=== PATIENT | male | born 1950 | race Caucasian/White ===

== ENCOUNTER 2017-03-25 22:23 | Inpatient (IN) | payer MEDICARE ==
[~2017-03-25] VITALS: Ht 177.8 cm; Wt 83.0 kg
[2017-03-25 22:26] VITALS: BP 140/81; PULSE 88; RESP 16; TEMP 97.8; O2SAT 98
[2017-03-25] MEDS ORDERED: SODIUM CHLOR 0.9% 1000 ML INJ 1,000 ML IV SCH (22:52)
--- NOTE | 2017-03-25 22:58 | PD ---
HPI Chief Complaint: GI Complaint Time Seen by Provider: 22:53 Travel History International Travel<30 days: No Contact w/Intl Traveler<30days: No Traveled to known affect area: No History of Present Illness HPI 66-year-old male with a history of hypertension, diabetes presents to the emergency department for evaluation of inability to swallow. The patient states that he's had worsening difficulty with swallowing over the last month. States he was seen by his PCP who referred him to a middle school counselor. States he had a swallow study that was abnormal. He had an EGD [address] Muñoz that showed he had a mass and they performed a biopsy. They were called today with the results that it is esophageal cancer. States that they were told he would need a tube for nutrition. The patient and his family are concerned that he is dehydrated because he is unable to eat or drink secondary to this esophageal mass. States that he has been eating chicken broth but even now this is becoming more difficult. States that when he tries to eat or drink she vomits. He denies any fever, chills, chest pain, shortness of breath, abdominal pain, diarrhea, constipation. No other complaints. PCP Dr. Traylor. [facility] Social History Tobacco Use: No Allergies-Medications (Allergen,Severity, Reaction): Coded Allergies: No Known Allergies (Unverified , 03/25/17) Review of Systems Except as stated in HPI: all other systems reviewed are Neg Physical Exam Narrative GENERAL: Well-nourished and well-developed pleasant male patient in no acute distress who is nontoxic appearing. SKIN: Warm and dry. HEAD: Normocephalic and atraumatic. EYES: No injection, drainage, or hyphema noted. PERRLA. EOMI. ENT: No nasal drainage noted. Oropharynx is clear. NECK: Supple and the trachea is midline. CARDIOVASCULAR: Regular rate and rhythm. RESPIRATORY: Breath sounds are equal bilaterally with no accessory muscle use, wheezing, rhonchi, or crackles. GASTROINTESTINAL: Abdomen is soft, non-tender, and nondistended. MUSCULOSKELETAL: No obvious deformities, swelling, cyanosis, or ecchymosis is present throughout the upper and lower extremities. Patient has full range of motion without any signs of neurovascular compromise. NEUROLOGICAL: Awake, alert, and oriented. Normal speech and gait. Cranial nerves are grossly intact. Data Data Last Documented VS Vital Signs Date Time Temp Pulse Resp B/P Pulse Ox O2 Delivery O2 Flow Rate FiO2 03/25/17 22:26 97.8 88 16 140/81 98 Room Air Orders Complete Blood Count With Diff (03/25/17 22:52) Comprehensive Metabolic Panel (03/25/17 22:52) Lipase (03/25/17 22:52) Prothrombin Time / Inr (Pt) (03/25/17 22:52) Act Partial Throm Time (Ptt) (03/25/17 22:52) Urinalysis - C+S If Indicated (03/25/17 22:52) Iv Access Insert/Monitor (03/25/17 22:52) Ecg Monitoring (03/25/17 22:52) Oximetry (03/25/17 22:52) Sodium Chlor 0.9% 1000 Ml Inj (Ns 1000 M (03/25/17 22:52) Sodium Chloride 0.9% Flush (Ns Flush) (03/25/17 23:00) MDM Medical Decision Making Medical Screen Exam Complete: Yes Emergency Medical Condition: Yes Differential Diagnosis Dehydration versus electrolyte abnormality versus esophageal obstruction Narrative Course 66-year-old male with recent diagnosis of esophageal cancer presents to the emergency department for evaluation of inability to eat and drink secondary to esophageal obstruction. Patient is afebrile, vital signs are stable. Abdominal examination is benign. IV access is obtained, labs have been drawn and sent. Patient is placed on cardiac telemetry and pulse oximetry monitoring. Patient will likely need to be admitted as he does not tolerate oral intake. Patient is signed out to my attending physician Dr. Craft for evaluation and disposition. Jennifer Pena Mar 25, 2017 22:58
[2017-03-25] MEDS ORDERED: SODIUM CHLORIDE 0.9% FLUSH 10 ML FLUSH IV FLUSH PRN (23:00)
[2017-03-25] MEDS ORDERED: ALLO300T2 PO (23:08)
[2017-03-25] MEDS ORDERED: GLIP1TAB51 PO (23:08)
[2017-03-25] MEDS ORDERED: SIMV40TA PO (23:08)
[2017-03-25] MEDS ORDERED: METF1000 PO (23:08)
[2017-03-25] MEDS ORDERED: LISI20TA PO (23:08)
[2017-03-26] VITALS (11 sets, daily range): BP systolic 115–160; BP diastolic 70–89; PULSE 67–99; RESP 16–20; TEMP 96.8–98.5; O2SAT 96–100
[2017-03-26 00:02] LABS: AUTOMATED NEUTROPHIL # 6.9 TH/MM3 (1.8-7.7); BASOPHIL # 0.1 TH/MM3 (0-0.2); BASOPHIL % 0.6 % (0.0-2.0); EOSINOPHIL # 0.1 TH/MM3 (0-0.4); EOSINOPHIL % 1.2 % (0.0-4.0); HEMATOCRIT 39.6 % (39.0-51.0); HEMO FLAGS DIFF FINAL; LYMPH % 20.3 % (9.0-44.0); LYMPHOCYTE # 2.1 TH/MM3 (1.0-4.8); MEAN CELL VOLUME 92.1 FL (80.0-100.0); MEAN CORPUSCULAR HEMOGLOBIN 31.8 PG (27.0-34.0); MEAN CORPUSCULAR HGB CONC 34.5 % (32.0-36.0); MONO % 10.1 % (0.0-8.0); NEUT % 67.8 % (16.0-70.0); PLATELET COUNT 196 TH/MM3 (150-450); RED CELL DISTRIBUTION WIDTH 13.8 % (11.6-17.2); WHITE BLOOD COUNT 10.2 TH/MM3 (4.0-11.0)
[2017-03-26 00:25] LABS: ANION GAP 12 MEQ/L (5-15); AST (GOT) 16 U/L (15-37); BICARBONATE 23.9 MEQ/L (21.0-32.0); BLOOD UREA NITROGEN 26 MG/DL (7-18); CHLORIDE 99 MEQ/L (98-107); GLOMERULAR FILTRATION RATE 46 ML/MIN (>89); POTASSIUM 3.9 MEQ/L (3.5-5.1); SODIUM (NA) 135 MEQ/L (136-145)
[2017-03-26 00:26] LABS: ALT (GPT) 34 U/L (12-78)
[2017-03-26 00:28] LABS: ALKALINE PHOSPHATASE 80 U/L (45-117); TOTAL BILIRUBIN ADULT 1.1 MG/DL (0.2-1.0)
--- NOTE | 2017-03-26 00:42 | PD ---
Physical Exam Date Seen by Provider: Mar 26, 2017 Time Seen by Provider: 00:30 Narrative This is a 66-year-old male who I'm seeing with Esha Pena PA-C. The patient presents with inability to swallow food oral liquid. The patient was newly diagnosed he esophageal cancer and was told to come to the emergency department for admission for a G-tube. The patient has not seen an oncologist as of yet. He states they just found out that it is esophageal cancer today. He denies any fevers, chills. He does report weight loss but cannot quantitate the amount. There are no other complaints time my examination. Data Data Last Documented VS Vital Signs Date Time Temp Pulse Resp B/P Pulse Ox O2 Delivery O2 Flow Rate FiO2 03/25/17 22:26 97.8 88 16 140/81 98 Room Air Orders Complete Blood Count With Diff (03/25/17 22:52) Comprehensive Metabolic Panel (03/25/17 22:52) Lipase (03/25/17 22:52) Prothrombin Time / Inr (Pt) (03/25/17 22:52) Act Partial Throm Time (Ptt) (03/25/17 22:52) Urinalysis - C+S If Indicated (03/25/17 22:52) Iv Access Insert/Monitor (03/25/17 22:52) Ecg Monitoring (03/25/17 22:52) Oximetry (03/25/17 22:52) Sodium Chlor 0.9% 1000 Ml Inj (Ns 1000 M (03/25/17 22:52) Sodium Chloride 0.9% Flush (Ns Flush) (03/25/17 23:00) Admit Order (Ed Use Only) (03/26/17 00:04) Labs Laboratory Tests Test 03/25/17 23:45 White Blood Count 10.2 TH/MM3 Red Blood Count 4.30 MIL/MM3 Hemoglobin 13.7 GM/DL Hematocrit 39.6 % Mean Corpuscular Volume 92.1 FL Mean Corpuscular Hemoglobin 31.8 PG Mean Corpuscular Hemoglobin 34.5 % Concent Red Cell Distribution Width 13.8 % Platelet Count 196 TH/MM3 Mean Platelet Volume 10.6 FL Neutrophils (%) (Auto) 67.8 % Lymphocytes (%) (Auto) 20.3 % Monocytes (%) (Auto) 10.1 % Eosinophils (%) (Auto) 1.2 % Basophils (%) (Auto) 0.6 % Neutrophils # (Auto) 6.9 TH/MM3 Lymphocytes # (Auto) 2.1 TH/MM3 Monocytes # (Auto) 1.0 TH/MM3 Eosinophils # (Auto) 0.1 TH/MM3 Basophils # (Auto) 0.1 TH/MM3 CBC Comment DIFF FINAL Differential Comment Sodium Level 135 MEQ/L Potassium Level 3.9 MEQ/L Chloride Level 99 MEQ/L Carbon Dioxide Level 23.9 MEQ/L Anion Gap 12 MEQ/L Blood Urea Nitrogen 26 MG/DL Creatinine 1.52 MG/DL Estimat Glomerular Filtration 46 ML/MIN Rate Random Glucose 326 MG/DL Calcium Level 9.7 MG/DL Total Bilirubin 1.1 MG/DL Aspartate Amino Transf 16 U/L (AST/SGOT) Alanine Aminotransferase 34 U/L (ALT/SGPT) Alkaline Phosphatase 80 U/L Total Protein 8.1 GM/DL Albumin 4.0 GM/DL Lipase 370 U/L MDM Medical Record Reviewed: Yes Supervised Visit with MICHAEL: Yes Narrative Course 66 year-old gentleman with a new diagnosis of esophageal cancer, presents with inability to swallow food or water. Patient reports significant weight loss over the last 3 weeks. He will be admitted under observation and have a consult for a PEG tube placement. He has not as yet seen oncology and will need to get set up in the oncology center as well. He is reporting pain in his esophageal distribution. He's been given pain medicines started on dextrose with half normal saline as his BUN and creatinine are both elevated. Diagnosis Primary Impression: newly diagnosed esophageal cancer Additional Impressions: inability to swallow liquid or food Acute kidney injury Obdulio Craft MD Mar 26, 2017 00:42
[2017-03-26] MEDS ORDERED: DEXT 5%-NACL 0.45% 1000 ML INJ 1,000 ML IV SCH (00:45)
[2017-03-26] MEDS ORDERED: HYDROmorphone HCL PF 1 MG/ML VIAL IVS ONE (00:45)
[2017-03-26] MEDS ORDERED: ONDANSETRON HCL 4 MG/2 ML VIAL IVP ONE (00:45)
[2017-03-26] MEDS ORDERED: SODIUM CHLORIDE 0.9% FLUSH 10 ML FLUSH IV FLUSH PRN (01:00)
[2017-03-26] MEDS ORDERED: MORPHINE SULFATE 4 MG/ML INJ IV PRN ×2 (01:00)
[2017-03-26] MEDS ORDERED: NALOXONE HCL 0.4 MG/ML AMP IV PRN (01:00)
[2017-03-26] MEDS: SODIUM CHLOR 0.9% 1000 ML INJ 1,000 ML IV SCH ×2 (01:18→12:35)
[2017-03-26] MEDS: HEPARIN SODIUM - SQ 10,000 UNITS/ML VIAL SQ SCH ×3 (01:26→17:00)
--- NOTE | 2017-03-26 01:38 | HHI.HP ---
[facility] Jethro Traylor MD Admission Diagnosis esophageal obastruction, inability to eat or drink, esophageal cance Diagnoses: Chief Complaint: Generalized weakness, difficulty swallowing for both solids and some liquid, nausea and recent history of esophageal cancer diagnosis Travel History International Travel<30 Days: No Contact w/Intl Traveler <30 Da: No Traveled to Known Affected Are: No History of Present Illness 66 years old male has been struggling with inability to swallow food both liquid and solid patient had an EGD with biopsy done by Dr. Thao, biopsy was reported today with positive esophageal cancer. Patient went to see his doctor Dr. Sarabia and he advised him to go to the hospital due to dehydration. Patient reported he hasn't been able to eat or drink anything for the last 3 weeks. Feeling extremely weak, he barely can drink water positive nausea no vomiting since he doesn't even eat or drink, positive pain in the epigastric area 8 out of 10, no hemoptysis, no diarrhea no hematochezia. Review of Systems All systems reviewed and was positive for what is mentioned in history of present illness otherwise negative Past Family Social History Past Medical History Hypertension hyperlipidemia diabetes mellitus Allergies: Coded Allergies: No Known Allergies (Unverified , 03/25/17) Family History Father had a prostate cancer, sister had breast cancer, brother had a lung cancer Social History Patient quit smoking 15 years ago , used to drink daily couple drinks vodka up to 3 weeks ago when he was unable to swallow, no illicit drug abuse Physical Exam Vital Signs Vital Signs Date Time Temp Pulse Resp B/P Pulse Ox O2 Delivery O2 Flow Rate FiO2 03/25/17 22:26 97.8 88 16 140/81 98 Room Air Physical Exam GENERAL: This is a well-nourished, well-developed patient, in no apparent distress. SKIN: No rashes, ecchymoses or lesions. Cool and dry. HEAD: Atraumatic. Normocephalic. No temporal or scalp tenderness. EYES: Pupils equal round and reactive. Extraocular motions intact. No scleral icterus. No injection or drainage. ENT: Nose without bleeding, purulent drainage or septal hematoma. Throat without erythema, tonsillar hypertrophy or exudate. Uvula midline. Airway patent. NECK: Trachea midline. No JVD or lymphadenopathy. Supple, nontender, no meningeal signs. CARDIOVASCULAR: Regular rate and rhythm without murmurs, gallops, or rubs. RESPIRATORY: Clear to auscultation. Breath sounds equal bilaterally. No wheezes , rales, or rhonchi. GASTROINTESTINAL: Abdomen soft, non-tender, nondistended. No hepato-splenomegaly , or palpable masses. No guarding. MUSCULOSKELETAL: Extremities without clubbing, cyanosis, or edema. No joint tenderness, effusion, or edema noted. No calf tenderness. Negative Homans sign bilaterally. NEUROLOGICAL: Awake and alert. Cranial nerves II through XII intact. Motor and sensory grossly within normal limits. Five out of 5 muscle strength in all muscle groups. Normal speech. Laboratory Laboratory Tests Test 03/25/17 23:45 White Blood Count 10.2 Red Blood Count 4.30 Hemoglobin 13.7 Hematocrit 39.6 Mean Corpuscular Volume 92.1 Mean Corpuscular Hemoglobin 31.8 Mean Corpuscular Hemoglobin 34.5 Concent Red Cell Distribution Width 13.8 Platelet Count 196 Mean Platelet Volume 10.6 Neutrophils (%) (Auto) 67.8 Lymphocytes (%) (Auto) 20.3 Monocytes (%) (Auto) 10.1 Eosinophils (%) (Auto) 1.2 Basophils (%) (Auto) 0.6 Neutrophils # (Auto) 6.9 Lymphocytes # (Auto) 2.1 Monocytes # (Auto) 1.0 Eosinophils # (Auto) 0.1 Basophils # (Auto) 0.1 CBC Comment DIFF FINAL Differential Comment Sodium Level 135 Potassium Level 3.9 Chloride Level 99 Carbon Dioxide Level 23.9 Anion Gap 12 Blood Urea Nitrogen 26 Creatinine 1.52 Estimat Glomerular Filtration 46 Rate Random Glucose 326 Calcium Level 9.7 Total Bilirubin 1.1 Aspartate Amino Transf 16 (AST/SGOT) Alanine Aminotransferase 34 (ALT/SGPT) Alkaline Phosphatase 80 Total Protein 8.1 Albumin 4.0 Lipase 370 Result Diagram: 03/25/17 6547 03/25/17 6738 Assessment and Plan Assessment and Plan 66 years old male came with dysphagia to liquid and solid, recently diagnosed with esophageal cancer Severe dysphagia due to esophageal cancer Severe dehydration due to poor oral intake due to esophageal cancer MADDY due to due to dehydration H/O alcohol abuse Suspect malnutrition due to above Hypertension hyperlipidemia diabetes mellitus DVT prophylaxis Plan: Admit for observation Iv fluid, electrolytes replacement Will check folic acid vitamin B 12 and scissoring his history of malnutrition and alcoholism Accu-Chek and insulin sliding scale Vasotec as needed for hypertension Consul GI for possible PEG tube need Consult oncology Avoid nephrotoxin, monitor BMP Heparin and SCD for DVT prophylaxis Kyra Blackmon MD Mar 26, 2017 01:38
[2017-03-26 01:40] LABS: APTT (PATIENT) 25.2 SEC (24.3-30.1); INTERNATIONAL NORMALIZED RATIO 0.9 RATIO; PROTHROMBIN TIME - PATIENT 10.4 SEC (9.8-11.6)
[2017-03-26] MEDS ORDERED: DEXTROSE 50% IN WATER 50 ML VIAL(D50) IV PRN (01:45)
[2017-03-26] MEDS ORDERED: GLUCAGON 1 MG/ML VIAL OTHER PRN (01:45)
[2017-03-26] MEDS: INSULIN NovoLIN REGULAR SUPPLEMENTAL SCALE SQ SCH ×4 (06:08→21:00)
--- NOTE | 2017-03-26 09:53 | HHI.PR ---
Subjective Remarks Pt reports that he has been unable to eat any solid food for around 3 weeks. He had been tolerating some liquids. He has lost 30lbs in the last month. Objective Vitals Vital Signs Date Time Temp Pulse Resp B/P Pulse Ox O2 Delivery O2 Flow Rate FiO2 03/26/17 08:30 96 21 03/26/17 07:50 98.0 69 16 131/80 97 03/26/17 04:52 98.5 67 18 138/78 97 03/26/17 02:22 97.8 79 18 144/84 98 03/26/17 01:00 99 16 148/89 96 Room Air 03/26/17 00:00 68 16 160/80 96 Room Air 03/25/17 22:26 97.8 88 16 140/81 98 Room Air Result Diagram: 03/25/17 2345 03/25/17 2345 Other Results Laboratory Tests Test 03/25/17 03/26/17 23:45 01:15 White Blood Count 10.2 TH/MM3 Red Blood Count 4.30 MIL/MM3 Hemoglobin 13.7 GM/DL Hematocrit 39.6 % Mean Corpuscular Volume 92.1 FL Mean Corpuscular Hemoglobin 31.8 PG Mean Corpuscular Hemoglobin 34.5 % Concent Red Cell Distribution Width 13.8 % Platelet Count 196 TH/MM3 Mean Platelet Volume 10.6 FL Neutrophils (%) (Auto) 67.8 % Lymphocytes (%) (Auto) 20.3 % Monocytes (%) (Auto) 10.1 % Eosinophils (%) (Auto) 1.2 % Basophils (%) (Auto) 0.6 % Neutrophils # (Auto) 6.9 TH/MM3 Lymphocytes # (Auto) 2.1 TH/MM3 Monocytes # (Auto) 1.0 TH/MM3 Eosinophils # (Auto) 0.1 TH/MM3 Basophils # (Auto) 0.1 TH/MM3 CBC Comment DIFF FINAL Differential Comment Sodium Level 135 MEQ/L Potassium Level 3.9 MEQ/L Chloride Level 99 MEQ/L Carbon Dioxide Level 23.9 MEQ/L Anion Gap 12 MEQ/L Blood Urea Nitrogen 26 MG/DL Creatinine 1.52 MG/DL Estimat Glomerular Filtration 46 ML/MIN Rate Random Glucose 326 MG/DL Calcium Level 9.7 MG/DL Total Bilirubin 1.1 MG/DL Aspartate Amino Transf 16 U/L (AST/SGOT) Alanine Aminotransferase 34 U/L (ALT/SGPT) Alkaline Phosphatase 80 U/L Total Protein 8.1 GM/DL Albumin 4.0 GM/DL Lipase 370 U/L Prothrombin Time 10.4 SEC Prothromb Time International 0.9 RATIO Ratio Activated Partial 25.2 SEC Thromboplast Time Objective Remarks General: NAD, AAOx3 Chest: CTA Cardiac: Regular Abd: +BS, soft ND/NT Ext: No edema A/P Problem List: (1) Esophageal cancer Status: Acute Plan: - Pt recently had been having progressive dysphagia and worsening reflux symptoms. He underwent evaluation with EGD on 03/23/[address] Muñoz which revealed a circumferential mass in the distal esophagus , completely obstructing - He was contacted by the GI office and informed that the pathology revealed esophageal cancer - Pt has been unable to eat or drink much of anything for the last 3 weeks. - He was seen by his PCP, Dr. Traylor, yesterday and sent to the ED for dehydration and for possible PEG placement. 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 - He was referred as an outpt to Thoracic surgery and Oncology but has not been seen yet. - GI has been consulted but if PEG tube to be placed it will likely need to have PEG tube placed by IR as the mass was obstructing in the distal esophagus. - We will consult Oncology as well. 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 - Cont. IVF - Supportive care - Further recommendations as the case develops (2) Dehydration Status: Acute Plan: - Cont. IVF (3) HTN (hypertension) Status: Chronic Plan: - Home meds are on hold - Vasotec PRN (4) Diabetes mellitus type 2, noninsulin dependent Status: Chronic Plan: - NovoLog SSI - Hold OHA - Accu checks (5) CKD (chronic kidney disease) stage 3, GFR 30-59 ml/min Status: Acute Plan: - Review of outpt labs from October noted Cr 1.32, - Labs at admission slightly worse than baseline, likely secondary to poor po intake and some dehydration. - Cont. IVF - Monitor labs Assessment and Plan Patient examined. Assessment and plan formulated with Michelle Urbina PA-C. I agree with the above. Michelle Urbina Mar 26, 2017 09:53 See Jacobson DO Mar 27, 2017 10:12
[2017-03-26] MEDS: SODIUM CHLORIDE 0.9% FLUSH 10 ML FLUSH IV FLUSH SCH ×2 (09:58→21:00)
[2017-03-26] MEDS ORDERED: ENALAPRILAT 1.25 MG/ML VIAL IV PUSH PRN (10:00)
[2017-03-26] MEDS: PANTOPRAZOLE SODIUM 40 MG VIAL IV PUSH SCH (12:33)
[2017-03-26] MEDS: HYDROmorphone HCL PF 1 MG/ML VIAL IV PUSH PRN ×2 (15:17→21:01)
--- NOTE | 2017-03-26 20:28 | MB ---
cc: SERGEI MESSER M.D., KHALIL MD DATE OF CONSULTATION: 03/26/[address] Blackmon. REASON FOR CONSULTATION Oncology was consulted to render an opinion regarding a patient with newly diagnosed esophageal cancer. HISTORY OF PRESENT ILLNESS The patient is a very pleasant 66-year-old male with a remote history of tobacco use and alcohol use who presented with worsening dysphagia and dehydration. He stated that he was doing fine until three weeks ago when he started having dysphagia. It had progressed rapidly and at this point he is not able to swallow any solids, he is able to drink liquid slowly. He was sent for a CT scan which showed thickening of the distal esophagus. He saw Dr. Muñoz and underwent upper endoscopy March 23 which reportedly showed a circumferential mass in the distal esophagus completely obstructing the esophagus. Biopsy showed poorly differentiated adenocarcinoma. He went to see his primary physician and noted to be dehydrated and was sent to the hospital and subsequently admitted. He has lost about 30 pounds over the last three weeks. He has constant midepigastric pain. He has increased weakness. He denies any fevers, chills or night sweats. He has nausea and vomiting every time he tries to eat. He has no lower abdominal pain. He has small bowel movement. He has no dysuria or hematuria. He denies any bone pain. Denies any headache. Denies any focal numbness or weakness. PAST MEDICAL HISTORY 1. Hypertension. 2. Hyperlipidemia. 3. Diabetes mellitus. 4. CT scan showed emphysematous changes. 5. Possible history of Beltran's esophagus. PAST SURGICAL HISTORY None. FAMILY HISTORY A sister had breast cancer, father had prostate cancer and brother had lung cancer. One son and one daughter both healthy. SOCIAL HISTORY He quit tobacco about 15 years ago, totally he smoked about 20 years one pack a day. He drinks vodka about two drinks a day but do about three weeks ago. ALLERGIES NO KNOWN DRUG ALLERGIES. CURRENT MEDICATIONS 1. Protonix. 2. Heparin. REVIEW OF SYSTEMS CONSTITUTIONAL: He lost about 30 pounds. EYES: Denies any blurry vision or double vision. ENT: Denies any mouth sores or voice changes. CARDIOVASCULAR: Denies chest pain or palpitation. RESPIRATORY: Denies any shortness of breath or cough. GASTROINTESTINAL: As above. GENITOURINARY: Denies any dysuria or hematuria. MUSCULOSKELETAL: Negative. HEMATOLOGIC: Negative. ENDOCRINE: Negative. DERMATOLOGIC: Negative. PSYCHIATRIC: Negative. NEUROLOGIC: Negative. PHYSICAL EXAMINATION VITAL SIGNS: Temperature 96.8, blood pressure 115/77. GENERAL: He is alert and oriented x3, in no acute distress. HEAD, EYES, EARS, NOSE AND THROAT: Atraumatic, normocephalic. Pupils equal, round and reactive to light. Extraocular muscles intact. No scleral icterus. Oropharynx - dry mucosa, no lesion, no thrush, no mucositis. NECK: No thyromegaly. No palpable mass. LYMPHATIC: No palpable cervical, clavicular or axillary lymph nodes. CARDIOVASCULAR: Regular S1 and S2, no murmur. LUNGS: Clear to auscultation bilaterally. No wheezing or rhonchi. ABDOMEN: Soft, nontender. I could not palpate liver or spleen. EXTREMITIES: No cyanosis, clubbing or edema. No calf tenderness. BACK: No paravertebral tenderness. SKIN: No rash or petechiae. NEUROLOGIC: Nonfocal. LABORATORY DATA Reviewed. ASSESSMENT 1. Esophageal adenocarcinoma. He presented with dysphagia, started about three weeks ago. He has lost about [address] of the chest showed thickening of the distal esophagus but no clear evidence of adenopathy. EGD reportedly showed a circumferential mass in the distal esophagus causing complete obstruction. Biopsy showed poorly differentiated adenocarcinoma. I had an extensive discussion with the patient and his . Because of the obstructing mass, I do not think he is able to have endoscopic ultrasound done. I recommend outpatient PET scan for further staging. Based on the CT finding, it appears that he has localized disease. The mass appeared to be quite big and is causing complete obstruction. I think it would be at least more than a T2 lesion. If the radiologic study does not show any distant metastasis, I would recommend neoadjuvant chemotherapy and radiation followed by surgical resection at that time. If PET scan showed distant metastasis, then treatment would be palliative chemotherapy. At this point, he is awaiting evaluation by Surgery. 2. Dysphagia due to obstructing esophageal mass. He is going to need PEG tube placement for nutrition. We will consult IR for placement of a PEG tube after he has been evaluated by the surgeon to decide the placement of the PEG tube. 3. Hypertension, stable. 4. Diabetes mellitus, controlled. 5. Hyperlipidemia. 6. Finding of COPD noted on CT of the chest. Clinically he has no symptoms. 7. Nonspecific 8 mm nodule in the right middle lobe. The patient stated that he had a nodule in the right lung and it is chronic. I think a PET scan would be helpful to further evaluate this nodule to make sure he does not have metastatic disease. RECOMMENDATIONS 1. Extensive discussion with the patient and his and their questions answered. 2. Await evaluation by Surgery. 3. He is going to need a port placement for chemotherapy administration. 4. Will need a PEG tube for nutrition but we will consult interventional radiology for placement of PEG tube after he has been evaluated by surgeon to decide on the placement of the PEG tube so as not to interfere with his future surgery. 5. He will need an outpatient PET scan. 6. Consult radiation oncology. Thank you Dr. Blackmon for asking me to see this patient. MD MICHAELA Cardenas/ANJUM /6:40 PM /7:30 PM EMILY
[2017-03-27] VITALS (11 sets, daily range): BP systolic 120–155; BP diastolic 70–81; PULSE 75–93; RESP 16–21; TEMP 97.5–98.6; O2SAT 94–100
[2017-03-27] MEDS: HEPARIN SODIUM - SQ 10,000 UNITS/ML VIAL SQ SCH ×3 (00:04→17:00)
[2017-03-27] MEDS: SODIUM CHLOR 0.9% 1000 ML INJ 1,000 ML IV SCH ×2 (00:29→11:26)
[2017-03-27] MEDS: HYDROmorphone HCL PF 1 MG/ML VIAL IV PUSH PRN ×4 (00:39→18:01)
[2017-03-27] MEDS: INSULIN NovoLIN REGULAR SUPPLEMENTAL SCALE SQ SCH ×4 (06:00→21:18)
[2017-03-27 06:23] LABS: AUTOMATED NEUTROPHIL # 6.4 TH/MM3 (1.8-7.7); BASOPHIL # 0.1 TH/MM3 (0-0.2); BASOPHIL % 0.6 % (0.0-2.0); EOSINOPHIL # 0.1 TH/MM3 (0-0.4); EOSINOPHIL % 0.9 % (0.0-4.0); HEMATOCRIT 35.2 % (39.0-51.0); HEMO FLAGS DIFF FINAL; LYMPH % 14.6 % (9.0-44.0); LYMPHOCYTE # 1.3 TH/MM3 (1.0-4.8); MEAN CELL VOLUME 93.8 FL (80.0-100.0); MEAN CORPUSCULAR HGB CONC 33.1 % (32.0-36.0); MONO % 11.4 % (0.0-8.0); NEUT % 72.5 % (16.0-70.0); PLATELET COUNT 148 TH/MM3 (150-450); RED BLOOD COUNT 3.76 MIL/MM3 (4.50-5.90); RED CELL DISTRIBUTION WIDTH 13.6 % (11.6-17.2); WHITE BLOOD COUNT 8.8 TH/MM3 (4.0-11.0)
[2017-03-27 06:47] LABS: BICARBONATE 25.6 MEQ/L (21.0-32.0)
[2017-03-27] MEDS: SODIUM CHLORIDE 0.9% FLUSH 10 ML FLUSH IV FLUSH SCH ×2 (09:00→21:15)
--- NOTE | 2017-03-27 10:23 | HHI.PR ---
Subjective Remarks Pt c/o pain and swelling at left ankle and foot c/w prior episodes of gout. Objective Vitals Vital Signs Date Time Temp Pulse Resp B/P Pulse Ox O2 Delivery O2 Flow Rate FiO2 03/27/17 08:37 98.5 82 16 120/71 99 03/27/17 06:33 16 03/27/17 04:00 97.5 78 21 155/71 100 03/27/17 00:00 98.0 75 20 148/72 98 03/26/17 20:47 74 03/26/17 20:00 97.5 82 20 150/70 97 03/26/17 16:00 96.8 80 16 115/77 100 03/26/17 12:15 96.8 78 16 130/86 98 03/26/17 03/26/17 03/27/17 15:00 23:00 07:00 Intake Total 480 ml 0 ml Output Total 100 ml 200 ml 850 ml Balance -100 ml 280 ml -850 ml Intake Oral 480 ml 0 ml Output Urine Total 100 ml 200 ml 850 ml # Voids 1 Result Diagram: 03/27/1760403/27/17 06 Objective Remarks General: NAD, AAOx3 Chest: CTA Cardiac: Regular Abd: +BS, soft ND/NT Ext: edema at left ankle, tender to palpation. A/P Problem List: (1) Esophageal cancer Status: Acute Plan: - comgmt with Oncology, Dr. Medina - Pt recently had been having progressive dysphagia and worsening reflux symptoms. He underwent evaluation with EGD on 03/23/[address] Muñoz which revealed a circumferential mass in the distal esophagus , completely obstructing - He was contacted by the GI office and informed that the pathology revealed esophageal cancer - Pt has been unable to eat or drink much of anything for the last 3 weeks. - He was seen by his PCP, Dr. Traylor, day prior to admission and sent to the ED for dehydration and for possible PEG placement. 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 - Case d/w Dr. Medina (03/27/17) --> likely will pursue chemotherapy and radiation therapy - Case d/w Dr. Katz, CTS, (03/26/17) --> possible esophagectomy. Request NO G- tube - awaiting discussion between Oncology & surgery to decide on approach & if pt could have G-tube placement - Place Dobhoff for now with IR, Case d/w IR. - Place Depiu-B-chof - continue IVFs - Supportive care (2) Dehydration Status: Acute Plan: - Cont. IVF (3) Gout Status: Acute Plan: - likely d/t dehydration and stress - cannot give oral agents at this time - will start IV solumedrol - closely follow pt's blood sugars. (4) HTN (hypertension) Status: Chronic Plan: - Home meds are on hold - Vasotec PRN (5) Diabetes mellitus type 2, noninsulin dependent Status: Chronic Plan: - NovoLog SSI - Hold OHA - Accu checks (6) CKD (chronic kidney disease) stage 3, GFR 30-59 ml/min Status: Acute Plan: - improved - Review of outpt labs from October noted Cr 1.32, - cr 1.52 (03/26/17), 1.16 ((03/27) - Cont. IVF - Monitor labs Problem Qualifiers (1) Gout: See Jacobson DO Mar 27, 2017 10:23
[2017-03-27] MEDS: PANTOPRAZOLE SODIUM 40 MG VIAL IV PUSH SCH (11:25)
[2017-03-27] MEDS: methylPREDNISolone SOD SUCC 125 MG/2 ML VIAL IV PUSH SCH ×2 (11:33→21:14)
[2017-03-27] MEDS ORDERED: VANCOMYCIN INJ 1,000 MG in SODIUM CHLOR 0.9% 250 ML INJ 250 ML IV SCH (13:00)
[2017-03-27] MEDS ORDERED: ceFAZolin 2 GM PREMIX 50 ML IV SCH (13:00)
--- NOTE | 2017-03-27 13:43 | PD.ONC.PN ---
Subjective Subjective Remarks Afebrile overnight. Patient resting comfortably in room. Does not want Dobhoff tube. Able to drink coffee and water. at bedside. Objective Data Date Time Temp Pulse Resp B/P Pulse Ox O2 Delivery O2 Flow Rate FiO2 03/27/17 10:39 99 03/27/17 08:37 98.5 82 16 120/71 99 03/27/17 06:33 16 03/27/17 04:00 97.5 78 21 155/71 100 03/27/17 00:00 98.0 75 20 148/72 98 03/26/17 20:47 74 03/26/17 20:00 97.5 82 20 150/70 97 03/26/17 16:00 96.8 80 16 115/77 100 03/27/17 03/27/17 03/27/17 07:00 15:00 23:00 Intake Total 0 ml Output Total 850 ml Balance -850 ml Result Diagram: 03/27/17 0605 03/27/1705 Laboratory Results Laboratory Tests Test 03/27/17 06:05 White Blood Count 8.8 TH/MM3 Red Blood Count 3.76 MIL/MM3 Hemoglobin 11.6 GM/DL Hematocrit 35.2 % Mean Corpuscular Volume 93.8 FL Mean Corpuscular Hemoglobin 31.0 PG Mean Corpuscular Hemoglobin 33.1 % Concent Red Cell Distribution Width 13.6 % Platelet Count 148 TH/MM3 Mean Platelet Volume 10.0 FL Neutrophils (%) (Auto) 72.5 % Lymphocytes (%) (Auto) 14.6 % Monocytes (%) (Auto) 11.4 % Eosinophils (%) (Auto) 0.9 % Basophils (%) (Auto) 0.6 % Neutrophils # (Auto) 6.4 TH/MM3 Lymphocytes # (Auto) 1.3 TH/MM3 Monocytes # (Auto) 1.0 TH/MM3 Eosinophils # (Auto) 0.1 TH/MM3 Basophils # (Auto) 0.1 TH/MM3 CBC Comment DIFF FINAL Differential Comment Sodium Level 141 MEQ/L Potassium Level 4.0 MEQ/L Chloride Level 105 MEQ/L Carbon Dioxide Level 25.6 MEQ/L Anion Gap 10 MEQ/L Blood Urea Nitrogen 20 MG/DL Creatinine 1.16 MG/DL Estimat Glomerular Filtration 63 ML/MIN Rate Random Glucose 236 MG/DL Calcium Level 9.1 MG/DL Carcinoembryonic Antigen 2.4 NG/ML Administered Medications Medications (Trade) Dose Ordered Sig/Ab Route PRN Reason Start Time Stop Time Status Last Admin Dose Admin Sodium Chloride (NS 1000 ml Inj) 1,000 ml @ 84 mls/hr [id number] IV 03/26/17 01:00 03/27/17 11:26 Heparin Sodium (Porcine) (Heparin Inj) 5,000 units Q8H SQ 03/26/17 01:00 03/26/17 17:00 Pantoprazole Sodium (Protonix Inj) 40 mg DAILY IV PUSH 03/26/17 10:15 03/27/17 11:25 Hydromorphone HCl (Dilaudid Pf Inj) 1 mg Q4H PRN IV PUSH PAIN 1-10 03/26/17 15:00 03/27/17 11:34 Methylprednisolone Sodium Succinate (SoluMEDROL INJ) 60 mg Q12HR IV PUSH 03/27/17 10:15 03/27/17 11:33 Objective Remarks GENERAL: Middle aged male, sitting up in bed in [facility]. SKIN: Warm and dry. HEAD: Normocephalic. EYES: No injection or drainage. NECK: Supple, trachea midline. CARDIOVASCULAR: Regular rate and rhythm RESPIRATORY: Breath sounds equal bilaterally. No accessory muscle use. GASTROINTESTINAL: Abdomen soft, non-tender, nondistended. EXTREMITIES: No cyanosis NEUROLOGICAL: No obvious focal deficit. Awake, alert, and oriented x3. Assessment/Plan Problem List: (1) Esophageal cancer Status: Acute Plan: -- upper endoscopy March 23 +circumferential mass in the distal esophagus completely obstructing the esophagus. Biopsy showed poorly differentiated adenocarcinoma. --CT chest showed thickening of the distal esophagus but no clear evidence of adenopathy. --Because of the obstructing mass, I do not think he is able to have endoscopic ultrasound done. --recommend outpatient PET scan for further staging. Based on the CT finding, it appears that he has localized disease. --If the radiologic study does not show any distant metastasis, I would recommend neoadjuvant chemotherapy and radiation followed by surgical resection at that time. -- If PET scan showed distant metastasis, then treatment would be palliative chemotherapy. Assessment 66y/o male with newly diagnosed esophageal cancer. h/o Hypertension. Hyperlipidemia. Diabetes mellitus. CT scan showed emphysematous changes. Possible history of Beltran's esophagus. Plan 1. await surgery evaluation 2. may need TPN if no surgery for several days. Attending Statement The exam, history, and the medical decision-making described in the above note were completed with the assistance of the mid-level provider. I reviewed and agree with the findings presented. I attest that I had a [id number] encounter with the patient on the same day, and personally performed and documented my assessment and findings in the medical record. Able to drink water slowly. No abdominal pain. Need outpt PET for complete staging. He appeared to have localized disease and at least T2. I recommend neoadjuvant chemo and XRT follow by resection per NCCN guideline (category I). However, pt is going to need PEG tube for nutrition while he is receiving the treatment. Await surgical opinion regarding where to place the G-tube as pt is going to need future esophagectomy. He is also going to need port placement for chemo. I will discuss with . I have discussed with . Isabel Vang Mar 27, 2017 13:43 Darwin Medina MD Mar 27, 2017 17:03
[2017-03-27] MEDS ORDERED: LIDOCAINE 1%/EPINEPHrine 1:100,000 SOLN 20 ML VIAL ONE (14:45)
[2017-03-27] MEDS ORDERED: MIDAZOLAM HCL 5 MG/5 ML VIAL ONE (14:48)
[2017-03-27] MEDS ORDERED: fentaNYL CITRATE 250 MCG/5 ML AMP ONE (14:48)
[2017-03-27] MEDS ORDERED: SODIUM CHLORIDE 0.9% FLUSH 10 ML FLUSH IVF PRN (15:30)
--- NOTE | 2017-03-27 15:30 | PD.RAD ---
Post Procedure Progress Note Pre Procedure Diagnosis: (1) Esophageal cancer Post Procedure Diagnosis: (1) Esophageal cancer Procedure Date: Mar 27, 2017 Supervising Radiologist: Rigo Arrieta Proceduralist/Assist: Yenny Keller, RT(R), Chinmay [place], RT(R) Estimated blood loss: <5 ml Plan of Activity Patient to Unit: Nursing Unit Patient Condition: Good Additional Comments: Tip at [facility] See PACS Report for procedural detail/treatment Rigo Arrieta MD Mar 27, 2017 15:30
--- NOTE | 2017-03-27 17:44 | RADRPT ---
EXAM DATE/TIME: 03/27/2017 15:47 [place] COMPARISON: No previous studies available for comparison. INDICATIONS : Patient with a history of esophageal cancer. MEDICAL HISTORY : esophageal cancer. h/o Hypertension. Hyperlipidemia. Diabetes mellitus. CT scan showed emphysematous changes. Possible history of Beltran's esophagus. SURGICAL HISTORY : None. ENCOUNTER: Initial ACUITY: 4-6 days PAIN SCORE: 6/10 LOCATION: Back FLUORO TIME: 0.2 minutes IMAGE SERIES: 0 SEDATION TIME: 30 minutes ACCESS: Right internal jugular vein SEDATION: 1.) 2 mg midazolam (Versed) IV 2.) 100 mcg fentanyl (Sublimaze) IV Prophylactic antibiotics were administered with appropriate pre-procedure timing. Vancomycin within 2 hours of procedure, Ancef (or alternative) within 1 hour of procedure. DEVICE: 1. 8 Cypriot single lumen Bard Power Port PROCEDURE : 1. Continuous pulse oximetry and EKG monitoring. 2. Intravenous conscious sedation. 3. Ultrasound guidance for venous access. 4. Fluoroscopic guided implantable central venous port placement. The patient was placed supine. The neck was prepped in sterile fashion. Full sterile technique was u sed, including cap, mask, sterile gloves and gown, and a large sterile sheet. Hand hygiene and 2% ch lorhexidine Betadine was utilized per protocol for cutaneous antisepsis with appropriate dry time for site. The skin and subcutaneous tissues were infiltrated with local anesthetic solution. Under direct ultrasound guidance, central venous access was accomplished in the targeted vessel. The ultrasound images depicting access guidance were stored and saved to PACS for permanent record. A s ubcutaneous pocket was created using blunt dissection. The port was introduced to the pocket. The c atheter tubing was fed through a subcutaneous tunnel to the venotomy site. The catheter tubing was c ut to a suitable length and then was introduced through a valved Peel-Away sheath and positioned with catheter tubing tip at the cavo-atrial junction level. The pocket incision was closed with subcutic ular Vicryl suture. Steri-Strips were applied. The port was flushed and locked with heparin solutio n per protocol. Sterile dressing was applied to the site. The patient tolerated the procedure well. Conscious sedation was performed with the prescribed dosages and duration as above in the presence of an independent trained radiology nurse to assist in the monitoring of the patient. EKG and oximetry remained stable throughout the procedure. The patient tolerated the procedure well and there were no complications. The patient was sent to post anesthesia recovery in stable condition. CONCLUSION: Uncomplicated ultrasound and fluoroscopic guided implanted central venous port catheter placement as described in detail above. An 8 Cypriot Power port was placed. Rigo Arrieta MD on March 27, 2017 at 17:42 Board Certified Radiologist. This report was verified electronically.
[2017-03-27 17:49] LABS: AUTOMATED NEUTROPHIL # 10.3 TH/MM3 (1.8-7.7); BASOPHIL % 0.2 % (0.0-2.0); HEMATOCRIT 34.6 % (39.0-51.0); HEMO FLAGS DIFF FINAL; LYMPH % 3.3 % (9.0-44.0); LYMPHOCYTE # 0.4 TH/MM3 (1.0-4.8); MEAN CELL VOLUME 95.6 FL (80.0-100.0); MEAN CORPUSCULAR HEMOGLOBIN 30.8 PG (27.0-34.0); MEAN CORPUSCULAR HGB CONC 32.2 % (32.0-36.0); MONO % 3.9 % (0.0-8.0); NEUT % 92.6 % (16.0-70.0); PLATELET COUNT 143 TH/MM3 (150-450); RED BLOOD COUNT 3.62 MIL/MM3 (4.50-5.90); RED CELL DISTRIBUTION WIDTH 13.9 % (11.6-17.2); WHITE BLOOD COUNT 11.2 TH/MM3 (4.0-11.0)
[2017-03-27 17:57] LABS: PROTHROMBIN TIME - PATIENT 10.5 SEC (9.8-11.6)
[2017-03-27 18:16] LABS: ALT (GPT) 24 U/L (12-78); ANION GAP 15 MEQ/L (5-15); AST (GOT) 11 U/L (15-37); BICARBONATE 18.9 MEQ/L (21.0-32.0); BLOOD UREA NITROGEN 20 MG/DL (7-18); CHLORIDE 105 MEQ/L (98-107); GLOMERULAR FILTRATION RATE 50 ML/MIN (>89); MAGNESIUM 1.6 MG/DL (1.5-2.5); POTASSIUM 4.5 MEQ/L (3.5-5.1); SODIUM (NA) 139 MEQ/L (136-145)
[2017-03-27 18:19] LABS: ALKALINE PHOSPHATASE 67 U/L (45-117); TOTAL BILIRUBIN ADULT 0.9 MG/DL (0.2-1.0)
[2017-03-27] MEDS: FAT EMULSION 20% INJ 250 ML (Daily over 8 hours) IV-CENTRAL SCH (21:13)
[2017-03-27] MEDS: CLINIMIX E 5/25 2000 mL- >42 mls/hr IV-CENTRAL SCH ×3 (21:14)
[2017-03-28] VITALS (9 sets, daily range): BP systolic 155–168; BP diastolic 71–78; PULSE 56–80; RESP 17–18; TEMP 96.6–98.2; O2SAT 96–100
[2017-03-28] MEDS: SODIUM CHLOR 0.9% 1000 ML INJ 1,000 ML IV SCH (00:40)
[2017-03-28] MEDS: HEPARIN SODIUM - SQ 10,000 UNITS/ML VIAL SQ SCH ×3 (01:00→17:00)
[2017-03-28] MEDS ORDERED: GLUCAGON 1 MG/ML VIAL OTHER PRN (06:30)
[2017-03-28] MEDS ORDERED: DEXTROSE 50% IN WATER 50 ML VIAL(D50) IV PUSH PRN ×2 (06:30→13:30)
[2017-03-28] MEDS ORDERED: MEDIUM DOSE INSULIN NOVOLOG SUPPLEMENTAL SCALE SQ SCH (07:00)
[2017-03-28] MEDS: SODIUM CHLORIDE 0.9% FLUSH 10 ML FLUSH IV FLUSH SCH ×2 (07:58→22:25)
[2017-03-28] MEDS: methylPREDNISolone SOD SUCC 125 MG/2 ML VIAL IV PUSH SCH ×2 (07:58→22:24)
[2017-03-28] MEDS: PANTOPRAZOLE SODIUM 40 MG VIAL IV PUSH SCH (08:05)
[2017-03-28 09:03] LABS: AUTOMATED NEUTROPHIL # 6.9 TH/MM3 (1.8-7.7); BASOPHIL % 0.2 % (0.0-2.0); HEMATOCRIT 29.9 % (39.0-51.0); HEMO FLAGS DIFF FINAL; LYMPH % 5.7 % (9.0-44.0); LYMPHOCYTE # 0.4 TH/MM3 (1.0-4.8); MEAN CELL VOLUME 94.6 FL (80.0-100.0); MEAN CORPUSCULAR HEMOGLOBIN 31.1 PG (27.0-34.0); MEAN CORPUSCULAR HGB CONC 32.9 % (32.0-36.0); MONO % 6.5 % (0.0-8.0); NEUT % 87.6 % (16.0-70.0); PLATELET COUNT 122 TH/MM3 (150-450); RED BLOOD COUNT 3.16 MIL/MM3 (4.50-5.90); RED CELL DISTRIBUTION WIDTH 13.2 % (11.6-17.2); WHITE BLOOD COUNT 7.9 TH/MM3 (4.0-11.0)
[2017-03-28] MEDS ORDERED: HYDROmorphone HCL PF 1 MG/ML VIAL IV PRN (09:30)
[2017-03-28] MEDS ORDERED: INSULIN ASPART 1,000 UNITS/10 ML VIAL SQ ONE (09:30)
[2017-03-28 09:38] LABS: ALKALINE PHOSPHATASE 54 U/L (45-117); ALT (GPT) 16 U/L (12-78); ANION GAP 13 MEQ/L (5-15); AST (GOT) 8 U/L (15-37); BICARBONATE 18.4 MEQ/L (21.0-32.0); BLOOD UREA NITROGEN 22 MG/DL (7-18); CHLORIDE 103 MEQ/L (98-107); GLOMERULAR FILTRATION RATE 59 ML/MIN (>89); MAGNESIUM 1.9 MG/DL (1.5-2.5); POTASSIUM 4.4 MEQ/L (3.5-5.1); SODIUM (NA) 134 MEQ/L (136-145); TOTAL BILIRUBIN ADULT 0.6 MG/DL (0.2-1.0)
[2017-03-28] MEDS: INSULIN DETEMIR 100 UNITS/ML VIAL SQ SCH (09:44)
[2017-03-28] MEDS ORDERED: HIGH DOSE INSULIN NOVOLOG SUPPLEMENTAL SCALE SQ SCH (11:00)
--- NOTE | 2017-03-28 11:22 | HHI.PR ---
Subjective Remarks Some improvement with pt's left ankle pain. Objective Vitals Vital Signs Date Time Temp Pulse Resp B/P Pulse Ox O2 Delivery O2 Flow Rate FiO2 03/28/17 08:00 97.8 74 18 166/74 98 03/28/17 04:00 96.6 76 18 168/74 100 03/28/17 00:00 98.1 80 17 160/78 99 03/27/17 22:29 79 03/27/17 20:00 98.1 88 18 155/73 98 03/27/17 16:49 98.0 93 16 155/70 99 03/27/17 16:15 90 18 150/73 97 03/27/17 16:00 88 18 152/81 95 03/27/17 15:45 98.6 89 20 150/74 94 03/27/17 13:37 98.2 92 16 146/78 98 03/27/17 03/27/17 03/28/17 15:00 23:00 07:00 Intake Total 1404 ml 480 ml Output Total 1300 ml Balance 1404 ml -820 ml Intake Oral 480 ml 480 ml IV Total 924 ml Output Urine Total 1300 ml # Voids 4 Result Diagram: 03/28/17 0540 03/28/17 0540 Imaging Last Impressions Port Line Insertion 03/27/17 0000 Signed Impressions: Service Date/Time: Monday, March 27, 2017 15:47 - CONCLUSION: Uncomplicated ultrasound and fluoroscopic guided implanted central venous port catheter placement as described in detail above. An 8 [place] Power port was placed. Rigo Arrieta MD Objective Remarks General: NAD, AAOx3 Chest: CTA Cardiac: Regular Abd: +BS, soft ND/NT Ext: edema at left ankle, tender to palpation. A/P Problem List: (1) Diabetes mellitus type 2, noninsulin dependent Status: Chronic Plan: - Pt receiving TPN and IV solumedrol - pt's blood sugar now over 500 - started levemir 15 units BID - novolog sliding scale, high dose - Pt given novolog 20units this AM - Pt receiving IVFs - Transfer to ICU - Critical Care to consult, case already d/w Dr. Goddard - Pt will need insulin drip - Hold OHA - Accu checks (2) Esophageal cancer Status: Acute Plan: - comgmt with Oncology, Dr. Medina - Pt recently had been having progressive dysphagia and worsening reflux symptoms. He underwent evaluation with EGD on 03/23/[address] Muñoz which revealed a circumferential mass in the distal esophagus , completely obstructing - He was contacted by the GI office and informed that the pathology revealed esophageal cancer - Pt has been unable to eat or drink much of anything for the last 3 weeks prior to admission. - He was seen by his PCP, Dr. Traylor, day prior to admission and sent to the ED for dehydration and for possible PEG placement. 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 - Case d/w Dr. Medina (03/27/17) --> likely will pursue chemotherapy and radiation therapy - Case d/w Dr. Katz, CTS, (03/26/17) --> possible esophagectomy. Request NO G- tube - Case d/w Dr. Cameron. Anticipate placement of J-tube 03/30/17 - Pt refused Dobhoff - [id number] placed by IR (03/27/17) - Supportive care (3) Dehydration Status: Acute Plan: - Cont. IVF (4) Gout Status: Acute Plan: - likely d/t dehydration and stress - cannot give oral agents at this time - IV solumedrol - closely follow pt's blood sugars. (5) HTN (hypertension) Status: Chronic Plan: - Home meds are on hold - Vasotec PRN (6) CKD (chronic kidney disease) stage 3, GFR 30-59 ml/min Status: Acute Plan: - improved - Review of outpt labs from October noted Cr 1.32, - cr 1.52 (03/26/17), 1.16 (03/27), 1.23 (03/28) - Cont. IVF - Monitor labs Problem Qualifiers (1) Gout: See Jacobson DO Mar 28, 2017 11:22
--- NOTE | 2017-03-28 13:29 | PD.CONS ---
[facility] Service Critical Care Medicine Consult Requested By Dr. Jacobson Reason for Consult refractory hyperglycemia Primary Care Physician Unknown History of Present Illness This is a 66-year-old male with a history of hypertension, hyperlipidemia, and diabetes which is previously iel-jsrvoaq-vtbvofnel. 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 As part of his inpatient workup he is been started on glucocorticoids as well as TPN given his severe dysphagia. During his ongoing workup, his glycemic control has worsened , likely secondary to a combination of his TPN and steroids. Dr. Jacobson called me today because despite aggressive insulin subcutaneous therapy, the patient remains with glucoses greater than 500. I evaluated the patient and the ICU. He denies any acute symptoms such as chest pain, shortness of breath, dizziness, lightheadedness, syncope, fever, chills. He states that his glucoses usually under good control on oral medications at home. Critical care medicine is been consulted to evaluate and manage his refractory hyperglycemia. Review of Systems Constitutional: DENIES: Diaphoretic episodes, Fatigue, Fever, Chills, Dizziness Respiratory: DENIES: Cough, Sputum production, Shortness of breath Cardiovascular: DENIES: Chest pain, Palpitations, Syncope, Dyspnea on Exertion , Lower Extremity Edema Gastrointestinal: COMPLAINS OF: Difficulty Swallowing, DENIES: Abdominal pain , Constipation, Diarrhea, Nausea, Vomiting Past Family Social History Allergies: Coded Allergies: No Known Allergies (Unverified , 03/25/17) Past Medical History Hypertension Hyperlipidemia Diabetes, esh-awhuydh-ujiqajptb Past Surgical History None Reported Medications Oral hypoglycemics Active Ordered Medications See MAR Family History Per chart review, father had prostate cancer, sister had breast cancer, brother had lung cancer Social History Prior tobacco use, recent EtOH use a couple of drinks of vodka a day, however stopped 3 weeks prior to admission with his new dysphagia. Physical Exam Vital Signs Vital Signs Date Time Temp Pulse Resp B/P Pulse Ox O2 Delivery O2 Flow Rate FiO2 03/28/17 12:00 97.9 69 18 163/75 98 03/28/17 10:15 21 03/28/17 08:00 97.8 74 18 166/74 98 03/28/17 04:00 96.6 76 18 168/74 100 03/28/17 00:00 98.1 80 17 160/78 99 03/27/17 22:29 79 03/27/17 20:00 98.1 88 18 155/73 98 03/27/17 16:49 98.0 93 16 155/70 99 03/27/17 16:15 90 18 150/73 97 03/27/17 16:00 88 18 152/81 95 03/27/17 15:45 98.6 89 20 150/74 94 03/27/17 13:37 98.2 92 16 146/78 98 Physical Exam GENERAL: Middle-aged male, lying in bed, no acute distress HEENT: Normocephalic. Atraumatic. Pupils equal, round, reactive, conjugate. Mucous membranes are moist NECK: Trachea is midline. There is no JVD. CHEST: Unlabored. Equal chest rise. On room air. CARDIOVASCULAR: Normal rate, regular rhythm. Sinus by telemetry ABDOMEN: Soft, nontender, nondistended. No guarding. MUSCULOSKELETAL: Pulses 2+. No peripheral edema. NEUROLOGICAL: RASS 0. GCS 15. CAM -. No focal deficits. Laboratory Laboratory Tests Test 03/27/17 03/28/17 03/28/17 17:20 05:40 11:40 White Blood Count 11.2 7.9 Red Blood Count 3.62 3.16 Hemoglobin 11.2 9.8 Hematocrit 34.6 29.9 Mean Corpuscular Volume 95.6 94.6 Mean Corpuscular Hemoglobin 30.8 31.1 Mean Corpuscular Hemoglobin 32.2 32.9 Concent Red Cell Distribution Width 13.9 13.2 Platelet Count 143 122 Mean Platelet Volume 10.3 11.0 Neutrophils (%) (Auto) 92.6 87.6 Lymphocytes (%) (Auto) 3.3 5.7 Monocytes (%) (Auto) 3.9 6.5 Eosinophils (%) (Auto) 0.0 0.0 Basophils (%) (Auto) 0.2 0.2 Neutrophils # (Auto) 10.3 6.9 Lymphocytes # (Auto) 0.4 0.4 Monocytes # (Auto) 0.4 0.5 Eosinophils # (Auto) 0.0 0.0 Basophils # (Auto) 0.0 0.0 CBC Comment DIFF FINAL DIFF FINAL Differential Comment Prothrombin Time 10.5 Prothromb Time International 1.0 Ratio Sodium Level 139 134 Potassium Level 4.5 4.4 Chloride Level 105 103 Carbon Dioxide Level 18.9 18.4 Anion Gap 15 13 Blood Urea Nitrogen 20 22 Creatinine 1.41 1.23 Estimat Glomerular Filtration 50 59 Rate Random Glucose 367 591 487 Calcium Level 8.9 8.7 Phosphorus Level 3.5 2.1 Magnesium Level 1.6 1.9 Total Bilirubin 0.9 0.6 Aspartate Amino Transf 11 8 (AST/SGOT) Alanine Aminotransferase 24 16 (ALT/SGPT) Alkaline Phosphatase 67 54 Total Protein 7.2 6.1 Albumin 3.4 2.8 Triglycerides Level 66 Result Diagram: 03/28/17 0540 03/28/17 1140 Imaging Last Impressions Port Line Insertion 03/27/17 0000 Signed Impressions: Service Date/Time: Monday, March 27, 2017 15:47 - CONCLUSION: Uncomplicated ultrasound and fluoroscopic guided implanted central venous port catheter placement as described in detail above. An 8 [place]rain[place] Power port was placed. Rigo Arrieta MD Assessment and Plan Assessment and Plan Assessment: 66yM with newly diagnosed esophageal adenocarcinoma and acute dysphagia, and now refractory hyperglycemia likely secondary to steroid use and TPN. I agree with starting insulin infusion. Recommendations: 1.) Refractory Hyperglycemia -- start insulin infusion Algorithm #4 -- continue already started Levemir 10 units SQ BID -- hold SSI -- will plan to calculate 24h insulin requirements and then split this 30% into Levemir, 30% into the IV TPN bag, and leave 30% in SSI format. I have discussed the patient's care with Dr. Jacobson. He has agreed that the patient will remain on his service as the primary attending of record, and I will consult for his hyperglycemia. I agree with ICU transfer while on Insulin drip. Code Status Full code Discussed Condition With patient and at bedside, Louie Andres MD Mar 28, 2017 13:29
[2017-03-28] MEDS: INSULIN REGULAR (IV INFUSION) 100 UNITS in SODIUM CHLORIDE 0.9% INJ 99 ML IV SCH ×2 (13:57→17:13)
[2017-03-28] MEDS: HYDROmorphone HCL PF 1 MG/ML VIAL IV PRN ×2 (16:48→22:25)
--- NOTE | 2017-03-28 22:21 | RC ---
cc: RODDY PLUNKETT MD, EDWARD B. DO ZULFIQAR, HASSAN M.D. CHEW, BOON Y. M.D. DATE OF SERVICE 03/27/2017 DATE OF 1950 REQUESTING PHYSICIAN Will be Dr. 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 STAGE Stage T3 N0 MX. CHIEF COMPLAINT Inability to swallow for the last three weeks. REASON FOR VISIT The patient is being evaluated for definite curative radiotherapy treatment options versus preoperative radiotherapy treatment options. HISTORY OF PRESENT ILLNESS This is a 66-year-old white male which tells me that he was doing fine with no issues or problems with loss of weight or difficulty swallowing. He says about 3 weeks ago he started having issues with swallowing that progressively have gotten worse to the point that the patient is even unable to swallow fluids and he says that when he drinks fluids it goes down very slowly. It appears that this progression has been rapid. He has lost about 20-30 pounds during this last 3 weeks. He did have an endoscopy with Dr. Muñoz which the biopsies is now positive for the above mentioned diagnosis. It appears that he saw circumferential mass in the distal esophagus completely obstructing the esophagus. Due to his clinical decline, inability to swallow and dehydration the patient came to the ER where he was admitted. The patient has been seen by Dr. Medina and Dr. Medina as placed a consult for me to evaluate the patient in regards to radiation therapy in a pre operative fashion versus a curative fashion depending on results of metastatic workup and PET scan once the patient is discharged. The patient has been discussed with Dr. Medina today in the patient' s room. The patient awaiting surgical evaluation for recommendations. PAST MEDICAL HISTORY As above. Also history of hypertension, hyperlipidemia, diabetes mellitus, history of gout, possible emphysema. MEDICATIONS 1. Versed. 2. Fentanyl. 3. Heparin. 4. Cefazolin. 5. Vancomycin. 6. Solu-Medrol. 7. Dilaudid. 8. Protonix. 9. Vasotec. ALLERGIES NO KNOWN DRUG ALLERGIES. FAMILY HISTORY Sister with breast carcinoma, father prostatic carcinoma. Brother with lung carcinoma. SOCIAL HISTORY The patient says he stopped smoking about 15 years ago. Smoked a pack of cigarettes a day for 20 years. Drinks vodka on a daily basis, a glass or two. REVIEW OF SYSTEMS CONSTITUTIONAL: The patient admits to losing about 25 pounds of weight in the last 3 weeks. ALLERGIES: No recent allergic reaction. EYES: Unremarkable. Denies any double vision. ENT: The patient admits to difficulty swallowing, unable to swallow solids. Unable to swallow liquids at the present time. NECK: Denies neck masses. INTEGUMENTARY: Unremarkable. Denies any itching or rash. CARDIOVASCULAR: Unremarkable. Denies any chest pain or clinical signs of MD. RESPIRATORY: Unremarkable. Denies any hemoptysis or cough. INTESTINAL: Unremarkable. Denies any rectal bleeding, abdominal pain. GENITOURINARY: Unremarkable. Denies any painful urination or hematuria. MUSCULOSKELETAL: Admits to left toe pain due to gout. NEUROLOGICAL: Unremarkable. Denies any clinical signs or symptoms of stroke. No decrease in cognitive functions or decrease in motor function. PSYCHIATRIC: Unremarkable. Denies any suicidal thoughts or hallucinations. ENDOCRINE: History of diabetes. HEMATOLOGIC: Unremarkable. DERMATOLOGIC: Unremarkable. PHYSICAL EXAMINATION GENERAL: The patient oriented x3 in some discomfort due to his foot and the gout. The patient rates the pain about 2-5/10. VITAL SIGNS: Temperature 98.2, pulse 92, respiratory rate 16, blood pressure 146/78, pulse ox 98% on room air. LUNGS: Bilateral lungs were clear to auscultation with decreased ventilatory respiratory effort which is equal and bilateral. HEART: The heart appeared to be regular rate and rhythm. Negative for murmurs. NECK: Palpation of the neck and bilateral supraclavicular areas are free. ABDOMEN: On palpation no organomegalies or hepatosplenomegaly. No pain elicited. No periumbilical masses. LOWER EXTREMITIES: Without edema bilaterally, although, the left toe and foot seem a little swollen a little bit. NEUROLOGIC: No neurological deficit detected. Cognitive functions preserved. Motor functions are preserved. No other positive findings. 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 Mild chronic interstitial changes bilaterally. Single 8 mm pulmonary nodule in the right middle lobe. Abnormal thickening of the distal esophagus characteristic of esophageal carcinoma. SURGICAL PATHOLOGY 03/23/2017 impression ulcerated esophageal mucosal biopsies with invasive poorly-differentiated adenocarcinoma exhibiting signet ring features. FINAL DIAGNOSIS 1. Distal esophagus biopsied, squamous and specialized with Beltran's metaplasia showing areas of low grade dysplasia with focal high-grade dysplasia. 2. Esophageal biopsy polyp benign squamous mucosa showing severe acute and chronic inflammation associated with a ___erosion consistent with gastroesophageal reflux. ASSESSMENT A 66-year white male with diagnosis of esophageal carcinoma. The patient being evaluated for radiotherapy treatment options. PLAN I had an extensive discussion with the patient, his in regards to his presenting condition. I have discussed this case personally with Dr. Medina. I have reviewed his note from 03/26/2017. At this point the plans are for the patient to be stabilized in the hospital, get a J-tube so the patient can hydrate himself and feed himself. Following discharge the patient will obtain a PET scan. Will also await the recommendations of surgery to determine if the patient will be a candidate for surgical resection. I did discuss the merits and the side effects and possible complications of the radiotherapy with the patient and the to include but not limited to weakness, fatigue, decreased blood counts, edema of skin, necrosis skin, difficulty and pain with swallowing, esophageal strictures which may require dilation, pain of the treated area, lung damage, lung fibrosis, lung pneumonitis, heart damage, nerve damage, spinal cord damage, bone damage, the possibility of becoming oxygen dependent and heart damage. After thorough discussion the patient understood everything that was explained and wanted to proceed forward with radiotherapy. If the pulmonary nodule turns to be positive on the PET scan I will probably go ahead and still treat the patient aggressively since there is one single pulmonary nodule and I can treat this with radiosurgery. The patient advised that I may take the opportunity to simulate him while he is in the hospital so we can get going with the treatment planning. He was in agreement with this. He will be brought down today for simulation, treatment planning and consent. The patient was advised that if I could be of any further assistance to please let me know, otherwise, we will proceed as above. Dr. Medina thank you very much for the referral of this patient and allowing me to participate in the care of your patient. Should you have any further question, concerns please do not hesitate to contact me. Roddy Plunkett MD Radiation Oncologist ARABELLA LOPEZ/KOKO /3:21 PM /9:46 PM EMILY
[2017-03-28] MEDS: FAT EMULSION 20% INJ 250 ML (Daily over 8 hours) IV-CENTRAL SCH (22:26)
[2017-03-28] MEDS: CLINIMIX E 5/25 2000 mL- >42 mls/hr IV-CENTRAL SCH ×3 (22:26)
[2017-03-29] VITALS (13 sets, daily range): BP systolic 144–193; BP diastolic 66–88; PULSE 53–96; RESP 15–18; TEMP 98.1–99.6; O2SAT 93–100
[2017-03-29] MEDS: SODIUM CHLOR 0.9% 1000 ML INJ 1,000 ML IV SCH ×2 (00:30→14:22)
[2017-03-29] MEDS: HEPARIN SODIUM - SQ 10,000 UNITS/ML VIAL SQ SCH ×3 (01:00→17:10)
[2017-03-29] MEDS: HYDROmorphone HCL PF 1 MG/ML VIAL IV PRN ×4 (07:00→22:04)
[2017-03-29] MEDS: INSULIN REGULAR (IV INFUSION) 100 UNITS in SODIUM CHLORIDE 0.9% INJ 99 ML IV SCH ×2 (07:17→13:58)
[2017-03-29] MEDS: INSULIN DETEMIR 100 UNITS/ML VIAL SQ SCH ×3 (08:00→20:55)
[2017-03-29] MEDS: PANTOPRAZOLE SODIUM 40 MG VIAL IV PUSH SCH (08:56)
[2017-03-29] MEDS: SODIUM CHLORIDE 0.9% FLUSH 10 ML FLUSH IV FLUSH SCH ×2 (08:56→20:54)
[2017-03-29] MEDS: methylPREDNISolone SOD SUCC 125 MG/2 ML VIAL IV PUSH SCH (08:59)
[2017-03-29] MEDS: hydrALAZINE HCL 20 MG/ML VIAL IV PUSH PRN ×4 (10:06→21:04)
--- NOTE | 2017-03-29 10:25 | HHI.CCPN ---
Subjective Remarks/Hospital Course Hospital Course: This is a 66-year-old male with a history of hypertension, hyperlipidemia, and diabetes which is previously [id number]. 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 As part of his inpatient workup he is been started on glucocorticoids as well as TPN given his severe dysphagia. During his ongoing workup, his glycemic control has worsened , likely secondary to a combination of his TPN and steroids. Dr. Jacobson called me today because despite aggressive insulin subcutaneous therapy, the patient remains with glucoses greater than 500. I evaluated the patient and the ICU. He denies any acute symptoms such as chest pain, shortness of breath, dizziness, lightheadedness, syncope, fever, chills. He states that his glucoses usually under good control on oral medications at home. Critical care medicine is been consulted to evaluate and manage his refractory hyperglycemia. Subjective: 03/29: doing well. used 356 units/24h insulin via drip and Levemir. Glucose much better controlled, < 200 mg/dL. denies complaints. does want to get up and walk around. slightly hypertensive in the 190s today. Objective Vital Signs Date Time Temp Pulse Resp B/P Pulse Ox O2 Delivery O2 Flow Rate FiO2 03/29/17 07:59 16 03/29/17 06:00 96 03/29/17 04:00 98.8 147/66 96 03/28/17 20:03 21 03/26/17 01:00 Room Air Intake and Output 03/28/17 03/28/17 03/29/17 08:00 16:00 00:00 Intake Total 480 ml 1661 ml Output Total 1300 ml 300 ml Balance -820 ml 1361 ml Result Diagram: 03/28/17 0540 03/28/17 1140 Imaging Last Impressions Port Line Insertion 03/27/17 0000 Signed Impressions: Service Date/Time: Monday, March 27, 2017 15:47 - CONCLUSION: Uncomplicated ultrasound and fluoroscopic guided implanted central venous port catheter placement as described in detail above. An 8 [place] Power port was placed. Rigo Arrieta MD Objective Remarks GENERAL: Middle-aged male, lying in bed, no acute distress HEENT: Normocephalic. Atraumatic. Pupils equal, round, reactive, conjugate. Mucous membranes are moist NECK: Trachea is midline. There is no JVD. CHEST: Unlabored. Equal chest rise. On room air. CARDIOVASCULAR: Normal rate, regular rhythm. Sinus by telemetry ABDOMEN: Soft, nontender, nondistended. No guarding. MUSCULOSKELETAL: Pulses 2+. No peripheral edema. NEUROLOGICAL: RASS 0. GCS 15. CAM -. No focal deficits. A/P Assessment and Plan Assessment: 66yM with newly diagnosed esophageal adenocarcinoma and acute dysphagia, and now refractory hyperglycemia likely secondary to steroid use and TPN. We will add 1/3 his total insulin requirements into the TPN infusion to start at 8pm tonight. I will also add additional 1/3 into his long-acting SQ insulin. We will continue the insulin drip for another 24h and I would anticipate we should be able to transition him to high dose q4h SSI tomorrow. Recommendations: 1.) Refractory Hyperglycemia -- 100 units insulin added to TPN (starting 8pm tonight with new bag) -- continue insulin infusion Algorithm #4 -- Increase Levemir to 50 units SQ BID -- hold SSI -- re-assess. if insulin requirements come down appropriately, may be able to transition off drip tomorrow. 2. Hypertension -- hydralazine 10mg iv q30min prn. will target SBP < 180. I have discussed the patient's care with Dr. Jacobson. He has agreed that the patient will remain on his service as the primary attending of record, and I will consult for his hyperglycemia. Continue ICU level care while on insulin infusion. Louie Goddard MD Mar 29, 2017 10:25
--- NOTE | 2017-03-29 13:32 | HHI.PR ---
Subjective Remarks No new complaints. Less pain & swelling at left ankle. Objective Vitals Vital Signs Date Time Temp Pulse Resp B/P Pulse Ox O2 Delivery O2 Flow Rate FiO2 03/29/17 12:00 64 03/29/17 12:00 98.2 64 16 164/74 99 03/29/17 10:00 76 03/29/17 08:00 98.1 60 16 181/85 93 03/29/17 08:00 60 03/29/17 07:59 16 03/29/17 06:00 96 03/29/17 04:00 98.8 96 18 147/66 96 03/29/17 04:00 96 03/29/17 02:00 57 03/29/17 00:00 98.1 53 16 144/69 95 03/29/17 00:00 58 03/28/17 22:00 56 03/28/17 20:03 99 21 03/28/17 20:00 68 03/28/17 20:00 98.0 62 18 161/71 96 03/28/17 16:00 98.2 77 18 155/76 97 03/28/17 15:35 98.2 77 18 155/76 97 03/28/17 03/28/17 03/29/17 15:00 23:00 07:00 Intake Total 1661 ml 1425 ml Output Total 300 ml 300 ml Balance 1361 ml 1125 ml Intake Oral 150 ml 50 ml IV Total 492 ml 689 ml TPN/PPN 870 ml 613 ml Lipid 149 ml 73 ml Output Urine Total 300 ml 300 ml # Voids 1 Result Diagram: 03/28/17 0540 03/28/17 1140 Imaging Last Impressions Port Line Insertion 03/27/17 0000 Signed Impressions: Service Date/Time: Monday, March 27, 2017 15:47 - CONCLUSION: Uncomplicated ultrasound and fluoroscopic guided implanted central venous port catheter placement as described in detail above. An 8 [place] Power port was placed. Rigo Arrieta MD Objective Remarks General: NAD, AAOx3 Chest: CTA Cardiac: Regular Abd: +BS, soft ND/NT Ext: edema at left ankle, tender to palpation. A/P Problem List: (1) Diabetes mellitus type 2, noninsulin dependent Status: Chronic Plan: - Pt receiving TPN and IV solumedrol (decrease to daily) - pt's blood sugars yesterday over 500 - levemir 50 units BID - insulin drip per [facility] - IVFs - Hold OHA - Accu checks (2) Esophageal cancer Status: Acute Plan: - comgmt with Oncology, Dr. Medina, Radiation Oncology, General Surgery, Cardiothoracic Surgery - Pt recently had been having progressive dysphagia and worsening reflux symptoms. He underwent evaluation with EGD on 03/23/[address] Muñoz which revealed a circumferential mass in the distal esophagus , completely obstructing - He was contacted by the GI office and informed that the pathology revealed esophageal cancer - Pt has been unable to eat or drink much of anything for the last 3 weeks prior to admission. - He was seen by his PCP, Dr. Traylor, day prior to admission and sent to the ED for dehydration and for possible PEG placement. 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 - Case d/w Dr. Medina (03/27/17) --> likely will pursue chemotherapy and radiation therapy - Case d/w Dr. Katz, CTS, (03/26/17) --> possible esophagectomy. Request NO G- tube - Case d/w Dr. Cameron. Anticipate placement of J-tube 03/30/17 - Pt refused Dobhoff - Jbfgy-S-[id number] placed by IR (03/27/17) - Pt started on TPN 03/27/17 - Supportive care (3) Dehydration Status: Acute Plan: - Cont. IVF (4) Gout Status: Acute Plan: - likely d/t dehydration and stress - cannot give oral agents at this time - IV solumedrol (decreased to daily) - closely follow pt's blood sugars. (5) HTN (hypertension) Status: Chronic Plan: - IV hydralazine - Home meds are on hold - Vasotec PRN (6) CKD (chronic kidney disease) stage 3, GFR 30-59 ml/min Status: Acute Plan: - improved - Review of outpt labs from October noted Cr 1.32, - cr 1.52 (03/26/17), 1.16 (03/27), 1.23 (03/28) - Cont. IVF - Monitor labs Problem Qualifiers (1) Gout: See Jacobson DO Mar 29, 2017 13:31
--- NOTE | 2017-03-29 15:52 | MB ---
cc: LOAL KATZ DATE OF CONSULTATION 03/27/2017 DATE OF 1950 HISTORY OF THE PRESENT ILLNESS A pleasant 66-year-old male with history of tobacco abuse, also alcohol abuse with worsening dysphasia and dehydration. He apparently was doing well. 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 He started having trouble with swallowing any solids. Apparently it happened rather quickly. And he has been only able to drink liquids very slowly. He was sent for CT scan which showed thickening of the distal esophagus. He saw Dr. Muñoz and underwent upper endoscopy March 23 which showed a circumferential mass in the distal esophagitis with completely obstructing the esophagus. Biopsy showed poorly differentiated adenocarcinoma. He saw his primary care physician, apparently was significantly dehydrated and was subsequently sent to the hospital and was admitted. He has lost about 30 pounds over the last three weeks, still has mid epigastric discomfort, some weakness. Denies any fever, chills. No hemoptysis. He has had some intermittent nausea when he tries eat. No lower abdominal pain. No constipation. We were consulted to evaluate for any surgical intervention. PAST MEDICAL HISTORY Includes: 1. Gout. 2. Hypertension. 3. Hyperlipidemia. 4. Diabetes mellitus. 5. Possible history of Beltran's esophagus. PAST SURGICAL HISTORY No prior past surgical history. ALLERGIES He has no known allergies. MEDICATIONS He takes: 1. Lisinopril. 2. Allopurinol. 3. Metformin. 4. Simvastatin. 5. Glipizide at home. FAMILY HISTORY Had a sister with breast cancer, still living. Father at 73 of prostate cancer. Brother just recently lost with lung cancer at age 62. SOCIAL HISTORY , two children. Quit smoking 15 years ago. He smoked about 20 years one-pack per day. Drinks about two vodka drinks a day but none for the last few weeks. REVIEW OF SYSTEMS CONSTITUTIONAL: Positive for recent weight loss. No blurred vision, hearing loss. RESPIRATORY: No cough, shortness of breath. CARDIOVASCULAR: No chest pain. No paroxysmal nocturnal dyspnea. GASTROINTESTINAL: As above in the HPI. GENITOURINARY: No burning, frequency, urgency. CENTRAL NERVOUS SYSTEM: No history of TIA, CVA, seizure disorder. ENDOCRINE: Positive for diabetes. PHYSICAL EXAMINATION VITAL SIGNS: On exam blood pressure was 120/70, heart rate 82, temperature max 98.5. GENERAL: The patient is awake, alert, in no acute distress. HEENT: Head is normocephalic, atraumatic. Pupils equal and reactive. Oral mucosa pink, moist. NECK: Supple. No JVD. CARDIOVASCULAR: Heart sounds S1-S2, regular rate and rhythm. No rubs, murmurs or gallops. LUNGS: Clear to auscultation. No wheezes, rales or rhonchi. ABDOMEN: Soft, nontender. No masses or organomegaly. EXTREMITIES: No cyanosis, clubbing or edema. IMPRESSION Esophageal adenocarcinoma with recent 30 pound weight loss, dysphasia. At this time the patient remains on a regular diet as tolerated. However, he has been evaluated by oncology. They are requesting an outpatient PET scan for further staging. They are recommending neoadjuvant chemotherapy and radiation followed by surgical resection at that time. The patient has been evaluated by Dr. Lola Katz. He requested that general surgery be consulted also and he discussed this with Dr. Roger Cameron. He is in the process of having a port placement today and will also need a PEG tube for nutrition and further planning per Dr. Lola Katz. DICTATED BY: LA Elizabeth MD DESIREE Don/CEDRICK /3:44 PM /3:38 PM
[2017-03-29] MEDS: INSULIN HUMAN REGULAR IV-CENTRAL SCH (20:53)
[2017-03-29] MEDS: [UNRECOGNIZED DRUG - OTHER] IV-CENTRAL SCH (20:53)
[2017-03-29] MEDS: MULTIVITAMIN IV-CENTRAL SCH (20:53)
[2017-03-29] MEDS: FOLIC ACID IV-CENTRAL SCH (20:53)
[2017-03-29] MEDS: FAT EMULSION 20% INJ 250 ML (Daily over 8 hours) IV-CENTRAL SCH (20:57)
[2017-03-30] VITALS (20 sets, daily range): BP systolic 137–183; BP diastolic 60–97; PULSE 67–87; RESP 10–27; TEMP 98–99.2; O2SAT 95–99
[2017-03-30] MEDS: SODIUM CHLOR 0.9% 1000 ML INJ 1,000 ML IV SCH (00:20)
[2017-03-30] MEDS: HEPARIN SODIUM - SQ 10,000 UNITS/ML VIAL SQ SCH ×3 (01:13→18:11)
[2017-03-30] MEDS: HYDROmorphone HCL PF 1 MG/ML VIAL IV PRN ×2 (01:14→05:15)
[2017-03-30 06:52] LABS: AUTOMATED NEUTROPHIL # 6.3 TH/MM3 (1.8-7.7); BASOPHIL % 0.1 % (0.0-2.0); EOSINOPHIL # 0.1 TH/MM3 (0-0.4); EOSINOPHIL % 0.8 % (0.0-4.0); HEMATOCRIT 34.1 % (39.0-51.0); LYMPH % 17.3 % (9.0-44.0); LYMPHOCYTE # 1.6 TH/MM3 (1.0-4.8); MEAN CELL VOLUME 93.1 FL (80.0-100.0); MEAN CORPUSCULAR HEMOGLOBIN 30.7 PG (27.0-34.0); MONO % 14.4 % (0.0-8.0); NEUT % 67.4 % (16.0-70.0); PLATELET COUNT 154 TH/MM3 (150-450); RED BLOOD COUNT 3.66 MIL/MM3 (4.50-5.90); RED CELL DISTRIBUTION WIDTH 13.5 % (11.6-17.2); WHITE BLOOD COUNT 9.4 TH/MM3 (4.0-11.0)
[2017-03-30 07:01] LABS: HEMO FLAGS AUTO DIFF
[2017-03-30 07:12] LABS: BICARBONATE 25.2 MEQ/L (21.0-32.0); MAGNESIUM 1.6 MG/DL (1.5-2.5); POTASSIUM 3.3 MEQ/L (3.5-5.1)
[2017-03-30 07:45] LABS: PLATELET ESTIMATE SMEAR NORMAL (NORMAL)
[2017-03-30 07:46] LABS: PLATELET MORPHOLOGY NORMAL (NORMAL); SCAN/DIFF AUTO DIFF CONFIRMED
[2017-03-30 07:47] LABS: ACANTHOCYTES OCC (NORMAL); OVALOCYTES 1+ (NORMAL)
[2017-03-30] MEDS: methylPREDNISolone SOD SUCC 125 MG/2 ML VIAL IV PUSH SCH (08:11)
[2017-03-30] MEDS: PANTOPRAZOLE SODIUM 40 MG VIAL IV PUSH SCH (08:11)
[2017-03-30] MEDS: INSULIN DETEMIR 100 UNITS/ML VIAL SQ SCH ×2 (08:14→21:28)
[2017-03-30] MEDS: SODIUM CHLORIDE 0.9% FLUSH 10 ML FLUSH IV FLUSH SCH ×2 (08:14→21:23)
--- NOTE | 2017-03-30 08:16 | HHI.PR ---
Subjective Remarks gout doing better. eager to get j tube today Objective Vitals heart reg lung cta abd s/nt ext mtp joints tender but better. Vital Signs Date Time Temp Pulse Resp B/P Pulse Ox O2 Delivery O2 Flow Rate FiO2 03/30/17 06:00 70 03/30/17 04:00 71 03/30/17 04:00 98.7 73 20 147/67 95 03/30/17 02:00 72 03/30/17 00:00 82 03/30/17 00:00 98.0 82 20 166/82 98 03/29/17 22:00 83 03/29/17 21:00 98 21 03/29/17 20:00 99.6 81 15 193/88 100 03/29/17 20:00 81 03/29/17 18:00 77 03/29/17 16:00 98.4 93 18 175/83 97 03/29/17 16:00 93 03/29/17 14:00 79 03/29/17 12:00 64 03/29/17 12:00 98.2 64 16 164/74 99 03/29/17 10:00 76 03/29/17 03/29/17 03/30/17 15:00 23:00 07:00 Intake Total 1241 ml 1935 ml Output Total 550 ml Balance 1241 ml 1385 ml Intake Oral 360 ml IV Total 575 ml 703 ml TPN/PPN 568 ml 686 ml Lipid 98 ml 186 ml Output Urine Total 550 ml # Voids 2 # Bowel Movements 0 Result Diagram: 03/30/17 0513 03/30/17 0513 Imaging Last Impressions Port Line Insertion 03/27/17 0000 Signed Impressions: Service Date/Time: Monday, March 27, 2017 15:47 - CONCLUSION: Uncomplicated ultrasound and fluoroscopic guided implanted central venous port catheter placement as described in detail above. An 8 [place] Power port was placed. Rigo Arrieta MD A/P Problem List: (1) Esophageal cancer Status: Acute Plan: - Pt recently had been having progressive dysphagia and worsening reflux symptoms. He underwent evaluation with EGD on 03/23/[address] Muñoz which revealed a circumferential mass in the distal esophagus , completely obstructing - He was contacted by the GI office and informed that the pathology revealed esophageal cancer - Pt has been unable to eat or drink much of anything for the last 3 weeks prior to admission. - He was seen by his PCP, Dr. Traylor, day prior to admission and sent to the ED for dehydration and for possible PEG placement. 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 - Rxgjx-O-xsoa placed by IR (03/27/17) - Pt started on TPN 03/27/17 - J tube planned. To be seen by gen surg today - cont tpn and convert to tube feeding when j tube placed. -oncology planning to have pt f/u 1 week with pet/ct and chemo outpt. -rad oncology also following -blood glucose with severe elevation due to tpn/steroids hopefully stop steroid next 48hrs. pt on insulin gtt, levemir, and regular insulin in tpn -dvt prophylaxis. (2) Diabetes mellitus type 2, noninsulin dependent Status: Chronic Plan: see above (3) Dehydration Status: Acute Plan: see above (4) Gout Status: Acute Plan: - likely d/t dehydration and stress - cannot give oral agents at this time - IV solumedrol (decreased to daily) - closely follow pt's blood sugars. (5) HTN (hypertension) Status: Chronic Plan: - IV hydralazine - Home meds are on hold - Vasotec PRN (6) CKD (chronic kidney disease) stage 3, GFR 30-59 ml/min Status: Acute Plan: - improved - Review of outpt labs from October noted Cr 1.32, - cr 1.52 (03/26/17), 1.16 (03/27), 1.23 (03/28) - Cont. IVF - Monitor labs Problem Qualifiers (1) Gout: Koko Saldaña MD Mar 30, 2017 08:16
[2017-03-30] MEDS: INSULIN REGULAR (IV INFUSION) 100 UNITS in SODIUM CHLORIDE 0.9% INJ 99 ML IV SCH (08:36)
[2017-03-30] MEDS: POTASSIUM CHLOR 20 MEQ PREMIX 100 ML IV SCH ×2 (08:36→11:31)
[2017-03-30] MEDS ORDERED: INSULIN DETEMIR 100 UNITS/ML VIAL SQ ONE (09:30)
--- NOTE | 2017-03-30 12:32 | HHI.CCPN ---
Subjective Remarks/Hospital Course Hospital Course: This is a 66-year-old male with a history of hypertension, hyperlipidemia, and diabetes which is previously [id number]. 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 As part of his inpatient workup he is been started on glucocorticoids as well as TPN given his severe dysphagia. During his ongoing workup, his glycemic control has worsened , likely secondary to a combination of his TPN and steroids. Dr. Jacobson called me today because despite aggressive insulin subcutaneous therapy, the patient remains with glucoses greater than 500. I evaluated the patient and the ICU. He denies any acute symptoms such as chest pain, shortness of breath, dizziness, lightheadedness, syncope, fever, chills. He states that his glucoses usually under good control on oral medications at home. Critical care medicine is been consulted to evaluate and manage his refractory hyperglycemia. Subjective: 03/29: doing well. used 356 units/24h insulin via drip and Levemir. Glucose much better controlled, < 200 mg/dL. denies complaints. does want to get up and walk around. slightly hypertensive in the 190s today. 03/30: Glucose level downtrending. Currently the patient remains on insulin infusion at 5 units/hr, but continues to decrease hourly. The patient continues on non-DKA insulin protocol Levemir has increased to 60 units SQ BID. Objective Vital Signs Date Time Temp Pulse Resp B/P Pulse Ox O2 Delivery O2 Flow Rate FiO2 03/30/17 09:13 97 21 03/30/17 06:00 70 03/30/17 04:00 98.7 20 147/67 Intake and Output 03/29/17 03/29/17 03/30/17 08:00 16:00 00:00 Intake Total 1425 ml 1241 ml Output Total 300 ml Balance 1125 ml 1241 ml Result Diagram: 03/30/17 0513 03/30/17 0513 Imaging Last Impressions Port Line Insertion 03/27/17 0000 Signed Impressions: Service Date/Time: Monday, March 27, 2017 15:47 - CONCLUSION: Uncomplicated ultrasound and fluoroscopic guided implanted central venous port catheter placement as described in detail above. An 8 [place] Power port was placed. Rigo Arrieta MD Objective Remarks GENERAL: Middle-aged male, lying in bed, no acute distress HEENT: Normocephalic. Atraumatic. Pupils equal, round, reactive, conjugate. Mucous membranes are moist NECK: Trachea is midline. There is no JVD. CHEST: BBS clear to auscultation. Equal chest rise. On room air. CARDIOVASCULAR: Normal rate, regular rhythm. Sinus by telemetry ABDOMEN: Soft, nontender, nondistended. No guarding. MUSCULOSKELETAL: Pulses 2+. No peripheral edema. NEUROLOGICAL: RASS 0. GCS 15. CAM -. No focal deficits. A/P Assessment and Plan Assessment: 66yM with newly diagnosed esophageal adenocarcinoma and acute dysphagia, and now refractory hyperglycemia likely secondary to steroid use and TPN. We will add 1/3 his total insulin requirements into the TPN infusion to start at 8pm tonight. I will also add additional 1/3 into his long-acting SQ insulin. I anticipate we should be able to transition him to high dose q 4h SSI. Recommendations: 1.) Refractory Hyperglycemia -- 100 units insulin added to TPN -- Wean insulin infusion off Algorithm #4 -- Increase Levemir to 60 units SQ BID -- Begin SSI 2. Hypertension -- hydralazine 10mg iv q30min prn. will target SBP < 180. Dispo : Level 3 Dr. Jacobson is the primary attending of record, and I will consult for his hyperglycemia. Critical Care Medicine will sign off, as insulin infusion discontinued. Physician Brigitte Tyler MD Mar 30, 2017 12:32
--- NOTE | 2017-03-30 12:52 | PD.ONC.PN ---
Subjective Subjective Remarks Afebrile overnight. Patient resting in bed with family member at bedside. He is eager to know when he will have J-tube placed as he wants to get off the TPN and insulin drip so he can get out of [facility]. Objective Data Date Time Temp Pulse Resp B/P Pulse Ox O2 Delivery O2 Flow Rate FiO2 03/30/17 09:13 97 21 03/30/17 06:00 70 03/30/17 04:00 71 03/30/17 04:00 98.7 73 20 147/67 95 03/30/17 02:00 72 03/30/17 00:00 82 03/30/17 00:00 98.0 82 20 166/82 98 03/29/17 22:00 83 03/29/17 21:00 98 21 03/29/17 20:00 99.6 81 15 193/88 100 03/29/17 20:00 81 03/29/17 18:00 77 03/29/17 16:00 98.4 93 18 175/83 97 03/29/17 16:00 93 03/29/17 14:00 79 03/30/17 03/30/17 03/30/17 07:00 15:00 23:00 Intake Total 1935 ml Output Total 550 ml Balance 1385 ml Result Diagram: 03/30/1713 03/30/1713 Laboratory Results Laboratory Tests Test 03/30/17 05:13 White Blood Count 9.4 TH/MM3 Red Blood Count 3.66 MIL/MM3 Hemoglobin 11.2 GM/DL Hematocrit 34.1 % Mean Corpuscular Volume 93.1 FL Mean Corpuscular Hemoglobin 30.7 PG Mean Corpuscular Hemoglobin 33.0 % Concent Red Cell Distribution Width 13.5 % Platelet Count 154 TH/MM3 Mean Platelet Volume 10.8 FL Neutrophils (%) (Auto) 67.4 % Lymphocytes (%) (Auto) 17.3 % Monocytes (%) (Auto) 14.4 % Eosinophils (%) (Auto) 0.8 % Basophils (%) (Auto) 0.1 % Neutrophils # (Auto) 6.3 TH/MM3 Lymphocytes # (Auto) 1.6 TH/MM3 Monocytes # (Auto) 1.3 TH/MM3 Eosinophils # (Auto) 0.1 TH/MM3 Basophils # (Auto) 0.0 TH/MM3 CBC Comment AUTO DIFF Differential Comment AUTO DIFF CONFIRMED Platelet Estimate NORMAL Platelet Morphology Comment NORMAL Ovalocytes 1+ Acanthocytes OCC Sodium Level 142 MEQ/L Potassium Level 3.3 MEQ/L Chloride Level 108 MEQ/L Carbon Dioxide Level 25.2 MEQ/L Anion Gap 9 MEQ/L Blood Urea Nitrogen 19 MG/DL Creatinine 0.93 MG/DL Estimat Glomerular Filtration 81 ML/MIN Rate Random Glucose 190 MG/DL Calcium Level 8.9 MG/DL Magnesium Level 1.6 MG/DL Administered Medications Medications (Trade) Dose Ordered Sig/Ab Route PRN Reason Start Time Stop Time Status Last Admin Dose Admin Sodium Chloride (NS Flush) 2 ml BID IV FLUSH 03/26/17 09:00 03/29/17 20:54 Heparin Sodium (Porcine) (Heparin Inj) 5,000 units Q8H SQ 03/26/17 01:00 03/30/17 08:12 Pantoprazole Sodium 40 mg 40 mg DAILY IV PUSH 03/26/17 10:15 03/30/17 08:11 Fat Emulsion Intravenous 250 ml @ 31.25 mls/ hr Q24H IV-CENTRAL 03/27/17 20:00 03/29/17 20:57 Insulin Human Regular/Sodium Chloride (NovoLIN R (IV INFUSION)/NS Inj) 100 ml @ 0 mls/hr TITRATE IV 03/28/17 13:30 03/30/17 08:36 Hydromorphone HCl (Dilaudid Pf Inj) 1 mg Q3H PRN IV PAIN SCALE 1 TO 10 03/28/17 18:30 03/30/17 05:15 Hydralazine HCl 10 mg 10 mg Q30M PRN IV PUSH sbp > 180. 03/29/17 09:45 03/29/17 21:04 Multivitamins/ Folic Acid/ Insulin Human Regular/Amino Acids/ Electrolytes/ Dextrose (Mvi-12 Inj/ Folvite Inj/ NovoLIN R INJ/ Clinimix E 03/12) 2,011.2 ml @ 83 mls/hr Q24H IV-CENTRAL 03/29/17 20:00 03/29/17 20:53 Methylprednisolone Sodium Succinate 60 mg 60 mg DAILY IV PUSH 03/30/17 09:00 03/30/17 08:11 Potassium Chloride (KCl 20 Meq Premix Inj) 100 ml @ 50 mls/hr Q2H IV 03/30/17 09:00 03/30/17 12:59 03/30/17 11:31 Objective Remarks GENERAL: Middle aged male, sitting up in bed in nad. SKIN: Warm and dry. HEAD: Normocephalic. EYES: No injection or drainage. NECK: Supple, trachea midline. CARDIOVASCULAR: +S1/S2 RESPIRATORY: Breath sounds equal bilaterally. No accessory muscle use. GASTROINTESTINAL: Abdomen soft, non-tender, nondistended. EXTREMITIES: No cyanosis NEUROLOGICAL: awake and alert, normal speech. Assessment/Plan Problem List: (1) Esophageal cancer Status: Acute Plan: -- upper endoscopy March 23 +circumferential mass in the distal esophagus completely obstructing the esophagus. Biopsy showed poorly differentiated adenocarcinoma. --CT chest showed thickening of the distal esophagus but no clear evidence of adenopathy. --Because of the obstructing mass, do not think he is able to have endoscopic ultrasound done. --recommend outpatient PET scan for further staging. Based on the CT finding, it appears that he has localized disease. --If the radiologic study does not show any distant metastasis, I would recommend neoadjuvant chemotherapy and radiation followed by surgical resection at that time. -- If PET scan showed distant metastasis, then treatment would be palliative chemotherapy. --s/p XRT simulation on 03/27/17 Assessment 66y/o male with newly diagnosed esophageal cancer. h/o Hypertension. Hyperlipidemia. Diabetes mellitus. CT scan showed emphysematous changes. Possible history of Beltran's esophagus. Plan 1. Dr. Vega to evaluate the patient later today for possible J-tube placement. Once J-tube placed we will start tube feeds and hopefully the patient can be discharged home with follow up in clinic 2. will obtain outpatient PET/CT scan for staging 3. fs faxed to npr for follow up. Attending Statement The exam, history, and the medical decision-making described in the above note were completed with the assistance of the mid-level provider. I reviewed and agree with the findings presented. I attest that I had a [id number] encounter with the patient on the same day, and personally performed and documented my assessment and findings in the medical record. No new c/o. Able to drink fluid slowly. Await J-tube placement. Plan to treat with neoadjuvant Carbo/Taxol and XRT follow resection. Isabel Vang Mar 30, 2017 12:52 Darwin Medina MD Mar 30, 2017 16:21
[2017-03-30] MEDS ORDERED: GLUCAGON 1 MG/ML VIAL OTHER PRN (17:00)
[2017-03-30] MEDS ORDERED: DEXTROSE 50% IN WATER 50 ML VIAL(D50) IV PRN (17:00)
[2017-03-30] MEDS: MULTIVITAMIN IV-CENTRAL SCH (19:26)
[2017-03-30] MEDS: INSULIN HUMAN REGULAR IV-CENTRAL SCH (19:26)
[2017-03-30] MEDS: FOLIC ACID IV-CENTRAL SCH (19:26)
[2017-03-30] MEDS: [UNRECOGNIZED DRUG - OTHER] IV-CENTRAL SCH (19:26)
[2017-03-30] MEDS: FAT EMULSION 20% INJ 250 ML (Daily over 8 hours) IV-CENTRAL SCH (21:23)
[2017-03-30] MEDS: INSULIN NovoLIN REGULAR SUPPLEMENTAL SCALE SQ SCH (21:30)
[2017-03-31] VITALS (8 sets, daily range): BP systolic 147–178; BP diastolic 72–89; PULSE 67–82; RESP 16–20; TEMP 97.6–99.3; O2SAT 95–98
[2017-03-31] MEDS: HEPARIN SODIUM - SQ 10,000 UNITS/ML VIAL SQ SCH ×3 (01:00→15:38)
[2017-03-31 05:53] LABS: BICARBONATE 24.2 MEQ/L (21.0-32.0); MAGNESIUM 1.6 MG/DL (1.5-2.5); POTASSIUM 3.3 MEQ/L (3.5-5.1)
--- NOTE | 2017-03-31 06:16 | MB ---
cc: SCOTT GRANT DATE OF CONSULTATION 03/30/2017 REASON FOR CONSULTATION Esophageal adenocarcinoma. PHYSICIAN REQUESTING CONSULTATION Dr. Medina of Medical Oncology. Dr. Isabel Vang PA-C HISTORY OF PRESENT ILLNESS The patient is a 66-year-old male who presented as an outpatient with weight loss and dysphasia. He underwent workup including a CT scan which showed distal esophageal thickening as well as upper endoscopy on March 23, 2017, by Dr. Muñoz that returned adenocarcinoma. The patient continued with dehydration and weight loss and was sent to [facility] by his primary care physician. The patient arrived and was placed on TPN at that time. During this stay he was seen by medical oncology, Dr. Medina, as well as by Dr. Katz of thoracic surgery for his adenocarcinoma. The patient did also require admission to the Intensive Care Unit for insulin drip due to hyperglycemia due to TPN. Surgical Oncology was consulted for evaluation of the patient and consideration of possible enteric feeding tube options. The patient was also seen by Dr. Olvear, underwent simulation for planned neoadjuvant chemoradiation. REVIEW OF SYSTEMS A 12-point review of systems was reviewed with the patient and is negative except for the pertinent positives mentioned above in the History of Present Illness. PAST MEDICAL HISTORY 1. Hypertension. 2. Hyperlipidemia. 3. Diabetes. 4. Possible COPD. 5. Possible Beltran's esophagus. PAST SURGICAL HISTORY None. SOCIAL HISTORY The patient has history of tobacco use. Does currently use alcohol. FAMILY HISTORY No history of GI malignancies. ALLERGIES No known drug allergies. MEDICATIONS Protonix as inpatient. HOME MEDICATIONS 1. Lisinopril. 2. HCTZ. 3. Allopurinol. 4. Metformin. 5. Simvastatin. 6. Glipizide. PHYSICAL EXAMINATION VITAL SIGNS: Blood pressure 137/60, heart rate 67 and temperature 98.8 degrees. GENERAL: The patient is a well-developed, well-nourished male no acute distress. HEAD: Normocephalic, atraumatic. Pupils round, reactive to light. Sclerae anicteric. Mucous membranes are moist. NECK: Supple. No JVD. LUNGS: Clear to palpation bilaterally. Nonlabored breathing pattern. HEART: Regular rate and rhythm. PMI is nondisplaced. ABDOMEN: Soft, nondistended. No organomegaly. No ascites. Normal bowel sounds. No masses. No hernias. BACK: No CVA tenderness. EXTREMITIES: No clubbing, cyanosis or edema. NEUROLOGIC EXAM: The patient is awake, alert, oriented x 3. Nonfocal peripheral exam. Cranial nerves II-XII are grossly intact. LABORATORY VALUES Hemoglobin 11.2, white blood cell count 9.4. Albumin is 2.8. ASSESSMENT AND PLAN The patient is a 66-year-old male with esophageal adenocarcinoma with obstruction, dysphagia and weight loss. We have reviewed the patient's record. He has no evidence of distant metastasis and proceeding with neoadjuvant chemoradiation and laparoscopic jejunostomy tube placement for nutritional support is indicated. This is assuming the patient has no metastatic disease and agree with getting a PET scan as soon as possible as an outpatient. I discussed these findings with the patient and the family and recommend a diagnostic laparoscopy and laparoscopic jejunostomy tube placement. I did discuss with them that if the patient was found to have evidence of metastatic disease, that we would not proceed with jejunostomy tube but instead consider palliative gastrostomy tube. I did discuss the risks, benefits and alternatives to this procedure and agrees to the procedure. We will plan in the next 24-48 hours, based on operating room availability, to undergo semielective procedure. Thank you very much for this consultation. We will follow along with the patient. MD INES GanG/SSB /6:30 PM /6:05 AM
[2017-03-31] MEDS: INSULIN HUMAN REGULAR IV-CENTRAL SCH ×2 (06:40→21:28)
[2017-03-31] MEDS: FOLIC ACID IV-CENTRAL SCH ×2 (06:40→21:28)
[2017-03-31] MEDS: MULTIVITAMIN IV-CENTRAL SCH ×2 (06:40→21:28)
[2017-03-31] MEDS: [UNRECOGNIZED DRUG - OTHER] IV-CENTRAL SCH ×2 (06:40→21:28)
[2017-03-31] MEDS: INSULIN NovoLIN REGULAR SUPPLEMENTAL SCALE SQ SCH ×4 (06:42→21:37)
[2017-03-31] MEDS ORDERED: POTASSIUM CHLOR 40 MEQ PREMIX 100 ML IV SCH (08:30)
[2017-03-31] MEDS ORDERED: ENALAPRILAT 1.25 MG/ML VIAL IV PUSH PRN (08:30)
--- NOTE | 2017-03-31 08:30 | HHI.PR ---
Subjective Remarks gout about the same. Objective Vitals heart reg lung cta abd s/nt ext no pitting Vital Signs Date Time Temp Pulse Resp B/P Pulse Ox O2 Delivery O2 Flow Rate FiO2 03/31/17 04:00 97.6 79 18 169/80 98 03/31/17 02:13 81 03/31/17 01:00 99.3 82 18 177/86 97 03/30/17 20:45 99.2 77 18 179/97 98 03/30/17 19:00 76 16 155/88 99 03/30/17 19:00 76 03/30/17 18:00 80 10 183/87 99 03/30/17 18:00 80 03/30/17 17:00 76 03/30/17 17:00 76 27 157/91 95 03/30/17 16:00 79 03/30/17 16:00 98.6 79 21 140/80 95 03/30/17 15:00 71 20 165/84 99 03/30/17 15:00 71 03/30/17 14:01 69 03/30/17 14:00 67 03/30/17 14:00 67 19 137/60 95 03/30/17 13:00 79 03/30/17 13:00 79 17 177/92 99 03/30/17 12:00 76 03/30/17 12:00 98.8 76 23 154/84 97 03/30/17 11:00 78 18 163/88 99 03/30/17 11:00 78 03/30/17 10:00 76 21 142/79 97 03/30/17 10:00 76 03/30/17 09:13 97 21 03/30/17 09:00 70 18 170/81 96 03/30/17 09:00 70 03/30/17 03/30/17 03/31/17 15:00 23:00 07:00 Intake Total 1679 ml 1381 ml Output Total 300 ml 400 ml Balance 1379 ml 981 ml Intake Oral 120 ml IV Total 734 ml TPN/PPN 725 ml 1281 ml Lipid 100 ml 100 ml Output Urine Total 300 ml 400 ml # Voids 1 Result Diagram: 03/30/17 0513 03/31/17 0515 Imaging Last Impressions Port Line Insertion 03/27/17 0000 Signed Impressions: Service Date/Time: Monday, March 27, 2017 15:47 - CONCLUSION: Uncomplicated ultrasound and fluoroscopic guided implanted central venous port catheter placement as described in detail above. An 8 [place] Power port was placed. Rigo Arrieta MD A/P Problem List: (1) Esophageal cancer Status: Acute Plan: - Pt recently had been having progressive dysphagia and worsening reflux symptoms. He underwent evaluation with EGD on 03/23/[address] Muñoz which revealed a circumferential mass in the distal esophagus , completely obstructing - He was contacted by the GI office and informed that the pathology revealed esophageal cancer - Pt has been unable to eat or drink much of anything for the last 3 weeks prior to admission. - He was seen by his PCP, Dr. Traylor, day prior to admission and sent to the ED for dehydration and for possible PEG placement. 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 - [id number] placed by IR (03/27/17) - Pt started on TPN 03/27/17 - J tube planned for today...g tube if mets identified - cont tpn and convert to tube feeding when j tube placed. will need to adjust insulin regimen at that time. also nutrition reccs noted for glucerna 1.5 at 65ml/hr goal with flushes. -oncology planning to have pt f/u 1 week with pet/ct and chemo outpt. -rad oncology also following hopefully stop steroid next 48hrs and pills can be given through feeding tube. -off insulin gtt....cont insulin basal and in tpn until weaned off after surgery. -dvt prophylaxis. (2) Diabetes mellitus type 2, noninsulin dependent Status: Chronic Plan: see above (3) Dehydration Status: Acute Plan: see above (4) Gout Status: Acute Plan: - likely d/t dehydration and stress - cannot give oral agents at this time - IV solumedrol (decreased to daily) - closely follow pt's blood sugars. (5) HTN (hypertension) Status: Chronic Plan: - IV hydralazine - Home meds are on hold - Vasotec PRN (6) CKD (chronic kidney disease) stage 3, GFR 30-59 ml/min Status: Acute Plan: - improved - Review of outpt labs from October noted Cr 1.32, - cr 1.52 (03/26/17), 1.16 (03/27), 1.23 (03/28) - Cont. IVF - Monitor labs Problem Qualifiers (1) Gout: Koko Saldaña MD Mar 31, 2017 08:30
[2017-03-31] MEDS: PANTOPRAZOLE SODIUM 40 MG VIAL IV PUSH SCH (08:34)
[2017-03-31] MEDS: methylPREDNISolone SOD SUCC 125 MG/2 ML VIAL IV PUSH SCH (08:35)
[2017-03-31] MEDS: SODIUM CHLORIDE 0.9% FLUSH 10 ML FLUSH IV FLUSH SCH ×2 (08:40→21:21)
[2017-03-31] MEDS: INSULIN DETEMIR 100 UNITS/ML VIAL SQ SCH ×2 (08:40→21:38)
--- NOTE | 2017-03-31 10:31 | EKG ---
Date Performed: 03/31/2017 Time Performed: 05:31:16 PTAGE: 66 years EKG: Sinus rhythm NONSPECIFIC T-WAVE ABNORMALITY BORDERLINE ECG NO PREVIOUS TRACING DOCTOR: Cj Hanna Interpretating Date/Time 03/31/2017 10:30:33
--- NOTE | 2017-03-31 11:00 | PD.ONC.PN ---
Subjective Subjective Remarks Afebrile overnight. Patient resting in bed. Waiting to go for J-tube placement. Denies pain. Objective Data Date Time Temp Pulse Resp B/P Pulse Ox O2 Delivery O2 Flow Rate FiO2 03/31/17 10:15 69 147/72 03/31/17 09:28 97 21 03/31/17 08:00 98.9 74 16 178/86 95 03/31/17 04:00 97.6 79 18 169/80 98 03/31/17 02:13 81 03/31/17 01:00 99.3 82 18 177/86 97 03/30/17 20:45 99.2 77 18 179/97 98 03/30/17 19:00 76 16 155/88 99 03/30/17 19:00 76 03/30/17 18:00 80 10 183/87 99 03/30/17 18:00 80 03/30/17 17:00 76 03/30/17 17:00 76 27 157/91 95 03/30/17 16:00 79 03/30/17 16:00 98.6 79 21 140/80 95 03/30/17 15:00 71 20 165/84 99 03/30/17 15:00 71 03/30/17 14:01 69 03/30/17 14:00 67 03/30/17 14:00 67 19 137/60 95 03/30/17 13:00 79 03/30/17 13:00 79 17 177/92 99 03/30/17 12:00 76 03/30/17 12:00 98.8 76 23 154/84 97 03/30/17 11:00 78 18 163/88 99 03/30/17 11:00 78 03/31/17 03/31/17 03/31/17 07:00 15:00 23:00 Intake Total 1381 ml Output Total 400 ml Balance 981 ml Result Diagram: 03/30/17 0513 03/31/17 0515 Laboratory Results Laboratory Tests Test 03/31/17 05:15 Sodium Level 140 MEQ/L Potassium Level 3.3 MEQ/L Chloride Level 106 MEQ/L Carbon Dioxide Level 24.2 MEQ/L Anion Gap 10 MEQ/L Blood Urea Nitrogen 20 MG/DL Creatinine 0.94 MG/DL Estimat Glomerular Filtration 80 ML/MIN Rate Random Glucose 210 MG/DL Calcium Level 9.0 MG/DL Phosphorus Level 2.8 MG/DL Magnesium Level 1.6 MG/DL Administered Medications Medications (Trade) Dose Ordered Sig/Ab Route PRN Reason Start Time Stop Time Status Last Admin Dose Admin Sodium Chloride (NS Flush) 2 ml BID IV FLUSH 03/26/17 09:00 03/31/17 08:40 Heparin Sodium (Porcine) (Heparin Inj) 5,000 units Q8H SQ 03/26/17 01:00 03/30/17 18:11 Pantoprazole Sodium 40 mg 40 mg DAILY IV PUSH 03/26/17 10:15 03/31/17 08:34 Fat Emulsion Intravenous (Liposyn Iii 20% Inj) 250 ml @ 31.25 mls/ hr Q24H IV-CENTRAL 03/27/17 20:00 03/30/17 21:23 Hydromorphone HCl 1 mg 1 mg Q3H PRN IV PAIN SCALE 1 TO 10 03/28/17 18:30 03/30/17 05:15 Multivitamins/ Folic Acid/ Insulin Human Regular/Amino Acids/ Electrolytes/ Dextrose (Mvi-12 Inj/ Folvite Inj/ NovoLIN R INJ/ Clinimix E 03/12) 2,011.2 ml @ 83 mls/hr Q24H IV-CENTRAL 03/29/17 20:00 03/30/17 19:26 Methylprednisolone Sodium Succinate (SoluMEDROL INJ) 60 mg DAILY IV PUSH 03/30/17 09:00 03/31/17 08:35 Insulin Detemir (Levemir Inj) 60 units BID SQ 03/30/17 21:00 03/30/17 21:28 Enalaprilat (Vasotec Inj) 1.25 mg Q6H PRN IV PUSH sbp > 170 03/31/17 08:30 03/31/17 09:31 Objective Remarks GENERAL: Pleasant male, sitting up in bed in nad. SKIN: Warm and dry. HEAD: Normocephalic. EYES: No injection or drainage. NECK: Supple, trachea midline. CARDIOVASCULAR: +S1/S2 RESPIRATORY: Breath sounds equal bilaterally. No accessory muscle use. GASTROINTESTINAL: Abdomen soft, non-tender, nondistended. EXTREMITIES: No cyanosis NEUROLOGICAL: awake and alert, normal speech. moving all extremities. Assessment/Plan Problem List: (1) Esophageal cancer Status: Acute Plan: -- upper endoscopy March 23 +circumferential mass in the distal esophagus completely obstructing the esophagus. Biopsy showed poorly differentiated adenocarcinoma. --CT chest showed thickening of the distal esophagus but no clear evidence of adenopathy. --s/p XRT simulation on 03/27/17 Assessment 66y/o male with newly diagnosed esophageal cancer. h/o Hypertension. Hyperlipidemia. Diabetes mellitus. CT scan showed emphysematous changes. Possible history of Beltran's esophagus. Plan 1. J-tube placement today 2. consult graphic art designer for tube feeding recommendations 3. consult case management to arrange for home health care, tube feeds--will need pump with J-tube 4. once discharged, will follow up in clinic, obtain outpatient PET scan and start chemo/XRT outpatient. Attending Statement The exam, history, and the medical decision-making described in the above note were completed with the assistance of the mid-level provider. I reviewed and agree with the findings presented. I attest that I had a [id number] encounter with the patient on the same day, and personally performed and documented my assessment and findings in the medical record.No significant abdominal pain. Feels stronger since started TPN. Await J-tube placement. Outpt PET and plan to treat with neoadjuvant Chemo/XRT if no distant mets noted. Isabel Vang Mar 31, 2017 11:00 Darwin Medina MD Mar 31, 2017 11:34
[2017-03-31] MEDS ORDERED: PROPOFOL 200 MG/20 ML AMP IV ONE (11:05)
[2017-03-31] MEDS ORDERED: NEOSTIGMINE 3 MG/3 ML SYR IV ONE (11:06)
[2017-03-31] MEDS ORDERED: ONDANSETRON HCL 4 MG/2 ML VIAL IV PUSH ONE (11:06)
[2017-03-31] MEDS ORDERED: ceFAZolin 2 GM PREMIX 50 ML ONE (13:06)
[2017-03-31] MEDS ORDERED: MIDAZOLAM HCL 2 MG/2 ML VIAL ONE (13:06)
[2017-03-31] MEDS ORDERED: FAMOTIDINE 20 MG/2 ML VIAL ONE (13:07)
[2017-03-31] MEDS ORDERED: fentaNYL CITRATE 250 MCG/5 ML AMP ONE (13:07)
[2017-03-31] MEDS ORDERED: BUPIVACAINE HCL PF 0.25% 30 ML VIAL INFIL ONE (13:35)
[2017-03-31] MEDS ORDERED: BUPIVACAINE HCL PF 0.25% 10 ML VIAL INFIL ONE (14:30)
[2017-03-31] MEDS ORDERED: DO NOT ADM ANY ANTICOAGULANT DRUGS PRN (14:45)
--- NOTE | 2017-03-31 14:51 | HHI.PR ---
Immediate Post Op Note Procedure Date: Mar 31, 2017 Pre Op Diagnosis: (1) Esophageal cancer Post Op Diagnosis: (1) Esophageal cancer Surgeon: Eric Vega President Financial Institution(s): none Procedure: laparoscopic j-tube Findings: no metastatic disease Complications: none Specimen(s) removed: none Estimated blood loss: 10ml Anesthesia: General, Local Drains: Other (j-tube) IVF Patient to: PACU Patient Condition: Good Eric Vega MD Mar 31, 2017 14:51
[2017-03-31] MEDS: HYDROmorphone HCL PF 1 MG/ML VIAL IV PRN ×3 (15:40→21:21)
[2017-03-31] MEDS: POTASSIUM CHLOR 20 MEQ PREMIX 100 ML IV SCH ×4 (15:50→22:54)
[2017-03-31] MEDS: FAT EMULSION 20% INJ 250 ML (Daily over 8 hours) IV-CENTRAL SCH (21:43)
[2017-04-01] VITALS (9 sets, daily range): BP systolic 140–168; BP diastolic 71–89; PULSE 73–79; RESP 18–20; TEMP 96.8–98.5; O2SAT 95–97
[2017-04-01] MEDS: HYDROmorphone HCL PF 1 MG/ML VIAL IV PRN ×8 (00:32→22:11)
[2017-04-01] MEDS: HEPARIN SODIUM - SQ 10,000 UNITS/ML VIAL SQ SCH ×3 (00:32→16:13)
[2017-04-01 06:44] LABS: BICARBONATE 27.7 MEQ/L (21.0-32.0); POTASSIUM 3.9 MEQ/L (3.5-5.1)
--- NOTE | 2017-04-01 06:52 | MP ---
cc: SCOTT GRANT DATE OF SURGERY 03/31/2017 PREOPERATIVE DIAGNOSIS Obstructing esophageal adenocarcinoma. POSTOPERATIVE DIAGNOSIS Obstructing esophageal adenocarcinoma. PROCEDURE 1. Staging and diagnostic laparoscopy 2. Laparoscopic jejunostomy tube placement. ATTENDING SURGEON Scott Grant MD DIRECTOR OF ONLINE MERCHANDISING None ANESTHESIA General and local anesthetic BLOOD LOSS Less than 10 cc. COMPLICATIONS None FINDINGS No metastatic disease in the abdomen. Gastrostomy placed approximately 40 cm distal to the ligament of Treitz. INDICATIONS FOR PROCEDURE The patient is a 56-year-old male who developed weight loss and dysphagia and presented from his primary care doctor. The patient underwent a workup including an EGD which showed obstructing distal esophageal mass. Biopsy returned adenocarcinoma. The patient was found to have no metastatic disease on CT scan and was recommend to undergo diagnostic laparoscopy for staging as well as possible feeding tube placement due to his obstructing esophageal mass. The risks, benefits, and alternatives were discussed specific to this procedure with the patient and family and they agreed to undergo the procedure. PROCEDURE The patient was taken to the operating room and placed in the supine position and placed under general endotracheal anesthesia. The patient's abdomen was shaved, prepped and draped in a sterile fashion. Time-out was performed. The abdomen was entered through a Vasquez type technique just above the umbilicus. We directly entered the abdomen and placed a 10-mm balloon trocar above the umbilicus. We insufflated the abdomen and surveyed the abdomen with a 5 mm 30 degree camera. There was no evidence of any complication from our entry. There was no evidence of any metastatic disease and there was mild scarring of the liver, but no significant cirrhosis. There was what appeared to be some well signs of external inflammation of the stomach. At this point in time, we felt it was appropriate to proceed with laparoscopic jejunostomy tube placement as the patient had no evidence of any carcinomatosis or any reason the patient potentially would not require [place] Flex esophagectomy in the future. I replaced the two 5 mm ports, one was in the subxiphoid position and one on the right upper quadrant. These were placed under direct visualization with the laparoscope. We were then able to grasp the transverse colon to retract it upward and follow the bowel proximally until the ligament of Treitz was identified. We were able to run the bowel approximately 40 cm distal to the ligament of Treitz. We had a loop of jejunum that was mobile. We grasped this and retracted it up into our field and placed six percutaneous T-bar sutures into the wall of the small bowel at the antimesenteric border. We made small incisions central to these T-bar sutures with a 15 blade scalpel and dilated this with a hemostat and placed a 14-[place]ux[place] jejunostomy tube percutaneously into the abdominal cavity. We then used the Endoshears to make a small enterotomy central to the T-bar sutures and we spread down until we were into the lumen of the small bowel and solid mucosa. We were then able to direct the jejunostomy feeding tube percutaneously into the antimesenteric enterotomy and distally into the distal small bowel. We placed 2 cc of water into the balloon at this point in time ensuring there was no kinking of the catheter, it flushed well. We were able to tie up our T-bar sutures to the abdominal wall and standing up our loop of small bowel and we were also able to appropriately fit our balloon on the jejunostomy tube against the abdominal wall as well. At this point in time, we turned our attention towards closure. We removed all ports under the visualization of the laparoscope and expressed pneumoperitoneum. We closed the abdominal wall Vasquez site with [id number] 0 Vicryl suture. We closed the skin with 4-0 Monocryl and Dermabond. The patient was discontinued from the anesthesia and taken to the post-anesthesia care unit in stable condition. The patient tolerated the procedure well with no apparent complications. All counts were correct and I was present and scrubbed throughout the entire procedure. MD JESUS ALBERTO Gan/CM /2:45 PM /6:43 AM
[2017-04-01] MEDS: INSULIN NovoLIN REGULAR SUPPLEMENTAL SCALE SQ SCH (07:01)
[2017-04-01] MEDS ORDERED: COLCHICINE 0.6 MG TAB J-TUBE ONE (08:00)
--- NOTE | 2017-04-01 08:05 | HHI.PR ---
Objective Vitals Vital Signs Date Time Temp Pulse Resp B/P Pulse Ox O2 Delivery O2 Flow Rate FiO2 04/01/17 04:18 19 04/01/17 04:00 96.8 73 18 164/89 96 04/01/17 00:30 98.5 77 18 168/77 95 03/31/17 21:00 98.3 74 18 164/86 96 03/31/17 16:00 97.8 67 20 175/89 97 03/31/17 15:20 98.1 70 16 164/77 92 Room Air 03/31/17 15:15 70 16 164/77 92 Room Air 03/31/17 15:00 79 16 174/80 98 Room Air 03/31/17 14:44 98.1 82 16 165/74 99 Nasal Cannula 2 03/31/17 10:15 69 147/72 03/31/17 09:28 97 21 03/31/17 03/31/17 04/01/17 15:00 23:00 07:00 Intake Total 900 ml 30 ml 240 ml Output Total 20 ml 450 ml 400 ml Balance 880 ml -420 ml -160 ml Intake Oral 240 ml IV Total 30 ml Other 900 ml Output Urine Total 450 ml 400 ml Estimated Blood Loss 20 ml Result Diagram: 03/30/17 0513 04/01/17 0545 Imaging Last Impressions Port Line Insertion 03/27/17 0000 Signed Impressions: Service Date/Time: Monday, March 27, 2017 15:47 - CONCLUSION: Uncomplicated ultrasound and fluoroscopic guided implanted central venous port catheter placement as described in detail above. An 8 [place] Power port was placed. Rigo Arrieta MD A/P Problem List: (1) Esophageal cancer Status: Acute Plan: - Pt recently had been having progressive dysphagia and worsening reflux symptoms. He underwent evaluation with EGD on 03/23/[address] Muñoz which revealed a circumferential mass in the distal esophagus , completely obstructing - He was contacted by the GI office and informed that the pathology revealed esophageal cancer - Pt has been unable to eat or drink much of anything for the last 3 weeks prior to admission. - He was seen by his PCP, Dr. Traylor, day prior to admission and sent to the ED for dehydration and for possible PEG placement. 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 - Jqdhh-[id number] placed by IR (03/27/17) - Pt started on TPN 03/27/17 - J tube placed 03/31 wean off tpn today and stop scheduled levemir increase ssi begin tube feeding with glucerna and titrate slowly will try to get off solumedrol. give dose colchicine for gout oncology planning to have pt f/u 1 week with pet/ct and chemo outpt. rad oncology also following dvt prophylaxis. (2) Diabetes mellitus type 2, noninsulin dependent Status: Chronic Plan: see above (3) Dehydration Status: Acute Plan: - see above (4) Gout Status: Acute Plan: - likely d/t dehydration and stress - cannot give oral agents at this time - IV solumedrol (decreased to daily) - closely follow pt's blood sugars. (5) HTN (hypertension) Status: Chronic Plan: - Home meds are on hold - Vasotec PRN (6) CKD (chronic kidney disease) stage 3, GFR 30-59 ml/min Status: Acute Plan: - improved Problem Qualifiers (1) Gout: Koko Saldaña MD Apr 01, 2017 08:05
[2017-04-01] MEDS: SODIUM CHLORIDE 0.9% FLUSH 10 ML FLUSH IV FLUSH SCH ×2 (09:00→21:03)
[2017-04-01] MEDS: PANTOPRAZOLE SODIUM 40 MG VIAL IV PUSH SCH (09:46)
[2017-04-01] MEDS: methylPREDNISolone SOD SUCC 125 MG/2 ML VIAL IV PUSH SCH (09:47)
[2017-04-01] MEDS: INSULIN DETEMIR 100 UNITS/ML VIAL SQ SCH (10:25)
[2017-04-01] MEDS: INSULIN ASPART SUPPLEMENTAL SCALE SQ SCH ×3 (13:01→20:00)
--- NOTE | 2017-04-01 13:05 | PD.ONC.PN ---
Subjective Subjective Remarks Afebrile overnight. Patient having some pain at site of J-tube. Pain is controlled on current pain regimen. Tolerating tube feeds at 10cc/hr. Objective Data Date Time Temp Pulse Resp B/P Pulse Ox O2 Delivery O2 Flow Rate FiO2 04/01/17 10:26 16 04/01/17 09:28 97 21 04/01/17 07:50 97.6 79 20 147/73 96 04/01/17 07:21 73 04/01/17 04:00 96.8 73 18 164/89 96 04/01/17 00:30 98.5 77 18 168/77 95 03/31/17 21:00 98.3 74 18 164/86 96 03/31/17 16:00 97.8 67 20 175/89 97 03/31/17 15:20 98.1 70 16 164/77 92 Room Air 03/31/17 15:15 70 16 164/77 92 Room Air 03/31/17 15:00 79 16 174/80 98 Room Air 03/31/17 14:44 98.1 82 16 165/74 99 Nasal Cannula 2 Result Diagram: 03/30/17 0513 04/01/17 0545 Laboratory Results Laboratory Tests Test 04/01/17 05:45 Sodium Level 139 MEQ/L Potassium Level 3.9 MEQ/L Chloride Level 106 MEQ/L Carbon Dioxide Level 27.7 MEQ/L Anion Gap 5 MEQ/L Blood Urea Nitrogen 19 MG/DL Creatinine 0.90 MG/DL Estimat Glomerular Filtration 84 ML/MIN Rate Random Glucose 189 MG/DL Calcium Level 8.3 MG/DL Administered Medications Medications (Trade) Dose Ordered Sig/Ab Route PRN Reason Start Time Stop Time Status Last Admin Dose Admin Sodium Chloride (NS Flush) 2 ml BID IV FLUSH 03/26/17 09:00 03/31/17 21:21 Heparin Sodium (Porcine) (Heparin Inj) 5,000 units Q8H SQ 03/26/17 01:00 03/30/17 18:11 Pantoprazole Sodium 40 mg 40 mg DAILY IV PUSH 03/26/17 10:15 04/01/17 09:46 Fat Emulsion Intravenous (Liposyn Iii 20% Inj) 250 ml @ 31.25 mls/ hr Q24H IV-CENTRAL 03/27/17 20:00 03/31/17 21:43 Hydromorphone HCl 1 mg 1 mg Q3H PRN IV PAIN SCALE 1 TO 10 03/28/17 18:30 04/01/17 09:46 Multivitamins/ Folic Acid/ Insulin Human Regular/Amino Acids/ Electrolytes/ Dextrose (Mvi-12 Inj/ Folvite Inj/ NovoLIN R INJ/ Clinimix E 03/12) 2,011.2 ml @ 83 mls/hr Q24H IV-CENTRAL 03/29/17 20:00 03/31/17 21:28 Methylprednisolone Sodium Succinate (SoluMEDROL INJ) 60 mg DAILY IV PUSH 03/30/17 09:00 04/01/17 09:47 Enalaprilat (Vasotec Inj) 1.25 mg Q6H PRN IV PUSH sbp > 170 03/31/17 08:30 03/31/17 09:31 Objective Remarks GENERAL: Pleasant male, supine in bed in nad. SKIN: Warm and dry. HEAD: Normocephalic. EYES: No injection or drainage. NECK: Supple, trachea midline. CARDIOVASCULAR: +S1/S2 RESPIRATORY: Breath sounds equal bilaterally. No accessory muscle use. GASTROINTESTINAL: Abdomen soft, mildly tender around incision sites. J-tube in place, receiving TF @10cc/hr EXTREMITIES: No cyanosis NEUROLOGICAL: aox3. normal speech. moving all extremities Assessment/Plan Problem List: (1) Esophageal cancer Status: Acute Plan: -- upper endoscopy March 23 +circumferential mass in the distal esophagus completely obstructing the esophagus. Biopsy showed poorly differentiated adenocarcinoma. --CT chest showed thickening of the distal esophagus but no clear evidence of adenopathy. --s/p XRT simulation on 03/27/17 --s/p J-tube placement and ex lap on 03/31/17 Assessment 66y/o male with newly diagnosed esophageal cancer. h/o Hypertension. Hyperlipidemia. Diabetes mellitus. CT scan showed emphysematous changes. Possible history of Beltran's esophagus. Plan 1. start tube feeds, titrate up as tolerated 2. continue pain management 3. supportive care 4. once discharged. follow up in clinic. outpatient PET scan. Attending Statement The exam, history, and the medical decision-making described in the above note were completed with the assistance of the mid-level provider. I reviewed and agree with the findings presented. I attest that I had a [id number] encounter with the patient on the same day, and personally performed and documented my assessment and findings in the medical record. S/p J-tube placement. No new symptoms. Exp lap showed no carcinomatosis or obvious distant mets. Can be d/c after he tolerates tube feeding. Isabel Vang Apr 01, 2017 13:05 Darwin Medina MD Apr 01, 2017 13:55
--- NOTE | 2017-04-01 15:14 | HHI.PR ---
Subjective Subjective Notes Resting in bed Visiting with family Objective Vitals/I&O Vital Signs Date Time Temp Pulse Resp B/P Pulse Ox O2 Delivery O2 Flow Rate FiO2 04/01/17 11:50 98.1 74 20 140/78 95 04/01/17 09:28 21 03/31/17 15:20 Room Air 03/31/17 14:44 2 Labs Laboratory Tests Test 04/01/17 05:45 Sodium Level 139 Potassium Level 3.9 Chloride Level 106 Carbon Dioxide Level 27.7 Anion Gap 5 Blood Urea Nitrogen 19 Creatinine 0.90 Estimat Glomerular Filtration 84 Rate Random Glucose 189 Calcium Level 8.3 Cardiovascular: Regular Lungs: Clear Abdomen: Other (Abd soft; tender at tube insertion site; J tube in place with TF ) Extremities: No edema A/P Assessment and Plan 66 year old male with obstructing esophageal adenocarcinoma ; POD1 lap J tube placement -TF started; advance as tolerate to goal -Pain control -Routine J tube care -OOB and mobilize Attending Statement The exam, history, and the medical decision-making described in the above note were completed with the assistance of the mid-level provider. I reviewed and agree with the findings presented. I attest that I had a [id number] encounter with the patient on the same day, and personally performed and documented my assessment and findings in the medical record. postop abdominal exam no significant tenderness, incisions c/d/i, daljit intact Karolina Arguello Apr 01, 2017 15:14 Eric Vega MD Apr 10, 2017 10:12
[2017-04-01] MEDS: FOLIC ACID IV-CENTRAL SCH (19:03)
[2017-04-01] MEDS: FAT EMULSION 20% INJ 250 ML (Daily over 8 hours) IV-CENTRAL SCH (19:03)
[2017-04-01] MEDS: MULTIVITAMIN IV-CENTRAL SCH (19:03)
[2017-04-01] MEDS: [UNRECOGNIZED DRUG - OTHER] IV-CENTRAL SCH (19:03)
[2017-04-01] MEDS: INSULIN HUMAN REGULAR IV-CENTRAL SCH (19:03)
[2017-04-02] VITALS (7 sets, daily range): BP systolic 133–158; BP diastolic 81–87; PULSE 71–78; RESP 18; TEMP 97.5–98.6; O2SAT 94–96
[2017-04-02] MEDS: HEPARIN SODIUM - SQ 10,000 UNITS/ML VIAL SQ SCH ×3 (00:26→18:16)
[2017-04-02] MEDS: HYDROmorphone HCL PF 1 MG/ML VIAL IV PRN ×6 (01:19→21:25)
[2017-04-02] MEDS: INSULIN ASPART SUPPLEMENTAL SCALE SQ SCH ×6 (04:00→20:00)
[2017-04-02 07:11] LABS: BICARBONATE 29.1 MEQ/L (21.0-32.0); POTASSIUM 3.7 MEQ/L (3.5-5.1)
--- NOTE | 2017-04-02 08:43 | HHI.PR ---
Subjective Remarks doing ok. bg lower but no sx's Objective Vitals heart reg lung cta abd j tube ext no edema Vital Signs Date Time Temp Pulse Resp B/P Pulse Ox O2 Delivery O2 Flow Rate FiO2 04/02/17 04:00 97.5 74 18 156/81 95 04/02/17 00:00 98.0 75 18 155/87 94 04/01/17 20:15 98.1 75 18 145/77 95 04/01/17 20:00 77 04/01/17 19:45 16 04/01/17 15:50 98.0 77 20 142/71 95 04/01/17 11:50 98.1 74 20 140/78 95 04/01/17 09:28 97 21 04/01/17 04/01/17 04/02/17 15:00 23:00 07:00 Intake Total 0 ml Output Total 900 ml 500 ml 650 ml Balance -900 ml -500 ml -650 ml Intake Oral 0 ml Output Urine Total 900 ml 500 ml 650 ml # Bowel Movements 0 Result Diagram: 03/30/17 0513 04/02/17 0440 Imaging Last Impressions Port Line Insertion 03/27/17 0000 Signed Impressions: Service Date/Time: Monday, March 27, 2017 15:47 - CONCLUSION: Uncomplicated ultrasound and fluoroscopic guided implanted central venous port catheter placement as described in detail above. An 8 [place] Power port was placed. Rigo Arrieta MD A/P Problem List: (1) Esophageal cancer Status: Acute Plan: - Pt recently had been having progressive dysphagia and worsening reflux symptoms. He underwent evaluation with EGD on 03/23/[address] Muñoz which revealed a circumferential mass in the distal esophagus , completely obstructing - He was contacted by the GI office and informed that the pathology revealed esophageal cancer - Pt has been unable to eat or drink much of anything for the last 3 weeks prior to admission. - He was seen by his PCP, Dr. Traylor, day prior to admission and sent to the ED for dehydration and for possible PEG placement. 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 - [id number] placed by IR (03/27/17) - Pt started on TPN 03/27/17 - J tube placed 03/31 off tpn and scheduled insulin titrate up on tube feeding. ask nutrition svc to provide a daytime bolus and nightime continuous regimen if possible. ssi for now. colchicine. stop solumedrol for gout...improved oncology planning to have pt f/u 1 week with pet/ct and chemo outpt. rad oncology also following dvt prophylaxis. (2) Diabetes mellitus type 2, noninsulin dependent Status: Chronic Plan: see above (3) Dehydration Status: Acute Plan: - see above (4) Gout Status: Acute Plan: - gout flare see above (5) HTN (hypertension) Status: Chronic Plan: - Home meds are on hold - Vasotec PRN (6) CKD (chronic kidney disease) stage 3, GFR 30-59 ml/min Status: Acute Plan: - improved Problem Qualifiers (1) Gout: Koko Saldaña MD Apr 02, 2017 08:43
[2017-04-02] MEDS ORDERED: COLCHICINE 0.6 MG TAB J-TUBE ONE (09:00)
[2017-04-02] MEDS: methylPREDNISolone SOD SUCC 125 MG/2 ML VIAL IV PUSH SCH (09:37)
[2017-04-02] MEDS: PANTOPRAZOLE SODIUM 40 MG VIAL IV PUSH SCH (09:37)
[2017-04-02] MEDS: SODIUM CHLORIDE 0.9% FLUSH 10 ML FLUSH IV FLUSH SCH ×2 (09:38→21:31)
--- NOTE | 2017-04-02 10:51 | PD.ONC.PN ---
Subjective Subjective Remarks Afebrile overnight. Patient resting comfortably in bed. He has pain when he coughs but is ok, as long as he receives his pain pill on time. Tolerating tube feeds at 30cc/hr now. Objective Data Date Time Temp Pulse Resp B/P Pulse Ox O2 Delivery O2 Flow Rate FiO2 04/02/17 08:00 98.1 74 18 146/82 96 04/02/17 04:00 97.5 74 18 156/81 95 04/02/17 00:00 98.0 75 18 155/87 94 04/01/17 20:15 98.1 75 18 145/77 95 04/01/17 20:00 77 04/01/17 19:45 16 04/01/17 15:50 98.0 77 20 142/71 95 04/01/17 11:50 98.1 74 20 140/78 95 04/02/17 04/02/17 04/02/17 07:00 15:00 23:00 Output Total 650 ml Balance -650 ml Result Diagram: 03/30/17 0513 04/02/17 0440 Laboratory Results Laboratory Tests Test 04/02/17 04:40 Sodium Level 138 MEQ/L Potassium Level 3.7 MEQ/L Chloride Level 102 MEQ/L Carbon Dioxide Level 29.1 MEQ/L Anion Gap 7 MEQ/L Blood Urea Nitrogen 22 MG/DL Creatinine 0.99 MG/DL Estimat Glomerular Filtration 75 ML/MIN Rate Random Glucose 175 MG/DL Calcium Level 8.2 MG/DL Administered Medications Medications (Trade) Dose Ordered Sig/Ab Route PRN Reason Start Time Stop Time Status Last Admin Dose Admin Sodium Chloride (NS Flush) 2 ml BID IV FLUSH 03/26/17 09:00 04/02/17 09:38 Heparin Sodium (Porcine) (Heparin Inj) 5,000 units Q8H SQ 03/26/17 01:00 04/02/17 09:37 Pantoprazole Sodium (Protonix Inj) 40 mg DAILY IV PUSH 03/26/17 10:15 04/02/17 09:37 Hydromorphone HCl (Dilaudid Pf Inj) 1 mg Q3H PRN IV PAIN SCALE 1 TO 10 03/28/17 18:30 04/02/17 09:37 Methylprednisolone Sodium Succinate (SoluMEDROL INJ) 60 mg DAILY IV PUSH 03/30/17 09:00 04/02/17 09:37 Dextrose (D50w (Vial) Inj) 50 ml UNSCH PRN IV HYPOGLYCEMIA-SEE COMMENTS 03/30/17 17:00 04/02/17 04:33 Enalaprilat (Vasotec Inj) 1.25 mg Q6H PRN IV PUSH sbp > 170 03/31/17 08:30 03/31/17 09:31 Objective Remarks GENERAL: Middle aged male, supine in bed watching TV in nad. SKIN: Warm and dry. HEAD: Normocephalic. EYES: No injection or drainage. NECK: Supple, trachea midline. CARDIOVASCULAR: +S1/S2 RESPIRATORY: Breath sounds equal bilaterally. No accessory muscle use. GASTROINTESTINAL: Abdomen soft, mildly tender around incision sites. J-tube in place, receiving TF @30cc/hr EXTREMITIES: No cyanosis NEUROLOGICAL: awake and alert, normal speech. moving all extremities. Assessment/Plan Problem List: (1) Esophageal cancer Status: Acute Plan: -- upper endoscopy March 23 +circumferential mass in the distal esophagus completely obstructing the esophagus. Biopsy showed poorly differentiated adenocarcinoma. --CT chest showed thickening of the distal esophagus but no clear evidence of adenopathy. --s/p XRT simulation on 03/27/17 --s/p J-tube placement and ex lap on 03/31/17 Assessment 66y/o male with newly diagnosed esophageal cancer. h/o Hypertension. Hyperlipidemia. Diabetes mellitus. CT scan showed emphysematous changes. Possible history of Beltran's esophagus. Plan 1. continue to titrate up tube feeds 2. supportive care 3. once discharged, follow up in clinic. Attending Statement The exam, history, and the medical decision-making described in the above note were completed with the assistance of the mid-level provider. I reviewed and agree with the findings presented. I attest that I had a [id number] encounter with the patient on the same day, and personally performed and documented my assessment and findings in the medical record. Started tube feeding and tolerating so far. 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 He can be d/c once tolerating tube feeding and f/u oncology clinic for treatment. Isabel Vang Apr 02, 2017 10:50 Darwin Medina MD Apr 02, 2017 11:54
--- NOTE | 2017-04-02 17:41 | HHI.PR ---
Subjective Subjective Notes Resting in bed Family visiting No issues with TF Objective Vitals/I&O Vital Signs Date Time Temp Pulse Resp B/P Pulse Ox O2 Delivery O2 Flow Rate FiO2 04/02/17 12:00 98.5 74 18 133/85 95 04/01/17 09:28 21 03/31/17 15:20 Room Air 03/31/17 14:44 2 Labs Laboratory Tests Test 04/02/17 04:40 Sodium Level 138 Potassium Level 3.7 Chloride Level 102 Carbon Dioxide Level 29.1 Anion Gap 7 Blood Urea Nitrogen 22 Creatinine 0.99 Estimat Glomerular Filtration 75 Rate Random Glucose 175 Calcium Level 8.2 Cardiovascular: Regular Lungs: Clear Abdomen: Other (J tube in place without complications; TF infusing ) Extremities: No edema A/P Assessment and Plan 66 year old male with obstructing esophageal adenocarcinoma ; POD2 lap J tube placement -TF started; advance as tolerate to goal -Pain control -Routine J tube care -OOB and mobilize -General Surgery clear for DC; follow up with Dr. Vega in about 2 weeks Attending Statement The exam, history, and the medical decision-making described in the above note were completed with the assistance of the mid-level provider. I reviewed and agree with the findings presented. I attest that I had a [id number] encounter with the patient on the same day, and personally performed and documented my assessment and findings in the medical record. abdominal exam: no guarding or peritonitis postop Karolina Arguello Apr 02, 2017 17:41 Eric Vega MD Apr 10, 2017 10:17
[2017-04-02] MEDS: glipiZIDE 5 MG TAB J-TUBE SCH (18:14)
[2017-04-03] VITALS (9 sets, daily range): BP systolic 119–151; BP diastolic 69–91; PULSE 72–79; RESP 16–18; TEMP 96.2–98.7; O2SAT 94–97
[2017-04-03] MEDS: HYDROmorphone HCL PF 1 MG/ML VIAL IV PRN ×6 (00:44→18:42)
[2017-04-03] MEDS: HEPARIN SODIUM - SQ 10,000 UNITS/ML VIAL SQ SCH ×3 (00:44→17:48)
[2017-04-03] MEDS: INSULIN ASPART SUPPLEMENTAL SCALE SQ SCH ×6 (04:00→20:00)
[2017-04-03] MEDS: SODIUM CHLORIDE 0.9% FLUSH 10 ML FLUSH IV FLUSH SCH ×2 (08:41→21:00)
[2017-04-03] MEDS: PANTOPRAZOLE SODIUM 40 MG VIAL IV PUSH SCH (08:44)
[2017-04-03] MEDS: glipiZIDE 5 MG TAB J-TUBE SCH (08:44)
[2017-04-03] MEDS ORDERED: COLCHICINE 0.6 MG TAB J-TUBE ONE (09:00)
[2017-04-03] MEDS ORDERED: [UNRECOGNIZED DRUG - CODE] (09:03)
--- NOTE | 2017-04-03 09:04 | HHI.FF ---
Face to Face Verification Diagnosis: (1) Esophageal cancer Home Health Nursing Order: Medical education Signs/symptoms of disease process Medication education-adverse effect Nursing assessment with vital signs Instructions: assist with J tube feeding. glucerna 1.5 70ml/hr from 7pm to 7am daily I have seen patient Rk Thibodeaux on 04/03/17. My clinical findings support the need for the requested home health care services because: Limited ability to care for self I certify that my clinical findings support that this patient is homebound because: Need for psychosocial assistance Koko Saldaña MD Apr 03, 2017 09:04
--- NOTE | 2017-04-03 09:06 | HHI.PR ---
Subjective Remarks doing ok. Objective Vitals heart reg lung cta abd j tube ext no edema Vital Signs Date Time Temp Pulse Resp B/P Pulse Ox O2 Delivery O2 Flow Rate FiO2 04/03/17 08:22 95 04/03/17 06:00 20 04/03/17 04:00 96.2 75 18 146/88 95 04/03/17 00:00 98.7 78 18 151/91 96 04/02/17 21:15 73 04/02/17 20:00 98.6 78 18 158/84 96 04/02/17 16:00 98.0 71 18 139/81 96 04/02/17 12:00 98.5 74 18 133/85 95 04/02/17 04/02/17 04/03/17 15:00 23:00 07:00 Intake Total 1270 ml Output Total 1450 ml 490 ml Balance -180 ml -490 ml Intake Oral 480 ml Tube Feeding 590 ml Other 200 ml Output Urine Total 1450 ml 490 ml Result Diagram: 03/30/17 0513 04/02/17 0440 Imaging Last Impressions Port Line Insertion 03/27/17 0000 Signed Impressions: Service Date/Time: Monday, March 27, 2017 15:47 - CONCLUSION: Uncomplicated ultrasound and fluoroscopic guided implanted central venous port catheter placement as described in detail above. An 8 [place] Power port was placed. Rigo Arrieta MD A/P Problem List: (1) Esophageal cancer Status: Acute Plan: - Pt recently had been having progressive dysphagia and worsening reflux symptoms. He underwent evaluation with EGD on 03/23/[address] Muñoz which revealed a circumferential mass in the distal esophagus , completely obstructing - He was contacted by the GI office and informed that the pathology revealed esophageal cancer - Pt has been unable to eat or drink much of anything for the last 3 weeks prior to admission. - He was seen by his PCP, Dr. Traylor, day prior to admission and sent to the ED for dehydration and for possible PEG placement. 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 - Jdcsu-F-leho placed by IR (03/27/17) - Pt started on TPN 03/27/17 - J tube placed 03/31 off tpn and scheduled insulin titrate up on tube feeding. appreciate nutrition tube feed reccs. CM to arrange hhc and tube feeding titrate tf today again and dm meds ssi for now. colchicine. stop solumedrol for gout...improved oncology planning to have pt f/u 1 week with pet/ct and chemo outpt. rad oncology also following dvt prophylaxis. (2) Diabetes mellitus type 2, noninsulin dependent Status: Chronic Plan: see above (3) Dehydration Status: Acute Plan: - see above (4) Gout Status: Acute Plan: - gout flare see above (5) HTN (hypertension) Status: Chronic Plan: - Home meds are on hold - Vasotec PRN (6) CKD (chronic kidney disease) stage 3, GFR 30-59 ml/min Status: Acute Plan: - improved Problem Qualifiers (1) Gout: Koko Saldaña MD Apr 03, 2017 09:06
--- NOTE | 2017-04-03 09:41 | PD.ONC.PN ---
Subjective Subjective Remarks Afebrile overnight. Tolerating TF at 50cc/hr now. Resting comfortably in bed. No complaints. Objective Data Date Time Temp Pulse Resp B/P Pulse Ox O2 Delivery O2 Flow Rate FiO2 04/03/17 08:22 95 04/03/17 08:00 97.7 72 18 142/76 96 04/03/17 06:00 20 04/03/17 04:00 96.2 75 18 146/88 95 04/03/17 00:00 98.7 78 18 151/91 96 04/02/17 21:15 73 04/02/17 20:00 98.6 78 18 158/84 96 04/02/17 16:00 98.0 71 18 139/81 96 04/02/17 12:00 98.5 74 18 133/85 95 04/03/17 04/03/17 04/03/17 07:00 15:00 23:00 Output Total 490 ml Balance -490 ml Result Diagram: 03/30/17 0513 04/02/17 0440 Administered Medications Medications (Trade) Dose Ordered Sig/Ab Route PRN Reason Start Time Stop Time Status Last Admin Dose Admin Sodium Chloride (NS Flush) 2 ml BID IV FLUSH 03/26/17 09:00 04/03/17 08:41 Heparin Sodium (Porcine) (Heparin Inj) 5,000 units Q8H SQ 03/26/17 01:00 04/03/17 08:44 Pantoprazole Sodium (Protonix Inj) 40 mg DAILY IV PUSH 03/26/17 10:15 04/03/17 08:44 Hydromorphone HCl (Dilaudid Pf Inj) 1 mg Q3H PRN IV PAIN SCALE 1 TO 10 03/28/17 18:30 04/03/17 08:41 Dextrose (D50w (Vial) Inj) 50 ml UNSCH PRN IV HYPOGLYCEMIA-SEE COMMENTS 03/30/17 17:00 04/02/17 04:33 Enalaprilat (Vasotec Inj) 1.25 mg Q6H PRN IV PUSH sbp > 170 03/31/17 08:30 03/31/17 09:31 Insulin Aspart (NovoLOG SUPPLEMENTAL SCALE) 1 Q4HR SQ 04/01/17 12:00 04/03/17 08:54 Objective Remarks GENERAL: Middle aged male, supine in bed watching TV in nad. SKIN: Warm and dry. HEAD: Normocephalic. EYES: No injection or drainage. NECK: Supple, trachea midline. CARDIOVASCULAR: +S1/S2 RESPIRATORY: Breath sounds equal bilaterally. No accessory muscle use. GASTROINTESTINAL: Abdomen soft, incision sites clean without sign of bleeding or infection. mildly tender. J-tube in place with TF @50cc/hr EXTREMITIES: No cyanosis NEUROLOGICAL: aox3. normal speech. Assessment/Plan Problem List: (1) Esophageal cancer Status: Acute Plan: -- upper endoscopy March 23 +circumferential mass in the distal esophagus completely obstructing the esophagus. Biopsy showed poorly differentiated adenocarcinoma. --CT chest showed thickening of the distal esophagus but no clear evidence of adenopathy. --s/p XRT simulation on 03/27/17 --s/p J-tube placement and ex lap on 03/31/17 Assessment 66y/o male with newly diagnosed esophageal cancer. h/o Hypertension. Hyperlipidemia. Diabetes mellitus. CT scan showed emphysematous changes. Possible history of Beltran's esophagus. Plan 1. clear for discharge. 2. patient advised to call and make follow up appointment in clinic in one week. 3. PET scan outpatient 4. continue TF Attending Statement The exam, history, and the medical decision-making described in the above note were completed with the assistance of the mid-level provider. I reviewed and agree with the findings presented. I attest that I had a [id number] encounter with the patient on the same day, and personally performed and documented my assessment and findings in the medical record. Tolerating tube feeding. Can be d/c from onc standpoint when he tolerates the tube feeding. F/ u onc clinic for neoadjuvant tx. Isabel Vang Apr 03, 2017 09:41 Darwin Medina MD Apr 03, 2017 14:46
[2017-04-03] MEDS ORDERED: glipiZIDE 10 MG TAB PO SCH (17:00)
[2017-04-04] VITALS: BP 144/78; PULSE 76; RESP 18; TEMP 97.6; O2SAT 95
[2017-04-04] MEDS: HEPARIN SODIUM - SQ 10,000 UNITS/ML VIAL SQ SCH ×2 (00:37→08:19)
[2017-04-04] MEDS: INSULIN ASPART SUPPLEMENTAL SCALE SQ SCH ×3 (00:43→08:19)
[2017-04-04 04:00] VITALS: BP 124/75; PULSE 73; RESP 17; TEMP 97.2; O2SAT 97
[2017-04-04] MEDS ORDERED: GLIP5 J-TUBE (07:31)
[2017-04-04] MEDS ORDERED: GLIP10TA6 PO (07:31)
[2017-04-04] MEDS ORDERED: OXYC1SOL3 J-TUBE (07:33)
--- NOTE | 2017-04-04 07:42 | HHI.DCPOC ---
Discharge Care Plan Diagnosis: (1) Esophageal cancer (2) Gout (3) CKD (chronic kidney disease) stage 3, GFR 30-59 ml/min (4) Diabetes mellitus type 2, noninsulin dependent (5) HTN (hypertension) (6) Dehydration Goals to Promote Your Health * To prevent worsening of your condition and complications * To maintain your health at the optimal level Directions to Meet Your Goals Take your medications as prescribed Follow your dietary instruction Follow activity as directed Keep your appointments as scheduled Take your immunizations and boosters as scheduled If your symptoms worsen call your PCP, if no PCP go to Urgent Care Center or Emergency Room Smoking is Dangerous to Your Health. Avoid second hand smoke Call the 24-hour hour crisis hotline for domestic abuse at Koko Saldaña MD Apr 04, 2017 07:42
--- NOTE | 2017-04-04 07:45 | HHI.PR ---
Subjective Remarks wants to go home Objective Vitals heart reg lung cta abd s/nt ext no pitting Vital Signs Date Time Temp Pulse Resp B/P Pulse Ox O2 Delivery O2 Flow Rate FiO2 04/04/17 04:00 97.2 73 17 124/75 97 04/04/17 00:00 97.6 76 18 144/78 95 04/03/17 21:16 97 04/03/17 21:00 72 04/03/17 20:51 20 04/03/17 20:00 96.6 79 17 131/79 95 04/03/17 16:00 96.6 73 16 119/69 94 04/03/17 12:00 97.5 76 18 135/80 97 04/03/17 08:22 95 04/03/17 08:00 97.7 72 18 142/76 96 04/03/17 04/03/17 04/04/17 15:00 23:00 07:00 Intake Total 1861 ml 480 ml Output Total 1000 ml 1950 ml 1200 ml Balance -1000 ml -89 ml -720 ml Intake Oral 480 ml 480 ml Tube Feeding 1211 ml Other 170 ml Output Urine Total 1000 ml 1950 ml 1200 ml # Bowel Movements 1 Result Diagram: 04/02/17 0440 Imaging Last Impressions Port Line Insertion 03/27/17 0000 Signed Impressions: Service Date/Time: Monday, March 27, 2017 15:47 - CONCLUSION: Uncomplicated ultrasound and fluoroscopic guided implanted central venous port catheter placement as described in detail above. An 8 [place] Power port was placed. Rigo Arrieta MD A/P Problem List: (1) Esophageal cancer Status: Acute Plan: - Pt recently had been having progressive dysphagia and worsening reflux symptoms. He underwent evaluation with EGD on 03/23/[address] Muñoz which revealed a circumferential mass in the distal esophagus , completely obstructing - He was contacted by the GI office and informed that the pathology revealed esophageal cancer - Pt has been unable to eat or drink much of anything for the last 3 weeks prior to admission. - He was seen by his PCP, Dr. Traylor, day prior to admission and sent to the ED for dehydration and for possible PEG placement. 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 - Fibwn-T-eqje placed by IR (03/27/17) - Pt started on TPN 03/27/17 - J tube placed 03/31 off tpn and scheduled insulin titrate up on tube feeding. appreciate nutrition tube feed reccs. CM to arrange hhc and tube feeding pt on glipizide. instructed to keep logbook of bg and take to pcp for titration as needed. colchicine and pred. for gout. hhc to check bmp this week and send to pcp oncology planning to have pt f/u 1 week with pet/ct and chemo outpt. rad oncology also following dvt prophylaxis. (2) Diabetes mellitus type 2, noninsulin dependent Status: Chronic Plan: see above (3) Dehydration Status: Acute Plan: - see above (4) Gout Status: Acute Plan: - gout flare see above (5) HTN (hypertension) Status: Chronic Plan: - Home meds are on hold - Vasotec PRN (6) CKD (chronic kidney disease) stage 3, GFR 30-59 ml/min Status: Acute Plan: - improved Problem Qualifiers (1) Gout: Koko Saldaña MD Apr 04, 2017 07:44
[2017-04-04 08:00] VITALS: BP 110/74; PULSE 85; RESP 18; TEMP 97.9; O2SAT 97
[2017-04-04] MEDS ORDERED: glipiZIDE 5 MG TAB PO SCH (08:00)
[2017-04-04] MEDS: PANTOPRAZOLE SODIUM 40 MG VIAL IV PUSH SCH (08:20)
[2017-04-04] MEDS: SODIUM CHLORIDE 0.9% FLUSH 10 ML FLUSH IV FLUSH SCH (08:20)
[2017-04-04] MEDS ORDERED: COLCHICINE 0.6 MG TAB J-TUBE ONE (08:30)
[2017-04-04] MEDS ORDERED: predniSONE 10 MG TAB J-TUBE ONE (08:30)
[2017-04-04 09:44] VITALS: O2SAT 97
--- NOTE | 2017-04-15 15:12 | HHI.DS ---
Discharge Summary Admission Date Mar 26, 2017 at 10:41 Discharge Date: Apr 15, 2017 Admitting Diagnosis esophageal obastruction, inability to eat or drink, esophageal cance (1) Esophageal cancer Diagnosis: Principal (2) Diabetes mellitus type 2, noninsulin dependent Diagnosis: Secondary (3) Dehydration Diagnosis: Secondary (4) Gout Diagnosis: Secondary (5) HTN (hypertension) Diagnosis: Secondary (6) CKD (chronic kidney disease) stage 3, GFR 30-59 ml/min Diagnosis: Secondary Consultants Dr. Darwin Medina - Medical Oncology Dr. Lola Katz - Cardiothoracic Surgery Dr. Deepak Olvera - Radiation Oncology Dr. Eric Vega - General Surgery Imaging Last Impressions Port Line Insertion 03/27/17 0000 Signed Impressions: Service Date/Time: Monday, March 27, 2017 15:47 - CONCLUSION: Uncomplicated ultrasound and fluoroscopic guided implanted central venous port catheter placement as described in detail above. An 8 [place] Power port was placed. Rigo Arrieta MD Hospital Course Pt recently had been having progressive dysphagia and worsening reflux symptoms. He underwent evaluation with EGD on 03/23/[address] Muñoz which revealed a circumferential mass in the distal esophagus, completely obstructing. He was contacted by the GI office and informed that the pathology revealed esophageal cancer. Pt has been unable to eat or drink much of anything for the last 3 weeks prior to admission. He was seen by his PCP, Dr. Traylor, day prior to admission and sent to the ED for dehydration and for possible PEG placement. 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 Ebbde-P-zvtq placed by IR (03/27/17). Pt started on TPN 03/27/17. Surgical J tube placed 03/31. Pt was weaned off TPN and scheduled insulin and titrated up on tube feeding. Dietary was consulted for tube feed recommendations. Pt was tolerating TF 50cc/hr prior to discharge. CM to arrange HHC and tube feeding. Pt was placed on Glipizide and instructed to keep logbook of blood glucose to take to his PCP for titration of the medication as needed. Pt had a gout flare up during admission and was treated with colchicine and prednisone. [facility] has orders to check BMP this week and send results to his PCP. Pt is to followup with Oncology in 1 week to arrange for PET/CT and chemo outpt. Pt will followup with Radiation oncology as well. Pt will followup with his PCP, Dr. Traylor, in 1 week. Pt will followup with Dr. Vega in 1-2 weeks. Pt Condition on Discharge: Stable Discharge Disposition: Disch w/ Home Health Serv Discharge Instructions DIET: Follow Instructions for: Full Liquid Diet, On Tube Feeding Activities you can perform: Regular-No Restrictions Follow up Referrals: Oncology - 1 Week with Darwin Medina MD PCP Follow-up - [address] Traylor Surgical - 2 Weeks with Eric Vega MD New Medications: Feeding Tubes - Pump (Kangaroo Ez Cap Pump Set/) 1 Mis Mis UNIT glucerna 1.5 70ml/hr 7pm-7am daily #1 Oxycodone Liq (Oxycodone Liq) 5 Mg/5 Ml Louann 5 MG J-TUBE Q6HR PRN pain Days 10 ML Glipizide (Glucotrol) 5 Mg Tab 5 MG J-TUBE DAILYAC dm #30 TAB Glipizide (Glipizide) 10 Mg Tab 10 MG PO DAILY@17 dm #30 TAB Continued Medications: Allopurinol (Allopurinol) 300 Mg Tab 300 MG PO DAILY Gout #30 Ref 0 TAB Discontinued Medications: Glipizide ER (Glipizide ER) 10 Mg Lynn 10 MG PO DAILY Take with breakfast or first main meal of the day Blood Sugar Management #30 Ref 0 TAB Lisinopril-Hctz (Lisinopril-Hctz) 20-12.5 Mg Tab 1 TAB PO DAILY Blood Pressure Management #30 Ref 0 TAB Metformin (Metformin) 1,000 Mg Tab 1000 MG PO DAILY With a meal Blood Sugar Management #30 Ref 0 TAB Simvastatin (Simvastatin) 40 Mg Tab 40 MG PO HS Cholesterol Management #30 Ref 0 TAB Michelle Urbina Apr 15, 2017 15:12
== END 2017-04-04 10:50 | disposition home health service (06) | DRG 375 ==
LOC: NEPE 22:23 → NEDA 03-26 00:08 → NEPHCDU 03-26 02:03 → OBSVTOIN 03-26 10:41 → HOCA 03-26 12:10 → UNDODISIN 03-28 12:35 → HIMW 03-28 12:45 → HOCA 03-30 19:38
PROVIDERS: ADMIT Hospitalist; ATTEND Hospitalist
PROC: 0JH60WZ Insertion of Totally Implantable Vascular Access Device into Chest Subcutaneous Tissue and Fascia, Open Approach (ICD-10-PCS; 2017-03-27)
PROC: 02HV33Z Insertion of Infusion Device into Superior Vena Cava, Percutaneous Approach (ICD-10-PCS; 2017-03-27)
PROC: 0DHA4UZ Insertion of Feeding Device into Jejunum, Percutaneous Endoscopic Approach (ICD-10-PCS; principal; 2017-03-31 13:07)
DX: C15.9 Malignant neoplasm of esophagus, unspecified (principal); N17.9 Acute kidney failure, unspecified; E46 Unspecified protein-calorie malnutrition; E11.22 Type 2 diabetes mellitus with diabetic chronic kidney disease; E86.0 Dehydration; E78.5 Hyperlipidemia, unspecified; E11.65 Type 2 diabetes mellitus with hyperglycemia; R91.1 Solitary pulmonary nodule; N18.3 Chronic kidney disease, stage 3 (moderate); I12.9 Hypertensive chronic kidney disease with stage 1 through stage 4 chronic kidney disease, or unspecified chronic kidney disease; T38.0X5A Adverse effect of glucocorticoids and synthetic analogues, initial encounter; J44.9 Chronic obstructive pulmonary disease, unspecified; M10.9 Gout, unspecified; Z87.891 Personal history of nicotine dependence; Z79.84 Long term (current) use of oral hypoglycemic drugs
CPT/HCPCS: 36561; 76937; 77001; 77263; 77334; 80048; 80053; 82378; 82947; 82948; 83690; 83735; 84100; 84478; 85025; 85610; 85730; 88305; 93005; 96374; 99152; 99153; 99222; C1788; C9113; J0360; J0690; J1170; J1642; J1644; J1815; J1817; J2250; J2270; J2405; J2710; J2930; J3010; J3480; J7030; J7512

== ENCOUNTER 2017-04-26 22:18 | Inpatient (IN) | payer MEDICARE ==
[~2017-04-26] VITALS: Ht 177.8 cm; Wt 82.0 kg
[~2017-04-26 22:18] MED LIST: ALLO300T2 PO; GLIP10TA6 PO; GLIP5 J-TUBE; OXYC1SOL3 J-TUBE; [UNRECOGNIZED DRUG - CODE]
[2017-04-26 22:28] VITALS: BP 113/69; PULSE 105; RESP 22; TEMP 98.3; O2SAT 96
--- NOTE | 2017-04-26 22:28 | PD ---
HPI Chief Complaint: wound seepage Time Seen by Provider: 22:28 Travel History International Travel<30 days: No Contact w/Intl Traveler<30days: No Traveled to known affect area: No History of Present Illness HPI 66-year-old male came to the emergency room brought by EMS for excessive drainage from his surgical wound for the G-tube placement. He has been soaking a lot of wound dressings. Patient was diagnosed with esophageal cancer in March of this year after which she was placed on the G-tube. He says he had his radiation yesterday which was the first time. He has not been started on chemotherapy yet. He is feeling weak he said. His blood pressure was low by EMS. Denies of any significant pain anywhere. He is awake and answering questions appropriately. No history of fever or chills. PFS Past Medical History Narrative Medical List of his past medical, surgical, social and family history is reviewed from the nursing note. Asthma: No Heart Rhythm Problems: No Cancer: Yes (esophageal cancer currently) Cardiovascular Problems: Yes High Cholesterol: Yes Chest Pain: No Congestive Heart Failure: No COPD: No Diabetes: Yes GERD: Yes Hypertension: Yes Psychiatric: No Respiratory: No Sleep Apnea: No Thyroid Disease: No Social History Alcohol Use: Yes (daily) Tobacco Use: No Substance Use: No Allergies-Medications (Allergen,Severity, Reaction): Coded Allergies: No Known Allergies (Unverified , 03/25/17) Comments No known drug allergies. Reported Meds & Prescriptions Reported Meds & Active Scripts Active Kangaroo Ez Cap Pump Set/ (Feeding Tubes - Pump) 1 Mis Mis Unit glucerna 1.5 70ml/hr 7pm-7am daily Reported Lantus Inj (Insulin Glargine) 1,000 Unit/10 Ml Vial 15 Units SQ HS Oxycodone (Oxycodone HCl) 10 Mg Tab 10 Mg PO Q3-4HRS PRN Novolog Inj (Insulin Aspart) 1,000 Unit/10 Ml Vial 0 SQ DIRECTED Sliding Scale as directed. Allopurinol 300 Mg Tab 300 Mg PO DAILY Narrative Medication List of his home medications reviewed from the nursing note. Review of Systems Except as stated in HPI: all other systems reviewed are Neg Physical Exam Narrative GENERAL: Awake, alert, moderate distress SKIN: Focused skin assessment warm/dry. Pale HEAD: Atraumatic. Normocephalic. EYES: Pupils equal and round. No scleral icterus. No injection or drainage. ENT: No nasal bleeding or discharge. Dry mucous membrane NECK: Trachea midline. No JVD. CARDIOVASCULAR: Regular rate and rhythm. No murmur appreciated. RESPIRATORY: No accessory muscle use. Clear to auscultation. Breath sounds equal bilaterally. GASTROINTESTINAL: Abdomen soft, non-tender, nondistended. Hepatic and splenic margins not palpable. G-tube with copious amount of bilious drainage. This skin surrounding looks erythematous and raw but no significant signs of infection MUSCULOSKELETAL: No obvious deformities. No clubbing. No cyanosis. No edema. NEUROLOGICAL: Awake and alert. No obvious cranial nerve deficits. Motor grossly within normal limits. Normal speech. PSYCHIATRIC: Appropriate mood and affect; insight and judgment normal. Data Data Last Documented VS Vital Signs Date Time Temp Pulse Resp B/P Pulse Ox O2 Delivery O2 Flow Rate FiO2 04/27/17 00:08 83 127/61 04/26/17 22:43 96 Nasal Cannula 4 04/26/17 22:28 98.3 22 Orders Complete Blood Count With Diff (04/26/17 22:34) Comprehensive Metabolic Panel (04/26/17 22:34) Lactic Acid Sepsis Protocol (04/26/17 22:34) Urinalysis - C+S If Indicated (04/26/17 22:34) Blood Culture (04/26/17 22:34) Chest, Single Ap (04/26/17 22:34) Blood Glucose (04/26/17 22:34) Ecg Monitoring (04/26/17 22:34) Iv Access Insert/Monitor (04/26/17 22:34) Oximetry (04/26/17 22:34) Oxygen Administration (04/26/17 22:34) Sodium Chlor 0.9% 1000 Ml Inj (Ns 1000 M (04/26/17 22:34) Sodium Chlor 0.9% 1000 Ml Inj (Ns 1000 M (04/26/17 22:34) Sodium Chlor 0.9% 1000 Ml Inj (Ns 1000 M (04/26/17 22:34) Lidocaine 2% Jelly (Xylocaine 2% Jelly) (04/26/17 23:30) Type And Screen (04/26/17 23:45) Red Blood Cells (Rbc) (04/26/17 23:45) Blood Product Administration .UPON TRANSFUSION (04/26/17 23:45) Sodium Chlor 0.9% 250 Ml Inj (Ns 250 Ml (04/26/17 23:45) Piperacil-Tazo 4.5 Gm Premix (Zosyn 4.5 (04/27/17 00:00) Vancomycin Inj (Vancomycin Inj) (04/27/17 00:00) Admit Order (Ed Use Only) (04/27/17 00:14) Red Blood Cells (Rbc) (04/27/17 00:51) Labs Laboratory Tests Test 04/26/17 04/26/17 23:01 23:29 White Blood Count 8.4 TH/MM3 Red Blood Count 2.59 MIL/MM3 Hemoglobin 7.6 GM/DL Hematocrit 24.6 % Mean Corpuscular Volume 94.9 FL Mean Corpuscular Hemoglobin 29.2 PG Mean Corpuscular Hemoglobin 30.7 % Concent Red Cell Distribution Width 14.9 % Platelet Count 200 TH/MM3 Mean Platelet Volume 11.2 FL Neutrophils (%) (Auto) 78.4 % Lymphocytes (%) (Auto) 10.9 % Monocytes (%) (Auto) 9.8 % Eosinophils (%) (Auto) 0.5 % Basophils (%) (Auto) 0.4 % Neutrophils # (Auto) 6.6 TH/MM3 Lymphocytes # (Auto) 0.9 TH/MM3 Monocytes # (Auto) 0.8 TH/MM3 Eosinophils # (Auto) 0.0 TH/MM3 Basophils # (Auto) 0.0 TH/MM3 CBC Comment DIFF FINAL Differential Comment Sodium Level 167 MEQ/L Potassium Level 3.5 MEQ/L Chloride Level 129 MEQ/L Carbon Dioxide Level 32.6 MEQ/L Anion Gap 5 MEQ/L Blood Urea Nitrogen 84 MG/DL Creatinine 1.95 MG/DL Estimat Glomerular Filtration 34 ML/MIN Rate Random Glucose 196 MG/DL Calcium Level 8.7 MG/DL Total Bilirubin 0.6 MG/DL Aspartate Amino Transf 18 U/L (AST/SGOT) Alanine Aminotransferase 13 U/L (ALT/SGPT) Alkaline Phosphatase 89 U/L Total Protein 7.1 GM/DL Albumin 2.2 GM/DL Lactic Acid Level 2.1 mmol/L Magnesium Level 3.0 MG/DL Total Creatine Kinase 95 U/L Thyroid Stimulating Hormone 1.260 uIU/ML 3rd Gen Urine Color YELLOW Urine Turbidity CLEAR Urine pH 5.5 Urine Specific [place] 1.025 Urine Protein TRACE mg/dL Urine Glucose (UA) NEG mg/dL Urine Ketones NEG mg/dL Urine Occult Blood NEG Urine Nitrite NEG Urine Bilirubin NEG Urine Urobilinogen 2.0 MG/DL Urine Leukocyte Esterase NEG Urine RBC 1 /hpf Urine WBC 1 /hpf Urine Hyaline Casts 8 /lpf Urine Mucus FEW /lpf Microscopic Urinalysis Comment CATH-CULT NOT IND Urine Osmolality 774 MOSM/KG Urine Random Creatinine 152.8 MG/DL Urine Random Sodium 5 MEQ/L MDM Medical Decision Making Medical Screen Exam Complete: Yes Emergency Medical Condition: Yes Medical Record Reviewed: Yes Differential Diagnosis Dehydration, electrolyte abnormality, anemia, infection Narrative Course 12:15 AM blood test results are back. Patient is anemic and I will order 2 units of blood transfusion. He probably has GI bleed since his BUN is significantly elevated. It could be from the cancer itself. His sodium is significantly elevated. I have ordered 3 L of IV fluid bolus and IV antibiotic as per sepsis protocol. Lactic acid is elevated. I discussed all this with his and the patient. The told me he had a scope done 2 weeks ago. Patient will require admission. He does not have a surgical belly currently and hence I'm not calling general surgeon at this point. Patient has been admitted to the hospitalist. 3 AM patient's heart rate was elevated as it informed to me by the nurse at approximately 1 AM. An EKG was ordered by me which showed atrial fibrillation with RVR. Patient had anterior lateral ST depressions. I spoke with the and I was told that patient does not have history of A. fib. His blood pressure at this point was in the 90 is systolic. He had received 2 L of IV fluid bolus and the third one was hanging. He didn't appear to be pale than when he first arrived. Given his history of GI bleed and low hemoglobin I spoke with Dr. Peacock who asked me to keep his J-tube under suction. So far it hasn't yielded few cc of bilious looking fluid. Patient is getting blood transfusion. By now he has received 5 L of IV fluid bolus and the blood pressure is still soft. His atrial fibrillation continued in spite of getting pain medication since he started complaining of abdominal pain. I decided to try cardioversion which was attempted 3 times. Please refer to my procedure note. In 2 instances out of the 3 he converted to normal sinus rhythm which stayed for about 2 minutes after which she converted back to atrial fibrillation with RVR. I decided to speak with the [place] police lieutenant since at this point patient met criteria to be in ICU. The Sherif came down and has started the patient on amiodarone bolus and drip. Patient is in critical condition. He will go to the ICU. I have been in touch with his constantly during this entire time. She has been in the room next to him. Patient has also been started on norepinephrine drip. Critical Care Narrative Aggregate critical care time was 75 minutes. Time to perform other separately billable procedures was not included in the critical care time. My time did not include minutes spent treating any other patients simultaneously or on activities that did not directly contribute to the patient's treatment. The services I provided to this patient were to treat and/or prevent clinically significant deterioration that could result in: Sepsis and anemia, blood transfusion, sepsis protocol, hypernatremic dehydration, septic shock, A. fib with RVR, cardioversion I provided critical care services requiring my management, as noted below: Chart data review, documentation time, medication orders and management, vital sign assessments/reviewing monitor data, ordering and reviewing lab tests, ordering and interpreting/reviewing x-rays and diagnostic studies, care of the patient and discussion of the patient with the admitting physicians. Procedures Procedure Narrative Cardioversion: After patient received the procedural sedation the monitor was set to synchronize mode and discharged at 50 J. As soon as the shock was delivered patient cardioverted to normal sinus rhythm. However he stayed for 2 minutes and went back to atrial fibrillation with RVR. Another 50 J synchronized cardioversion was attempted without any success. Machine was charged to 100 J at this point and shock delivered. Once again patient cardioverted to normal sinus rhythm and stayed for 2 minutes after which she went back to A. fib with RVR. He remained hemodynamically steady. After the risks and benefits were discussed the following procedure was performed: MODERATE SEDATION: The patient was placed on a light armored reconnaissance officer and pulse oximetry. An ambu bag and suction was immediately available at bedside. The patient was monitored by the nurse. Oxygen saturation , heart rate and blood pressure were monitored. Procedural sedation was acheived using 10 mg of IV etomidate. The patient was observed until awake and alert. Procedural Sedation time in attendance was 20 minutes. EKG Prior to Arrival: No HemaPrompt Point of Care Internal Pos. & Neg. Controls: Passed Fecal Specimen Occult Blood: Positive Physician Communication Physician Communication Dr. Peacock, Dr. Gorman Diagnosis Primary Impression: Dehydration with hypernatremia Additional Impressions: GI bleed Qualified Code: K92.2 - Gastrointestinal hemorrhage, unspecified gastrointestinal hemorrhage type Sepsis Qualified Code: A41.9 - Sepsis, due to unspecified organism Anemia Qualified Code: D64.9 - Anemia, unspecified type Esophageal cancer Qualified Code: C15.9 - Malignant neoplasm of esophagus, unspecified location Atrial fibrillation with RVR Septic shock Admitting Information Admitting Physician Requests: it Marissa Rodriguez MD Apr 26, 2017 22:28
[2017-04-26] MEDS ORDERED: SODIUM CHLOR 0.9% 1000 ML INJ 1,000 ML IV ONE ×2 (22:34)
[2017-04-26] MEDS ORDERED: SODIUM CHLOR 0.9% 1000 ML INJ 700 ML IV ONE (22:34)
--- NOTE | 2017-04-26 23:12 | RADRPT ---
EXAM DATE/TIME: 04/26/2017 22:44 [facility] COMPARISON: No previous studies available for comparison. INDICATIONS : Chest pain and cough. MEDICAL HISTORY : None. SURGICAL HISTORY : None. ENCOUNTER: Initial ACUITY: 1 day PAIN SCORE: 5/10 LOCATION: Bilateral chest FINDINGS: A single view of the chest demonstrates the lungs to be symmetrically aerated without evidence of mas s, infiltrate or effusion. The cardiomediastinal contours are unremarkable. Osseous structures are intact. Mild hypertrophy of both acromioclavicular joints CONCLUSION: Normal examination. Right IJ Beshrt-s-Kfzl catheter in good position. Scottie Barron MD on April 26, 2017 at 23:10 Board Certified Radiologist. This report was verified electronically.
[2017-04-26] MEDS ORDERED: LIDOCAINE 2% JELLY 30 ML TUBE TOPICAL ONE (23:30)
[2017-04-26 23:38] LABS: AUTOMATED NEUTROPHIL # 6.6 TH/MM3 (1.8-7.7); BASOPHIL % 0.4 % (0.0-2.0); EOSINOPHIL % 0.5 % (0.0-4.0); HEMATOCRIT 24.6 % (39.0-51.0); HEMO FLAGS DIFF FINAL; LYMPH % 10.9 % (9.0-44.0); LYMPHOCYTE # 0.9 TH/MM3 (1.0-4.8); MEAN CELL VOLUME 94.9 FL (80.0-100.0); MEAN CORPUSCULAR HEMOGLOBIN 29.2 PG (27.0-34.0); MEAN CORPUSCULAR HGB CONC 30.7 % (32.0-36.0); MONO % 9.8 % (0.0-8.0); NEUT % 78.4 % (16.0-70.0); PLATELET COUNT 200 TH/MM3 (150-450); RED BLOOD COUNT 2.59 MIL/MM3 (4.50-5.90); RED CELL DISTRIBUTION WIDTH 14.9 % (11.6-17.2); WHITE BLOOD COUNT 8.4 TH/MM3 (4.0-11.0)
[2017-04-26] MEDS ORDERED: SODIUM CHLOR 0.9% 250 ML INJ 250 ML IV ONE (23:45)
[2017-04-26 23:52] LABS: BLOOD, URINE NEG (NEG); GLUCOSE,URINE NEG (NEG); HYALINE CAST, URINE 8 /lpf (RARE); KETONE, URINE NEG (NEG); MUCUS URINE FEW /lpf (OCC); NITRITE,URINE NEG (NEG); PH, URINE 5.5 (5.0-8.5); URINE COLOR YELLOW (YELLW/STRAW)
[2017-04-26 23:53] LABS: COMMENT (UR) CATH-CULT NOT IND; CULTURE IF INDICATED CATH CULTURE NOT IND
[2017-04-26 23:54] LABS: ALKALINE PHOSPHATASE 89 U/L (45-117); ALT (GPT) 13 U/L (12-78); ANION GAP 5 MEQ/L (5-15); AST (GOT) 18 U/L (15-37); BICARBONATE 32.6 MEQ/L (21.0-32.0); BLOOD UREA NITROGEN 84 MG/DL (7-18); CHLORIDE 129 MEQ/L (98-107); GLOMERULAR FILTRATION RATE 34 ML/MIN (>89); POTASSIUM 3.5 MEQ/L (3.5-5.1); TOTAL BILIRUBIN ADULT 0.6 MG/DL (0.2-1.0)
[2017-04-26 23:55] LABS: SODIUM (NA) 167 MEQ/L (136-145)
[2017-04-27] VITALS (23 sets, daily range): BP systolic 88–136; BP diastolic 53–65; PULSE 57–161; RESP 12–22; TEMP 97–98.9; O2SAT 94–100
[2017-04-27] MEDS ORDERED: VANCOMYCIN INJ 1,000 MG in SODIUM CHLOR 0.9% 250 ML INJ 250 ML IV ONE ×2
[2017-04-27] MEDS ORDERED: PIPERACIL-TAZO 4.5 GM PREMIX 100 ML IV ONE
[2017-04-27] MEDS ORDERED: NOVOLOGP2 SQ (00:07)
[2017-04-27] MEDS ORDERED: OXYC-395 PO (00:14)
[2017-04-27] MEDS ORDERED: LANTUS2P SQ (00:14)
[2017-04-27 01:25] LABS: LACTIC ACID GHOST NOT REPORTABLE
[2017-04-27] MEDS ORDERED: NOREPINEPHRINE-DEXTROSE DRIP 250 ML IV SCH (01:45)
[2017-04-27] MEDS ORDERED: SODIUM CHLOR 0.9% 1000 ML INJ 1,000 ML IV ONE (01:45)
[2017-04-27] MEDS ORDERED: TERBUTALINE INJ 1 MG/ML AMP SQ PRN (01:45)
[2017-04-27] MEDS ORDERED: NOREPINEPHRINE 4 MG/4 ML AMP ONE (02:14)
[2017-04-27] MEDS ORDERED: MORPHINE SULFATE 4 MG/ML INJ IV PUSH ONE (02:15)
[2017-04-27] MEDS ORDERED: ETOMIDATE 20 MG/10 ML VIAL IV PUSH ONE (02:30)
[2017-04-27] MEDS ORDERED: HYDROmorphone HCL PF 1 MG/ML VIAL IV PUSH ONE (02:30)
[2017-04-27] MEDS ORDERED: DILTIAZEM HCL 25 MG/5 ML VIAL ONE (02:44)
[2017-04-27] MEDS ORDERED: AMIODARONE HCL 150 MG/3 ML VIAL ONE (02:45)
[2017-04-27] MEDS ORDERED: POTASSIUM CHLOR 20 MEQ PREMIX 100 ML IV ONE (02:45)
[2017-04-27] MEDS ORDERED: DEXTROSE 5% IN WATE 1000ML INJ 1,000 ML IV SCH (03:00)
[2017-04-27] MEDS ORDERED: AMIODARONE INJ 150 MG in DEXTROSE 5% IN WATER 100ML INJ 97 ML IV ONE ×2 (03:00)
[2017-04-27] MEDS ORDERED: AMIODARONE INJ 900 MG in D5W 500 ML (EXCEL BAG) 482 ML IV SCH (03:00)
--- NOTE | 2017-04-27 03:00 | HHI.HP ---
HPI Service Critical Care Medicine Primary Care Physician Jethro Traylor MD Admission Diagnosis sepsis, hypernatremic dehydration, esophageal cancer Diagnosis: Travel History International Travel<30 Days: No Contact w/Intl Traveler <30 Da: No Traveled to Known Affected Are: No History of Present Illness Patient is lethargic and is a poor historian. Obtained much of history from discussion with his but she is very frustrated with me because she states she has told Dr. Vega the history and he told her to bring the patient in and she "does not want to have to go through it all again". 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 He had EGD by Dr. Muñoz. Distal esophageal mass is circumferential, obstructing and he is unable to take po and thus was admitted 03/26/17 with dehydration. He underwent exploratory lap and J tube placement by Dr. Sanchez. Port was placed. He was discharged 04/04/17. He presents to [facility] from home with generalized weakness. He is hypotensive with BP in 80s/ 50s, in Afib RVR with rate 160s. His states he has been having dark, black fluid coming from around the site of his J tube. When she instills Glucerna tube feeds, fluid with appearance of tube feeds leaks out around the tube. He has not vomited or had dry heaves. He has been very constipated, but did have a small melena BM yesterday. No BM today. He has been afebrile. He is dehydrated with sodium of 167, bicarbonate 32, BUN 84, creatinine 1.95 (prior creatinine 0.99). His hemoglobin is 7.6. Platelets 200. Two units of PRBC's have been ordered in the ED. He has received 5 L NS bolus. For A fib RVR with persistent BP in 80s to low 90s, Dr. Rodriguez performed electrical cardioversion 3 which resulted in very transient conversion to sinus rhythm and then return to A fib RVR. He reportedly has no history of A fib. He had followup appointment with Dr. Darwin Medina on 04/23/17. He is scheduled to have PET scan (previously rescheduled because of hyperglycemia). He states he has had 2 radiation treatments, last was 04/24/17. Plan to proceed with chemotherapy with Taxol and carboplatin, but this has not been started et. states glucose has been running "high" in the mornings ~600. His diabetes was previously controlled on oral meds but was recently started on insulin during his last admission. 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 Diagnostic exploratory laparotomy for staging and jejunostomy placement by Dr. Vega 03/31/17 Reported Medications Allopurinol 300 mg by mouth daily Glucerna 1.570 mL per hour 7 PM to 7 AM daily Insulin sliding scale Lantus 15 units subcutaneous daily at bedtime Oxycodone 10 mg by mouth every 4 hours when necessary pain Family History Father with prostate cancer 3 brothers have with cancer Social History Smoked 1-1/2 packs of cigarettes per day for 20 years. Quit 15 years ago And drinks alcohol intermittently. None recently since his diagnosis No illicit drug use Physical Exam Vital Signs Vital Signs Date Time Temp Pulse Resp B/P Pulse Ox O2 Delivery O2 Flow Rate FiO2 04/27/17 01:20 103/64 04/27/17 01:11 97.8 88/59 04/27/17 00:08 83 127/61 04/26/17 22:43 96 Nasal Cannula 4 04/26/17 22:43 Nasal Cannula 4 04/26/17 22:28 98.3 105 22 113/69 96 Physical Exam GENERAL: Under nourished well-developed male who is laying in ED stretcher. SKIN: Warm and dry. HEAD: Atraumatic. Normocephalic. EYES: Pupils equal and round,. No scleral icterus. No injection or drainage. ENT: No nasal bleeding or discharge. Mucous membranes pink and moist. NECK: Trachea midline. No JVD. CARDIOVASCULAR: irregularly irregular, rate in 150s to 160s. No murmurs rubs or gallops appreciated. RESPIRATORY: Clear to auscultation. Breath sounds equal bilaterally. GASTROINTESTINAL: J tube in place left abdomen. There is skin breakdown from chemical injury around J tube. There is translucent yellow drainage, appears bilious but with no exudate noted. No active bleeding. Bowel sounds present. MUSCULOSKELETAL: Extremities without clubbing, cyanosis, or edema. No obvious deformities. NEUROLOGICAL: Awake , lethargic but awakens to voice and answers questions of orientation. He cannot recall some of his medical history.. Motor grossly within normal limits, moving all extremities without focal deficit.. Normal speech. Laboratory Laboratory Tests Test 04/26/17 04/26/17 04/27/17 04/27/17 23:01 23:29 00:51 01:40 White Blood Count 8.4 Red Blood Count 2.59 Hemoglobin 7.6 Hematocrit 24.6 Mean Corpuscular Volume 94.9 Mean Corpuscular Hemoglobin 29.2 Mean Corpuscular Hemoglobin 30.7 Concent Red Cell Distribution Width 14.9 Platelet Count 200 Mean Platelet Volume 11.2 Neutrophils (%) (Auto) 78.4 Lymphocytes (%) (Auto) 10.9 Monocytes (%) (Auto) 9.8 Eosinophils (%) (Auto) 0.5 Basophils (%) (Auto) 0.4 Neutrophils # (Auto) 6.6 Lymphocytes # (Auto) 0.9 Monocytes # (Auto) 0.8 Eosinophils # (Auto) 0.0 Basophils # (Auto) 0.0 CBC Comment DIFF FINAL Differential Comment Sodium Level 167 Potassium Level 3.5 Chloride Level 129 Carbon Dioxide Level 32.6 Anion Gap 5 Blood Urea Nitrogen 84 Creatinine 1.95 Estimat Glomerular Filtration 34 Rate Random Glucose 196 Calcium Level 8.7 Total Bilirubin 0.6 Aspartate Amino Transf 18 (AST/SGOT) Alanine Aminotransferase 13 (ALT/SGPT) Alkaline Phosphatase 89 Total Protein 7.1 Albumin 2.2 Lactic Acid Level 2.1 Urine Color YELLOW Urine Turbidity CLEAR Urine pH 5.5 Urine Specific [place] 1.025 Urine Protein TRACE Urine Glucose (UA) NEG Urine Ketones NEG Urine Occult Blood NEG Urine Nitrite NEG Urine Bilirubin NEG Urine Urobilinogen 2.0 Urine Leukocyte Esterase NEG Urine RBC 1 Urine WBC 1 Urine Hyaline Casts 8 Urine Mucus FEW Microscopic Urinalysis Comment CATH-CULT NOT IND Urine Osmolality 774 Urine Random Creatinine 152.8 Urine Random Sodium 5 Blood Type O NEGATIVE O NEGATIVE Antibody Screen NEGATIVE Crossmatch Leukocyte-Reduced Red Blood Cells Blood Bank Comment Date/Time Procedure Status Source Growth 04/26/17 23:01 Aerobic Blood Culture Received Blood Peripheral Pending 04/26/17 23:01 Anaerobic Blood Culture Received Blood Peripheral Pending Result Diagram: 04/26/17 2301 04/26/17 2301 Assessment and Plan Assessment and Plan NEURO: Pain Dilaudid 0.5-1 mg IV every 3 hours when necessary moderate to severe pain Ofirmev 1 g IV every 6 hours when necessary mild pain RESP: Respiratory insufficiency History of tobacco abuse Nasal cannula wean as tolerated IS q 1 hour Albuterol q2 hours prn CV: Atrial fibrillation with RVR h/o Hypertension Electrical cardioversion x3 in ED by Dr. Rodriguez was successful in initial conversion to sinus rhythm but patient went back into A fib. Patient remains with marginal BP and BP did seem to improve in sinus rhythm. Therefore, started on amiodarone 150 mg IV and amiodarone drip to attempt rhythm maintenance. Not candidate for anticoagulation due to bleeding. Obtain TSH and 2 D Echo. GI: OBstructing Esophageal Mass Jejunostomy with leaking around tube ?GI bleeding Constipation NPO and hold tube feeds for now. CT abd/pelvis with gastrograffin to confirm tube placement Melena BM and around tube. Last BM 04/26. ? Bleeding from esophageal mass versus jejunostomy versus other. Serial Hgb q6 hours. Protonix 40 mg IV every 12 hours Gastroenterology consult General surgery consult, patient known to Dr. Vega FEN/RENAL: Acute dehydration Acute kidney injury Hypernatremia Hyperglycemia Patient presented with profound volume depletion. Given 5 L normal saline bolus in the emergency department. Has persistent free water deficit. Will address with D5W at 125 mL per hour. Follow-up sodium in 8 hours. Insert [place]. Monitor intake and output. Monitor electrolytes. KCL 20 MEQ IV for potassium 3.5 in setting of A fib. Check magnesium now and replace as indicated. ID: [id number]: Invasive poorly differentiated adenocarcinoma distal esophagus Acute blood loss anemia Has not yet received outpatient PET for staging. Dr. Medina following, plan for Taxol and cisplatin but patient has not started chemotherapy yet. Has had radiation therapy 2, last was 04/24 Transfuse 2 units packed red cells in the emergency department for hemoglobin 7.6 (prior 11.2) in the setting of hypotension. Serial hemoglobins every 6 hours. CBC in a.m. ENDO: Diabetes Monitor closely with bedside glucose every 4 hours while on D5 drip. Medium dose sliding scale as indicated. PROPH: SCDs for DVT prophylaxis. Pharmacologic DVT prophylaxis contraindicated due to acute bleeding. Protonix 40 g IV every 12 hours. ACCESS: Right chest port in place I presented to bedside with Dr. Rodriguez as patient was tachycardic in the 150s and hypotensive. SHe provided electrical cardioversion, however unfortunately patient had recurrent A fib. Initiated amiodarone drip as per above discussion. Critical care time 60 minutes exclusive of separately billable procedures. Vandana Gorman MD Apr 27, 2017 03:00
[2017-04-27] MEDS ORDERED: DIATRIZOATE MEGLUM/DIATRIZOATE SOD 9 ML CUP PO SCH (03:30)
[2017-04-27] MEDS ORDERED: INSULIN ASPART SUPPLEMENTAL SCALE SQ SCH ×3 (04:15→13:00)
[2017-04-27] MEDS ORDERED: GLUCAGON 1 MG/ML VIAL OTHER PRN ×2 (04:15→11:45)
[2017-04-27] MEDS ORDERED: DEXTROSE 50% IN WATER 50 ML VIAL(D50) IV PRN ×2 (04:15→11:45)
[2017-04-27 04:30] LABS: LACTIC ACID GHOST NOT REPORTABLE
[2017-04-27] MEDS: AMIODARONE INJ 450 MG in D5W (EXCEL BAG) 241 ML IV SCH ×2 (05:27→11:55)
[2017-04-27 08:32] LABS: AUTOMATED NEUTROPHIL # 6.5 TH/MM3 (1.8-7.7); BASOPHIL % 0.3 % (0.0-2.0); EOSINOPHIL # 0.1 TH/MM3 (0-0.4); EOSINOPHIL % 1.1 % (0.0-4.0); HEMATOCRIT 26.4 % (39.0-51.0); HEMO FLAGS DIFF FINAL; LYMPH % 9.6 % (9.0-44.0); LYMPHOCYTE # 0.8 TH/MM3 (1.0-4.8); MEAN CORPUSCULAR HEMOGLOBIN 29.9 PG (27.0-34.0); MEAN CORPUSCULAR HGB CONC 31.8 % (32.0-36.0); MONO % 7.9 % (0.0-8.0); NEUT % 81.1 % (16.0-70.0); PLATELET COUNT 159 TH/MM3 (150-450); RED BLOOD COUNT 2.81 MIL/MM3 (4.50-5.90); RED CELL DISTRIBUTION WIDTH 15.2 % (11.6-17.2)
[2017-04-27 08:45] LABS: APTT (PATIENT) 24.5 SEC (24.3-30.1); PROTHROMBIN TIME - PATIENT 10.7 SEC (9.8-11.6)
[2017-04-27] MEDS: PIPERACIL-TAZO 2.25 GM PREMIX 50 ML IV SCH ×3 (09:00→17:11)
[2017-04-27] MEDS: PANTOPRAZOLE SODIUM 40 MG VIAL IV PUSH SCH (09:01)
[2017-04-27 09:25] LABS: BICARBONATE 24.8 MEQ/L (21.0-32.0); CALCIUM-PROTEIN CORRECTED 8.3 MG/DL (8.5-10.1); CREATINE KINASE 146 U/L (39-308); MAGNESIUM 2.4 MG/DL (1.5-2.5); POTASSIUM 3.6 MEQ/L (3.5-5.1); TOTAL BILIRUBIN ADULT 0.8 MG/DL (0.2-1.0)
[2017-04-27 09:44] LABS: CKMB 1.8 NG/ML (0.5-3.6)
--- NOTE | 2017-04-27 09:50 | PD.CONS ---
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 He was having dysphagia and underwent an EGD (03/23/17)-- ---> Circumferential mass was found in the distal esophagus, circumferential, completely obstructing. 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 He was evaluated by oncology and underwent an exploratory laparoscopy with J tube placement and had a port placed. He does not take anything by mouth at home. He gets nutrition through the He recently had his second radiation treatment on April 24. The plan was for him to also start carboplatin and Taxol although this has not started as of yet. The patient is a poor historian. He states that he was having generalized weakness and he was having drainage from his J-tube and therefore he was brought to the ER for further evaluation. He was found to be hypotensive and went into atrial fibrillation with RVR and required cardioversion 2. He currently has atrial fibrillation, rate controlled and was transferred to the intensive care unit for further treatment. The patient tells me that he has constant pain in his upper abdomen that radiates to his back. He reports that this is a dull ache and that at home he takes pain medicine on a regular basis. He did try a Fentanyl patch at one point for this , but states it did not help and therefore he is taking oxycodone at home to "keep the edge off." He denies n/v and denies any bowel changes or rectal bleeding. 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 Lap with J tube placement Port placement EGD Coded Allergies: No Known Allergies (Unverified , 03/25/17) Medications Allergies Coded Allergies Type Severity Reaction Last Updated Verified No Known Allergies 03/25/17 No Active Scripts Medications Dose Route/Sig Days Date Category Dose Instructions Lantus Inj (Insulin Glargine) 1,000 Unit/10 Ml Vial 15 Units SQ HS 04/27/17 Reported Oxycodone (Oxycodone HCl) 10 Mg Tab 10 Mg PO Q3-4HRS PRN 04/27/17 Reported Novolog Inj (Insulin Aspart) 1,000 Unit/10 Ml Vial 0 SQ DIRECTED 04/27/17 Reported Sliding Scale as directed. Kangaroo Ez Cap Pump Set/ (Feeding Tubes - Pump) 1 Mis Mis Unit 04/03/17 Rx glucerna 1.5 70ml/hr 7pm-7am daily Allopurinol 300 Mg Tab 300 Mg PO DAILY 03/25/17 Reported Family History Sister had breast cancer Father had prostate cancer Brother had lung cancer Social History Quit smoking 15 years ago, 20 pack year smoking history before that Was drinking daily vodka 2 drinks a day. Review of Systems Constitutional: COMPLAINS OF: Fatigue, Weight loss Respiratory: DENIES: Cough, Shortness of breath Cardiovascular: DENIES: Chest pain Gastrointestinal: COMPLAINS OF: Abdominal pain, Difficulty Swallowing, Heartburn, DENIES: Black stools, Bloody stools, Constipation, Diarrhea, Nausea , Vomiting, Swelling of Abdomen Hematologic/lymphatic: DENIES: Bruising Psychiatric: DENIES: Confusion ROS Generalized weakness. GI Exam Vitals I&O Vital Signs Date Time Temp Pulse Resp B/P Pulse Ox O2 Delivery O2 Flow Rate FiO2 04/27/17 06:44 97.0 69 13 136/65 95 04/27/17 05:44 68 20 108/65 100 Nasal Cannula 2.5 04/27/17 05:31 73 22 107/61 94 Nasal Cannula 2.5 04/27/17 05:14 76 20 107/60 100 Nasal Cannula 2.5 04/27/17 04:59 70 18 96/55 100 Nasal Cannula 2.5 04/27/17 04:44 67 18 100/58 100 Nasal Cannula 2.5 04/27/17 04:15 98.4 71 20 101/63 100 Nasal Cannula 2 04/27/17 02:41 153 04/27/17 02:31 85 04/27/17 02:30 99 Nasal Cannula 04/27/17 02:30 99 3.00 04/27/17 02:30 99 04/27/17 02:19 97.8 90 20 126/53 98 Nasal Cannula 2 04/27/17 01:59 161 04/27/17 01:20 103/64 04/27/17 01:11 97.8 88/59 04/27/17 00:08 83 127/61 04/26/17 22:43 96 Nasal Cannula 4 04/26/17 22:43 Nasal Cannula 4 04/26/17 22:28 98.3 105 22 113/69 96 I/O 04/26/17 04/26/17 04/26/17 04/27/17 04/27/17 7/10/17 07:00 15:00 23:00 07:00 15:00 23:00 Intake Total 518 ml Balance 518 ml Intake IV Total 18 ml Packed Cells 500 ml Imaging Last Impressions Chest X-Ray 04/26/172233 Signed Impressions: Service Date/Time: Wednesday, April 26, 2017 22:44 - CONCLUSION: Normal examination. Right IJ [id number]-Iygm catheter in good position. Scottie Barron MD Laboratory Test 04/26/17 04/26/17 04/27/17 04/27/17 23:01 23:29 00:51 01:40 White Blood Count 8.4 TH/MM3 Red Blood Count 2.59 MIL/MM3 Hemoglobin 7.6 GM/DL Hematocrit 24.6 % Mean Corpuscular Volume 94.9 FL Mean Corpuscular Hemoglobin 29.2 PG Mean Corpuscular Hemoglobin 30.7 % Concent Red Cell Distribution Width 14.9 % Platelet Count 200 TH/MM3 Mean Platelet Volume 11.2 FL Neutrophils (%) (Auto) 78.4 % Lymphocytes (%) (Auto) 10.9 % Monocytes (%) (Auto) 9.8 % Eosinophils (%) (Auto) 0.5 % Basophils (%) (Auto) 0.4 % Neutrophils # (Auto) 6.6 TH/MM3 Lymphocytes # (Auto) 0.9 TH/MM3 Monocytes # (Auto) 0.8 TH/MM3 Eosinophils # (Auto) 0.0 TH/MM3 Basophils # (Auto) 0.0 TH/MM3 CBC Comment DIFF FINAL Differential Comment Sodium Level 167 MEQ/L Potassium Level 3.5 MEQ/L Chloride Level 129 MEQ/L Carbon Dioxide Level 32.6 MEQ/L Anion Gap 5 MEQ/L Blood Urea Nitrogen 84 MG/DL Creatinine 1.95 MG/DL Estimat Glomerular Filtration 34 ML/MIN Rate Random Glucose 196 MG/DL Calcium Level 8.7 MG/DL Total Bilirubin 0.6 MG/DL Aspartate Amino Transf 18 U/L (AST/SGOT) Alanine Aminotransferase 13 U/L (ALT/SGPT) Alkaline Phosphatase 89 U/L Total Protein 7.1 GM/DL Albumin 2.2 GM/DL Lactic Acid Level 2.1 mmol/L Magnesium Level 3.0 MG/DL Total Creatine Kinase 95 U/L Thyroid Stimulating Hormone 1.260 uIU/ML 3rd Gen Urine Color YELLOW Urine Turbidity CLEAR Urine pH 5.5 Urine Specific [place] 1.025 Urine Protein TRACE mg/dL Urine Glucose (UA) NEG mg/dL Urine Ketones NEG mg/dL Urine Occult Blood NEG Urine Nitrite NEG Urine Bilirubin NEG Urine Urobilinogen 2.0 MG/DL Urine Leukocyte Esterase NEG Urine RBC 1 /hpf Urine WBC 1 /hpf Urine Hyaline Casts 8 /lpf Urine Mucus FEW /lpf Microscopic Urinalysis Comment CATH-CULT NOT IND Urine Osmolality 774 MOSM/KG Urine Random Creatinine 152.8 MG/DL Urine Random Sodium 5 MEQ/L Blood Type O NEGATIVE O NEGATIVE Antibody Screen NEGATIVE Crossmatch Leukocyte-Reduced Red Blood Cells Blood Bank Comment Test 04/27/17 04/27/17 02:10 08:12 Lactic Acid Level 3.0 mmol/L White Blood Count 8.0 TH/MM3 Red Blood Count 2.81 MIL/MM3 Hemoglobin 8.4 GM/DL Hematocrit 26.4 % Mean Corpuscular Volume 94.0 FL Mean Corpuscular Hemoglobin 29.9 PG Mean Corpuscular Hemoglobin 31.8 % Concent Red Cell Distribution Width 15.2 % Platelet Count 159 TH/MM3 Mean Platelet Volume 10.9 FL Neutrophils (%) (Auto) 81.1 % Lymphocytes (%) (Auto) 9.6 % Monocytes (%) (Auto) 7.9 % Eosinophils (%) (Auto) 1.1 % Basophils (%) (Auto) 0.3 % Neutrophils # (Auto) 6.5 TH/MM3 Lymphocytes # (Auto) 0.8 TH/MM3 Monocytes # (Auto) 0.6 TH/MM3 Eosinophils # (Auto) 0.1 TH/MM3 Basophils # (Auto) 0.0 TH/MM3 CBC Comment DIFF FINAL Differential Comment Prothrombin Time 10.7 SEC Prothromb Time International 1.0 RATIO Ratio Activated Partial 24.5 SEC Thromboplast Time Date/Time Procedure Status Source Growth 04/26/17 23:01 Aerobic Blood Culture Received Blood Peripheral Pending 04/26/17 23:01 Anaerobic Blood Culture Received Blood Peripheral Pending Physical Examination HEENT: Normocephalic; atraumatic; no jaundice. CHEST: Resp. even/unlabored. CARDIAC: RRR ABDOMEN: Soft, nondistended, mild epigastric tenderness; J tube with large amount of yellowish drainage, no hepatosplenomegaly; bowel sounds are present in all four quadrants. EXTREMITIES: No clubbing, cyanosis, or edema. SKIN: Normal; no rash; no jaundice. [employer]ATING [employer]OWER[employer] MECH[employer]IC: No focal deficits; alert and oriented times three. Assessment and Plan Plan ASSESSMENT: - Abdominal pain. acute on chronic epigastric pain radiating to back, dull ache , constant. Takes oxycodone at home. CT pending. - Drainage from J tube. 2 day hx of draining large amount of yellowish drainage from J tube. Will get C/S. Zosyn. - Anemia. 8.4/26.4. - Esophageal cancer. EGD (03/23/17)-----> Circumferential mass was found in the distal esophagus, circumferential, completely obstructing. 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 Has had 2 radiation tx (last 04/24) and the plan is to start carboplatin and Taxol, although this has not been started as of yet. - Dysphagia. S/P J tube placement. Gets nutrition at home, does not know the formular. - Atrial fibrillation with RVR, s/p cardioversion x 2. Amiodaraone, rate controlled. - MADDY with severe electrolyte abnormalities with Na 167, Creat 1.95, Magnesium 3.0. - Lactic acid elevation. BCx pending. - DM, uncontrolled. per [facility] - HTN, Gout, Hyperlipidemia per [facility] PLAN: - NPO - CT abdomen and pelvis without contrast - Wound cx from J tube site drainage - Cont. Zosyn - Cont. PPI - Monitor HH - Transfuse as necessary - Possible EGD - Supportive care - Further recommendations to follow based on results of above - PT seen and examined by Dr. Sandra and myself and this note is written on his behalf Kimi Carlos Apr 27, 2017 09:50
[2017-04-27] MEDS ORDERED: CALCIUM GLUCONATE INJ 1 GM in DEXTROSE 5% IN WATER 100ML INJ 100 ML IV ONE ×2 (10:00)
--- NOTE | 2017-04-27 10:55 | RADRPT ---
EXAM DATE/TIME: 04/27/2017 10:28 [place] COMPARISON: No previous studies available for comparison. INDICATIONS : Evaluate for leak around J tube. ORAL CONTRAST: No oral contrast ingested. RADIATION DOSE: 9.96 CTDIvol (mGy) MEDICAL HISTORY : Hypertension. Diabetes mellitus type 2. SURGICAL HISTORY : None. ENCOUNTER: Initial ACUITY: 1 day PAIN SCALE: 0/10 LOCATION: abdomen TECHNIQUE: Volumetric scanning of the abdomen and pelvis was performed. Using automated exposure control and ad justment of the mA and/or kV according to patient size, radiation dose was kept as low as reasonably achievable to obtain optimal diagnostic quality images. DICOM format image data is available electro nically for review and comparison. FINDINGS: CT Abdomen: The liver, spleen, pancreas, right kidney, adrenals are unremarkable. There is an approxi mate 6-7 mm stone in the left kidney without hydronephrosis. There is no ureteral stone and there is no hydronephrosis on either side. Approximate 8mm nodule is present without demonstrable calcificatio ns in lateral segment right middle lobe. There is no evidence for any appreciable pathological adenop athy, free fluid, or bowel obstruction. Chronic vascular calcifications are present involving the ao rta, iliac arteries without any significant stenosis or aneurysmal dilatations for technique. There i s mild haziness to the mesentery anterior to the stomach slightly nodular in appearance. The appearan ce is most likely chronic, however it is very difficult to exclude inflammatory process less such as mesenteritis, however a GJ tube is present findings could be due to postprocedural change. CT pelvis: There is no evidence for mass, abscess formation, or any significant adenopathy within the pelvis. There is chronic spondylolysis L5 bilaterally. There are scattered diverticuli mainly in the sigmoid colon without definite signs of diverticulitis. CONCLUSION: 1. Right middle lobe nodule, repeat noncontrast chest CT is suggested in 6 months as a conservative f ollow up. 2. Chronic spondylolysis bilateral L5. 3. Nonobstructing left renal stone. 4. Probable postprocedural changes involving the mesentery anterior to the stomach, however inflammat ory process or even carcinomatosis is difficult to exclude. Follow up is suggested with noncontrast C T abdomen and pelvis in 2-3 months. Steve Gill MD on April 27, 2017 at 10:38 Board Certified Radiologist. This report was verified electronically.
[2017-04-27] MEDS ORDERED: HYDROmorphone HCL PF 1 MG/ML VIAL IV PUSH PRN (11:00)
[2017-04-27] MEDS ORDERED: RESP: ALBUTEROL 2.5 MG/3 ML NEB (PRN) NEB (11:00)
[2017-04-27] MEDS ORDERED: ACETAMINOPHEN 1000 MG/100 ML VIAL IV PRN (11:00)
[2017-04-27] MEDS: INSULIN NovoLIN REGULAR SUPPLEMENTAL SCALE SQ SCH ×2 (12:33→17:09)
[2017-04-27] MEDS: HYDROmorphone HCL PF 1 MG/ML VIAL IV PUSH PRN ×3 (13:26→20:39)
--- NOTE | 2017-04-27 13:45 | EKG ---
Date Performed: 04/27/2017 Time Performed: 01:18:14 PTAGE: 66 years EKG: ATRIAL FIBRILLATION WITH RAPID VENTRICULAR RESPONSE NONSPECIFIC ST & T-WAVE ABNORMALITY ABN ORMAL ECG CLINICAL CORRELATION RECOMMENDED NO PREVIOUS TRACING DOCTOR: Emmanuel Maciel Interpretating Date/Time 04/27/2017 13:45:07
--- NOTE | 2017-04-27 13:46 | EKG ---
Date Performed: 04/27/2017 Time Performed: 02:56:28 PTAGE: 66 years EKG: ATRIAL FIBRILLATION WITH RAPID VENTRICULAR RESPONSE NONSPECIFIC ST & T-WAVE ABNORMALITY ABN ORMAL ECG Compared to PREVIOUS TRACING , perisitent atrial fibrillation with ischemic changes, continued clinic al correlation is recommended. PREVIOUS TRACIN03/31/2017 05.31 DOCTOR: Emmanuel Maciel Interpretating Date/Time 04/27/2017 13:45:32
[2017-04-27 15:11] LABS: BICARBONATE 24.7 MEQ/L (21.0-32.0); POTASSIUM 3.8 MEQ/L (3.5-5.1)
--- NOTE | 2017-04-27 15:51 | PD.CONS ---
cc: Eric Vega MD [facility] Service General Surgery/Surgical Oncology Consult Requested By Dr. Gorman Reason for Consult Evaluation of J tube Primary Care Physician Jethro Traylor MD History of Present Illness This is a 66-year-old male with a past medical history of hypertension, diabetes mellitus, gout, and poorly differentiated adenocarcinoma who presented to the emergency department with dehydration, hypotensive in atrial fibrillation. At home he was saturating several dressings that were applied around his jejunostomy tube site. Per patient, he was not having any issues with tolerating tube feeding, although he is a poor historian. In the emergency department he was given several boluses of fluid and after 2 rounds of cardioversion the patient was successfully converted to normal sinus rhythm with a controlled heart rate. He remains on an amiodarone drip. He was found to have hypernatremic dehydration. A General Surgery/Surgical Oncology consultation has been requested. Review of Systems Constitutional: COMPLAINS OF: Fatigue, Weight loss, Chills Endocrine: DENIES: Polydipsia, Polyuria, Polyphagia Eyes: DENIES: Diplopia Ears, nose, mouth, throat: DENIES: Hearing loss Respiratory: DENIES: Apneas Cardiovascular: DENIES: Chest pain Gastrointestinal: COMPLAINS OF: Abdominal pain, Difficulty Swallowing, DENIES : Nausea, Vomiting Genitourinary: DENIES: Urinary incontinence Musculoskeletal: DENIES: Muscle aches Integumentary: DENIES: Abnormal pigmentation Hematologic/lymphatic: DENIES: Bruising Immunologic/allergic: DENIES: Eczema Neurologic: DENIES: Abnormal gait Psychiatric: DENIES: Mood changes, Depression, Agitation Past Family Social History Past Medical History Hypertension Hyperlipidemia Diabetes mellitus Poorly differentiated adenocarcinoma Past Surgical History Laparoscopic jejunostomy tube placement on March 31, 2017 Reported Medications Allopurinol NovoLog Allergies: Coded Allergies: No Known Allergies (Unverified , 03/25/17) Active Ordered Medications Current Medications Medications (Trade) Dose Ordered Sig/Ab Route Start Time Stop Time Status Last Admin Sodium Chloride 250 ml @ 15 mls/hr ONCE ONCE IV 04/26/17 23:45 04/27/17 16:24 04/27/17 03:25 (Levophed-Dextrose Drip) 250 ml @ 0 mls/hr TITRATE IV 04/27/17 01:45 Terbutaline Sulfate 1 mg 1 mg UNSCH PRN SQ 04/27/17 01:45 Amiodarone HCl 450 mg/Dextrose 250 ml @ 0 mls/hr CONTINUOUS IV 04/27/17 03:00 04/27/17 11:55 Dextrose 1,000 ml @ 125 mls/hr Q8H IV 04/27/17 03:00 (Zosyn 2.25 Gm Premix) 50 ml @ 100 mls/hr Q6H IV 04/27/17 06:00 04/27/17 12:18 (Protonix Inj) 40 mg Q24H IV PUSH 04/27/17 09:00 04/27/17 09:01 (Dilaudid Pf Inj) 0.5 mg Q3H PRN IV PUSH 04/27/17 11:00 (Dilaudid Pf Inj) 1 mg Q3H PRN IV PUSH 04/27/17 11:00 04/27/17 13:26 (Ofirmev Inj) 1,000 mg Q6H PRN IV 04/27/17 11:00 (D50w (Vial) Inj) 50 ml UNSCH PRN IV 04/27/17 11:45 (Glucagon Inj) 1 mg UNSCH PRN OTHER 04/27/17 11:45 (NovoLIN R SUPPLEMENTAL SCALE) 1 Q6H SQ 04/27/17 12:00 04/27/17 12:33 Family History No family history of GI malignancies Social History Positive tobacco use in the past \No current alcohol use Physical Exam Vital Signs Vital Signs Date Time Temp Pulse Resp B/P Pulse Ox O2 Delivery O2 Flow Rate FiO2 04/27/17 10:00 62 04/27/17 08:00 69 04/27/17 08:00 97.6 69 12 129/62 99 04/27/17 06:44 97.0 69 13 136/65 95 04/27/17 05:44 68 20 108/65 100 Nasal Cannula 2.5 04/27/17 05:31 73 22 107/61 94 Nasal Cannula 2.5 04/27/17 05:14 76 20 107/60 100 Nasal Cannula 2.5 04/27/17 04:59 70 18 96/55 100 Nasal Cannula 2.5 04/27/17 04:44 67 18 100/58 100 Nasal Cannula 2.5 04/27/17 04:15 98.4 71 20 101/63 100 Nasal Cannula 2 04/27/17 02:41 153 04/27/17 02:31 85 04/27/17 02:30 99 Nasal Cannula 04/27/17 02:30 99 3.00 04/27/17 02:30 99 04/27/17 02:19 97.8 90 20 126/53 98 Nasal Cannula 2 04/27/17 01:59 161 04/27/17 01:20 103/64 04/27/17 01:11 97.8 88/59 04/27/17 00:08 83 127/61 04/26/17 22:43 96 Nasal Cannula 4 04/26/17 22:43 Nasal Cannula 4 04/26/17 22:28 98.3 105 22 113/69 96 Physical Exam GENERAL: 66 year old male resting in bed in mild discomfort. SKIN: Skin around J tube site is red and excoriated. HEAD: Atraumatic. Normocephalic. EYES: Pupils equal and round. No scleral icterus. No injection or drainage. ENT: No nasal bleeding or discharge. Mucous membranes dry.. NECK: Trachea midline. CARDIOVASCULAR: Regular rate and rhythm. RESPIRATORY: No accessory muscle use. Clear to auscultation. Breath sounds equal bilaterally. GASTROINTESTINAL: Abdomen minimally tender; non distended; J tube site with dry dressing- skin around site is red and excoriated. MUSCULOSKELETAL: Extremities without clubbing, cyanosis, or edema. No obvious deformities. NEUROLOGICAL: Awake and alert; although slightly confused. No obvious cranial nerve deficits. Motor grossly within normal limits. Five out of 5 muscle strength in the arms and legs. Normal speech. PSYCHIATRIC: Appropriate mood and affect Laboratory Laboratory Tests Test 04/26/17 04/26/17 04/27/17 04/27/17 23:01 23:29 00:51 01:40 White Blood Count 8.4 Red Blood Count 2.59 Hemoglobin 7.6 Hematocrit 24.6 Mean Corpuscular Volume 94.9 Mean Corpuscular Hemoglobin 29.2 Mean Corpuscular Hemoglobin 30.7 Concent Red Cell Distribution Width 14.9 Platelet Count 200 Mean Platelet Volume 11.2 Neutrophils (%) (Auto) 78.4 Lymphocytes (%) (Auto) 10.9 Monocytes (%) (Auto) 9.8 Eosinophils (%) (Auto) 0.5 Basophils (%) (Auto) 0.4 Neutrophils # (Auto) 6.6 Lymphocytes # (Auto) 0.9 Monocytes # (Auto) 0.8 Eosinophils # (Auto) 0.0 Basophils # (Auto) 0.0 CBC Comment DIFF FINAL Differential Comment Sodium Level 167 Potassium Level 3.5 Chloride Level 129 Carbon Dioxide Level 32.6 Anion Gap 5 Blood Urea Nitrogen 84 Creatinine 1.95 Estimat Glomerular Filtration 34 Rate Random Glucose 196 Calcium Level 8.7 Total Bilirubin 0.6 Aspartate Amino Transf 18 (AST/SGOT) Alanine Aminotransferase 13 (ALT/SGPT) Alkaline Phosphatase 89 Total Protein 7.1 Albumin 2.2 Lactic Acid Level 2.1 Magnesium Level 3.0 Total Creatine Kinase 95 Thyroid Stimulating Hormone 1.260 3rd Gen Urine Color YELLOW Urine Turbidity CLEAR Urine pH 5.5 Urine Specific [place] 1.025 Urine Protein TRACE Urine Glucose (UA) NEG Urine Ketones NEG Urine Occult Blood NEG Urine Nitrite NEG Urine Bilirubin NEG Urine Urobilinogen 2.0 Urine Leukocyte Esterase NEG Urine RBC 1 Urine WBC 1 Urine Hyaline Casts 8 Urine Mucus FEW Microscopic Urinalysis Comment CATH-CULT NOT IND Urine Osmolality 774 Urine Random Creatinine 152.8 Urine Random Sodium 5 Blood Type O NEGATIVE O NEGATIVE Antibody Screen NEGATIVE Crossmatch Leukocyte-Reduced Red Blood Cells Blood Bank Comment Test 04/27/17 04/27/17 04/27/17 02:10 08:12 14:00 Lactic Acid Level 3.0 1.3 White Blood Count 8.0 Red Blood Count 2.81 Hemoglobin 8.4 Hematocrit 26.4 Mean Corpuscular Volume 94.0 Mean Corpuscular Hemoglobin 29.9 Mean Corpuscular Hemoglobin 31.8 Concent Red Cell Distribution Width 15.2 Platelet Count 159 Mean Platelet Volume 10.9 Neutrophils (%) (Auto) 81.1 Lymphocytes (%) (Auto) 9.6 Monocytes (%) (Auto) 7.9 Eosinophils (%) (Auto) 1.1 Basophils (%) (Auto) 0.3 Neutrophils # (Auto) 6.5 Lymphocytes # (Auto) 0.8 Monocytes # (Auto) 0.6 Eosinophils # (Auto) 0.1 Basophils # (Auto) 0.0 CBC Comment DIFF FINAL Differential Comment Prothrombin Time 10.7 Prothromb Time International 1.0 Ratio Activated Partial 24.5 Thromboplast Time Sodium Level 164 161 Potassium Level 3.6 3.8 Chloride Level 131 129 Carbon Dioxide Level 24.8 24.7 Anion Gap 8 7 Blood Urea Nitrogen 66 60 Creatinine 1.70 1.76 Estimat Glomerular Filtration 40 39 Rate Random Glucose 330 439 Calcium Level 7.4 7.6 Protein Corrected Calcium 8.3 Phosphorus Level 3.8 Magnesium Level 2.4 Total Bilirubin 0.8 Aspartate Amino Transf 15 (AST/SGOT) Alanine Aminotransferase 11 (ALT/SGPT) Alkaline Phosphatase 69 Total Creatine Kinase 146 Creatine Kinase MB 1.8 Troponin I 0.05 Total Protein 5.5 Albumin 1.8 Date/Time Procedure Status Source Growth 04/27/17 11:00 Gram Stain Received Wound Abdomen Pending 04/27/17 11:00 Wound Culture Received Wound Abdomen Pending 04/26/17 23:01 Aerobic Blood Culture - Preliminary Resulted Blood Peripheral NO GROWTH IN 1 DAY 04/26/17 23:01 Anaerobic Blood Culture - Preliminary Resulted Blood Peripheral NO GROWTH IN 1 DAY Result Diagram: 04/27/17 0812 04/27/17 1400 Imaging Last 48 hours Impressions Abdomen/Pelvis CT 04/27/17 0000 Signed Impressions: Service Date/Time: Thursday, April 27, 2017 10:28 - CONCLUSION: 1. Right middle lobe nodule, repeat noncontrast chest CT is suggested in 6 months as a conservative follow up. 2. Chronic spondylolysis bilateral L5. 3. Nonobstructing left renal stone. 4. Probable postprocedural changes involving the mesentery anterior to the stomach, however inflammatory process or even carcinomatosis is difficult to exclude. Follow up is suggested with noncontrast CT abdomen and pelvis in 2-3 months. Steve Gill MD Chest X-Ray 04/26/17 2234 Signed Impressions: Service Date/Time: Wednesday, April 26, 2017 22:44 - CONCLUSION: Normal examination. Right IJ Kirxje-s-Pebc catheter in good position. Scottie Barron MD Assessment and Plan Assessment and Plan 66 year old male with esophagus cancer -pathology results indicate poorly differentiated adenocarcinoma; s/p laparoscopic jejunostomy tube placement -Culture J-tube site; await cultures -Tube feedings -Nothing by mouth -Hmg 8.4; Transfuse as necessary -Continue to closely monitor sodium levels -GI and Medical Oncology following Discussed Condition With Dr. Vega Mr. Thibodeaux Attending Statement The exam, history, and the medical decision-making described in the above note were completed with the assistance of the mid-level provider. I reviewed and agree with the findings presented. I attest that I had a [id number] encounter with the patient on the same day, and personally performed and documented my assessment and findings in the medical record. abdominal exam: non-distended, no rebound or peritonitis, j-tube site with skin breakdown will ask IR to eval and exchange jtube for larger and longer tube to hopefully decrease leaks needs significant medical management for uncontrolled diabetes Karolina Arguello Apr 27, 2017 15:51 Eric Vega MD Apr 29, 2017 10:47
[2017-04-27] MEDS: SODIUM CHLOR 0.45% 1000 ML INJ 1,000 ML IV SCH (15:53)
[2017-04-27] MEDS ORDERED: MISC INFORMATION OTHER ONE (17:45)
[2017-04-27] MEDS ORDERED: INSULIN REGULAR (IV INFUSION) 100 UNITS in SODIUM CHLORIDE 0.9% INJ 99 ML IV SCH (17:45)
[2017-04-27] MEDS ORDERED: DEXTROSE 50% IN WATER 50 ML VIAL(D50) IV PUSH PRN (17:45)
--- NOTE | 2017-04-27 18:58 | MB ---
cc: SERGEI MESSER M.D. DATE OF CONSULTATION: 04/27/2017. REASON FOR CONSULTATION: Oncology was consulted to render opinion regarding a patient with esophageal cancer admitted with possible GI bleed and hypotension. ATTENDING PHYSICIAN: Dr. Gorman. HISTORY OF PRESENT ILLNESS: Mr. Thibodeaux is a very pleasant 66-year-old male recently diagnosed with esophageal adenocarcinoma brought in to the hospital due to increased weakness. He is rather weak and history was obtained from his at the bedside. According to his , since leaving the hospital, the patient has been progressively getting weaker. Last week he had a difficult time administering food through the J-tube. Last they noticed food and dark fluid was oozing out around the J-tube site. He also noted black stools around last or Thursday. He went to see Dr. Vega and the J-tube site was re-secured. They said that it worked for about a day and that over the weekend they had a difficult time using the tube again. He has had increased tenderness in the area. He has been having dry heaves. He stated his blood glucose also has been quite elevated despite the insulin. He started radiation last and has had two radiation so far. He is supposed to start chemotherapy today. He became very weak. Yesterday he was brought in to the hospital. He was found to have atrial fibrillation and a rapid ventricular rate. He was hypotensive. He was also noted to have significant anemia with a hemoglobin of 7.6. He was in acute renal failure. He was admitted to the ICU for further management. He is feeling slightly better today but still very weak. PAST MEDICAL HISTORY: 1. Esophageal adenocarcinoma. 2. Hypertension. 3. Diabetes mellitus. 4. Gastroesophageal reflux disease. 5. Gout. 6. Hyperlipidemia. PAST SURGICAL HISTORY: 1. Diagnostic and exploratory laparotomy and jejunostomy tube placement. 2. Port placement. 3. EGD. FAMILY HISTORY: Father of prostate cancer. Three brothers of cancer. SOCIAL HISTORY: Smoked 1-1/2 packs a day for twenty years and quit fifteen years ago. He has not been drinking alcohol. ALLERGIES: NO KNOWN DRUG ALLERGIES. CURRENT MEDICATIONS: 1. Insulin. 2. Protonix. 3. Zosyn. 4. Amiodarone. REVIEW OF SYSTEMS: CONSTITUTIONAL: Increased weakness. He has lost more weight. EYES: Denies any blurry vision or double vision. ENT: Denies any mouth sores or voice changes. CARDIOVASCULAR: As above. RESPIRATORY: As above. GI: As above. : Denies any dysuria. Decreased urine output. MUSCULOSKELETAL: He denies any bone pain. HEMATOLOGIC: As above. ENDOCRINE: As above. DERMATOLOGIC: Negative. PSYCHIATRIC: Negative. NEUROLOGIC: Negative. PHYSICAL EXAMINATION: VITAL SIGNS: Temperature 98.6, blood pressure 104/59, 02 saturation 94%. GENERAL: He is alert and oriented times three. He looks tired. HEAD, EYES, EARS, NOSE, THROAT: Atraumatic, normocephalic. Pupils equal, round, reactive to light. Extraocular muscles are intact. No scleral icterus. OROPHARYNX: Dry mucosa. No lesions. NECK: No thyromegaly. No palpable mass. LYMPHATIC: No palpable cervical, clavicular, axillary or inguinal lymph nodes. CARDIOVASCULAR: Irregular S1 and S2. No murmur. LUNGS: Clear to auscultation anteriorly. ABDOMEN: Abdomen is a little tender in the mid-epigastric area and left lower abdomen. PEG-tube site erythematous and tender. EXTREMITIES: No cyanosis or clubbing or edema. SKIN: No rash or petechiae. NEUROLOGIC EXAM: Nonfocal. LABORATORY DATA: Reviewed. ASSESSMENT: 1. Esophageal adenocarcinoma. He first presented with significant weight loss and dysphagia. CT showed thickening of his esophagus with no clear metastatic adenopathy. EGD showed a circumferential mass in the distal esophagus causing complete obstruction, biopsy showed poorly differentiated adenocarcinoma. He was supposed to get a PET scan outpatient but it could not be done because his blood glucose was not well controlled. He started radiation last and so far only had two radiations. He was supposed to start chemotherapy today but was admitted to the hospital yesterday. He has acute renal failure and multiple medical issues at this time. He is not stable enough to receive chemotherapy. Will continue to monitor him for now. He has a CT of the abdomen and pelvis without contrast which showed inflammatory changes in the mesentery possibly due to recent procedure but no clear evidence of metastatic disease. 2. GI bleed likely from the esophageal mass. He reports melena last week and also had black dark fluid oozing around the J-tube last week. His hemoglobin was down to 7.6. He was given 2 units of packed red blood cells transfusion. He was evaluated by gastroenterology and is awaiting possible upper endoscopy when he is stable. 3. Abdominal pain and oozing around the J-tube site and it was tender. According to the patient's , the J-tube was not functioning well last week and they had a difficult time administering his medication and food. Dr. Vega has been consulted for further evaluation. 4. Diabetes mellitus currently on insulin. 5. Atrial fibrillation, now rate-controlled. 6. Acute renal failure due to dehydration. 7. Dehydration. PLAN: 1. Extensive discussion with the patient and his . 2. Hold chemotherapy for now. 3. Restart the radiation when he is stable. 4. Await possible upper endoscopy. 5. Agree with transfusion as needed. Thank you Dr. Gorman for asking me to see this patient. MD MICHAELA Cardenas/LAURA /5:23 PM /6:44 PM MTDHay
[2017-04-27 22:31] LABS: BICARBONATE 25.2 MEQ/L (21.0-32.0); POTASSIUM 3.6 MEQ/L (3.5-5.1)
[2017-04-28] VITALS (12 sets, daily range): BP systolic 114–139; BP diastolic 57–70; PULSE 54–69; RESP 12–16; TEMP 98.5–99; O2SAT 93–97
[2017-04-28] MEDS: PIPERACIL-TAZO 2.25 GM PREMIX 50 ML IV SCH ×4 (00:12→17:48)
[2017-04-28] MEDS: SODIUM CHLOR 0.45% 1000 ML INJ 1,000 ML IV SCH (02:00)
[2017-04-28] MEDS: AMIODARONE INJ 450 MG in D5W (EXCEL BAG) 241 ML IV SCH ×2 (03:27→19:14)
[2017-04-28] MEDS: HYDROmorphone HCL PF 1 MG/ML VIAL IV PUSH PRN ×4 (03:53→20:25)
[2017-04-28 04:36] LABS: HEMATOCRIT 26.6 % (39.0-51.0); REVIEW FLAG FINAL
[2017-04-28 04:59] LABS: BICARBONATE 26.7 MEQ/L (21.0-32.0); POTASSIUM 3.3 MEQ/L (3.5-5.1)
[2017-04-28] MEDS ORDERED: GLUCAGON 1 MG/ML VIAL OTHER PRN (07:30)
[2017-04-28] MEDS ORDERED: DEXTROSE 50% IN WATER 50 ML VIAL(D50) IV PRN (07:30)
--- NOTE | 2017-04-28 07:44 | HHI.CCPN ---
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 He had EGD by Dr. Muñoz. Distal esophageal mass is circumferential, obstructing and he is unable to take po and thus was admitted 03/26/17 with dehydration. He underwent exploratory lap and J tube placement by Dr. Sanchez. Port was placed. He was discharged 04/04/17. He presents to [facility] from home with generalized weakness. He is hypotensive with BP in 80s/ 50s, in Afib RVR with rate 160s. His states he has been having dark, black fluid coming from around the site of his J tube. When she instills Glucerna tube feeds, fluid with appearance of tube feeds leaks out around the tube. He has not vomited or had dry heaves. He has been very constipated, but did have a small melena BM yesterday. No BM today. He has been afebrile. He is dehydrated with sodium of 167, bicarbonate 32, BUN 84, creatinine 1.95 (prior creatinine 0.99). His hemoglobin is 7.6. Platelets 200. Two units of PRBC's have been ordered in the ED. He has received 5 L NS bolus. For A fib RVR with persistent BP in 80s to low 90s, Dr. Rodriguez performed electrical cardioversion 3 which resulted in very transient conversion to sinus rhythm and then return to A fib RVR. He reportedly has no history of A fib. He had followup appointment with Dr. Darwin Medina on 04/23/17. He is scheduled to have PET scan (previously rescheduled because of hyperglycemia). He states he has had 2 radiation treatments, last was 04/24/17. Plan to proceed with chemotherapy with Taxol and carboplatin, but this has not been started et. states glucose has been running "high" in the mornings ~600. His diabetes was previously controlled on oral meds but was recently started on insulin during his last admission. 04/28 [place] was insulin drip yesterday for BS >400 now off of insulin drip. Awake and alert. Afebrile. For possible EGD today. On Amio drip. Objective Vital Signs Date Time Temp Pulse Resp B/P Pulse Ox O2 Delivery O2 Flow Rate FiO2 04/28/17 06:00 57 04/28/17 04:00 98.5 16 114/58 93 04/27/17 05:44 Nasal Cannula 2.5 Intake and Output 04/27/17 04/27/17 04/28/17 08:00 16:00 00:00 Intake Total 518 ml 998 ml 1026 ml Output Total 900 ml 600 ml Balance 518 ml 98 ml 426 ml Result Diagram: 04/28/17 0330 04/28/17 0330 Other Results Laboratory Tests Test 04/27/17 04/27/17 04/27/17 04/28/17 08:12 14:00 21:33 03:30 White Blood Count 8.0 TH/MM3 Red Blood Count 2.81 MIL/MM3 Hemoglobin 8.4 GM/DL 8.7 GM/DL Hematocrit 26.4 % 26.6 % Mean Corpuscular Volume 94.0 FL Mean Corpuscular Hemoglobin 29.9 PG Mean Corpuscular Hemoglobin 31.8 % Concent Red Cell Distribution Width 15.2 % Platelet Count 159 TH/MM3 Mean Platelet Volume 10.9 FL Neutrophils (%) (Auto) 81.1 % Lymphocytes (%) (Auto) 9.6 % Monocytes (%) (Auto) 7.9 % Eosinophils (%) (Auto) 1.1 % Basophils (%) (Auto) 0.3 % Neutrophils # (Auto) 6.5 TH/MM3 Lymphocytes # (Auto) 0.8 TH/MM3 Monocytes # (Auto) 0.6 TH/MM3 Eosinophils # (Auto) 0.1 TH/MM3 Basophils # (Auto) 0.0 TH/MM3 CBC Comment DIFF FINAL Differential Comment Prothrombin Time 10.7 SEC Prothromb Time International 1.0 RATIO Ratio Activated Partial 24.5 SEC Thromboplast Time Sodium Level 164 MEQ/L 161 MEQ/L 161 MEQ/L 165 MEQ/L Potassium Level 3.6 MEQ/L 3.8 MEQ/L 3.6 MEQ/L 3.3 MEQ/L Chloride Level 131 MEQ/L 129 MEQ/L 130 MEQ/L 132 MEQ/L Carbon Dioxide Level 24.8 MEQ/L 24.7 MEQ/L 25.2 MEQ/L 26.7 MEQ/L Anion Gap 8 MEQ/L 7 MEQ/L 6 MEQ/L 6 MEQ/L Blood Urea Nitrogen 66 MG/DL 60 MG/DL 54 MG/DL 50 MG/DL Creatinine 1.70 MG/DL 1.76 MG/DL 1.79 MG/DL 1.70 MG/DL Estimat Glomerular Filtration 40 ML/MIN 39 ML/MIN 38 ML/MIN 40 ML/MIN Rate Random Glucose 330 MG/DL 439 MG/DL 299 MG/DL 48 MG/DL Lactic Acid Level 1.3 mmol/L Calcium Level 7.4 MG/DL 7.6 MG/DL 7.8 MG/DL 7.7 MG/DL Protein Corrected Calcium 8.3 MG/DL Phosphorus Level 3.8 MG/DL Magnesium Level 2.4 MG/DL Total Bilirubin 0.8 MG/DL Aspartate Amino Transf 15 U/L (AST/SGOT) Alanine Aminotransferase 11 U/L (ALT/SGPT) Alkaline Phosphatase 69 U/L Total Creatine Kinase 146 U/L Creatine Kinase MB 1.8 NG/ML Troponin I 0.05 NG/ML Total Protein 5.5 GM/DL Albumin 1.8 GM/DL Imaging Last Impressions Abdomen/Pelvis CT 04/27/17 0000 Signed Impressions: Service Date/Time: Thursday, April 27, 2017 10:28 - CONCLUSION: 1. Right middle lobe nodule, repeat noncontrast chest CT is suggested in 6 months as a conservative follow up. 2. Chronic spondylolysis bilateral L5. 3. Nonobstructing left renal stone. 4. Probable postprocedural changes involving the mesentery anterior to the stomach, however inflammatory process or even carcinomatosis is difficult to exclude. Follow up is suggested with noncontrast CT abdomen and pelvis in 2-3 months. Steve Gill MD Chest X-Ray 04/26/17 2234 Signed Impressions: Service Date/Time: Wednesday, April 26, 2017 22:44 - CONCLUSION: Normal examination. Right IJ [id number] catheter in good position. Scottie Barron MD Objective Remarks GENERAL: Patient is 66 yo lying in bed in NAD SKIN: Warm and dry. HEAD: Normocephalic. EYES: No scleral icterus. No injection or drainage. NECK: Supple, trachea midline. No JVD or lymphadenopathy. CARDIOVASCULAR: Regular rate and rhythm without murmurs, gallops, or rubs. RESPIRATORY: Breath sounds equal bilaterally. No accessory muscle use. GASTROINTESTINAL: Abdomen soft, non-tender, nondistended. J-tube in place MUSCULOSKELETAL: No cyanosis, or edema. Neuro: Awake and alert A/P Assessment and Plan NEURO: Pain Dilaudid 0.5-1 mg IV every 3 hours when necessary moderate to severe pain Ofirmev 1 g IV every 6 hours when necessary mild pain RESP: Respiratory insufficiency History of tobacco abuse Continue with oxygen keep sat >92% Bronchodilators CV: Atrial fibrillation with RVR h/o Hypertension Electrical cardioversion x3 in ED by Dr. Rodriguez was successful in initial conversion to sinus rhythm but patient went back into A fib. Placed on Amio drip. Not candidate for anticoagulation due to bleeding. Monitor HR and BP keep MAP>65mmHg For 2D echo to eval LV function . GI: Obstructing Esophageal Mass Jejunostomy with leaking around tube ?GI bleeding Constipation NPO and hold tube feeds for now. Protonix 40 mg IV every 12 hours For possible EGD today, surgery is following- Dr. Vega CT abdomen/pelvis: Chronic spondylolysis bilateral L5. 3. Nonobstructing left renal stone. Probable postprocedural changes involving the mesentery anterior to the stomach, however inflammatory process or even carcinomatosis is difficult to exclude FEN/RENAL: Acute dehydration Acute kidney injury Hypernatremia Hyperglycemia Patient presented with profound volume depletion. Given 5 L normal saline bolus in the emergency department. Monitor renal function, I/O's, avoid nephrotoxins. Cr: 1.70 today from 1.79, UOP: 2100ml in 24 hrs Change IVF D5W@@84ml/hr monitor sodium level. ID: HEME: Invasive poorly differentiated adenocarcinoma distal esophagus Acute blood loss anemia Has not yet received outpatient PET for staging. Dr. Medina following, plan for Taxol and cisplatin but patient has not started chemotherapy yet. Has had radiation therapy 2, last was 04/24 s/p Transfusion 2units PRBC in ED. Monitor CBC Monitor for signs of infections ( Fever, WBC) continue with abx ( Zosyn) Follow up on Blood and wound cx : NGTD ENDO: Hyperglycemia- off insulin drip Change IVF D5W @84ml/hr ( patient was hypoglycemic overnight) SSI ( low scale) with accuchecks. TSH 1.26 PROPH: SCDs for DVT prophylaxis. Pharmacologic DVT prophylaxis contraindicated due to acute bleeding. Protonix 40 g IV daily ACCESS: Right chest port in place Level 3 Camila Rivas MD Apr 28, 2017 07:44
[2017-04-28] MEDS: INSULIN NovoLIN REGULAR SUPPLEMENTAL SCALE SQ SCH ×8 (08:00→21:59)
[2017-04-28] MEDS ORDERED: POTASSIUM CHLOR 40 MEQ PREMIX 100 ML IV ONE (08:00)
[2017-04-28] MEDS: DEXTROSE 5% IN WATE 1000ML INJ 1,000 ML IV SCH ×2 (08:01→20:26)
[2017-04-28] MEDS: PANTOPRAZOLE SODIUM 40 MG VIAL IV PUSH SCH (08:06)
[2017-04-28 08:43] LABS: AUTOMATED NEUTROPHIL # 6.3 TH/MM3 (1.8-7.7); BASOPHIL % 0.5 % (0.0-2.0); EOSINOPHIL # 0.3 TH/MM3 (0-0.4); EOSINOPHIL % 3.3 % (0.0-4.0); HEMATOCRIT 25.8 % (39.0-51.0); HEMO FLAGS DIFF FINAL; LYMPH % 9.4 % (9.0-44.0); LYMPHOCYTE # 0.7 TH/MM3 (1.0-4.8); MEAN CELL VOLUME 93.5 FL (80.0-100.0); MEAN CORPUSCULAR HEMOGLOBIN 30.2 PG (27.0-34.0); MEAN CORPUSCULAR HGB CONC 32.3 % (32.0-36.0); MONO % 6.2 % (0.0-8.0); NEUT % 80.6 % (16.0-70.0); PLATELET COUNT 156 TH/MM3 (150-450); RED BLOOD COUNT 2.76 MIL/MM3 (4.50-5.90); WHITE BLOOD COUNT 7.8 TH/MM3 (4.0-11.0)
[2017-04-28] MEDS ORDERED: DIATRIZOATE MEGLUM/DIATRIZOATE SOD 120 ML BTL (for RAD DIAG) J-TUBE ONE (10:30)
--- NOTE | 2017-04-28 10:48 | HHI.GIFU ---
Subjective Remarks Resting in bed. States he has some diffuse abdominal pain, mild. Starts on left side and radiates across abdomen to right. No n/v. Objective Vitals I&O Vital Signs Date Time Temp Pulse Resp B/P Pulse Ox O2 Delivery O2 Flow Rate FiO2 04/28/17 08:00 57 04/28/17 08:00 98.5 57 12 127/59 97 04/28/17 06:00 57 04/28/17 04:00 55 04/28/17 04:00 98.5 58 16 114/58 93 04/28/17 02:00 69 04/28/17 00:00 58 04/28/17 00:00 98.5 58 16 139/70 94 04/27/17 22:00 59 04/27/17 20:00 61 04/27/17 20:00 98.3 61 16 117/59 98 04/27/17 18:00 60 04/27/17 16:00 60 04/27/17 16:00 98.6 60 16 104/59 94 04/27/17 14:00 65 04/27/17 12:00 57 04/27/17 12:00 98.9 57 22 109/53 97 I/O 04/27/17 04/27/17 04/27/17 04/28/17 04/28/17 04/28/17 07:00 15:00 23:00 07:00 15:00 23:00 Intake Total 518 ml 998 ml 1026 ml 813 ml Output Total 900 ml 600 ml 600 ml Balance 518 ml 98 ml 426 ml 213 ml Intake Oral 0 ml 0 ml 0 ml IV Total 18 ml 998 ml 1026 ml 813 ml Packed Cells 500 ml Output Urine Total 900 ml 600 ml 600 ml Gastric Drainage Total 0 ml 0 ml # Bowel Movements 0 0 0 Laboratory Laboratory Tests Test 04/27/17 04/27/17 04/28/17 04/28/17 14:00 21:33 03:30 08:19 Sodium Level 161 161 165 Potassium Level 3.8 3.6 3.3 Chloride Level 129 130 132 Carbon Dioxide Level 24.7 25.2 26.7 Anion Gap 7 6 6 Blood Urea Nitrogen 60 54 50 Creatinine 1.76 1.79 1.70 Estimat Glomerular Filtration 39 38 40 Rate Random Glucose 439 299 48 Calcium Level 7.6 7.8 7.7 Hemoglobin 8.7 8.3 Hematocrit 26.6 25.8 White Blood Count 7.8 Red Blood Count 2.76 Mean Corpuscular Volume 93.5 Mean Corpuscular Hemoglobin 30.2 Mean Corpuscular Hemoglobin 32.3 Concent Red Cell Distribution Width 15.0 Platelet Count 156 Mean Platelet Volume 10.7 Neutrophils (%) (Auto) 80.6 Lymphocytes (%) (Auto) 9.4 Monocytes (%) (Auto) 6.2 Eosinophils (%) (Auto) 3.3 Basophils (%) (Auto) 0.5 Neutrophils # (Auto) 6.3 Lymphocytes # (Auto) 0.7 Monocytes # (Auto) 0.5 Eosinophils # (Auto) 0.3 Basophils # (Auto) 0.0 CBC Comment DIFF FINAL Differential Comment Date/Time Procedure Status Source Growth 04/27/17 11:00 Gram Stain - Final Resulted Wound Abdomen 04/27/17 11:00 Wound Culture Resulted Wound Abdomen Pending 04/26/17 23:01 Aerobic Blood Culture - Preliminary Resulted Blood Peripheral NO GROWTH IN 1 DAY 04/26/17 23:01 Anaerobic Blood Culture - Preliminary Resulted Blood Peripheral NO GROWTH IN 1 DAY Imaging Last Impressions Abdomen/Pelvis CT 04/27/17 0000 Signed Impressions: Service Date/Time: Thursday, April 27, 2017 10:28 - CONCLUSION: 1. Right middle lobe nodule, repeat noncontrast chest CT is suggested in 6 months as a conservative follow up. 2. Chronic spondylolysis bilateral L5. 3. Nonobstructing left renal stone. 4. Probable postprocedural changes involving the mesentery anterior to the stomach, however inflammatory process or even carcinomatosis is difficult to exclude. Follow up is suggested with noncontrast CT abdomen and pelvis in 2-3 months. Steve Gill MD Chest X-Ray 04/26/17 2234 Signed Impressions: Service Date/Time: Wednesday, April 26, 2017 22:44 - CONCLUSION: Normal examination. Right IJ [id number] catheter in good position. Scottie Barron MD Physical Exam HEENT: Normocephalic; atraumatic; no jaundice. CHEST: CTA, Resp. even/unlabored, diminished bases. CARDIAC: RRR ABDOMEN: Soft, nondistended, mild diffuse tenderness; no hepatosplenomegaly; bowel sounds are present in all four quadrants. J tube clamped- leaking yellowish drainage from around site. EXTREMITIES: No clubbing, cyanosis, or edema. SKIN: Normal; no rash; no jaundice. RESTORATIVE AIDE: No focal deficits; alert and oriented times three. Poor historian Assessment and Plan Plan ASSESSMENT: - Abdominal pain. acute on chronic epigastric pain radiating to back, dull ache , constant. Takes oxycodone at home. Abdomen/Pelvis CT (04/27/17)----> 1. Right middle lobe nodule, repeat noncontrast chest CT is suggested in 6 months as a conservative follow up. 2. Chronic spondylolysis bilateral L5. 3. Nonobstructing left renal stone. 4. Probable postprocedural changes involving the mesentery anterior to the stomach, however inflammatory process or even carcinomatosis is difficult to exclude. Follow up is suggested with noncontrast CT abdomen and pelvis in 2-3 months. GS following. J tube clamped. NPO. Will defer starting TF per their recommendations. - Drainage from J tube. 2 day hx of draining large amount of yellowish drainage from J tube. KUB with gastrografin pending. Cx pending. Zosyn. - Anemia. 8.3/25.8. - Esophageal cancer. EGD (03/23/17)-----> Circumferential mass was found in the distal esophagus, circumferential, completely obstructing. 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 Has had 2 radiation tx (last 04/24) and the plan is to start carboplatin and Taxol, although this has not been started as of yet. - Dysphagia. S/P J tube placement. Gets nutrition at home, does not know the formula - Atrial fibrillation with RVR, s/p cardioversion x 2. Amiodarone, rate controlled. - MADDY with severe electrolyte abnormalities with Na 167, Creat 1.95, Magnesium 3.0. - Lactic acid elevation. BCx no growth 1 day - DM, uncontrolled. per [facility] - HTN, Gout, Hyperlipidemia per [facility] PLAN: - NPO - Await wound culture from J tube - Clamp J tube- does not need to be to suction - Cont. Zosyn - Cont. PPI - Monitor HH - Transfuse as necessary - Await GS evaluation - Monitor labs - [facility] eval - Supportive care - Further recommendations to follow based on results of above - PT seen and examined by Dr. Sandra and myself and this note is written on his behalf Kimi Carlos Apr 28, 2017 10:48
--- NOTE | 2017-04-28 11:01 | RADRPT ---
EXAM DATE/TIME: 04/28/2017 10:02 [place] COMPARISON: No previous studies available for comparison. INDICATIONS : Check J tube placement. MEDICAL HISTORY : Hypertension. Diabetes mellitus type 2. SURGICAL HISTORY : None. ENCOUNTER: Subsequent ACUITY: 2 days PAIN SCORE: 8/10 LOCATION: Bilateral Abdomen. FINDINGS: Contrast was placed through the patient's jejunostomy tube and opacifies the small bowel. The examina tion is slightly limited due to motion artifact. The bowel gas is nonspecific without any signs of ob struction or free air. CONCLUSION: J-tube is within loops of small bowel. Steve Gill MD on April 28, 2017 at 10:58 Board Certified Radiologist. This report was verified electronically.
--- NOTE | 2017-04-28 12:38 | PD.ONC.PN ---
Subjective Subjective Remarks Afebrile overnight. Patient somnolent, he just received pain meds. Per at bedside, patient frustrated, tired of being in and out of the hospital. Going to IR this afternoon for J-tube replacement. Objective Data Date Time Temp Pulse Resp B/P Pulse Ox O2 Delivery O2 Flow Rate FiO2 04/28/17 10:00 62 04/28/17 08:00 57 04/28/17 08:00 98.5 57 12 127/59 97 04/28/17 06:00 57 04/28/17 04:00 55 04/28/17 04:00 98.5 58 16 114/58 93 04/28/17 02:00 69 04/28/17 00:00 58 04/28/17 00:00 98.5 58 16 139/70 94 04/27/17 22:00 59 04/27/17 20:00 61 04/27/17 20:00 98.3 61 16 117/59 98 04/27/17 18:00 60 04/27/17 16:00 60 04/27/17 16:00 98.6 60 16 104/59 94 04/27/17 14:00 65 04/28/17 04/28/17 04/28/17 07:00 15:00 23:00 Intake Total 813 ml Output Total 600 ml Balance 213 ml Result Diagram: 04/28/17 0819 04/28/17 0330 Laboratory Results Laboratory Tests Test 04/27/17 04/27/17 04/28/17 04/28/17 14:00 21:33 03:30 08:19 Sodium Level 161 MEQ/L 161 MEQ/L 165 MEQ/L Potassium Level 3.8 MEQ/L 3.6 MEQ/L 3.3 MEQ/L Chloride Level 129 MEQ/L 130 MEQ/L 132 MEQ/L Carbon Dioxide Level 24.7 MEQ/L 25.2 MEQ/L 26.7 MEQ/L Anion Gap 7 MEQ/L 6 MEQ/L 6 MEQ/L Blood Urea Nitrogen 60 MG/DL 54 MG/DL 50 MG/DL Creatinine 1.76 MG/DL 1.79 MG/DL 1.70 MG/DL Estimat Glomerular Filtration 39 ML/MIN 38 ML/MIN 40 ML/MIN Rate Random Glucose 439 MG/DL 299 MG/DL 48 MG/DL Calcium Level 7.6 MG/DL 7.8 MG/DL 7.7 MG/DL Hemoglobin 8.7 GM/DL 8.3 GM/DL Hematocrit 26.6 % 25.8 % White Blood Count 7.8 TH/MM3 Red Blood Count 2.76 MIL/MM3 Mean Corpuscular Volume 93.5 FL Mean Corpuscular Hemoglobin 30.2 PG Mean Corpuscular Hemoglobin 32.3 % Concent Red Cell Distribution Width 15.0 % Platelet Count 156 TH/MM3 Mean Platelet Volume 10.7 FL Neutrophils (%) (Auto) 80.6 % Lymphocytes (%) (Auto) 9.4 % Monocytes (%) (Auto) 6.2 % Eosinophils (%) (Auto) 3.3 % Basophils (%) (Auto) 0.5 % Neutrophils # (Auto) 6.3 TH/MM3 Lymphocytes # (Auto) 0.7 TH/MM3 Monocytes # (Auto) 0.5 TH/MM3 Eosinophils # (Auto) 0.3 TH/MM3 Basophils # (Auto) 0.0 TH/MM3 CBC Comment DIFF FINAL Differential Comment Culture Results Microbiology Date/Time Procedure Status Source Growth 04/26/17 23:00 Aerobic Blood Culture - Preliminary Resulted Blood Peripheral NO GROWTH IN 2 DAYS 04/26/17 23:00 Anaerobic Blood Culture - Preliminary Resulted Blood Peripheral NO GROWTH IN 2 DAYS 04/26/17 23:01 Aerobic Blood Culture - Preliminary Resulted Blood Peripheral NO GROWTH IN 2 DAYS 04/26/17 23:01 Anaerobic Blood Culture - Preliminary Resulted Blood Peripheral NO GROWTH IN 2 DAYS 04/27/17 11:00 Gram Stain - Final Resulted Wound Abdomen 04/27/17 11:00 Wound Culture Resulted Wound Abdomen Pending Imaging Studies Last 24 hours Impressions Abdomen X-Ray 04/28/17 0000 Signed Impressions: Service Date/Time: Friday, April 28, 2017 10:02 - CONCLUSION: J-tube is within loops of small bowel. Steve Gill MD Administered Medications Medications (Trade) Dose Ordered Sig/Ab Route PRN Reason Start Time Stop Time Status Last Admin Dose Admin Amiodarone HCl 450 mg/Dextrose 250 ml @ 0 mls/hr CONTINUOUS IV 04/27/17 03:00 04/28/17 03:27 Piperacillin Sod/ Tazobactam Sod (Zosyn 2.25 Gm Premix) 50 ml @ 100 mls/hr Q6H IV 04/27/17 06:00 04/28/17 05:11 Pantoprazole Sodium (Protonix Inj) 40 mg Q24H IV PUSH 04/27/17 09:00 04/28/17 08:06 Hydromorphone HCl 1 mg 1 mg Q3H PRN IV PUSH PAIN 04/27/17 11:00 04/28/17 03:53 Dextrose (D5W 1000 ml Inj) 1,000 ml @ 84 mls/hr [id number] IV 04/28/17 07:30 04/28/17 08:01 Objective Remarks GENERAL: Somnolent male supine in bed, resting, at bedside, on 2L O2 via NC SKIN: Warm and dry. HEAD: Normocephalic. EYES: No injection or drainage. NECK: Supple, trachea midline. CARDIOVASCULAR: +S1/S2, bradycardia RESPIRATORY: diminished at bases. anterior tubbs clear. GASTROINTESTINAL: Abdomen soft, J-tube in place, malodorous. clamped, nondistended. EXTREMITIES: No cyanosis NEUROLOGICAL: lethargic but awake. Assessment/Plan Problem List: (1) Esophageal adenocarcinoma Status: Acute Plan: -- first presented with significant weight loss and dysphagia. --CT showed thickening of his esophagus with no clear metastatic adenopathy. --EGD showed a circumferential mass in the distal esophagus causing complete obstruction, biopsy showed poorly differentiated adenocarcinoma. --was supposed to get a PET scan outpatient but it could not be done because his blood glucose was not well controlled. --started radiation last and so far only had two radiations. --was supposed to start chemotherapy 04/27 but was admitted to the hospital 04/26. --CT of the abdomen and pelvis showed inflammatory changes in the mesentery possibly due to recent procedure but no clear evidence of metastatic disease. (2) GI bleed Status: Acute Plan: --GI bleed likely from the esophageal mass. --reports melena last week and also had black dark fluid oozing around the J- tube last week. --s/p pRBC --possible upper endoscopy when he is stable. (3) Abdominal pain Status: Acute Plan: --Abdominal pain and oozing around the J-tube site and it was tender. --According to the patient's , the J-tube was not functioning well last week and they had a difficult time administering his medication and food. --Dr. Vega has been consulted and plans to switch out the J-tube Assessment 66y/o male with esophageal cancer admitted with possible GI bleed and hypotension. h/o Esophageal adenocarcinoma. Hypertension. Diabetes mellitus. Gastroesophageal reflux disease. Gout. Hyperlipidemia. Diagnostic and exploratory laparotomy and jejunostomy tube placement. Port placement. EGD. -- Atrial fibrillation, now rate-controlled. --Acute renal failure due to dehydration. Plan 1. J-tube placement today 2. monitor CBC 3. supportive care Attending Statement The exam, history, and the medical decision-making described in the above note were completed with the assistance of the mid-level provider. I reviewed and agree with the findings presented. I attest that I had a [id number] encounter with the patient on the same day, and personally performed and documented my assessment and findings in the medical record. Feeling a little better today. Abdominal pain stable. Await replacement of J-tube. Discussed with , will restart XRT when he is stable. Hold chemo until he is stronger. Problem Qualifiers (1) GI bleed: Qualified Code: K92.2 - Gastrointestinal hemorrhage, unspecified gastrointestinal hemorrhage type Isabel Vang Apr 28, 2017 12:38 Darwin Medina MD Apr 28, 2017 14:41
--- NOTE | 2017-04-28 12:42 | HHI.PR ---
Subjective Subjective Notes Resting in bed More alert today No complaints Objective Vitals/I&O Vital Signs Date Time Temp Pulse Resp B/P Pulse Ox O2 Delivery O2 Flow Rate FiO2 04/28/17 10:00 62 04/28/17 08:00 98.5 12 127/59 97 04/27/17 05:44 Nasal Cannula 2.5 Labs Laboratory Tests Test 04/27/17 04/27/17 04/28/17 04/28/17 14:00 21:33 03:30 08:19 Sodium Level 161 161 165 Potassium Level 3.8 3.6 3.3 Chloride Level 129 130 132 Carbon Dioxide Level 24.7 25.2 26.7 Anion Gap 7 6 6 Blood Urea Nitrogen 60 54 50 Creatinine 1.76 1.79 1.70 Estimat Glomerular Filtration 39 38 40 Rate Random Glucose 439 299 48 Calcium Level 7.6 7.8 7.7 Hemoglobin 8.7 8.3 Hematocrit 26.6 25.8 White Blood Count 7.8 Red Blood Count 2.76 Mean Corpuscular Volume 93.5 Mean Corpuscular Hemoglobin 30.2 Mean Corpuscular Hemoglobin 32.3 Concent Red Cell Distribution Width 15.0 Platelet Count 156 Mean Platelet Volume 10.7 Neutrophils (%) (Auto) 80.6 Lymphocytes (%) (Auto) 9.4 Monocytes (%) (Auto) 6.2 Eosinophils (%) (Auto) 3.3 Basophils (%) (Auto) 0.5 Neutrophils # (Auto) 6.3 Lymphocytes # (Auto) 0.7 Monocytes # (Auto) 0.5 Eosinophils # (Auto) 0.3 Basophils # (Auto) 0.0 CBC Comment DIFF FINAL Differential Comment Date/Time Procedure Status Source Growth 04/27/17 11:00 Gram Stain - Final Resulted Wound Abdomen 04/27/17 11:00 Wound Culture - Preliminary Resulted Wound Abdomen 04/26/17 23:01 Aerobic Blood Culture - Preliminary Resulted Blood Peripheral NO GROWTH IN 2 DAYS 04/26/17 23:01 Anaerobic Blood Culture - Preliminary Resulted Blood Peripheral NO GROWTH IN 2 DAYS Radiology Last 48 hours Impressions Abdomen/Pelvis CT 04/27/17 0000 Signed Impressions: Service Date/Time: Thursday, April 27, 2017 10:28 - CONCLUSION: 1. Right middle lobe nodule, repeat noncontrast chest CT is suggested in 6 months as a conservative follow up. 2. Chronic spondylolysis bilateral L5. 3. Nonobstructing left renal stone. 4. Probable postprocedural changes involving the mesentery anterior to the stomach, however inflammatory process or even carcinomatosis is difficult to exclude. Follow up is suggested with noncontrast CT abdomen and pelvis in 2-3 months. Steve Gill MD Chest X-Ray 04/26/17 2234 Signed Impressions: Service Date/Time: Wednesday, April 26, 2017 22:44 - CONCLUSION: Normal examination. Right IJ Kybfne-a-Yrri catheter in good position. Scottie Barron MD Cardiovascular: Regular Lungs: Clear Abdomen: Non-tender, Other (J tube in place with red and excoriated skin ) Extremities: No edema A/P Assessment and Plan 66 year old male with esophagus cancer -pathology results indicate poorly differentiated adenocarcinoma; s/p laparoscopic jejunostomy tube placement -Plan for IR exchange of J tube today -Apply A&D ointment to skin surrounding J tube -NPO -GI following Attending Statement The exam, history, and the medical decision-making described in the above note were completed with the assistance of the mid-level provider. I reviewed and agree with the findings presented. I attest that I had a [id number] encounter with the patient on the same day, and personally performed and documented my assessment and findings in the medical record. abdominal exam: non-distended, no rebound or peritonitis looks and feels better Karolina Arguello Apr 28, 2017 12:42 Eric Vega MD Apr 29, 2017 10:48
[2017-04-28] MEDS: VITAMINS A & D OINT 60 GM TUBE TOPICAL SCH ×2 (14:00→20:26)
[2017-04-28 15:33] LABS: POTASSIUM 4.1 MEQ/L (3.5-5.1)
--- NOTE | 2017-04-28 16:05 | ECHRPT ---
Indication: AT FIB CONCLUSIONS Poor echocardiographic windows Preserved LV systolic duysfunction with estimated 50% Ejection Fraction No wall motion abnormalites No significant valvulopathies. No pericardial effusion. BP: 139 / 69 HR: 69 Rhythm: Sinus MEASUREMENTS (Male / Female) Normal Values Technical Quality:Very technically difficult study 2D ECHO LVOT Diameter 2.1 cm Aortic Root Diameter 3.2 cm M-MODE LV Diastolic Diameter MM 4.3 cm 4.2 - 5.9 / 3.9 - 5.3 cm LV Systolic Diameter MM 2.6 cm LV Ejection Fraction MM Teich 69.6 % LV Cardiac Index MM Teich 2076.6 cm/minm IVS Diastolic Thickness MM 1.0 cm 0.6 - 1.0 / 0.6 - 0.9 cm LVPW Diastolic Thickness MM 1.0 cm 0.6 - 1.0 / 0.6 - 0.9 cm LV Relative Wall Thickness MM 0.4 0.24 - 0.42 / 0.22 - 0.42 LV Mass Index MM 69.3 g/m 49 - 115 / 43 - 95 g/m AV Cusp Separation MM 2.4 cm DOPPLER AV Peak Velocity 125.0 cm/s AV Peak Gradient 6.3 mmHg AV Mean Gradient 3.0 mmHg AV Velocity Time Integral 19.5 cm LVOT Peak Velocity 93.2 cm/s LVOT Peak Gradient 3.5 mmHg LVOT Velocity Time Integral 16.0 cm LVOT Cardiac Index 1947.1 cm/minm AV Area Cont Eq vti 2.8 cm AV Area Cont Eq pk 2.6 cm Mitral E Point Velocity 49.4 cm/s Mitral A Point Velocity 71.1 cm/s Mitral E to A Ratio 0.7 LV E' Lateral Velocity 9.1 cm/s Mitral E to LV E' Lateral Ratio 5.4 LV E' Septal Velocity 7.9 cm/s Mitral E to LV E' Septal Ratio 6.3 TR Peak Velocity 300.0 cm/s TR Peak Gradient 36.0 mmHg PV Peak Velocity 65.4 cm/s PV Peak Gradient 1.7 mmHg Tim Adhikari MD (Electronically Signed) Final Date:28 April 2017 16:04
[2017-04-28 23:41] LABS: BICARBONATE 24.1 MEQ/L (21.0-32.0); POTASSIUM 3.8 MEQ/L (3.5-5.1)
[2017-04-29] VITALS (19 sets, daily range): BP systolic 111–145; BP diastolic 55–69; PULSE 41–72; RESP 13–23; TEMP 97.6–98.4; O2SAT 95–100
[2017-04-29] MEDS: PIPERACIL-TAZO 2.25 GM PREMIX 50 ML IV SCH ×4 (00:17→17:41)
[2017-04-29] MEDS: INSULIN NovoLIN REGULAR SUPPLEMENTAL SCALE SQ SCH ×9 (00:24→21:21)
[2017-04-29] MEDS: HYDROmorphone HCL PF 1 MG/ML VIAL IV PUSH PRN ×6 (00:32→21:10)
[2017-04-29 04:28] LABS: AUTOMATED NEUTROPHIL # 5.1 TH/MM3 (1.8-7.7); BASOPHIL % 0.3 % (0.0-2.0); EOSINOPHIL # 0.2 TH/MM3 (0-0.4); EOSINOPHIL % 3.3 % (0.0-4.0); HEMATOCRIT 25.5 % (39.0-51.0); HEMO FLAGS DIFF FINAL; LYMPH % 12.4 % (9.0-44.0); LYMPHOCYTE # 0.8 TH/MM3 (1.0-4.8); MEAN CELL VOLUME 93.6 FL (80.0-100.0); MEAN CORPUSCULAR HEMOGLOBIN 29.8 PG (27.0-34.0); MEAN CORPUSCULAR HGB CONC 31.9 % (32.0-36.0); MONO % 6.4 % (0.0-8.0); NEUT % 77.6 % (16.0-70.0); PLATELET COUNT 136 TH/MM3 (150-450); RED BLOOD COUNT 2.72 MIL/MM3 (4.50-5.90); RED CELL DISTRIBUTION WIDTH 14.9 % (11.6-17.2); WHITE BLOOD COUNT 6.5 TH/MM3 (4.0-11.0)
[2017-04-29 05:06] LABS: BICARBONATE 24.7 MEQ/L (21.0-32.0); MAGNESIUM 2.4 MG/DL (1.5-2.5); POTASSIUM 3.7 MEQ/L (3.5-5.1)
[2017-04-29] MEDS: PANTOPRAZOLE SODIUM 40 MG VIAL IV PUSH SCH (08:48)
[2017-04-29] MEDS: VITAMINS A & D OINT 60 GM TUBE TOPICAL SCH ×2 (08:54→21:21)
[2017-04-29] MEDS: DEXTROSE 5% IN WATE 1000ML INJ 1,000 ML IV SCH ×2 (09:27→17:42)
--- NOTE | 2017-04-29 10:15 | HHI.PR ---
Subjective Subjective Notes Going for J tube exchange today and radiation at bedside Objective Vitals/I&O Vital Signs Date Time Temp Pulse Resp B/P Pulse Ox O2 Delivery O2 Flow Rate FiO2 04/29/17 06:00 41 04/29/17 04:00 98.4 16 118/59 97 04/27/17 05:44 Nasal Cannula 2.5 Labs Laboratory Tests Test 04/28/17 04/28/17 04/29/17 14:53 22:10 04:05 Sodium Level 160 159 159 Potassium Level 4.1 3.8 3.7 Chloride Level 128 128 127 Carbon Dioxide Level 24.0 24.1 24.7 Anion Gap 8 7 7 Blood Urea Nitrogen 45 40 38 Creatinine 1.66 1.70 1.77 Estimat Glomerular Filtration 42 40 39 Rate Random Glucose 239 225 183 Calcium Level 8.1 8.1 8.1 White Blood Count 6.5 Red Blood Count 2.72 Hemoglobin 8.1 Hematocrit 25.5 Mean Corpuscular Volume 93.6 Mean Corpuscular Hemoglobin 29.8 Mean Corpuscular Hemoglobin 31.9 Concent Red Cell Distribution Width 14.9 Platelet Count 136 Mean Platelet Volume 10.9 Neutrophils (%) (Auto) 77.6 Lymphocytes (%) (Auto) 12.4 Monocytes (%) (Auto) 6.4 Eosinophils (%) (Auto) 3.3 Basophils (%) (Auto) 0.3 Neutrophils # (Auto) 5.1 Lymphocytes # (Auto) 0.8 Monocytes # (Auto) 0.4 Eosinophils # (Auto) 0.2 Basophils # (Auto) 0.0 CBC Comment DIFF FINAL Differential Comment Phosphorus Level 2.7 Magnesium Level 2.4 Date/Time Procedure Status Source Growth 04/27/17 11:00 Gram Stain - Final Resulted Wound Abdomen 04/27/17 11:00 Wound Culture - Preliminary Resulted Pseudomonas Species Group D Enterococcus Abby Albicans 04/26/17 23:01 Aerobic Blood Culture - Preliminary Resulted Blood Peripheral NO GROWTH IN 2 DAYS 04/26/17 23:01 Anaerobic Blood Culture - Preliminary Resulted Blood Peripheral NO GROWTH IN 2 DAYS Radiology Last 48 hours Impressions Abdomen/Pelvis CT 04/27/17 0000 Signed Impressions: Service Date/Time: Thursday, April 27, 2017 10:28 - CONCLUSION: 1. Right middle lobe nodule, repeat noncontrast chest CT is suggested in 6 months as a conservative follow up. 2. Chronic spondylolysis bilateral L5. 3. Nonobstructing left renal stone. 4. Probable postprocedural changes involving the mesentery anterior to the stomach, however inflammatory process or even carcinomatosis is difficult to exclude. Follow up is suggested with noncontrast CT abdomen and pelvis in 2-3 months. Steve Gill MD Chest X-Ray 04/26/17 2234 Signed Impressions: Service Date/Time: Wednesday, April 26, 2017 22:44 - CONCLUSION: Normal examination. Right IJ Onpdum-p-Aybj catheter in good position. Scottie Barron MD Cardiovascular: Regular Lungs: Clear Abdomen: Other (J tube site is less red today; no drainage; abdomen minimally tender ) Extremities: No edema A/P Assessment and Plan 66 year old male with esophagus cancer -pathology results indicate poorly differentiated adenocarcinoma; s/p laparoscopic jejunostomy tube placement -Plan for IR exchange of J tube today -Apply A&D ointment to skin surrounding J tube; change dressing BID and PRN -NPO -GI following Karolina Arguello Apr 29, 2017 10:15
--- NOTE | 2017-04-29 10:51 | HHI.CCPN ---
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 He had EGD by Dr. Muñoz. Distal esophageal mass is circumferential, obstructing and he is unable to take po and thus was admitted 03/26/17 with dehydration. He underwent exploratory lap and J tube placement by Dr. Sanchez. Port was placed. He was discharged 04/04/17. He presents to [facility] ED from home with generalized weakness. He is hypotensive with BP in 80s/ 50s, in Afib RVR with rate 160s. His states he has been having dark, black fluid coming from around the site of his J tube. When she instills Glucerna tube feeds, fluid with appearance of tube feeds leaks out around the tube. He has not vomited or had dry heaves. He has been very constipated, but did have a small melena BM yesterday. No BM today. He has been afebrile. He is dehydrated with sodium of 167, bicarbonate 32, BUN 84, creatinine 1.95 (prior creatinine 0.99). His hemoglobin is 7.6. Platelets 200. Two units of PRBC's have been ordered in the ED. He has received 5 L NS bolus. For A fib RVR with persistent BP in 80s to low 90s, Dr. Rodriguez performed electrical cardioversion 3 which resulted in very transient conversion to sinus rhythm and then return to A fib RVR. He reportedly has no history of A fib. He had followup appointment with Dr. Darwin Medina on 04/23/17. He is scheduled to have PET scan (previously rescheduled because of hyperglycemia). He states he has had 2 radiation treatments, last was 04/24/17. Plan to proceed with chemotherapy with Taxol and carboplatin, but this has not been started et. states glucose has been running "high" in the mornings ~600. His diabetes was previously controlled on oral meds but was recently started on insulin during his last admission. 04/28 Patinet was insulin drip yesterday for BS >400 now off of insulin drip. Awake and alert. Afebrile. For possible EGD today. On Amio drip. Subjective 04/29: Currently afebrile. Plan for IR to exchanged ETT today. Free water deficit around 5.5 L. Became bradycardic while on amiodarone drip for heart rate slowly decreasing so discontinued. Currently in sinus bradycardia with normal QTc interval. Sleepy after receiving Dilaudid for pain management. Objective Vital Signs Date Time Temp Pulse Resp B/P Pulse Ox O2 Delivery O2 Flow Rate FiO2 04/29/17 06:00 41 04/29/17 04:00 98.4 16 118/59 97 04/27/17 05:44 Nasal Cannula 2.5 Intake and Output 04/28/17 04/28/17 04/29/17 08:00 16:00 00:00 Intake Total 813 ml 880 ml 851 ml Output Total 600 ml 500 ml 500 ml Balance 213 ml 380 ml 351 ml Result Diagram: 04/29/17 0405 04/29/17 0405 Other Results Microbiology Date/Time Procedure Status Source Growth 04/27/17 11:00 Gram Stain - Final Resulted Wound Abdomen 04/27/17 11:00 Wound Culture - Preliminary Resulted Pseudomonas Species Group D Enterococcus Abby Albicans 04/26/17 23:01 Aerobic Blood Culture - Preliminary Resulted Blood Peripheral NO GROWTH IN 2 DAYS 04/26/17 23:01 Anaerobic Blood Culture - Preliminary Resulted Blood Peripheral NO GROWTH IN 2 DAYS Imaging Last Impressions Abdomen/Pelvis CT 04/27/17 0000 Signed Impressions: Service Date/Time: Thursday, April 27, 2017 10:28 - CONCLUSION: 1. Right middle lobe nodule, repeat noncontrast chest CT is suggested in 6 months as a conservative follow up. 2. Chronic spondylolysis bilateral L5. 3. Nonobstructing left renal stone. 4. Probable postprocedural changes involving the mesentery anterior to the stomach, however inflammatory process or even carcinomatosis is difficult to exclude. Follow up is suggested with noncontrast CT abdomen and pelvis in 2-3 months. Steve iGll MD Chest X-Ray 04/26/17 2234 Signed Impressions: Service Date/Time: Wednesday, April 26, 2017 22:44 - CONCLUSION: Normal examination. Right IJ Bwmpxr-b-Rotk catheter in good position. Scottie Barron MD Objective Remarks GENERAL: 66-year-old male, resting in bed in no acute distress SKIN: Warm and dry. No rash. Well-perfused HEAD: Atraumatic. Normocephalic. EYES: Pupils equal and round about 2 mm bilaterally and reactive. No scleral icterus. No injection or drainage. ENT: No nasal bleeding or discharge. Mucous membranes pink and dry. Oropharynx without erythema NECK: Trachea midline. No JVD. CARDIOVASCULAR: Bradycardia, RR. S1, S2 no S4. Without murmur, clicks, gallop or rubs RESPIRATORY: Clear to auscultation bilaterally without wheezes rales or rhonchi. Breath sounds equal bilaterally. GASTROINTESTINAL: Abdomen soft, tender to palpation all 4 quadrants. Voluntary guarding. No rigidity. J-tube site with erythema some yellow exudate noted. MUSCULOSKELETAL: Extremities without significant peripheral edema. No obvious deformities. NEUROLOGICAL: Awake and alert. No obvious cranial nerve deficits. Motor grossly within normal limits. Five out of 5 muscle strength in the arms and legs. Normal speech. A/P Assessment and Plan NEURO/Psych: Acute pain management Dilaudid 0.5-1 mg IV every 3 hours when necessary for pain management Acetaminophen/Ofirmev for pyrexia RESP: History of tobacco abuse Right middle lobe pulmonary nodule8 mm - recommend 6 month follow-up Oxygen if necessary in order to keep sat >92% Currently on room air Bronchodilators with albuterol as needed for [address] abdomen/pelvis revealed pulmonary nodule. Follow-up recommended as above CV: Atrial fibrillation with RVR - currently in sinus bradycardia h/o Hypertension Dyslipidemia Electrical cardioversion x3 in ED by Dr. Rodriguez was successful in initial conversion to sinus rhythm but patient went back into A fib. Placed on Amio drip. Currently in sinus bradycardia so will discontinue amiodarone drip. TTC interval 417 Monitor HR and BP keep MAP>65mmHg 2D echo revealed EF 50%. Preserved LV function. No pericardial effusion. Troponin was 0.02. GI: Obstructing Esophageal Mass/poorly differentiated invasive ductal carcinoma Jejunostomy with leaking around tube Constipation Gastroesophageal reflux disease J-tube clamped. KUB with Gastrografin revealed J-tube within small bowel Plan for IR to exchange J-tube today Protonix 40 mg IV every 24 hoursed surgery is following- Dr. Vega CT abdomen/pelvis: Chronic spondylolysis bilateral L5. Nonobstructing 6-7 mm left renal stone. Probable postprocedural changes involving the mesentery anterior to the stomach, however inflammatory process or even carcinomatosis is difficult to exclude and recommend follow-up CT to 3 months FEN/RENAL: Acute dehydration -secondary to likely elevated glucose/poor intake Acute kidney injury in the setting of chronic kidney disease stage 2 Hypernatremia Hyperglycemia possibly HHS. Hypokalemia Left nephrolithiasis Patient presented with profound volume depletion. Given 5 L normal saline bolus in the emergency department. Free water deficit is currently 5.5 L Urine osmol was 778 - likely comminution of glucose elevation and dehydration Serum osm and repeat urine osm and urine sodium pending For completeness uric acid, cortisol, ACTH and aldosterone ordered Goal decrease sodium by no greater than 10 mEq per liter in 24 hours. We'll check sodium every 8 hours. Monitor renal function, I/O's, avoid nephrotoxins. Change IVF D5W@@125ml/hr monitor sodium level. At home on sliding scale insulin. . Currently in every 4 hours/low regimen. Previously on glipizide but discontinued ID: Wound culture positive for Pseudomonas/group D enterococcus and C. albicans Monitor for signs of infections ( Fever, WBC) continue with abx (Zosyn at appropriate doses for current creatinine clearance) Consult ID for management antibiotics sensitive uncles Follow up on wound cx : Pseudomonas/group D enterococcus and C. albicans HEME: Invasive poorly differentiated adenocarcinoma distal esophagus with significant features Acute blood loss anemia Dr. Medina following, plan for Taxol and cisplatin but patient has not started chemotherapy yet. Has had radiation therapy 2, last was 04/24 s/p Transfusion 2units PRBC in ED. Monitor CBC Circumferential mass was found in the distal esophagus,completely obstruction ENDO: Diabetes mellitus Hyperglycemia-likely HHS Gout Change IVF D5W @84ml/hr ( patient was hypoglycemic overnight) SSI ( low scale) with accuchecks. TSH 1.26 Resume allopurinol renal dose 100 mg daily once J-tube reestablished MSK: L5 spondylosis Physical therapy evaluate and treat PROPH: SCDs for DVT prophylaxis. Pharmacologic DVT prophylaxis likely in a.m. Protonix 40 mg IV daily ACCESS: Right chest port with 2 left peripheral IVs Level 3 Aubrey Robertson MD Apr 29, 2017 10:51
--- NOTE | 2017-04-29 10:58 | PD.ONC.PN ---
Subjective Subjective Remarks Afebrile overnight. Patient still having abdominal pain. HR dropping into the thirties today, so Amiodarone drip stopped. Objective Data Date Time Temp Pulse Resp B/P Pulse Ox O2 Delivery O2 Flow Rate FiO2 04/29/17 06:00 41 04/29/17 04:00 47 04/29/17 04:00 98.4 41 16 118/59 97 04/29/17 02:00 53 04/29/17 00:00 98.4 60 16 140/67 97 04/29/17 00:00 56 04/28/17 22:00 57 04/28/17 20:00 56 04/28/17 20:00 98.6 56 16 123/57 97 04/28/17 18:00 62 04/28/17 16:00 60 04/28/17 16:00 99.0 62 16 131/62 96 04/28/17 14:00 57 04/28/17 12:00 58 04/28/17 12:00 98.5 54 16 122/58 95 04/29/17 04/29/17 04/29/17 07:00 15:00 23:00 Intake Total 742 ml Output Total 500 ml Balance 242 ml Result Diagram: 04/29/17 0405 04/29/17 0405 Laboratory Results Laboratory Tests Test 04/28/17 04/28/17 04/29/17 14:53 22:10 04:05 Sodium Level 160 MEQ/L 159 MEQ/L 159 MEQ/L Potassium Level 4.1 MEQ/L 3.8 MEQ/L 3.7 MEQ/L Chloride Level 128 MEQ/L 128 MEQ/L 127 MEQ/L Carbon Dioxide Level 24.0 MEQ/L 24.1 MEQ/L 24.7 MEQ/L Anion Gap 8 MEQ/L 7 MEQ/L 7 MEQ/L Blood Urea Nitrogen 45 MG/DL 40 MG/DL 38 MG/DL Creatinine 1.66 MG/DL 1.70 MG/DL 1.77 MG/DL Estimat Glomerular Filtration 42 ML/MIN 40 ML/MIN 39 ML/MIN Rate Random Glucose 239 MG/DL 225 MG/DL 183 MG/DL Calcium Level 8.1 MG/DL 8.1 MG/DL 8.1 MG/DL White Blood Count 6.5 TH/MM3 Red Blood Count 2.72 MIL/MM3 Hemoglobin 8.1 GM/DL Hematocrit 25.5 % Mean Corpuscular Volume 93.6 FL Mean Corpuscular Hemoglobin 29.8 PG Mean Corpuscular Hemoglobin 31.9 % Concent Red Cell Distribution Width 14.9 % Platelet Count 136 TH/MM3 Mean Platelet Volume 10.9 FL Neutrophils (%) (Auto) 77.6 % Lymphocytes (%) (Auto) 12.4 % Monocytes (%) (Auto) 6.4 % Eosinophils (%) (Auto) 3.3 % Basophils (%) (Auto) 0.3 % Neutrophils # (Auto) 5.1 TH/MM3 Lymphocytes # (Auto) 0.8 TH/MM3 Monocytes # (Auto) 0.4 TH/MM3 Eosinophils # (Auto) 0.2 TH/MM3 Basophils # (Auto) 0.0 TH/MM3 CBC Comment DIFF FINAL Differential Comment Phosphorus Level 2.7 MG/DL Magnesium Level 2.4 MG/DL Culture Results Microbiology Date/Time Procedure Status Source Growth 04/26/17 23:00 Aerobic Blood Culture - Preliminary Resulted Blood Peripheral NO GROWTH IN 2 DAYS 04/26/17 23:00 Anaerobic Blood Culture - Preliminary Resulted Blood Peripheral NO GROWTH IN 2 DAYS 04/26/17 23:01 Aerobic Blood Culture - Preliminary Resulted Blood Peripheral NO GROWTH IN 2 DAYS 04/26/17 23:01 Anaerobic Blood Culture - Preliminary Resulted Blood Peripheral NO GROWTH IN 2 DAYS 04/27/17 11:00 Gram Stain - Final Resulted Wound Abdomen 04/27/17 11:00 Wound Culture - Preliminary Resulted Pseudomonas Species Group D Enterococcus Abby Albicans Administered Medications Medications (Trade) Dose Ordered Sig/Ab Route PRN Reason Start Time Stop Time Status Last Admin Dose Admin Piperacillin Sod/ Tazobactam Sod (Zosyn 2.25 Gm Premix) 50 ml @ 100 mls/hr Q6H IV 04/27/17 06:00 04/29/17 05:29 Pantoprazole Sodium (Protonix Inj) 40 mg Q24H IV PUSH 04/27/17 09:00 04/29/17 08:48 Hydromorphone HCl 1 mg 1 mg Q3H PRN IV PUSH PAIN 04/27/17 11:00 04/29/17 09:26 Dextrose (D5W 1000 ml Inj) 1,000 ml @ 75 mls/hr [id number] IV 04/28/17 07:30 04/29/17 09:27 Insulin Human Regular (NovoLIN R SUPPLEMENTAL SCALE) 1 Q2H SQ 04/28/17 08:00 04/29/17 10:24 Objective Remarks GENERAL: Lethargic male supine in bed, resting SKIN: Warm and dry. HEAD: Normocephalic. EYES: No injection or drainage. NECK: Supple, trachea midline. CARDIOVASCULAR: +S1/S2, bradycardia RESPIRATORY: diminished at bases. anterior tubbs clear. GASTROINTESTINAL: Abdomen soft, J-tube in place, clamped EXTREMITIES: No cyanosis NEUROLOGICAL: lethargic but awake. Assessment/Plan Problem List: (1) Esophageal adenocarcinoma Status: Acute Plan: -- first presented with significant weight loss and dysphagia. --CT showed thickening of his esophagus with no clear metastatic adenopathy. --EGD showed a circumferential mass in the distal esophagus causing complete obstruction, biopsy showed poorly differentiated adenocarcinoma. --was supposed to get a PET scan outpatient but it could not be done because his blood glucose was not well controlled. --started radiation last and so far only had two radiations. --was supposed to start chemotherapy 04/27 but was admitted to the hospital 04/26. --CT of the abdomen and pelvis showed inflammatory changes in the mesentery possibly due to recent procedure but no clear evidence of metastatic disease. (2) GI bleed Status: Acute Plan: --GI bleed likely from the esophageal mass. --reports melena last week and also had black dark fluid oozing around the J- tube last week. --s/p pRBC --possible upper endoscopy when he is stable. (3) Abdominal pain Status: Acute Plan: --Abdominal pain and oozing around the J-tube site and it was tender. --According to the patient's , the J-tube was not functioning well last week and they had a difficult time administering his medication and food. --Dr. Vega has been consulted and plans to switch out the J-tube (4) Atrial fibrillation with RVR Status: Acute Plan: --was on Amiodarone, rate dropping to 30s --burlapper following (5) Dehydration with hypernatremia Status: Acute Plan: --on D5 (6) Acute kidney injury Status: Acute Plan: --burlapper following Assessment 66y/o male with esophageal cancer admitted with possible GI bleed and hypotension. h/o Esophageal adenocarcinoma. Hypertension. Diabetes mellitus. Gastroesophageal reflux disease. Gout. Hyperlipidemia. Diagnostic and exploratory laparotomy and jejunostomy tube placement. Port placement. EGD. -- Atrial fibrillation, now rate-controlled. --Acute renal failure due to dehydration. Plan 1. will hold XRT today d/t HR 2. switch J-tube per IR 3. monitor CBC Attending Statement The exam, history, and the medical decision-making described in the above note were completed with the assistance of the mid-level provider. I reviewed and agree with the findings presented. I attest that I had a [id number] encounter with the patient on the same day, and personally performed and documented my assessment and findings in the medical record. Feeling better. Abdominal pain improved. Await J-tube replacement. Hgb relatively stable and no obvious bleeding at this time. Will restart XRT and chemo once he is stable. Problem Qualifiers (1) GI bleed: Qualified Code: K92.2 - Gastrointestinal hemorrhage, unspecified gastrointestinal hemorrhage type Isabel Vang Apr 29, 2017 10:58 Darwin Medina MD Apr 29, 2017 13:39
[2017-04-29] MEDS ORDERED: POTASSIUM CHLOR 20 MEQ PREMIX 100 ML IV ONE (11:15)
[2017-04-29 11:51] LABS: BICARBONATE 24.3 MEQ/L (21.0-32.0); POTASSIUM 3.7 MEQ/L (3.5-5.1); URIC ACID 5.2 MG/DL (2.6-7.2)
[2017-04-29] MEDS ORDERED: fentaNYL CITRATE 250 MCG/5 ML AMP ONE (11:51)
[2017-04-29 12:06] LABS: CORTISOL 18.1 MCG/DL
--- NOTE | 2017-04-29 12:21 | PD.RAD ---
Post Procedure Progress Note Pre Procedure Diagnosis: (1) Feeding tube dysfunction Post Procedure Diagnosis: (1) Feeding tube dysfunction Procedure Date: Apr 29, 2017 Supervising Radiologist: Jim Lucero JR Proceduralist/Assist: Chinmay [place], RT(R), Shilpa Colón RT(R), Aubrey Berrios RT(R)() Anesthesia: Other Plan of Activity Patient to Unit: ROP[facility] Patient Condition: Good See PACS Report for procedural detail/treatment Feeding Tube Jejunostomy Replacement [place]: 16 Findings: Leakage around existing 14 F jejunostomy tube. Upsized to 16F. 3ml placed in balloon Jr. Nic,Jim Moya MD Apr 29, 2017 12:21
[2017-04-29] MEDS ORDERED: IOHEXOL 350 MG/ML 50 ML BTL (for RAD DIAG) G-TUBE ONE (12:22)
--- NOTE | 2017-04-29 12:39 | RADRPT ---
EXAM DATE/TIME: 04/29/2017 11:40 [facility] COMPARISON: No previous studies available for comparison. INDICATIONS : Patient presents with leakage around site in need of jejunostomy tube exchange for nutrition. 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 Diagnostic exploratory laparotomy for staging and jejunostomy placement by Dr. Vega 03/31/17 ENCOUNTER: Subsequent ACUITY: 2 days PAIN SCORE: 0/10 LOCATION: N/A FLUORO TIME: 1.2 minutes IMAGE SERIES: 2 SEDATION TIME: 30 minutes CONTRAST: 10 cc Omnipaque (iohexol) 350 MEDICATION(S): 1.) 50 mcg fentanyl (Sublimaze) IV DEVICE(S): 1.) 16FR JEJUNOSTOMY TUBE PROCEDURE : 1. Fluoroscopically guided tube exchange. 2. Conscious sedation with continuous EKG and oximetry monitoring. The risks, benefits and alternatives to the procedure were explained and verbal and written consent w as obtained. The site was prepped in sterile fashion. Full sterile technique was used, including ca p, mask, sterile gloves and gown and a large sterile sheet. Hand hygiene and 2% chlorhexidine and/or betadine/alcohol prep was utilized per protocol for cutaneous antisepsis. With fluoroscopic guidance the previously placed tube was exchanged for the prescribed catheter. The balloon was inflated with 3 mL of saline. Post procedure image demonstrates satisfactory position of the tube. The catheter was sutured in place and a Percu-Stay was applied. Conscious sedation was performed with the prescribed dosages and duration as above in the presence of an independent trained radiology nurse to assist in the monitoring of the patient. EKG and oximetry remained stable throughout the procedure. The patient tolerated the procedure well and there were no complications. The patient was sent to post anesthesia recovery in stable condition. CONCLUSION: The original 14 [place] jejunostomy tube was up sized to a 16 Slov[place]. Jim Lucero Jr., MD on April 29, 2017 at 12:32 Board Certified Radiologist. This report was verified electronically.
[2017-04-29 12:55] LABS: CREATINE KINASE 50 U/L (39-308)
[2017-04-29] MEDS ORDERED: ACETAMINOPHEN 1000 MG/100 ML VIAL IV PRN (14:00)
--- NOTE | 2017-04-29 14:34 | PD.CONS ---
History of Present Illness Service Infectious disease Consult Requested By Dr Manny Robertson Reason for Consult [place] patient with positive culture from J-tube site Primary Care Physician Jethro Traylor MD Diagnoses: History of Present Illness Patient seen and examined. Records reviewed. Patient is a 66-year-old male, diagnosed with adenocarcinoma of the esophagus in March 2017, it was almost completely obstructing, admitted to the hospital for further evaluation of abdominal pain, and increasing drainage around his jejunostomy. Patient had undergone laparoscopic placement of a jejunostomy tube during his last admission in March. He was getting feedings at night about 12 hours, and has been doing well up until about several days prior to admission when he started getting leakage around the tube. He saw the surgeon, and some adjustment was done to his tube, and there was resolution of drainage. About 12 hours prior to admission, it started leaking again, and more than before, so the patient was taken to the hospital for further evaluation and treatment. He was having generalized weakness. There was no mention that he was having any fever or chills or sweats at home. No nausea or vomiting. In the emergency room he was found to be hypotensive, and was in atrial fibrillation with RVR. He was cardioverted, was in sinus rhythm briefly, but went back to rapid A. fib again. Patient currently is in normal sinus rhythm. CT of the abdomen and pelvis did not show any evidence of abdominal wall cellulitis, there was some mesenteric changes anterior to the stomach, but it's not close to where his jejunostomy placement is. Culture will was sent from the jejunostomy site, and it is now reported as growing Pseudomonas, enterococcus, and Abby. Patient has not been febrile. He complains of some abdominal pain. His WBC was normal. Patient had exchange of his jejunostomy today with a bigger size tube, done by interventional radiologist. Infectious disease consultation requested to evaluate the patient. Review of Systems Constitutional: DENIES: Fever, Chills Eyes: DENIES: Eye pain Ears, nose, mouth, throat: DENIES: Nasal discharge, Oral lesions, Throat pain Respiratory: DENIES: Cough, Shortness of breath Cardiovascular: DENIES: Chest pain, Dyspnea on Exertion Gastrointestinal: COMPLAINS OF: Abdominal pain, Anorexia, DENIES: Diarrhea, Nausea, Vomiting Genitourinary: DENIES: Hematuria, Dysuria Musculoskeletal: DENIES: Joint pain, Joint Swelling Integumentary: DENIES: Rash Neurologic: DENIES: Headache Psychiatric: DENIES: Hallucinations Past Family Social History Allergies: Coded Allergies: No Known Allergies (Unverified , 03/25/17) Past Medical History CKD Esophageal adenocarcinoma DM Dysphagia Gout GERD Hyperlipidemia 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 Quit 15 years ago And drinks alcohol intermittently. None recently since his diagnosis No illicit drug use Physical Exam Vital Signs Vital Signs Date Time Temp Pulse Resp B/P Pulse Ox O2 Delivery O2 Flow Rate FiO2 04/29/17 13:34 61 23 145/69 98 04/29/17 13:04 98.0 64 16 129/66 98 04/29/17 12:34 52 20 122/59 97 04/29/17 12:19 97.6 54 21 127/67 98 04/29/17 12:00 97.6 54 21 127/67 98 04/29/17 10:00 46 04/29/17 08:00 62 04/29/17 08:00 98.1 50 13 129/60 99 04/29/17 06:00 41 04/29/17 04:00 47 04/29/17 04:00 98.4 41 16 118/59 97 04/29/17 02:00 53 04/29/17 00:00 98.4 60 16 140/67 97 04/29/17 00:00 56 04/28/17 22:00 57 04/28/17 20:00 56 04/28/17 20:00 98.6 56 16 123/57 97 04/28/17 18:00 62 04/28/17 16:00 60 04/28/17 16:00 99.0 62 16 131/62 96 Physical Exam GENERAL: Patient is a well-nourished, well-developed CM, awake and alert, not in respiratory distress. SKIN: Warm and dry. No generalized rash, no ecchymoses and no evidence of embolic lesions. HEAD: Atraumatic. Normocephalic. No temporal wasting, or tenderness. EYES: [place] conjunctiva. No petechia or hemorrhage. Pupils equal, round and reactive to light. Extraocular movements full and intact. No scleral icterus. No injection or drainage. EARS, NOSE AND THROAT: Nose without bleeding or purulent nasal discharge. No sinus tenderness. Mucous membranes slightly dry. No exudate. No oral thrush. NECK: Trachea midline. Supple and not tender, no meningeal signs CARDIOVASCULAR: Regular rate and rhythm. No murmurs, rubs or gallops heard RESPIRATORY: Clear to auscultation. Breath sounds equal bilaterally. No rales , wheezing or rhonchi. Port in R upper chest, accessed, no evidence of infection ABDOMEN: Soft, nondistended, bowel sounds present and normoactive. Has tenderness around the jejunostomy site, with area od redness around the tube and skin is indurated. The area or induration is about 2-3 inch in diameter and there is an area with garcia drainage superior to where the tube exits. No guarding. No rebound. No organomegaly. EXTREMITIES: No clubbing, cyanosis, or edema. No joint effusion, has good ROM. No calf tenderness. Well perfused and warm. NEUROLOGICAL: Awake and alert. Cranial nerves grossly intact. Motor grossly within normal limits. PSYCHIATRIC: Normal affect, calm and cooperative. LINE: Port with no evidence of infection Laboratory Laboratory Tests Test 04/28/17 04/28/17 04/29/17 04/29/17 14:53 22:10 04:05 11:00 Sodium Level 160 159 159 158 Potassium Level 4.1 3.8 3.7 3.7 Chloride Level 128 128 127 127 Carbon Dioxide Level 24.0 24.1 24.7 24.3 Anion Gap 8 7 7 7 Blood Urea Nitrogen 45 40 38 34 Creatinine 1.66 1.70 1.77 1.69 Estimat Glomerular Filtration 42 40 39 41 Rate Random Glucose 239 225 183 187 Calcium Level 8.1 8.1 8.1 7.9 White Blood Count 6.5 Red Blood Count 2.72 Hemoglobin 8.1 Hematocrit 25.5 Mean Corpuscular Volume 93.6 Mean Corpuscular Hemoglobin 29.8 Mean Corpuscular Hemoglobin 31.9 Concent Red Cell Distribution Width 14.9 Platelet Count 136 Mean Platelet Volume 10.9 Neutrophils (%) (Auto) 77.6 Lymphocytes (%) (Auto) 12.4 Monocytes (%) (Auto) 6.4 Eosinophils (%) (Auto) 3.3 Basophils (%) (Auto) 0.3 Neutrophils # (Auto) 5.1 Lymphocytes # (Auto) 0.8 Monocytes # (Auto) 0.4 Eosinophils # (Auto) 0.2 Basophils # (Auto) 0.0 CBC Comment DIFF FINAL Differential Comment Phosphorus Level 2.7 Magnesium Level 2.4 Urine Osmolality 516 Urine Random Sodium 48 Serum Osmolality 337 Uric Acid 5.2 Total Creatine Kinase 50 Troponin I LESS THAN 0.02 Random Cortisol 18.1 Date/Time Procedure Status Source Growth 04/27/17 11:00 Gram Stain - Final Resulted Wound Abdomen 04/27/17 11:00 Wound Culture - Preliminary Resulted Pseudomonas Species Group D Enterococcus Abby Albicans 04/26/17 23:01 Aerobic Blood Culture - Preliminary Resulted Blood Peripheral NO GROWTH IN 3 DAYS 04/26/17 23:01 Anaerobic Blood Culture - Preliminary Resulted Blood Peripheral NO GROWTH IN 3 DAYS Result Diagram: 04/29/17 0405 04/29/17 1100 Imaging RADIOLOGY STUDIES/FILMS REVIEWED Catheter Change 04/29/17 0000 Signed Impressions: Service Date/Time: Saturday, April 29, 2017 11:40 - CONCLUSION: The original 14 [place] jejunostomy tube was up sized to a 16 [place]. Jim Lucero Jr., MD Abdomen X-Ray 04/28/17 0000 Signed Impressions: Service Date/Time: Friday, April 28, 2017 10:02 - CONCLUSION: J-tube is within loops of small bowel. Steve Gill MD Abdomen/Pelvis CT 04/27/17 0000 Signed Impressions: Service Date/Time: Thursday, April 27, 2017 10:28 - CONCLUSION: 1. Right middle lobe nodule, repeat noncontrast chest CT is suggested in 6 months as a conservative follow up. 2. Chronic spondylolysis bilateral L5. 3. Nonobstructing left renal stone. 4. Probable postprocedural changes involving the mesentery anterior to the stomach, however inflammatory process or even carcinomatosis is difficult to exclude. Follow up is suggested with noncontrast CT abdomen and pelvis in 2-3 months. Steve Gill MD Chest X-Ray 04/26/17 2234 Signed Impressions: Service Date/Time: Wednesday, April 26, 2017 22:44 - CONCLUSION: Normal examination. Right IJ [id number] catheter in good position. Scottie Barron MD Assessment and Plan Assessment and Plan IMPRESSION Localized infection around jejunostomy site, C/S PSAE, Enterococcus and yeast Esophageal CA adenoca, with obstruction Atrial fib RVR, now in NSR Renal insufficiency RECOMMENDATION Continue Zosyn Will add Diflucan Will give course of Abx 7-10 days When ok to us J-tube, will switch to Abx per J-tube Monitor progress I will follow along with you Thank you for this consultation Discussed Condition With Explained plan to patient and daughter Demetrice Champion MD Apr 29, 2017 14:34
[2017-04-29] MEDS ORDERED: FLUCONAZOLE 200 MG PREMIX BAG 100 ML IV SCH (15:00)
--- NOTE | 2017-04-29 16:45 | EKG ---
Date Performed: 04/29/2017 Time Performed: 10:26:16 PTAGE: 66 years EKG: SINUS BRADYCARDIA WITH SINUS ARRHYTHMIA LOW QRS VOLTAGE IN PRECORDIAL LEADS NONSPECIFIC ST & T-WAVE ABNORMALITY BORDERLINE ECG PREVIOUS TRACING : 04/27/2017 02.56 Compared to the previous tracing a fib w RVR no longer pres ent DOCTOR: Edin Villaseñor Interpretating Date/Time 04/29/2017 16:43:57
--- NOTE | 2017-04-29 17:32 | HHI.GIFU ---
Subjective Remarks Resting in bed. Had J tube changed out earlier today. Mild epigastric discomfort- states much improved. + BM Objective Vitals I&O Vital Signs Date Time Temp Pulse Resp B/P Pulse Ox O2 Delivery O2 Flow Rate FiO2 04/29/17 16:00 50 04/29/17 16:00 97.8 50 14 112/59 98 04/29/17 15:00 49 16 111/55 95 04/29/17 14:00 72 04/29/17 14:00 72 17 142/63 98 04/29/17 13:34 61 23 145/69 98 04/29/17 13:04 98.0 64 16 129/66 98 04/29/17 12:34 52 20 122/59 97 04/29/17 12:19 97.6 54 21 127/67 98 04/29/17 12:00 97.6 54 21 127/67 98 04/29/17 10:00 46 04/29/17 08:00 62 04/29/17 08:00 98.1 50 13 129/60 99 04/29/17 06:00 41 04/29/17 04:00 47 04/29/17 04:00 98.4 41 16 118/59 97 04/29/17 02:00 53 04/29/17 00:00 98.4 60 16 140/67 97 04/29/17 00:00 56 04/28/17 22:00 57 04/28/17 20:00 56 04/28/17 20:00 98.6 56 16 123/57 97 04/28/17 18:00 62 I/O 04/28/17 04/28/17 04/28/17 04/29/17 04/29/17 04/29/17 07:00 15:00 23:00 07:00 15:00 23:00 Intake Total 813 ml 880 ml 851 ml 742 ml 987 ml Output Total 600 ml 500 ml 500 ml 500 ml 300 ml Balance 213 ml 380 ml 351 ml 242 ml 687 ml Intake Oral 0 ml 0 ml 0 ml 0 ml IV Total 813 ml 880 ml 851 ml 742 ml 987 ml Output Urine Total 600 ml 500 ml 500 ml 500 ml 300 ml Gastric Drainage Total 0 ml 0 ml 0 ml # Bowel Movements 0 0 0 0 2 Laboratory Laboratory Tests Test 04/28/17 04/29/17 04/29/17 22:10 04:05 11:00 Sodium Level 159 159 158 Potassium Level 3.8 3.7 3.7 Chloride Level 128 127 127 Carbon Dioxide Level 24.1 24.7 24.3 Anion Gap 7 7 7 Blood Urea Nitrogen 40 38 34 Creatinine 1.70 1.77 1.69 Estimat Glomerular Filtration 40 39 41 Rate Random Glucose 225 183 187 Calcium Level 8.1 8.1 7.9 White Blood Count 6.5 Red Blood Count 2.72 Hemoglobin 8.1 Hematocrit 25.5 Mean Corpuscular Volume 93.6 Mean Corpuscular Hemoglobin 29.8 Mean Corpuscular Hemoglobin 31.9 Concent Red Cell Distribution Width 14.9 Platelet Count 136 Mean Platelet Volume 10.9 Neutrophils (%) (Auto) 77.6 Lymphocytes (%) (Auto) 12.4 Monocytes (%) (Auto) 6.4 Eosinophils (%) (Auto) 3.3 Basophils (%) (Auto) 0.3 Neutrophils # (Auto) 5.1 Lymphocytes # (Auto) 0.8 Monocytes # (Auto) 0.4 Eosinophils # (Auto) 0.2 Basophils # (Auto) 0.0 CBC Comment DIFF FINAL Differential Comment Phosphorus Level 2.7 Magnesium Level 2.4 Urine Osmolality 516 Urine Random Sodium 48 Serum Osmolality 337 Uric Acid 5.2 Total Creatine Kinase 50 Troponin I LESS THAN 0.02 Random Cortisol 18.1 Date/Time Procedure Status Source Growth 04/27/17 11:00 Gram Stain - Final Resulted Wound Abdomen 04/27/17 11:00 Wound Culture - Preliminary Resulted Pseudomonas Species Group D Enterococcus Vin Albicans 04/26/17 23:01 Aerobic Blood Culture - Preliminary Resulted Blood Peripheral NO GROWTH IN 3 DAYS 04/26/17 23:01 Anaerobic Blood Culture - Preliminary Resulted Blood Peripheral NO GROWTH IN 3 DAYS Imaging Last Impressions Catheter Change 04/29/17 0000 Signed Impressions: Service Date/Time: Saturday, April 29, 2017 11:40 - CONCLUSION: The original 14 Greek jejunostomy tube was up sized to a 16 Greek. Jim Lucero Jr., MD Abdomen X-Ray 04/28/17 0000 Signed Impressions: Service Date/Time: Friday, April 28, 2017 10:02 - CONCLUSION: J-tube is within loops of small bowel. Steve Gill MD Abdomen/Pelvis CT 04/27/17 0000 Signed Impressions: Service Date/Time: Thursday, April 27, 2017 10:28 - CONCLUSION: 1. Right middle lobe nodule, repeat noncontrast chest CT is suggested in 6 months as a conservative follow up. 2. Chronic spondylolysis bilateral L5. 3. Nonobstructing left renal stone. 4. Probable postprocedural changes involving the mesentery anterior to the stomach, however inflammatory process or even carcinomatosis is difficult to exclude. Follow up is suggested with noncontrast CT abdomen and pelvis in 2-3 months. Steve Gill MD Chest X-Ray 04/26/17 2234 Signed Impressions: Service Date/Time: Wednesday, April 26, 2017 22:44 - CONCLUSION: Normal examination. Right IJ Pvfhju-o-Juwv catheter in good position. Scottie Barron MD Physical Exam HEENT: Normocephalic; atraumatic; no jaundice. CHEST: CTA, Resp. even/unlabored, diminished bases. CARDIAC: RRR ABDOMEN: Soft, nondistended, mild diffuse tenderness; no hepatosplenomegaly; bowel sounds are present in all four quadrants. J tube clamped-garcia drainage from around site, site reddened EXTREMITIES: No clubbing, cyanosis, or edema. SKIN: Normal; no rash; no jaundice. [employer] JOURNEYMAN: No focal deficits; alert and oriented times three. Poor historian Assessment and Plan Plan ASSESSMENT: - Abdominal pain, acute on chronic epigastric pain radiating to back, dull ache. Takes oxycodone at home. Abdomen/Pelvis CT (04/27/17)----> 1. Right middle lobe nodule, repeat noncontrast chest CT is suggested in 6 months as a conservative follow up. 2. Chronic spondylolysis bilateral L5. 3. Nonobstructing left renal stone. 4. Probable postprocedural changes involving the mesentery anterior to the stomach, however inflammatory process or even carcinomatosis is difficult to exclude. Follow up is suggested with noncontrast CT abdomen and pelvis in 2-3 months. GS following. S/P J tube exchange by IR, will start TF (D/W GS). Pt reports that pain is much improved today. - J tube site infection. Cx with Pseudomonas, Group D enterococcus, vin albicans. Abx per ID - Anemia. 8.11/12.5. No obvious active bleeding. - Esophageal cancer. EGD (03/23/17)-----> Circumferential mass was found in the distal esophagus, circumferential, completely obstructing. 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 Has had 2 radiation tx (last 04/24) and the plan is to start carboplatin and Taxol, although this has not been started as of yet. - Dysphagia. S/P J tube placement. Surgical Aide recommends Glucerna 1.5 with goal rate of 65 ml/hr - Atrial fibrillation with RVR, s/p cardioversion x 2. Amiodarone, rate controlled. - MADDY with severe electrolyte abnormalities with Na 167, Creat 1.69, Magnesium 2.4. - Lactic acid elevation. BCx no growth 3 day - DM, uncontrolled. per [facility] - HTN, Gout, Hyperlipidemia per [facility] PLAN: - Glucerna 1.5 at 65cc/hr via J tube (D/W GS) - Cont. PPI - Abx per ID - Monitor HH - Transfuse as necessary - Monitor labs - EGD if worsening symptoms or active bleeding - Will be available prn, notify GI of any active bleeding/worsening pain - PT seen and examined by Dr. Sandra and myself and this note is written on his behalf Kimi Carlos Apr 29, 2017 17:31
[2017-04-30] VITALS (13 sets, daily range): BP systolic 105–138; BP diastolic 59–63; PULSE 51–73; RESP 15–20; TEMP 97.6–98.7; O2SAT 95–100
[2017-04-30] MEDS: PIPERACIL-TAZO 2.25 GM PREMIX 50 ML IV SCH ×3 (00:09→12:42)
[2017-04-30] MEDS: INSULIN NovoLIN REGULAR SUPPLEMENTAL SCALE SQ SCH (00:13)
[2017-04-30] MEDS: HYDROmorphone HCL PF 1 MG/ML VIAL IV PUSH PRN ×4 (00:23→16:31)
[2017-04-30] MEDS ORDERED: INSULIN REGULAR (IV INFUSION) 100 UNITS in SODIUM CHLORIDE 0.9% INJ 99 ML IV SCH (04:30)
[2017-04-30] MEDS ORDERED: MISC INFORMATION OTHER ONE (04:30)
[2017-04-30] MEDS ORDERED: DEXTROSE 50% IN WATER 50 ML VIAL(D50) IV PUSH PRN (04:30)
[2017-04-30] MEDS ORDERED: SODIUM CHLOR 0.45% 1000 ML INJ 1,000 ML IV SCH (04:45)
[2017-04-30 04:56] LABS: AUTOMATED NEUTROPHIL # 4.8 TH/MM3 (1.8-7.7); BASOPHIL % 0.5 % (0.0-2.0); EOSINOPHIL # 0.2 TH/MM3 (0-0.4); EOSINOPHIL % 3.1 % (0.0-4.0); HEMO FLAGS DIFF FINAL; LYMPH % 9.3 % (9.0-44.0); LYMPHOCYTE # 0.6 TH/MM3 (1.0-4.8); MEAN CELL VOLUME 93.6 FL (80.0-100.0); MEAN CORPUSCULAR HEMOGLOBIN 30.2 PG (27.0-34.0); MEAN CORPUSCULAR HGB CONC 32.3 % (32.0-36.0); MONO % 6.5 % (0.0-8.0); NEUT % 80.6 % (16.0-70.0); PLATELET COUNT 109 TH/MM3 (150-450); RED BLOOD COUNT 2.67 MIL/MM3 (4.50-5.90); RED CELL DISTRIBUTION WIDTH 15.1 % (11.6-17.2)
[2017-04-30 05:35] LABS: ALKALINE PHOSPHATASE 71 U/L (45-117); ALT (GPT) 15 U/L (12-78); ANION GAP 8 MEQ/L (5-15); AST (GOT) 23 U/L (15-37); BICARBONATE 22.8 MEQ/L (21.0-32.0); BLOOD UREA NITROGEN 29 MG/DL (7-18); CHLORIDE 120 MEQ/L (98-107); GLOMERULAR FILTRATION RATE 46 ML/MIN (>89); MAGNESIUM 2.1 MG/DL (1.5-2.5); POTASSIUM 3.8 MEQ/L (3.5-5.1); SODIUM (NA) 151 MEQ/L (136-145)
[2017-04-30] MEDS ORDERED: GLUCAGON 1 MG/ML VIAL OTHER PRN (05:45)
[2017-04-30] MEDS ORDERED: DEXTROSE 50% IN WATER 50 ML VIAL(D50) IV PRN (05:45)
[2017-04-30] MEDS ORDERED: INSULIN ASPART SUPPLEMENTAL SCALE SQ SCH (07:00)
[2017-04-30] MEDS: ALLOPURINOL 100 MG TAB J-TUBE SCH (09:15)
[2017-04-30] MEDS: PANTOPRAZOLE SODIUM 40 MG VIAL IV PUSH SCH (09:15)
[2017-04-30] MEDS: VITAMINS A & D OINT 60 GM TUBE TOPICAL SCH ×2 (09:16→21:55)
[2017-04-30] MEDS ORDERED: oxyCODONE HCL ORAL CONC 20 MG/ML SYRINGE PO SCH (10:15)
[2017-04-30] MEDS ORDERED: INSULIN DETEMIR 100 UNITS/ML VIAL SQ SCH (10:15)
--- NOTE | 2017-04-30 10:18 | HHI.CCPN ---
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 He had EGD by Dr. Muñoz. Distal esophageal mass is circumferential, obstructing and he is unable to take po and thus was admitted 03/26/17 with dehydration. He underwent exploratory lap and J tube placement by Dr. Sanchez. Port was placed. He was discharged 04/04/17. He [place] [facility] [place] with generalized weakness. He is hypotensive with BP in 80s/ 50s, in Afib RVR with rate 160s. His states he has been having dark, black fluid coming from around the site of his J tube. When she instills Glucerna tube feeds, fluid with appearance of tube feeds leaks out around the tube. He has not vomited or had dry heaves. He has been very constipated, but did have a small melena BM yesterday. No BM today. He has been afebrile. He is dehydrated with sodium of 167, bicarbonate 32, BUN 84, creatinine 1.95 (prior creatinine 0.99). His hemoglobin is 7.6. Platelets 200. Two units of PRBC's have been ordered in the ED. He has received 5 L NS bolus. For A fib RVR with persistent BP in 80s to low 90s, Dr. Rodriguez performed electrical cardioversion 3 which resulted in very transient conversion to sinus rhythm and then return to A fib RVR. He reportedly has no history of A fib. He had followup appointment with Dr. Darwin Medina on 04/23/17. He is scheduled to have PET scan (previously rescheduled because of hyperglycemia). He states he has had 2 radiation treatments, last was 04/24/17. Plan to proceed with chemotherapy with Taxol and carboplatin, but this has not been started et. states glucose has been running "high" in the mornings ~600. His diabetes was previously controlled on oral meds but was recently started on insulin during his last admission. 04/28 Patinet was insulin drip yesterday for BS >400 now off of insulin drip. Awake and alert. Afebrile. For possible EGD today. On Amio drip. 04/29: Currently afebrile. Plan for IR to exchanged J-tube today. Free water deficit around 5.5 L. Became bradycardic while on amiodarone drip for heart rate slowly decreasing so discontinued. Currently in sinus bradycardia with normal QTc interval. Sleepy after receiving Dilaudid for pain management. Subjective 04/30: Afebrile. Sodium down to 151. Exchanged J-tube for 14-16 [place] Ze[place]ander yesterday. Tube feeding is been resumed. Tolerating well. Requesting additional pain control medications. Objective Vital Signs Date Time Temp Pulse Resp B/P Pulse Ox O2 Delivery O2 Flow Rate FiO2 04/30/17 06:00 51 04/30/17 04:00 97.9 17 138/63 99 04/29/17 19:10 21 04/27/17 05:44 Nasal Cannula 2.5 Intake and Output 04/29/17 04/29/17 04/30/17 08:00 16:00 00:00 Intake Total 742 ml 987 ml 832 ml Output Total 500 ml 300 ml 350 ml Balance 242 ml 687 ml 482 ml Result Diagram: 04/30/17 0417 04/30/17 0417 Other Results Microbiology Date/Time Procedure Status Source Growth 04/27/17 11:00 Gram Stain - Final Resulted Wound Abdomen 04/27/17 11:00 Wound Culture - Preliminary Resulted Pseudomonas Species Group D Enterococcus Abby Albicans 04/26/17 23:01 Aerobic Blood Culture - Preliminary Resulted Blood Peripheral NO GROWTH IN 3 DAYS 04/26/17 23:01 Anaerobic Blood Culture - Preliminary Resulted Blood Peripheral NO GROWTH IN 3 DAYS Imaging Last 72 hours Impressions Catheter Change 04/29/17 0000 Signed Impressions: Service Date/Time: Saturday, April 29, 2017 11:40 - CONCLUSION: The original 14 [place] Ze[place]ander jejunostomy tube was up sized to a 16 [place]. Jim Lucero Jr., MD Abdomen X-Ray 04/28/17 0000 Signed Impressions: Service Date/Time: Friday, April 28, 2017 10:02 - CONCLUSION: J-tube is within loops of small bowel. Steve Gill MD Objective Remarks GENERAL: 66-year-old male, resting in bed in no acute distress SKIN: Warm and dry. No rash. Well-perfused HEAD: Atraumatic. Normocephalic. EYES: Pupils equal and round about 2 mm bilaterally and reactive. No scleral icterus. No injection or drainage. ENT: No nasal bleeding or discharge. Mucous membranes pink and dry. Oropharynx without erythema NECK: Trachea midline. No JVD. CARDIOVASCULAR: Bradycardia, RR. S1, S2 no S4. Without murmur, clicks, gallop or rubs RESPIRATORY: Clear to auscultation bilaterally without wheezes rales or rhonchi. Breath sounds equal bilaterally. GASTROINTESTINAL: Abdomen soft, tender to palpation all 4 quadrants. Voluntary guarding. No rigidity. J-tube site with erythema without exudate noted. MUSCULOSKELETAL: Extremities without significant peripheral edema. Well-healed Scar to the medial aspect of the left lower externa. NEUROLOGICAL: Awake and alert. No obvious cranial nerve deficits. Motor grossly within normal limits. Five out of 5 muscle strength in the arms and legs. Normal speech. Urinary Catheter: Yes Assessment to: Remove A/P Assessment and Plan NEURO/Psych: Acute pain management Schedule oxycodone liquid 5 mg every 4 hours via J-tube Dilaudid 0.5 IV every 3 hours when necessary for breakthrough pain management Ofirmev for pyrexia RESP: History of tobacco abuse Right middle lobe pulmonary nodule8 mm - recommend 6 month follow-up Oxygen if necessary in order to keep sat >92% Currently on room air Bronchodilators with albuterol as needed for [address] abdomen/pelvis revealed pulmonary nodule. Follow-up recommended as above CV: Atrial fibrillation with RVR - currently in sinus bradycardia h/o Hypertension Dyslipidemia Electrical cardioversion x3 in ED by Dr. Rodriguez was successful in initial conversion to sinus rhythm but patient went back into A fib. Placed on Amio drip. Currently in sinus bradycardia so will discontinue amiodarone drip. TTC interval 417 Monitor HR and BP keep MAP>65mmHg 2D echo revealed EF 50%. Preserved LV function. No pericardial effusion. Troponin was 0.02. GI: Obstructing Esophageal Mass/poorly differentiated invasive ductal carcinoma Jejunostomy with leaking around tube/resolve with upsizing J-tube from 14-16 [place] Ze[place] Constipation Gastroesophageal reflux disease Moderate protein calorie malnutrition J-tube clamped. KUB with Gastrografin revealed J-tube within small bowel IR to exchange J-tube 04/29 from 14-16 [place] Ze[place]ander. Currently on tube feeding with Glucerna 1.5 goal 65 cc an hour. Protonix 40 mg IV every 24 hoursed surgery is following- Dr. Vega CT abdomen/pelvis: Chronic spondylolysis bilateral L5. Nonobstructing 6-7 mm left renal stone. Probable postprocedural changes involving the mesentery anterior to the stomach, however inflammatory process or even carcinomatosis is difficult to exclude and recommend follow-up CT to 3 months FEN/RENAL: Acute dehydration -secondary to likely elevated glucose/poor intake Acute kidney injury in the setting of chronic kidney disease stage 2 Hypernatremia Hyperglycemia possibly HHS. Hypokalemia Left nephrolithiasis Patient presented with profound volume depletion. Given 5 L normal saline bolus in the emergency department. Urine osmol was 778 - likely comminution of glucose elevation and dehydration Serum osm and repeat urine osm and urine sodium pending For completeness uric acid, cortisol, ACTH and aldosterone ordered Goal decrease sodium by no greater than 10 mEq per liter in 24 hours. Monitor renal function, I/O's, avoid nephrotoxins. Discontinue half normal saline today At home on sliding scale insulin. . Currently in every 4 hours/medium regimen. Previously on glipizide but discontinued per patient ID: Wound culture positive for Pseudomonas/group D enterococcus and C. albicans Monitor for signs of infections ( Fever, WBC) continue with abx (Zosyn at appropriate doses for current creatinine clearance) Consult ID for management antibiotics. Added Diflucan 200 mg IV daily day #2 Follow up on wound cx : Pseudomonas/group D enterococcus and C. albicans HEME: Invasive poorly differentiated adenocarcinoma distal esophagus with significant features Acute blood loss anemia Dr. Medina following, plan for Taxol and cisplatin but patient has not started chemotherapy yet. Has had radiation therapy 2, last was 04/24. Plan today at 1:30 s/p Transfusion 2units PRBC in ED. Monitor CBC Circumferential mass was found in the distal esophagus,completely obstruction ENDO: Diabetes mellitus Hyperglycemia-likely HHS Gout Adjust IV fluid to half-normal saline/discontinue today ( patient was hypoglycemic overnight) SSI (medium scale) with accuchecks. TSH 1.26 Resume allopurinol renal dose 100 mg daily once J-tube reestablished MSK: L5 spondylosis Physical therapy evaluate and treat PROPH: SCDs for DVT prophylaxis. Pharmacologic DVT prophylaxis with Lovenox daily Protonix 40 mg IV daily ACCESS: Right chest port with 2 left peripheral IVs Level II consult. Patient is stable from a critical care medicine standpoint. We'll assign care to hospitalist in a.m. 05/01 Aubrey Robertson MD Apr 30, 2017 10:18
--- NOTE | 2017-04-30 10:25 | PD.ONC.PN ---
Subjective Subjective Remarks Afebrile overnight. Patient had J-tube switched yesterday and TF resumed. He is tolerating tube feeds. HR improved and now in sinus rhythm. Objective Data Date Time Temp Pulse Resp B/P Pulse Ox O2 Delivery O2 Flow Rate FiO2 04/30/17 06:00 51 04/30/17 04:00 97.9 54 17 138/63 99 04/30/17 04:00 54 04/30/17 02:00 51 04/30/17 00:00 64 04/30/17 00:00 97.9 64 16 111/62 100 04/29/17 22:00 58 04/29/17 20:00 65 04/29/17 20:00 98.3 65 17 124/58 98 04/29/17 19:10 98 21 04/29/17 18:00 46 04/29/17 18:00 46 15 115/56 96 04/29/17 17:00 48 21 122/66 100 04/29/17 16:00 50 04/29/17 16:00 97.8 50 14 112/59 98 04/29/17 15:00 49 16 111/55 95 04/29/17 14:00 72 04/29/17 14:00 72 17 142/63 98 04/29/17 13:34 61 23 145/69 98 04/29/17 13:04 98.0 64 16 129/66 98 04/29/17 12:34 52 20 122/59 97 04/29/17 12:19 97.6 54 21 127/67 98 04/29/17 12:00 97.6 54 21 127/67 98 04/30/17 04/30/17 04/30/17 07:00 15:00 23:00 Intake Total 1266 ml Output Total 550 ml Balance 716 ml Result Diagram: 04/30/17 0417 04/30/17 0417 Laboratory Results Laboratory Tests Test 04/29/17 04/30/17 11:00 04:17 Urine Osmolality 516 MOSM/KG Urine Random Sodium 48 MEQ/L Sodium Level 158 MEQ/L 151 MEQ/L Potassium Level 3.7 MEQ/L 3.8 MEQ/L Chloride Level 127 MEQ/L 120 MEQ/L Carbon Dioxide Level 24.3 MEQ/L 22.8 MEQ/L Anion Gap 7 MEQ/L 8 MEQ/L Blood Urea Nitrogen 34 MG/DL 29 MG/DL Creatinine 1.69 MG/DL 1.53 MG/DL Estimat Glomerular Filtration 41 ML/MIN 46 ML/MIN Rate Random Glucose 187 MG/DL 378 MG/DL Serum Osmolality 337 MOSM/KG Uric Acid 5.2 MG/DL Calcium Level 7.9 MG/DL 8.0 MG/DL Total Creatine Kinase 50 U/L Troponin I LESS THAN 0.02 NG/ML Random Cortisol 18.1 MCG/DL White Blood Count 6.0 TH/MM3 Red Blood Count 2.67 MIL/MM3 Hemoglobin 8.1 GM/DL Hematocrit 25.0 % Mean Corpuscular Volume 93.6 FL Mean Corpuscular Hemoglobin 30.2 PG Mean Corpuscular Hemoglobin 32.3 % Concent Red Cell Distribution Width 15.1 % Platelet Count 109 TH/MM3 Mean Platelet Volume 11.3 FL Neutrophils (%) (Auto) 80.6 % Lymphocytes (%) (Auto) 9.3 % Monocytes (%) (Auto) 6.5 % Eosinophils (%) (Auto) 3.1 % Basophils (%) (Auto) 0.5 % Neutrophils # (Auto) 4.8 TH/MM3 Lymphocytes # (Auto) 0.6 TH/MM3 Monocytes # (Auto) 0.4 TH/MM3 Eosinophils # (Auto) 0.2 TH/MM3 Basophils # (Auto) 0.0 TH/MM3 CBC Comment DIFF FINAL Differential Comment Phosphorus Level 2.3 MG/DL Magnesium Level 2.1 MG/DL Total Bilirubin 1.0 MG/DL Aspartate Amino Transf 23 U/L (AST/SGOT) Alanine Aminotransferase 15 U/L (ALT/SGPT) Alkaline Phosphatase 71 U/L Total Protein 5.2 GM/DL Albumin 1.5 GM/DL Culture Results Microbiology Date/Time Procedure Status Source Growth 04/27/17 11:00 Gram Stain - Final Resulted Wound Abdomen 04/27/17 11:00 Wound Culture - Preliminary Resulted Pseudomonas Species Group D Enterococcus Abby Albicans Administered Medications Medications (Trade) Dose Ordered Sig/Ab Route PRN Reason Start Time Stop Time Status Last Admin Dose Admin Piperacillin Sod/ Tazobactam Sod (Zosyn 2.25 Gm Premix) 50 ml @ 100 mls/hr Q6H IV 04/27/17 06:00 04/30/17 04:51 Pantoprazole Sodium (Protonix Inj) 40 mg Q24H IV PUSH 04/27/17 09:00 04/30/17 09:15 Allopurinol 100 mg 100 mg DAILY J-TUBE 04/30/17 09:00 04/30/17 09:15 Fluconazole/ Sodium Chloride 100 ml @ 100 mls/hr Q24H IV 04/29/17 15:00 04/29/17 15:08 Sodium Chloride (1/2 NS 1000 ml Inj) 1,000 ml @ 50 mls/hr Q20H IV 04/30/17 04:45 04/30/17 16:35 04/30/17 04:46 Objective Remarks GENERAL: Pleasant male, upright in bed in nad SKIN: Warm and dry. HEAD: Normocephalic. EYES: No injection or drainage. NECK: Supple, trachea midline. CARDIOVASCULAR: regular rate and rhythm. RESPIRATORY: diminished at bases. anterior tubbs clear. GASTROINTESTINAL: Abdomen soft, J-tube in place, receiving TF. EXTREMITIES: No cyanosis NEUROLOGICAL: awake and alert, normal speech. moving all extremities. Assessment/Plan Problem List: (1) Esophageal adenocarcinoma Status: Acute Plan: -- first presented with significant weight loss and dysphagia. --CT showed thickening of his esophagus with no clear metastatic adenopathy. --EGD showed a circumferential mass in the distal esophagus causing complete obstruction, biopsy showed poorly differentiated adenocarcinoma. --was supposed to get a PET scan outpatient but it could not be done because his blood glucose was not well controlled. --started radiation last and so far only had two radiations. --was supposed to start chemotherapy 04/27 but was admitted to the hospital 04/26. --CT of the abdomen and pelvis showed inflammatory changes in the mesentery possibly due to recent procedure but no clear evidence of metastatic disease. (2) GI bleed Status: Acute Plan: --GI bleed likely from the esophageal mass. --reports melena last week and also had black dark fluid oozing around the J- tube last week. --s/p pRBC --possible upper endoscopy when he is stable. (3) Dehydration with hypernatremia Status: Acute Plan: --sodium improving --on D5 (4) Acute kidney injury Status: Acute Plan: --improving --gis professor following Assessment 66y/o male with esophageal cancer admitted with possible GI bleed and hypotension. h/o Esophageal adenocarcinoma. Hypertension. Diabetes mellitus. Gastroesophageal reflux disease. Gout. Hyperlipidemia. Diagnostic and exploratory laparotomy and jejunostomy tube placement. Port placement. EGD. -- Atrial fibrillation, now rate-controlled. --Acute renal failure due to dehydration. Plan 1. resume radiation 2. continue tube feeds 3. monitor CBC, EGD per GI Attending Statement The exam, history, and the medical decision-making described in the above note were completed with the assistance of the mid-level provider. I reviewed and agree with the findings presented. I attest that I had a [id number] encounter with the patient on the same day, and personally performed and documented my assessment and findings in the medical record. Had replacement of J-tube. Restarted tube feeding. Feeling stronger. Renal function improving. No obvious bleeding. Restart XRT. Consider giveing him chemo Thursday if he continues to improve. Problem Qualifiers (1) GI bleed: Qualified Code: K92.2 - Gastrointestinal hemorrhage, unspecified gastrointestinal hemorrhage type Isabel Vang Apr 30, 2017 10:25 Darwin Medina MD Apr 30, 2017 10:50
[2017-04-30] MEDS: ENOXAPARIN SODIUM 30 MG/0.3 ML SYRINGE SQ SCH (10:56)
[2017-04-30] MEDS: INSULIN DETEMIR 100 UNITS/ML VIAL SQ SCH ×2 (10:57→21:45)
[2017-04-30] MEDS: oxyCODONE HCL ORAL CONC 20 MG/ML SYRINGE J-TUBE SCH ×3 (10:57→21:43)
[2017-04-30] MEDS ORDERED: POTASSIUM PHOSPHATE INJ 15 MMOL in SODIUM CHLORIDE 0.9% INJ 150 ML IV ONE (12:00)
[2017-04-30] MEDS: INSULIN ASPART SUPPLEMENTAL SCALE SQ SCH ×3 (12:00→21:45)
--- NOTE | 2017-04-30 12:38 | HHI.PR ---
Subjective Subjective Notes Resting in bed Happy to have J tube exchanged at bedside Objective Vitals/I&O Vital Signs Date Time Temp Pulse Resp B/P Pulse Ox O2 Delivery O2 Flow Rate FiO2 04/30/17 11:06 99 04/30/17 06:00 51 04/30/17 04:00 97.9 17 138/63 04/29/17 19:10 21 04/27/17 05:44 Nasal Cannula 2.5 Labs Laboratory Tests Test 04/30/17 04:17 White Blood Count 6.0 Red Blood Count 2.67 Hemoglobin 8.1 Hematocrit 25.0 Mean Corpuscular Volume 93.6 Mean Corpuscular Hemoglobin 30.2 Mean Corpuscular Hemoglobin 32.3 Concent Red Cell Distribution Width 15.1 Platelet Count 109 Mean Platelet Volume 11.3 Neutrophils (%) (Auto) 80.6 Lymphocytes (%) (Auto) 9.3 Monocytes (%) (Auto) 6.5 Eosinophils (%) (Auto) 3.1 Basophils (%) (Auto) 0.5 Neutrophils # (Auto) 4.8 Lymphocytes # (Auto) 0.6 Monocytes # (Auto) 0.4 Eosinophils # (Auto) 0.2 Basophils # (Auto) 0.0 CBC Comment DIFF FINAL Differential Comment Sodium Level 151 Potassium Level 3.8 Chloride Level 120 Carbon Dioxide Level 22.8 Anion Gap 8 Blood Urea Nitrogen 29 Creatinine 1.53 Estimat Glomerular Filtration 46 Rate Random Glucose 378 Calcium Level 8.0 Phosphorus Level 2.3 Magnesium Level 2.1 Total Bilirubin 1.0 Aspartate Amino Transf 23 (AST/SGOT) Alanine Aminotransferase 15 (ALT/SGPT) Alkaline Phosphatase 71 Total Protein 5.2 Albumin 1.5 Date/Time Procedure Status Source Growth 04/27/17 11:00 Gram Stain - Final Complete Wound Abdomen 04/27/17 11:00 Wound Culture - Final Complete Pseudomonas Aeruginosa Enterococcus Faecalis Abby Albicans 04/26/17 23:01 Aerobic Blood Culture - Preliminary Resulted Blood Peripheral NO GROWTH IN 4 DAYS 04/26/17 23:01 Anaerobic Blood Culture - Preliminary Resulted Blood Peripheral NO GROWTH IN 4 DAYS Radiology Last 48 hours Impressions Abdomen/Pelvis CT 04/27/17 0000 Signed Impressions: Service Date/Time: Thursday, April 27, 2017 10:28 - CONCLUSION: 1. Right middle lobe nodule, repeat noncontrast chest CT is suggested in 6 months as a conservative follow up. 2. Chronic spondylolysis bilateral L5. 3. Nonobstructing left renal stone. 4. Probable postprocedural changes involving the mesentery anterior to the stomach, however inflammatory process or even carcinomatosis is difficult to exclude. Follow up is suggested with noncontrast CT abdomen and pelvis in 2-3 months. Steve Gill MD Chest X-Ray 04/26/17 2629 Signed Impressions: Service Date/Time: Wednesday, April 26, 2017 22:44 - CONCLUSION: Normal examination. Right IJ Mubfpu-q-Diei catheter in good position. 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
--- NOTE | 2017-04-30 14:05 | HHI.IDPN ---
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 Patient had undergone laparoscopic placement of a jejunostomy tube during his last admission in March. He was getting feedings at night about 12 hours, and has been doing well up until about several days prior to admission when he started getting leakage around the tube. He saw the surgeon, and some adjustment was done to his tube, and there was resolution of drainage. About 12 hours prior to admission, it started leaking again, and more than before, so the patient was taken to the hospital for further evaluation and treatment. He was having generalized weakness. There was no mention that he was having any fever or chills or sweats at home. No nausea or vomiting. In the emergency room he was found to be hypotensive, and was in atrial fibrillation with RVR. He was cardioverted, was in sinus rhythm briefly, but went back to rapid A. fib again. Patient currently is in normal sinus rhythm. CT of the abdomen and pelvis did not show any evidence of abdominal wall cellulitis, there was some mesenteric changes anterior to the stomach, but it's not close to where his jejunostomy placement is. Culture will was sent from the jejunostomy site, and it is now reported as growing Pseudomonas, enterococcus, and Abby. Patient has not been febrile. He complains of some abdominal pain. His WBC was normal. Patient had exchange of his jejunostomy today with a bigger size tube, done by interventional radiologist. 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 Vital Signs Date Time Temp Pulse Resp B/P Pulse Ox O2 Delivery O2 Flow Rate FiO2 04/30/17 12:00 98.7 56 16 134/60 95 04/30/17 12:00 56 04/30/17 11:06 99 04/30/17 10:00 69 04/30/17 08:00 98.3 60 15 121/59 100 04/30/17 08:00 60 04/30/17 06:00 51 04/30/17 04:00 97.9 54 17 138/63 99 04/30/17 04:00 54 04/30/17 02:00 51 04/30/17 00:00 64 04/30/17 00:00 97.9 64 16 111/62 100 04/29/17 22:00 58 04/29/17 20:00 65 04/29/17 20:00 98.3 65 17 124/58 98 04/29/17 19:10 98 21 04/29/17 18:00 46 04/29/17 18:00 46 15 115/56 96 04/29/17 17:00 48 21 122/66 100 04/29/17 16:00 50 04/29/17 16:00 97.8 50 14 112/59 98 04/29/17 15:00 49 16 111/55 95 04/29/17 04/29/17 04/30/17 14:59 22:59 06:59 Intake Total 987 ml 832 ml 1266 ml Output Total 300 ml 350 ml 550 ml Balance 687 ml 482 ml 716 ml IV Total 987 ml 764 ml 1000 ml Tube Feeding 68 ml 266 ml Output Urine Total 300 ml 350 ml 550 ml # Bowel Movements 2 1 . Laboratory Tests Test 04/29/17 04/30/17 04:05 04:17 White Blood Count 6.5 TH/MM3 6.0 TH/MM3 Red Blood Count 2.72 MIL/MM3 2.67 MIL/MM3 Hemoglobin 8.1 GM/DL 8.1 GM/DL Hematocrit 25.5 % 25.0 % Mean Corpuscular Volume 93.6 FL 93.6 FL Mean Corpuscular Hemoglobin 29.8 PG 30.2 PG Mean Corpuscular Hemoglobin 31.9 % 32.3 % Concent Red Cell Distribution Width 14.9 % 15.1 % Platelet Count 136 TH/MM3 109 TH/MM3 Mean Platelet Volume 10.9 FL 11.3 FL Neutrophils (%) (Auto) 77.6 % 80.6 % Lymphocytes (%) (Auto) 12.4 % 9.3 % Monocytes (%) (Auto) 6.4 % 6.5 % Eosinophils (%) (Auto) 3.3 % 3.1 % Basophils (%) (Auto) 0.3 % 0.5 % Neutrophils # (Auto) 5.1 TH/MM3 4.8 TH/MM3 Lymphocytes # (Auto) 0.8 TH/MM3 0.6 TH/MM3 Monocytes # (Auto) 0.4 TH/MM3 0.4 TH/MM3 Eosinophils # (Auto) 0.2 TH/MM3 0.2 TH/MM3 Basophils # (Auto) 0.0 TH/MM3 0.0 TH/MM3 CBC Comment DIFF FINAL DIFF FINAL Differential Comment Laboratory Tests Test 04/28/17 04/28/17 04/29/17 04/29/17 14:53 22:10 04:05 11:00 Sodium Level 160 MEQ/L 159 MEQ/L 159 MEQ/L 158 MEQ/L Potassium Level 4.1 MEQ/L 3.8 MEQ/L 3.7 MEQ/L 3.7 MEQ/L Chloride Level 128 MEQ/L 128 MEQ/L 127 MEQ/L 127 MEQ/L Carbon Dioxide Level 24.0 MEQ/L 24.1 MEQ/L 24.7 MEQ/L 24.3 MEQ/L Anion Gap 8 MEQ/L 7 MEQ/L 7 MEQ/L 7 MEQ/L Blood Urea Nitrogen 45 MG/DL 40 MG/DL 38 MG/DL 34 MG/DL Creatinine 1.66 MG/DL 1.70 MG/DL 1.77 MG/DL 1.69 MG/DL Estimat Glomerular Filtration 42 ML/MIN 40 ML/MIN 39 ML/MIN 41 ML/MIN Rate Random Glucose 239 MG/DL 225 MG/DL 183 MG/DL 187 MG/DL Calcium Level 8.1 MG/DL 8.1 MG/DL 8.1 MG/DL 7.9 MG/DL Phosphorus Level 2.7 MG/DL Magnesium Level 2.4 MG/DL Serum Osmolality 337 MOSM/KG Uric Acid 5.2 MG/DL Total Creatine Kinase 50 U/L Troponin I LESS THAN 0.02 NG/ML Random Cortisol 18.1 MCG/DL Test 04/30/17 04:17 Sodium Level 151 MEQ/L Potassium Level 3.8 MEQ/L Chloride Level 120 MEQ/L Carbon Dioxide Level 22.8 MEQ/L Anion Gap 8 MEQ/L Blood Urea Nitrogen 29 MG/DL Creatinine 1.53 MG/DL Estimat Glomerular Filtration 46 ML/MIN Rate Random Glucose 378 MG/DL Calcium Level 8.0 MG/DL Phosphorus Level 2.3 MG/DL Magnesium Level 2.1 MG/DL Total Bilirubin 1.0 MG/DL Aspartate Amino Transf 23 U/L (AST/SGOT) Alanine Aminotransferase 15 U/L (ALT/SGPT) Alkaline Phosphatase 71 U/L Total Protein 5.2 GM/DL Albumin 1.5 GM/DL Imaging Catheter Change 04/29/17 0000 Signed Impressions: Service Date/Time: Saturday, April 29, 2017 11:40 - CONCLUSION: The original 14 [place] jejunostomy tube was up sized to a 16 [place]. Jim Lucero Jr., MD Abdomen X-Ray 04/28/17 0000 Signed Impressions: Service Date/Time: Friday, April 28, 2017 10:02 - CONCLUSION: J-tube is within loops of small bowel. Steve Gill MD Abdomen/Pelvis CT 04/27/17 0000 Signed Impressions: Service Date/Time: Thursday, April 27, 2017 10:28 - CONCLUSION: 1. Right middle lobe nodule, repeat noncontrast chest CT is suggested in 6 months as a conservative follow up. 2. Chronic spondylolysis bilateral L5. 3. Nonobstructing left renal stone. 4. Probable postprocedural changes involving the mesentery anterior to the stomach, however inflammatory process or even carcinomatosis is difficult to exclude. Follow up is suggested with noncontrast CT abdomen and pelvis in 2-3 months. Steve Gill MD Chest X-Ray 04/26/172233 Signed Impressions: Service Date/Time: Wednesday, April 26, 2017 22:44 - CONCLUSION: Normal examination. Right IJ Gbfjfp-k-Mtne catheter in good position. Scottie Barron MD Physical Exam GENERAL: awake and alert, not in respiratory distress. SKIN: Warm and dry. No generalized rash, no ecchymoses and no evidence of embolic lesions. HEAD: Atraumatic. Normocephalic. No temporal wasting, or tenderness. EYES: [place] conjunctiva. No petechia or hemorrhage. Pupils equal, round and reactive to light. Extraocular movements full and intact. No scleral icterus. No injection or drainage. EARS, NOSE AND THROAT: Nose without bleeding or purulent nasal discharge. No sinus tenderness. Mucous membranes slightly dry. NECK: Trachea midline. Supple and not tender, no meningeal signs CARDIOVASCULAR: Regular rate and rhythm. No murmurs, rubs or gallops heard RESPIRATORY: Clear to auscultation. Breath sounds equal bilaterally. No rales , wheezing or rhonchi. Port in R upper chest, accessed, no evidence of infection ABDOMEN: Soft, nondistended, bowel sounds present and normoactive. Has tenderness around the jejunostomy site, with area of redness around the tube, with an area of induration that is about 2-3 inch in diameter. There is an area with garcia drainage superior to where the tube exits. No guarding. No rebound. No organomegaly. EXTREMITIES: No clubbing, cyanosis, or edema. No joint effusion, has good ROM. No calf tenderness. Well perfused and warm. NEUROLOGICAL: Non-focal PSYCHIATRIC: Normal affect, calm and cooperative. LINE: Port with no evidence of infection Assessment & Plan Remarks IMPRESSION Localized infection around jejunostomy site, C/S PSAE, Enterococcus and yeast Esophageal CA adenoca, with obstruction Atrial fib RVR, now in NSR Renal insufficiency RECOMMENDATION Change Abx to per J-tube Plan 7 days of Abx I have placed end dates on [employer] I will sign off Please call if with any other ID issue or question Demetrice Champion MD Apr 30, 2017 14:05
[2017-04-30] MEDS ORDERED: CIPROFLOXACIN SUSP 500 MG/5 ML 100 ML BOTTLE PO SCH (15:00)
[2017-04-30] MEDS: AMOXICILLIN 250 MG/5ML LIQ 100 ML BTL PO SCH ×2 (17:27→21:43)
[2017-04-30] MEDS: FLUCONAZOLE SUSP 10 MG/ML 35 ML BTL PO SCH (17:27)
[2017-04-30] MEDS: CIPROFLOXACIN 250 MG TAB PO SCH (17:28)
[2017-04-30 20:15] LABS: BICARBONATE 25.2 MEQ/L (21.0-32.0); POTASSIUM 3.8 MEQ/L (3.5-5.1)
[2017-05-01] VITALS (11 sets, daily range): BP systolic 110–125; BP diastolic 56–68; PULSE 16–74; RESP 16–20; TEMP 97.4–98.3; O2SAT 94–98
[2017-05-01] MEDS: oxyCODONE HCL ORAL CONC 20 MG/ML SYRINGE J-TUBE SCH ×6 (00:20→21:06)
[2017-05-01] MEDS: INSULIN ASPART SUPPLEMENTAL SCALE SQ SCH ×6 (00:28→21:08)
[2017-05-01] MEDS: CIPROFLOXACIN 250 MG TAB PO SCH ×2 (04:17→17:42)
[2017-05-01 05:57] LABS: AUTOMATED NEUTROPHIL # 3.9 TH/MM3 (1.8-7.7); BASOPHIL % 0.3 % (0.0-2.0); EOSINOPHIL # 0.2 TH/MM3 (0-0.4); EOSINOPHIL % 3.2 % (0.0-4.0); HEMATOCRIT 24.4 % (39.0-51.0); HEMO FLAGS DIFF FINAL; LYMPH % 10.6 % (9.0-44.0); LYMPHOCYTE # 0.5 TH/MM3 (1.0-4.8); MEAN CORPUSCULAR HEMOGLOBIN 29.1 PG (27.0-34.0); MEAN CORPUSCULAR HGB CONC 31.3 % (32.0-36.0); MONO % 8.4 % (0.0-8.0); NEUT % 77.5 % (16.0-70.0); PLATELET COUNT 106 TH/MM3 (150-450); RED BLOOD COUNT 2.63 MIL/MM3 (4.50-5.90)
[2017-05-01 06:03] LABS: ALT (GPT) 15 U/L (12-78); ANION GAP 8 MEQ/L (5-15); AST (GOT) 20 U/L (15-37); BICARBONATE 23.4 MEQ/L (21.0-32.0); BLOOD UREA NITROGEN 21 MG/DL (7-18); CHLORIDE 123 MEQ/L (98-107); GLOMERULAR FILTRATION RATE 52 ML/MIN (>89); MAGNESIUM 2.1 MG/DL (1.5-2.5); POTASSIUM 3.8 MEQ/L (3.5-5.1); SODIUM (NA) 154 MEQ/L (136-145)
[2017-05-01 06:06] LABS: ALKALINE PHOSPHATASE 77 U/L (45-117); TOTAL BILIRUBIN ADULT 0.6 MG/DL (0.2-1.0)
[2017-05-01] MEDS: AMOXICILLIN 250 MG/5ML LIQ 100 ML BTL PO SCH ×3 (06:42→21:06)
[2017-05-01] MEDS: PANTOPRAZOLE SODIUM 40 MG VIAL IV PUSH SCH (08:32)
[2017-05-01] MEDS: ALLOPURINOL 100 MG TAB J-TUBE SCH (08:33)
[2017-05-01] MEDS: FLUCONAZOLE SUSP 10 MG/ML 35 ML BTL PO SCH (08:33)
[2017-05-01] MEDS: VITAMINS A & D OINT 60 GM TUBE TOPICAL SCH ×2 (08:49→21:00)
[2017-05-01] MEDS: INSULIN DETEMIR 100 UNITS/ML VIAL SQ SCH (08:49)
--- NOTE | 2017-05-01 10:16 | HHI.PR ---
Subjective Remarks c/o left knee pain. difficult to walk for weeks. Objective Vitals heart reg lung cta abd s/nt/j tube ext no edema maybe smal left knee effusion from with passive movement but more pain with active mvmt. no redness. Vital Signs Date Time Temp Pulse Resp B/P Pulse Ox O2 Delivery O2 Flow Rate FiO2 05/01/17 08:28 97.7 69 20 117/59 97 05/01/17 05:18 16 05/01/17 04:06 59 05/01/17 04:00 97.4 16 16 110/56 94 05/01/17 00:21 72 05/01/17 00:00 97.9 74 16 110/62 97 04/30/17 20:07 73 04/30/17 20:00 97.6 60 16 105/59 97 04/30/17 16:37 97.8 73 20 115/59 98 04/30/17 15:12 70 04/30/17 15:11 97.8 70 20 114/59 98 04/30/17 12:00 98.7 56 16 134/60 95 04/30/17 12:00 56 04/30/17 11:06 99 04/30/17 10:00 69 04/30/17 04/30/17 05/01/17 15:00 23:00 07:00 Intake Total 1862 ml 0 ml 0 ml Output Total 500 ml 200 ml 350 ml Balance 1362 ml -200 ml -350 ml Intake Oral 600 ml 0 ml 0 ml IV Total 946 ml Tube Feeding 316 ml Output Urine Total 500 ml 200 ml 350 ml # Voids 3 # Bowel Movements 1 0 0 Result Diagram: 05/01/1743905/01/17 0440 A/P Problem List: (1) Esophageal adenocarcinoma Status: Acute Plan: Pt with esophageal adenoca. presented with leaking/dysfunctional j tube afib/rvr controlled jose eduardo resolved local infection around j tube site dm with hyperglycemia left knee pain anemia. no active bleeding titrate up j tube feeding titrate levemir as needed. cont abx for another week xray left knee today pain control dvt prophylaxis supportive care. (2) Dehydration with hypernatremia Status: Acute Plan: see above (3) Atrial fibrillation with RVR Status: Acute Plan: see above (4) Acute kidney injury Status: Acute Plan: see above (5) Feeding tube dysfunction Status: Acute Plan: see above (6) Anemia Status: Acute Plan: see above (7) DM (diabetes mellitus) Status: Chronic Plan: see above (8) HTN (hypertension) Status: Chronic (9) CKD (chronic kidney disease) stage 3, GFR 30-59 ml/min Status: Chronic Problem Qualifiers (1) Anemia: Qualified Code: D64.9 - Anemia, unspecified type Koko Saldaña MD May 01, 2017 10:16
[2017-05-01] MEDS ORDERED: HOSP BED2 (10:17)
[2017-05-01] MEDS: HYDROmorphone HCL PF 1 MG/ML VIAL IV PUSH PRN ×2 (10:53→15:23)
[2017-05-01] MEDS: ENOXAPARIN SODIUM 30 MG/0.3 ML SYRINGE SQ SCH (12:44)
--- NOTE | 2017-05-01 12:46 | PD.ONC.PN ---
Subjective Subjective Remarks Afebrile overnight. Having pain in left knee. otherwise feeling better overall. More alert and energized today. Tolerated radiation yesterday. Objective Data Date Time Temp Pulse Resp B/P Pulse Ox O2 Delivery O2 Flow Rate FiO2 05/01/17 08:28 97.7 69 20 117/59 97 05/01/17 05:18 16 05/01/17 04:06 59 05/01/17 04:00 97.4 16 16 110/56 94 05/01/17 00:21 72 05/01/17 00:00 97.9 74 16 110/62 97 04/30/17 20:07 73 04/30/17 20:00 97.6 60 16 105/59 97 04/30/17 16:37 97.8 73 20 115/59 98 04/30/17 15:12 70 04/30/17 15:11 97.8 70 20 114/59 98 05/01/17 05/01/17 05/01/17 06:59 14:59 22:59 Intake Total 0 ml Output Total 350 ml Balance -350 ml Result Diagram: 05/01/17 0440 05/01/17 0440 Laboratory Results Laboratory Tests Test 04/30/17 05/01/17 19:24 04:40 Sodium Level 152 MEQ/L 154 MEQ/L Potassium Level 3.8 MEQ/L 3.8 MEQ/L Chloride Level 122 MEQ/L 123 MEQ/L Carbon Dioxide Level 25.2 MEQ/L 23.4 MEQ/L Anion Gap 5 MEQ/L 8 MEQ/L Blood Urea Nitrogen 24 MG/DL 21 MG/DL Creatinine 1.50 MG/DL 1.36 MG/DL Estimat Glomerular Filtration 47 ML/MIN 52 ML/MIN Rate Random Glucose 247 MG/DL 205 MG/DL Calcium Level 7.5 MG/DL 7.9 MG/DL White Blood Count 5.0 TH/MM3 Red Blood Count 2.63 MIL/MM3 Hemoglobin 7.6 GM/DL Hematocrit 24.4 % Mean Corpuscular Volume 93.0 FL Mean Corpuscular Hemoglobin 29.1 PG Mean Corpuscular Hemoglobin 31.3 % Concent Red Cell Distribution Width 15.0 % Platelet Count 106 TH/MM3 Mean Platelet Volume 11.3 FL Neutrophils (%) (Auto) 77.5 % Lymphocytes (%) (Auto) 10.6 % Monocytes (%) (Auto) 8.4 % Eosinophils (%) (Auto) 3.2 % Basophils (%) (Auto) 0.3 % Neutrophils # (Auto) 3.9 TH/MM3 Lymphocytes # (Auto) 0.5 TH/MM3 Monocytes # (Auto) 0.4 TH/MM3 Eosinophils # (Auto) 0.2 TH/MM3 Basophils # (Auto) 0.0 TH/MM3 CBC Comment DIFF FINAL Differential Comment Phosphorus Level 2.3 MG/DL Magnesium Level 2.1 MG/DL Total Bilirubin 0.6 MG/DL Aspartate Amino Transf 20 U/L (AST/SGOT) Alanine Aminotransferase 15 U/L (ALT/SGPT) Alkaline Phosphatase 77 U/L Total Protein 5.5 GM/DL Albumin 1.5 GM/DL Administered Medications Medications (Trade) Dose Ordered Sig/Ab Route PRN Reason Start Time Stop Time Status Last Admin Dose Admin Pantoprazole Sodium (Protonix Inj) 40 mg Q24H IV PUSH 04/27/17 09:00 05/01/17 08:32 Allopurinol (Zyloprim) 100 mg DAILY J-TUBE 04/30/17 09:00 05/01/17 08:33 Hydromorphone HCl (Dilaudid Pf Inj) 0.5 mg Q2H PRN IV PUSH breakthrough pain 04/30/17 12:00 05/01/17 10:53 Insulin Aspart (NovoLOG SUPPLEMENTAL SCALE) 1 Q4HR SQ 04/30/17 12:00 05/01/17 08:48 Oxycodone HCl (Roxicodone Intensol Liq) 5 mg Q4HR J-TUBE 04/30/17 12:00 05/01/17 08:33 Enoxaparin Sodium (Lovenox Inj) 30 mg Q24H SQ 04/30/17 11:00 04/30/17 10:56 Amoxicillin (Trimox 250 Mg/ 5ml Liq) 500 mg Q8HR PO 04/30/17 14:00 05/07/17 13:59 05/01/17 06:42 Fluconazole (Diflucan 10 Mg/ ml Liq) 100 mg DAILY PO 04/30/17 15:00 05/07/17 14:59 05/01/17 08:33 Ciprofloxacin (Cipro) 750 mg Q12H PO 04/30/17 17:00 05/07/17 16:59 05/01/17 04:17 Objective Remarks GENERAL: Pleasant male, lying supine in bed, watching TV SKIN: Warm and dry. HEAD: Normocephalic. EYES: No injection or drainage. NECK: Supple, trachea midline. CARDIOVASCULAR: regular rate and rhythm. RESPIRATORY: diminished at bases. anterior tubbs clear. GASTROINTESTINAL: Abdomen soft, receiving TF via J-tube. no tenderness. EXTREMITIES: No cyanosis NEUROLOGICAL: aox3. normal speech Assessment/Plan Problem List: (1) Esophageal adenocarcinoma Status: Acute Plan: radiation resumed on 04/30. plan to give carbo/taxol on Friday 05/04. chemo sheet in chart -- first presented with significant weight loss and dysphagia. --CT showed thickening of his esophagus with no clear metastatic adenopathy. --EGD showed a circumferential mass in the distal esophagus causing complete obstruction, biopsy showed poorly differentiated adenocarcinoma. --was supposed to get a PET scan outpatient but it could not be done because his blood glucose was not well controlled. --started radiation last and so far only had two radiations. --was supposed to start chemotherapy 04/27 but was admitted to the hospital 04/26. --CT of the abdomen and pelvis showed inflammatory changes in the mesentery possibly due to recent procedure but no clear evidence of metastatic disease. (2) GI bleed Status: Acute Plan: --GI bleed likely from the esophageal mass. --reports melena last week and also had black dark fluid oozing around the J- tube last week. --s/p pRBC --possible upper endoscopy when he is stable. (3) Dehydration with hypernatremia Status: Acute Plan: --sodium improving --on D5 (4) Acute kidney injury Status: Acute Plan: --improving --primary following Assessment 66y/o male with esophageal cancer admitted with possible GI bleed and hypotension. h/o Esophageal adenocarcinoma. Hypertension. Diabetes mellitus. Gastroesophageal reflux disease. Gout. Hyperlipidemia. Diagnostic and exploratory laparotomy and jejunostomy tube placement. Port placement. EGD. -- Atrial fibrillation, now rate-controlled. --Acute renal failure due to dehydration. Plan 1. continue XRT today 2. plan to give chemo Thursday if still inpatient--weekly carbo/taxol, chemo sheet in chart. 3. monitor CBC, may need another transfusion if hgb continues to fall. Attending Statement The exam, history, and the medical decision-making described in the above note were completed with the assistance of the mid-level provider. I reviewed and agree with the findings presented. I attest that I had a jysa-hc-rniv encounter with the patient on the same day, and personally performed and documented my assessment and findings in the medical record. Feeling stronger. Restarted XRT. Plan to give him weekly carboplatin/Taxol next Thursday. Monitor Hgb and recommend transfusion if Hgb trends below 7.5. Problem Qualifiers (1) GI bleed: Qualified Code: K92.2 - Gastrointestinal hemorrhage, unspecified gastrointestinal hemorrhage type Isabel Vang May 01, 2017 12:46 Darwin Medina MD May 01, 2017 14:15
--- NOTE | 2017-05-01 14:47 | RADRPT ---
EXAM DATE/TIME: 05/01/2017 13:46 [facility] COMPARISON: ABDOMEN KUB ONLY, April 28, 2017, 10:02. INDICATIONS : Left knee pain, no trauma. MEDICAL HISTORY : Hypertension. Diabetes mellitus type II. Carcinoma, esophageal. SURGICAL HISTORY : None. ENCOUNTER: Initial ACUITY: 2 months PAIN SCORE: 8/10 LOCATION: Left medial and lateral knee. FINDINGS: There are advanced arthritic changes in the medial joint compartment and the patellofemoral joint. Th ere is a moderate-sized joint effusion. CONCLUSION: 1. Advanced osteoarthritic changes as above. No acute fracture. Andrade Escalante MD on May 01, 2017 at 14:44 Board Certified Radiologist. This report was verified electronically.
--- NOTE | 2017-05-01 17:14 | HHI.PR ---
Subjective Subjective Notes Resting in bed Daughter at bedside Objective Vitals/I&O Vital Signs Date Time Temp Pulse Resp B/P Pulse Ox O2 Delivery O2 Flow Rate FiO2 05/01/17 16:44 98.3 68 20 110/68 97 04/29/17 19:10 21 Labs Laboratory Tests Test 04/30/17 05/01/17 19:24 04:40 Sodium Level 152 154 Potassium Level 3.8 3.8 Chloride Level 122 123 Carbon Dioxide Level 25.2 23.4 Anion Gap 5 8 Blood Urea Nitrogen 24 21 Creatinine 1.50 1.36 Estimat Glomerular Filtration 47 52 Rate Random Glucose 247 205 Calcium Level 7.5 7.9 White Blood Count 5.0 Red Blood Count 2.63 Hemoglobin 7.6 Hematocrit 24.4 Mean Corpuscular Volume 93.0 Mean Corpuscular Hemoglobin 29.1 Mean Corpuscular Hemoglobin 31.3 Concent Red Cell Distribution Width 15.0 Platelet Count 106 Mean Platelet Volume 11.3 Neutrophils (%) (Auto) 77.5 Lymphocytes (%) (Auto) 10.6 Monocytes (%) (Auto) 8.4 Eosinophils (%) (Auto) 3.2 Basophils (%) (Auto) 0.3 Neutrophils # (Auto) 3.9 Lymphocytes # (Auto) 0.5 Monocytes # (Auto) 0.4 Eosinophils # (Auto) 0.2 Basophils # (Auto) 0.0 CBC Comment DIFF FINAL Differential Comment Phosphorus Level 2.3 Magnesium Level 2.1 Total Bilirubin 0.6 Aspartate Amino Transf 20 (AST/SGOT) Alanine Aminotransferase 15 (ALT/SGPT) Alkaline Phosphatase 77 Total Protein 5.5 Albumin 1.5 Date/Time Procedure Status Source Growth 04/27/17 11:00 Gram Stain - Final Complete Wound Abdomen 04/27/17 11:00 Wound Culture - Final Complete Pseudomonas Aeruginosa Enterococcus Faecalis Abby Albicans 04/26/17 23:01 Aerobic Blood Culture - Final Complete Blood Peripheral NO GROWTH IN 5 DAYS 04/26/17 23:01 Anaerobic Blood Culture - Final Complete Blood Peripheral NO GROWTH IN 5 DAYS Radiology Last 48 hours Impressions Abdomen/Pelvis CT 04/27/17 0000 Signed Impressions: Service Date/Time: Thursday, April 27, 2017 10:28 - CONCLUSION: 1. Right middle lobe nodule, repeat noncontrast chest CT is suggested in 6 months as a conservative follow up. 2. Chronic spondylolysis bilateral L5. 3. Nonobstructing left renal stone. 4. Probable postprocedural changes involving the mesentery anterior to the stomach, however inflammatory process or even carcinomatosis is difficult to exclude. Follow up is suggested with noncontrast CT abdomen and pelvis in 2-3 months. Steve Gill MD Chest X-Ray 04/26/17 2234 Signed Impressions: Service Date/Time: Wednesday, April 26, 2017 22:44 - CONCLUSION: Normal examination. Right IJ Folflo-c-Bboc catheter in good position. 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
[2017-05-01 18:39] LABS: HEMATOCRIT 23.3 % (39.0-51.0); REVIEW FLAG FINAL
[2017-05-01] MEDS ORDERED: INSULIN DETEMIR 100 UNITS/ML VIAL SQ SCH (21:00)
[2017-05-02] VITALS (10 sets, daily range): BP systolic 134–151; BP diastolic 63–71; PULSE 51–78; RESP 17–20; TEMP 96.6–98.4; O2SAT 97–99
[2017-05-02] MEDS: oxyCODONE HCL ORAL CONC 20 MG/ML SYRINGE J-TUBE SCH ×6 (00:35→20:44)
[2017-05-02] MEDS: INSULIN ASPART SUPPLEMENTAL SCALE SQ SCH ×6 (00:36→20:43)
[2017-05-02 03:50] LABS: ADRENOCORTICOTROPHIC 20 pg/mL (6-50)
[2017-05-02] MEDS: CIPROFLOXACIN 250 MG TAB PO SCH ×2 (04:38→16:52)
[2017-05-02] MEDS: AMOXICILLIN 250 MG/5ML LIQ 100 ML BTL PO SCH ×3 (06:16→20:46)
[2017-05-02 07:22] LABS: BASOPHIL % 0.4 % (0.0-2.0); EOSINOPHIL # 0.1 TH/MM3 (0-0.4); EOSINOPHIL % 2.2 % (0.0-4.0); HEMATOCRIT 24.2 % (39.0-51.0); LYMPH % 7.7 % (9.0-44.0); LYMPHOCYTE # 0.4 TH/MM3 (1.0-4.8); MEAN CORPUSCULAR HEMOGLOBIN 29.9 PG (27.0-34.0); MEAN CORPUSCULAR HGB CONC 31.8 % (32.0-36.0); MONO % 8.8 % (0.0-8.0); NEUT % 80.9 % (16.0-70.0); PLATELET COUNT 98 TH/MM3 (150-450); RED BLOOD COUNT 2.57 MIL/MM3 (4.50-5.90); RED CELL DISTRIBUTION WIDTH 15.3 % (11.6-17.2)
[2017-05-02 07:24] LABS: HEMO FLAGS AUTO DIFF
[2017-05-02 07:43] LABS: BICARBONATE 25.8 MEQ/L (21.0-32.0); POTASSIUM 3.8 MEQ/L (3.5-5.1)
[2017-05-02] MEDS ORDERED: CELECOXIB 200 MG CAP PO ONE (08:30)
--- NOTE | 2017-05-02 08:36 | HHI.PR ---
Subjective Remarks PT WITH C/O ONGOING LEFT KNEE PAIN AND INABILITY TO AMBULATE ON IT. Objective Vitals heart reg lung cta abd s/nt/j tube ext no edema Vital Signs Date Time Temp Pulse Resp B/P Pulse Ox O2 Delivery O2 Flow Rate FiO2 05/02/17 04:00 78 05/02/17 04:00 97.5 69 18 146/71 98 05/02/17 00:00 58 05/02/17 00:00 96.6 75 17 143/63 97 05/01/17 20:00 67 05/01/17 20:00 97.8 71 18 125/60 98 05/01/17 16:44 98.3 68 20 110/68 97 05/01/17 16:20 65 05/01/17 12:54 98.2 59 20 123/59 96 05/01/17 12:45 65 05/01/17 08:38 67 05/01/17 05/01/17 05/02/17 14:59 22:59 06:59 Intake Total 495 ml Output Total 400 ml 400 ml Balance 95 ml -400 ml Tube Feeding 315 ml Tube Irrigant 180 ml Output Urine Total 400 ml 400 ml # Voids 3 # Bowel Movements 2 1 Result Diagram: 05/02/17 0610 05/02/17 0610 A/P Problem List: (1) Esophageal adenocarcinoma Status: Acute Plan: Pt with esophageal adenoca. presented with leaking/dysfunctional j tube afib/rvr controlled jose eduardo/ckd resolved local infection around j tube site dm with hyperglycemia left knee pain..severe OA on xray anemia. no active bleeding titrate up j tube feeding but convert back to just nightime titrate levemir as needed. cont abx for another week dose celebrex x 1..but will probably need to ask ortho to see him as nsaids are going to be a problem with is renal function and risk of GI bleeding. ?steroid injection. pain control dvt prophylaxis supportive care. (2) Dehydration with hypernatremia Status: Acute Plan: see above (3) Atrial fibrillation with RVR Status: Acute Plan: see above (4) Acute kidney injury Status: Acute Plan: see above (5) Feeding tube dysfunction Status: Acute Plan: see above (6) Anemia Status: Acute Plan: see above (7) DM (diabetes mellitus) Status: Chronic Plan: see above (8) HTN (hypertension) Status: Chronic (9) CKD (chronic kidney disease) stage 3, GFR 30-59 ml/min Status: Chronic Problem Qualifiers (1) Anemia: Qualified Code: D64.9 - Anemia, unspecified type Koko Saldaña MD May 02, 2017 08:36
[2017-05-02] MEDS: FLUCONAZOLE SUSP 10 MG/ML 35 ML BTL PO SCH (08:37)
[2017-05-02] MEDS: ALLOPURINOL 100 MG TAB J-TUBE SCH (08:37)
[2017-05-02] MEDS: INSULIN DETEMIR 100 UNITS/ML VIAL SQ SCH ×2 (08:48→20:46)
[2017-05-02] MEDS: PANTOPRAZOLE SODIUM 40 MG VIAL IV PUSH SCH ×2 (08:49→20:46)
[2017-05-02] MEDS: VITAMINS A & D OINT 60 GM TUBE TOPICAL SCH ×2 (08:49→20:46)
[2017-05-02 09:23] LABS: BANDS 23 % (0-6); EOSINOPHILS 1 % (0-4); NEUTROPHIL # MANUAL DIFF 4.4 TH/MM3 (1.8-7.7); OVALOCYTES 1+ (NORMAL); PLATELET ESTIMATE SMEAR LOW (NORMAL); POLYS (SEG NEUTROPHILS) 64 % (16-70); WBC DIFF SAMPLE 100
[2017-05-02 09:24] LABS: PLATELET MORPHOLOGY ENLARGED (NORMAL); SCAN/DIFF FINAL DIFF MANUAL
[2017-05-02] MEDS: ENOXAPARIN SODIUM 30 MG/0.3 ML SYRINGE SQ SCH (12:51)
[2017-05-03] VITALS (8 sets, daily range): BP systolic 143–189; BP diastolic 69–83; PULSE 51–73; RESP 18–19; TEMP 96.1–97.9; O2SAT 95–99
[2017-05-03] MEDS: oxyCODONE HCL ORAL CONC 20 MG/ML SYRINGE J-TUBE SCH ×6 (00:26→20:23)
[2017-05-03] MEDS: INSULIN ASPART SUPPLEMENTAL SCALE SQ SCH ×6 (00:38→20:29)
[2017-05-03] MEDS: CIPROFLOXACIN 250 MG TAB PO SCH ×2 (04:28→16:24)
[2017-05-03] MEDS: AMOXICILLIN 250 MG/5ML LIQ 100 ML BTL PO SCH ×3 (05:06→22:00)
[2017-05-03 07:40] LABS: AUTOMATED NEUTROPHIL # 3.3 TH/MM3 (1.8-7.7); BASOPHIL % 0.5 % (0.0-2.0); EOSINOPHIL # 0.1 TH/MM3 (0-0.4); EOSINOPHIL % 2.6 % (0.0-4.0); HEMATOCRIT 22.9 % (39.0-51.0); HEMO FLAGS DIFF FINAL; LYMPHOCYTE # 0.4 TH/MM3 (1.0-4.8); MEAN CELL VOLUME 93.8 FL (80.0-100.0); MEAN CORPUSCULAR HEMOGLOBIN 30.1 PG (27.0-34.0); MEAN CORPUSCULAR HGB CONC 32.1 % (32.0-36.0); MONO % 6.9 % (0.0-8.0); PLATELET COUNT 103 TH/MM3 (150-450); RED BLOOD COUNT 2.44 MIL/MM3 (4.50-5.90); RED CELL DISTRIBUTION WIDTH 15.5 % (11.6-17.2); WHITE BLOOD COUNT 4.1 TH/MM3 (4.0-11.0)
[2017-05-03 08:01] LABS: BICARBONATE 26.1 MEQ/L (21.0-32.0)
--- NOTE | 2017-05-03 08:38 | HHI.PR ---
Subjective Remarks knee feels better. wants more celebrex. Objective Vitals heart reg lung cta abd s/nt. j tube ext no edema Vital Signs Date Time Temp Pulse Resp B/P Pulse Ox O2 Delivery O2 Flow Rate FiO2 05/03/17 04:00 53 05/03/17 04:00 97.9 73 18 150/73 98 05/03/17 00:00 97.7 62 19 157/69 99 05/03/17 00:00 72 05/02/17 20:11 51 05/02/17 20:00 98.0 65 18 151/70 98 05/02/17 20:00 54 05/02/17 16:46 66 05/02/17 15:31 98.2 63 20 147/68 97 05/02/17 12:00 60 05/02/17 11:38 98.4 66 20 139/70 99 05/02/17 05/02/17 05/03/17 14:59 22:59 06:59 Intake Total 494 ml 305 ml 630 ml Output Total 450 ml 300 ml 650 ml Balance 44 ml 5 ml -20 ml Intake Oral 0 ml Tube Feeding 374 ml 195 ml 520 ml Other 120 ml 110 ml 110 ml Output Urine Total 450 ml 300 ml 650 ml # Bowel Movements 0 Result Diagram: 05/03/1742405/03/17424 A/P Problem List: (1) Esophageal adenocarcinoma Status: Acute Plan: Pt with esophageal adenoca. presented with leaking/dysfunctional j tube afib/rvr controlled jose eduardo/ckd resolved local infection around j tube site dm with hyperglycemia left knee pain..severe OA on xray anemia. no active bleeding titrate up j tube feeding converted back to just nightime titrate levemir as needed. cont abx. stop date noted dose celebrex x 1 again as it much improved his knee pain. He can bear weight now.. ask ortho to see him if a persistent problem as nsaids are going to be a problem with is renal function and risk of GI bleeding. ?steroid injection. pain control dvt prophylaxis supportive care. (2) Dehydration with hypernatremia Status: Acute Plan: see above (3) Atrial fibrillation with RVR Status: Acute Plan: see above (4) Acute kidney injury Status: Acute Plan: see above (5) Feeding tube dysfunction Status: Acute Plan: see above (6) Anemia Status: Acute Plan: see above (7) DM (diabetes mellitus) Status: Chronic Plan: see above (8) HTN (hypertension) Status: Chronic (9) CKD (chronic kidney disease) stage 3, GFR 30-59 ml/min Status: Chronic Problem Qualifiers (1) Anemia: Qualified Code: D64.9 - Anemia, unspecified type Koko Saldaña MD May 03, 2017 08:38
[2017-05-03] MEDS: FLUCONAZOLE SUSP 10 MG/ML 35 ML BTL PO SCH (08:43)
[2017-05-03] MEDS ORDERED: CELECOXIB 200 MG CAP PO ONE (08:45)
[2017-05-03] MEDS: ALLOPURINOL 100 MG TAB J-TUBE SCH (08:50)
[2017-05-03] MEDS: PANTOPRAZOLE SODIUM 40 MG VIAL IV PUSH SCH ×2 (08:50→20:23)
[2017-05-03] MEDS: INSULIN DETEMIR 100 UNITS/ML VIAL SQ SCH ×2 (08:52→20:28)
[2017-05-03 11:51] LABS: ALDOSTERONE, SERUM LESS THAN 1.0 ng/dL (())
[2017-05-03] MEDS: ENOXAPARIN SODIUM 30 MG/0.3 ML SYRINGE SQ SCH (12:58)
[2017-05-03] MEDS: VITAMINS A & D OINT 60 GM TUBE TOPICAL SCH ×2 (13:08→20:24)
[2017-05-04] VITALS (7 sets, daily range): BP systolic 125–172; BP diastolic 71–82; PULSE 54–70; RESP 18; TEMP 96.9–98; O2SAT 93–99
[2017-05-04] MEDS: oxyCODONE HCL ORAL CONC 20 MG/ML SYRINGE J-TUBE SCH ×7 (00:35→22:54)
[2017-05-04] MEDS: AMOXICILLIN 250 MG/5ML LIQ 100 ML BTL PO SCH ×4 (00:35→22:54)
[2017-05-04] MEDS: INSULIN ASPART SUPPLEMENTAL SCALE SQ SCH ×7 (00:48→22:53)
[2017-05-04] MEDS: CIPROFLOXACIN 250 MG TAB PO SCH ×2 (04:04→18:01)
[2017-05-04 05:16] LABS: AUTOMATED NEUTROPHIL # 3.2 TH/MM3 (1.8-7.7); BASOPHIL % 0.4 % (0.0-2.0); EOSINOPHIL # 0.1 TH/MM3 (0-0.4); EOSINOPHIL % 2.6 % (0.0-4.0); HEMATOCRIT 22.5 % (39.0-51.0); HEMO FLAGS DIFF FINAL; LYMPH % 10.5 % (9.0-44.0); LYMPHOCYTE # 0.4 TH/MM3 (1.0-4.8); MEAN CELL VOLUME 92.4 FL (80.0-100.0); MEAN CORPUSCULAR HEMOGLOBIN 30.2 PG (27.0-34.0); MEAN CORPUSCULAR HGB CONC 32.7 % (32.0-36.0); MONO % 9.2 % (0.0-8.0); NEUT % 77.3 % (16.0-70.0); PLATELET COUNT 114 TH/MM3 (150-450); RED BLOOD COUNT 2.44 MIL/MM3 (4.50-5.90); WHITE BLOOD COUNT 4.1 TH/MM3 (4.0-11.0)
[2017-05-04 05:28] LABS: BICARBONATE 26.7 MEQ/L (21.0-32.0)
[2017-05-04] MEDS: ALLOPURINOL 100 MG TAB J-TUBE SCH (09:12)
[2017-05-04] MEDS: VITAMINS A & D OINT 60 GM TUBE TOPICAL SCH ×2 (09:17→20:23)
[2017-05-04] MEDS: INSULIN DETEMIR 100 UNITS/ML VIAL SQ SCH ×2 (09:18→22:53)
[2017-05-04] MEDS: PANTOPRAZOLE SODIUM 40 MG VIAL IV PUSH SCH ×2 (09:20→20:05)
--- NOTE | 2017-05-04 11:15 | HHI.PR ---
Subjective Remarks No new complaints. Objective Vitals Vital Signs Date Time Temp Pulse Resp B/P Pulse Ox O2 Delivery O2 Flow Rate FiO2 05/04/17 08:00 98.0 58 18 172/81 97 05/04/17 04:00 97.6 66 18 167/79 98 05/04/17 04:00 55 05/04/17 00:00 98.0 70 18 125/82 98 05/04/17 00:00 54 05/03/17 20:00 96.1 73 19 152/77 98 05/03/17 20:00 51 05/03/17 16:27 96.7 66 19 154/74 98 05/03/17 15:59 51 05/03/17 12:08 96.7 68 19 189/83 97 05/03/17 12:00 61 05/03/17 05/03/17 05/04/17 15:00 23:00 07:00 Intake Total 240 ml 735 ml 720 ml Output Total 600 ml 550 ml Balance -360 ml 735 ml 170 ml Intake Oral 240 ml Tube Feeding 165 ml 520 ml Other 570 ml 200 ml Output Urine Total 600 ml 550 ml Result Diagram: 05/04/17 0400 05/04/17 0400 Imaging Last Impressions Knee X-Ray 05/01/17 0000 Signed Impressions: Service Date/Time: Monday, May 01, 2017 13:46 - CONCLUSION: 1. Advanced osteoarthritic changes as above. No acute fracture. Andrade Escalante MD Catheter Change 04/29/17 0000 Signed Impressions: Service Date/Time: Saturday, April 29, 2017 11:40 - CONCLUSION: The original 14 Telugu jejunostomy tube was up sized to a 16 Telugu. Jim Lucero Jr., MD Abdomen X-Ray 04/28/17 0000 Signed Impressions: Service Date/Time: Friday, April 28, 2017 10:02 - CONCLUSION: J-tube is within loops of small bowel. Steve Gill MD Abdomen/Pelvis CT 04/27/17 0000 Signed Impressions: Service Date/Time: Thursday, April 27, 2017 10:28 - CONCLUSION: 1. Right middle lobe nodule, repeat noncontrast chest CT is suggested in 6 months as a conservative follow up. 2. Chronic spondylolysis bilateral L5. 3. Nonobstructing left renal stone. 4. Probable postprocedural changes involving the mesentery anterior to the stomach, however inflammatory process or even carcinomatosis is difficult to exclude. Follow up is suggested with noncontrast CT abdomen and pelvis in 2-3 months. Steve Gill MD Chest X-Ray 04/26/172233 Signed Impressions: Service Date/Time: Wednesday, April 26, 2017 22:44 - CONCLUSION: Normal examination. Right IJ [id number] catheter in good position. Scottie Barron MD Objective Remarks GENERAL: This is a well-nourished, well-developed patient, in no apparent distress. CARDIOVASCULAR: Regular rate and rhythm without murmurs, gallops, or rubs. RESPIRATORY: Clear to auscultation. Breath sounds equal bilaterally. No wheezes , rales, or rhonchi. GASTROINTESTINAL: Abdomen soft, non-tender, nondistended. Normal active bowel sounds MUSCULOSKELETAL: Extremities without clubbing, cyanosis, or edema. NEURO: Alert & Oriented x4 to person, place, time, situation. Moves all ext x4 A/P Problem List: (1) Esophageal adenocarcinoma Status: Acute Plan: Pt with esophageal adenoca. - Pt receiving chemotherapy, first treatment today (05/04/17). Carboplatin and taxol presented with leaking/dysfunctional j tube afib/rvr controlled jose eduardo/ckd resolved local infection around j tube site - Pt receiving amoxicillin and cipro per ID recommendations dm with hyperglycemia, stable left knee pain..severe OA on xray anemia. no active bleeding - obtain iron indices - case d/w Oncology PA, will likely transfuse tomorrow prior to discharge titrate up j tube feeding converted back to just nightime titrate levemir as needed. cont abx. stop date noted dose celebrex x 1 again as it much improved his knee pain. He can bear weight now.. ask ortho to see him if a persistent problem as nsaids are going to be a problem with is renal function and risk of GI bleeding. ?steroid injection. pain control dvt prophylaxis supportive care. 05/04/17 - continue current treatment plan - chemotherapy per Oncology - obtain iron indices - likely transfusion 05/05 - NA continues to improve, repeat BMP 05/05 (2) Dehydration with hypernatremia Status: Acute Plan: see above (3) Atrial fibrillation with RVR Status: Acute Plan: see above (4) Acute kidney injury Status: Acute Plan: see above (5) Feeding tube dysfunction Status: Acute Plan: see above (6) Anemia Status: Acute Plan: see above (7) DM (diabetes mellitus) Status: Chronic Plan: see above (8) HTN (hypertension) Status: Chronic (9) CKD (chronic kidney disease) stage 3, GFR 30-59 ml/min Status: Chronic Problem Qualifiers (1) Anemia: Qualified Code: D64.9 - Anemia, unspecified type See Jacobson DO May 04, 2017 11:15
--- NOTE | 2017-05-04 12:55 | PD.ONC.PN ---
Subjective Subjective Remarks Afebrile overnight. Patient resting in bed in nad. Tolerating tube feeds. No obvious bleeding. Objective Data Date Time Temp Pulse Resp B/P Pulse Ox O2 Delivery O2 Flow Rate FiO2 05/04/17 08:00 98.0 58 18 172/81 97 05/04/17 04:00 97.6 66 18 167/79 98 05/04/17 04:00 55 05/04/17 00:00 98.0 70 18 125/82 98 05/04/17 00:00 54 05/03/17 20:00 96.1 73 19 152/77 98 05/03/17 20:00 51 05/03/17 16:27 96.7 66 19 154/74 98 05/03/17 15:59 51 05/04/17 05/04/17 05/04/17 07:00 15:00 23:00 Intake Total 720 ml Output Total 550 ml Balance 170 ml Result Diagram: 05/04/17 0400 05/04/17 0400 Laboratory Results Laboratory Tests Test 05/04/17 04:00 White Blood Count 4.1 TH/MM3 Red Blood Count 2.44 MIL/MM3 Hemoglobin 7.4 GM/DL Hematocrit 22.5 % Mean Corpuscular Volume 92.4 FL Mean Corpuscular Hemoglobin 30.2 PG Mean Corpuscular Hemoglobin 32.7 % Concent Red Cell Distribution Width 15.0 % Platelet Count 114 TH/MM3 Mean Platelet Volume 11.5 FL Neutrophils (%) (Auto) 77.3 % Lymphocytes (%) (Auto) 10.5 % Monocytes (%) (Auto) 9.2 % Eosinophils (%) (Auto) 2.6 % Basophils (%) (Auto) 0.4 % Neutrophils # (Auto) 3.2 TH/MM3 Lymphocytes # (Auto) 0.4 TH/MM3 Monocytes # (Auto) 0.4 TH/MM3 Eosinophils # (Auto) 0.1 TH/MM3 Basophils # (Auto) 0.0 TH/MM3 CBC Comment DIFF FINAL Differential Comment Sodium Level 150 MEQ/L Potassium Level 4.0 MEQ/L Chloride Level 118 MEQ/L Carbon Dioxide Level 26.7 MEQ/L Anion Gap 5 MEQ/L Blood Urea Nitrogen 20 MG/DL Creatinine 1.06 MG/DL Estimat Glomerular Filtration 70 ML/MIN Rate Random Glucose 211 MG/DL Calcium Level 8.4 MG/DL Administered Medications Medications (Trade) Dose Ordered Sig/Ab Route PRN Reason Start Time Stop Time Status Last Admin Dose Admin Allopurinol (Zyloprim) 100 mg DAILY J-TUBE 04/30/17 09:00 05/04/17 09:12 Hydromorphone HCl (Dilaudid Pf Inj) 0.5 mg Q2H PRN IV PUSH breakthrough pain 04/30/17 12:00 05/01/17 15:23 Insulin Aspart (NovoLOG SUPPLEMENTAL SCALE) 1 Q4HR SQ 04/30/17 12:00 05/04/17 09:18 Oxycodone HCl (Roxicodone Intensol Liq) 5 mg Q4HR J-TUBE 04/30/17 12:00 05/04/17 09:20 Enoxaparin Sodium (Lovenox Inj) 30 mg Q24H SQ 04/30/17 11:00 05/03/17 12:58 Amoxicillin (Trimox 250 Mg/ 5ml Liq) 500 mg Q8HR PO 04/30/17 14:00 05/07/17 13:59 05/04/17 05:34 Fluconazole (Diflucan 10 Mg/ ml Liq) 100 mg DAILY PO 04/30/17 15:00 05/07/17 14:59 05/03/17 08:43 Ciprofloxacin (Cipro) 750 mg Q12H PO 04/30/17 17:00 05/07/17 16:59 05/04/17 04:04 Pantoprazole Sodium (Protonix Inj) 40 mg Q12HR IV PUSH 05/02/17 09:00 05/04/17 09:20 Insulin Detemir (Levemir Inj) 20 units HS SQ 05/03/17 21:00 05/03/17 20:28 Insulin Detemir (Levemir Inj) 10 units DAILY SQ 05/03/17 09:00 05/04/17 09:18 Objective Remarks GENERAL: Pleasant male, sitting up in bed in nad. SKIN: Warm and dry. HEAD: Normocephalic. EYES: No injection or drainage. NECK: Supple, trachea midline. CARDIOVASCULAR: regular rate and rhythm. RESPIRATORY: diminished at bases. anterior tubbs clear. GASTROINTESTINAL: Abdomen soft, J-tube clamped EXTREMITIES: No cyanosis NEUROLOGICAL: awake and alert, normal speech. Assessment/Plan Problem List: (1) Esophageal adenocarcinoma Status: Acute Plan: radiation resumed on 04/30. --first dose of chemo (carbo/taxol Thursday, 05/04) -- first presented with significant weight loss and dysphagia. --CT showed thickening of his esophagus with no clear metastatic adenopathy. --EGD showed a circumferential mass in the distal esophagus causing complete obstruction, biopsy showed poorly differentiated adenocarcinoma. --was supposed to get a PET scan outpatient but it could not be done because his blood glucose was not well controlled. --started radiation last and so far only had two radiations. --was supposed to start chemotherapy 04/27 but was admitted to the hospital 04/26. --CT of the abdomen and pelvis showed inflammatory changes in the mesentery possibly due to recent procedure but no clear evidence of metastatic disease. (2) GI bleed Status: Acute Plan: --GI bleed likely from the esophageal mass. --reports melena week prior to admission and also had black dark fluid oozing around the J-tube week prior to admission --s/p pRBC --possible upper endoscopy when he is stable. (3) Dehydration with hypernatremia Status: Acute Plan: --sodium improving --on D5 (4) Acute kidney injury Status: Acute Plan: --improving --primary following Assessment 66y/o male with esophageal cancer admitted with possible GI bleed and hypotension. h/o Esophageal adenocarcinoma. Hypertension. Diabetes mellitus. Gastroesophageal reflux disease. Gout. Hyperlipidemia. Diagnostic and exploratory laparotomy and jejunostomy tube placement. Port placement. EGD. -- Atrial fibrillation, now rate-controlled. --Acute renal failure due to dehydration. Plan 1. carbo/taxol today 2. monitor CBC, possible transfusion tomorrow Attending Statement The exam, history, and the medical decision-making described in the above note were completed with the assistance of the mid-level provider. I reviewed and agree with the findings presented. I attest that I had a [id number] encounter with the patient on the same day, and personally performed and documented my assessment and findings in the medical record. Feeling better. No abdominal pain. Renal function improved. Start Carbo/Taxol today. Continue XRT. Problem Qualifiers (1) GI bleed: Qualified Code: K92.2 - Gastrointestinal hemorrhage, unspecified gastrointestinal hemorrhage type Isabel Vang May 04, 2017 12:55 Darwin Medina MD May 04, 2017 14:30
[2017-05-04] MEDS ORDERED: GRANISETRON HCL 1 MG/ML VIAL IV PUSH SCH (14:00)
[2017-05-04] MEDS ORDERED: DEXAMETHASONE INJ 20 MG in SODIUM CHLORIDE 0.9% INJ 50 ML IV SCH (14:00)
[2017-05-04] MEDS ORDERED: diphenhydrAMINE HCL 25 MG CAP PO SCH (14:00)
[2017-05-04] MEDS ORDERED: FAMOTIDINE 20 MG/2 ML VIAL IV PUSH SCH (14:00)
[2017-05-04 14:36] LABS: RETIC % 4.1 % (0.4-3.0); REVIEW FLAG FINAL
[2017-05-04] MEDS: FLUCONAZOLE SUSP 10 MG/ML 35 ML BTL PO SCH (14:43)
[2017-05-04] MEDS: ENOXAPARIN SODIUM 30 MG/0.3 ML SYRINGE SQ SCH (14:44)
[2017-05-04] MEDS ORDERED: SODIUM CHLOR 0.9% IV ONE ×2 (15:00→17:00)
[2017-05-04] MEDS ORDERED: PACLITAXEL IV ONE (15:00)
[2017-05-04] MEDS ORDERED: SODIUM CHLOR 0.9% 250 ML INJ 250 ML IV ONE (15:00)
[2017-05-04 15:18] LABS: LDH SERUM 188 U/L (87-241); TRANSFERRIN IRON PROFILE 137 MG/DL (200-360)
[2017-05-04 15:21] LABS: FERRITIN 555 NG/ML (26-388)
[2017-05-04] MEDS ORDERED: CARBOPLATIN IV ONE (17:00)
[2017-05-05] VITALS (10 sets, daily range): BP systolic 121–176; BP diastolic 62–80; PULSE 54–71; RESP 16–20; TEMP 96.6–98.6; O2SAT 94–97
[2017-05-05] MEDS: CIPROFLOXACIN 250 MG TAB PO SCH ×2 (04:55→16:58)
[2017-05-05] MEDS: AMOXICILLIN 250 MG/5ML LIQ 100 ML BTL PO SCH ×3 (04:55→20:57)
[2017-05-05] MEDS: oxyCODONE HCL ORAL CONC 20 MG/ML SYRINGE J-TUBE SCH ×5 (04:55→20:57)
[2017-05-05] MEDS: INSULIN ASPART SUPPLEMENTAL SCALE SQ SCH ×5 (04:58→20:00)
[2017-05-05 05:36] LABS: AUTOMATED NEUTROPHIL # 3.7 TH/MM3 (1.8-7.7); BASOPHIL % 0.1 % (0.0-2.0); HEMATOCRIT 24.2 % (39.0-51.0); HEMO FLAGS DIFF FINAL; LYMPH % 4.6 % (9.0-44.0); LYMPHOCYTE # 0.2 TH/MM3 (1.0-4.8); MEAN CELL VOLUME 93.1 FL (80.0-100.0); MEAN CORPUSCULAR HEMOGLOBIN 29.2 PG (27.0-34.0); MEAN CORPUSCULAR HGB CONC 31.4 % (32.0-36.0); MONO % 1.5 % (0.0-8.0); NEUT % 93.8 % (16.0-70.0); PLATELET COUNT 142 TH/MM3 (150-450); RED CELL DISTRIBUTION WIDTH 15.2 % (11.6-17.2); WHITE BLOOD COUNT 3.9 TH/MM3 (4.0-11.0)
[2017-05-05 06:02] LABS: BICARBONATE 24.2 MEQ/L (21.0-32.0); POTASSIUM 4.6 MEQ/L (3.5-5.1)
[2017-05-05] MEDS ORDERED: diphenhydrAMINE HCL 25 MG CAP PO PRN ×2 (08:00→15:15)
[2017-05-05] MEDS ORDERED: SODIUM CHLOR 0.9% 250 ML INJ 250 ML IV ONE (08:00)
[2017-05-05] MEDS ORDERED: ACETAMINOPHEN 325 MG TAB PO PRN ×2 (08:00→15:15)
[2017-05-05] MEDS: PANTOPRAZOLE SODIUM 40 MG VIAL IV PUSH SCH ×2 (09:51→20:57)
[2017-05-05] MEDS: ALLOPURINOL 100 MG TAB J-TUBE SCH (09:54)
[2017-05-05] MEDS: VITAMINS A & D OINT 60 GM TUBE TOPICAL SCH ×2 (09:55→20:59)
[2017-05-05] MEDS: FLUCONAZOLE SUSP 10 MG/ML 35 ML BTL PO SCH (09:55)
[2017-05-05] MEDS: ENOXAPARIN SODIUM 30 MG/0.3 ML SYRINGE SQ SCH (10:12)
[2017-05-05] MEDS: INSULIN DETEMIR 100 UNITS/ML VIAL SQ SCH (10:14)
--- NOTE | 2017-05-05 11:39 | PD.ONC.PN ---
Subjective Subjective Remarks Afebrile overnight. Patient feeling well. tolerating tube feeds. Tolerated chemotherapy yesterday. Objective Data Date Time Temp Pulse Resp B/P Pulse Ox O2 Delivery O2 Flow Rate FiO2 05/05/17 08:00 97.2 65 16 164/76 96 05/05/17 05:12 98.6 71 20 176/80 97 05/05/17 04:27 68 05/05/17 00:27 98.1 69 18 146/73 96 05/05/17 00:00 71 05/04/17 20:57 97.6 60 18 156/78 96 05/04/17 20:05 64 05/04/17 16:00 97.9 65 161/72 93 05/04/17 12:00 96.9 62 18 151/71 99 Result Diagram: 05/05/17 0450 05/05/17 0450 Laboratory Results Laboratory Tests Test 05/05/17 04:50 White Blood Count 3.9 TH/MM3 Red Blood Count 2.60 MIL/MM3 Hemoglobin 7.6 GM/DL Hematocrit 24.2 % Mean Corpuscular Volume 93.1 FL Mean Corpuscular Hemoglobin 29.2 PG Mean Corpuscular Hemoglobin 31.4 % Concent Red Cell Distribution Width 15.2 % Platelet Count 142 TH/MM3 Mean Platelet Volume 10.6 FL Neutrophils (%) (Auto) 93.8 % Lymphocytes (%) (Auto) 4.6 % Monocytes (%) (Auto) 1.5 % Eosinophils (%) (Auto) 0.0 % Basophils (%) (Auto) 0.1 % Neutrophils # (Auto) 3.7 TH/MM3 Lymphocytes # (Auto) 0.2 TH/MM3 Monocytes # (Auto) 0.1 TH/MM3 Eosinophils # (Auto) 0.0 TH/MM3 Basophils # (Auto) 0.0 TH/MM3 CBC Comment DIFF FINAL Differential Comment Sodium Level 146 MEQ/L Potassium Level 4.6 MEQ/L Chloride Level 115 MEQ/L Carbon Dioxide Level 24.2 MEQ/L Anion Gap 7 MEQ/L Blood Urea Nitrogen 23 MG/DL Creatinine 1.03 MG/DL Estimat Glomerular Filtration 72 ML/MIN Rate Random Glucose 299 MG/DL Calcium Level 8.0 MG/DL Administered Medications Medications (Trade) Dose Ordered Sig/Ab Route PRN Reason Start Time Stop Time Status Last Admin Dose Admin Allopurinol (Zyloprim) 100 mg DAILY J-TUBE 04/30/17 09:00 05/05/17 09:54 Hydromorphone HCl (Dilaudid Pf Inj) 0.5 mg Q2H PRN IV PUSH breakthrough pain 04/30/17 12:00 05/01/17 15:23 Insulin Aspart (NovoLOG SUPPLEMENTAL SCALE) 1 Q4HR SQ 04/30/17 12:00 05/05/17 10:13 Oxycodone HCl (Roxicodone Intensol Liq) 5 mg Q4HR J-TUBE 04/30/17 12:00 05/05/17 09:54 Enoxaparin Sodium (Lovenox Inj) 30 mg Q24H SQ 04/30/17 11:00 05/05/17 10:12 Amoxicillin (Trimox 250 Mg/ 5ml Liq) 500 mg Q8HR PO 04/30/17 14:00 05/07/17 13:59 05/05/17 04:55 Fluconazole (Diflucan 10 Mg/ ml Liq) 100 mg DAILY PO 04/30/17 15:00 05/07/17 14:59 05/05/17 09:55 Ciprofloxacin (Cipro) 750 mg Q12H PO 04/30/17 17:00 05/07/17 16:59 05/05/17 04:55 Pantoprazole Sodium (Protonix Inj) 40 mg Q12HR IV PUSH 05/02/17 09:00 05/05/17 09:51 Insulin Detemir (Levemir Inj) 20 units HS SQ 05/03/17 21:00 05/04/17 22:53 Insulin Detemir (Levemir Inj) 10 units DAILY SQ 05/03/17 09:00 05/05/17 10:14 Granisetron HCl 1 mg 1 mg Q7D IV PUSH 05/04/17 14:00 05/11/17 14:01 05/04/17 15:29 Dexamethasone Sodium Phosphate/ Sodium Chloride (Decadron Inj/NS Inj) 55 ml @ 220 mls/hr Q7D IV 05/04/17 14:00 05/11/17 14:14 05/04/17 15:29 Diphenhydramine HCl (Benadryl) 25 mg Q7D PO 05/04/17 14:00 05/11/17 14:01 05/04/17 15:29 Famotidine 20 mg 20 mg Q7D IV PUSH 05/04/17 14:00 05/11/17 14:01 05/04/17 15:28 Sodium Chloride (NS 250 ml Inj) 250 ml @ 15 mls/hr ONCE ONCE IV 05/05/17 08:00 05/06/17 00:39 05/05/17 10:19 Objective Remarks GENERAL: Pleasant male, upright in bed in nad. SKIN: Warm and dry. HEAD: Normocephalic. EYES: No injection or drainage. NECK: Supple, trachea midline. CARDIOVASCULAR: regular rate and rhythm. RESPIRATORY: clear to auscultation bilaterally GASTROINTESTINAL: Abdomen soft, J-tube clamped EXTREMITIES: No cyanosis NEUROLOGICAL: awake and alert, normal speech. moving all extremities. Assessment/Plan Problem List: (1) Esophageal adenocarcinoma Status: Acute Plan: --radiation resumed on 04/30. --carbo/taxol Thursday, 05/04 -- first presented with significant weight loss and dysphagia. --CT showed thickening of his esophagus with no clear metastatic adenopathy. --EGD showed a circumferential mass in the distal esophagus causing complete obstruction, biopsy showed poorly differentiated adenocarcinoma. --was supposed to get a PET scan outpatient but it could not be done because his blood glucose was not well controlled. --started radiation prior to admission--had two xrt prior to admission --was supposed to start chemotherapy 04/27 but was admitted to the hospital 04/26. --CT of the abdomen and pelvis showed inflammatory changes in the mesentery possibly due to recent procedure but no clear evidence of metastatic disease. (2) GI bleed Status: Acute Plan: --GI bleed likely from the esophageal mass. --reports melena week prior to admission and also had black dark fluid oozing around the J-tube week prior to admission --s/p pRBC --possible upper endoscopy when he is stable. (3) Dehydration with hypernatremia Status: Acute Plan: --sodium improving --on D5 (4) Acute kidney injury Status: Acute Plan: --improving --primary following Assessment 66y/o male with esophageal cancer admitted with possible GI bleed and hypotension. h/o Esophageal adenocarcinoma. Hypertension. Diabetes mellitus. Gastroesophageal reflux disease. Gout. Hyperlipidemia. Diagnostic and exploratory laparotomy and jejunostomy tube placement. Port placement. EGD. -- Atrial fibrillation, now rate-controlled. --Acute renal failure due to dehydration. Plan 1. give 1 unit pRBC 2. consult PT for d/c recommendations 3. continue XRT 4. will update tube feeding orders per artificial inseminator recommendations: Jevity 1.5 @ 95mls/hr x 16hrs (5PM-9AM) Attending Statement The exam, history, and the medical decision-making described in the above note were completed with the assistance of the mid-level provider. I reviewed and agree with the findings presented. I attest that I had a [id number] encounter with the patient on the same day, and personally performed and documented my assessment and findings in the medical record. Tolerated chemotherapy well yesterday. Still weak but slowly improving. Continue XRT. Can be d/c once he is stronger. Problem Qualifiers (1) GI bleed: Qualified Code: K92.2 - Gastrointestinal hemorrhage, unspecified gastrointestinal hemorrhage type Isabel Vang May 05, 2017 11:39 Darwin Medina MD May 05, 2017 16:47
--- NOTE | 2017-05-05 16:06 | HHI.PR ---
Subjective Remarks No new complaints. Objective Vitals Vital Signs Date Time Temp Pulse Resp B/P Pulse Ox O2 Delivery O2 Flow Rate FiO2 05/05/17 12:00 96.6 58 16 134/68 96 05/05/17 08:00 97.2 65 16 164/76 96 05/05/17 05:12 98.6 71 20 176/80 97 05/05/17 04:27 68 05/05/17 00:27 98.1 69 18 146/73 96 05/05/17 00:00 71 05/04/17 20:57 97.6 60 18 156/78 96 05/04/17 20:05 64 05/04/17 05/04/17 05/05/17 14:59 22:59 06:59 Intake Total 240 ml Output Total 1000 ml Balance -760 ml Intake Oral 240 ml Output Urine Total 1000 ml Result Diagram: 05/05/17 0450 05/05/17 0450 Imaging Last Impressions Knee X-Ray 05/01/17 0000 Signed Impressions: Service Date/Time: Monday, May 01, 2017 13:46 - CONCLUSION: 1. Advanced osteoarthritic changes as above. No acute fracture. Andrade Escalante MD Catheter Change 04/29/17 0000 Signed Impressions: Service Date/Time: Saturday, April 29, 2017 11:40 - CONCLUSION: The original 14 Malawian jejunostomy tube was up sized to a 16 Malawian. Jim Lucero Jr., MD Abdomen X-Ray 04/28/17 0000 Signed Impressions: Service Date/Time: Friday, April 28, 2017 10:02 - CONCLUSION: J-tube is within loops of small bowel. Steve Gill MD Abdomen/Pelvis CT 04/27/17 0000 Signed Impressions: Service Date/Time: Thursday, April 27, 2017 10:28 - CONCLUSION: 1. Right middle lobe nodule, repeat noncontrast chest CT is suggested in 6 months as a conservative follow up. 2. Chronic spondylolysis bilateral L5. 3. Nonobstructing left renal stone. 4. Probable postprocedural changes involving the mesentery anterior to the stomach, however inflammatory process or even carcinomatosis is difficult to exclude. Follow up is suggested with noncontrast CT abdomen and pelvis in 2-3 months. Steve Gill MD Chest X-Ray 04/26/172 Signed Impressions: Service Date/Time: Wednesday, April 26, 2017 22:44 - CONCLUSION: Normal examination. Right IJ [id number] catheter in good position. Scottie Barron MD Objective Remarks GENERAL: This is a well-nourished, well-developed patient, in no apparent distress. CARDIOVASCULAR: Regular rate and rhythm without murmurs, gallops, or rubs. RESPIRATORY: Clear to auscultation. Breath sounds equal bilaterally. No wheezes , rales, or rhonchi. GASTROINTESTINAL: Abdomen soft, non-tender, nondistended. Normal active bowel sounds MUSCULOSKELETAL: Extremities without clubbing, cyanosis, or edema. NEURO: Alert & Oriented x4 to person, place, time, situation. Moves all ext x4 A/P Problem List: (1) Esophageal adenocarcinoma Status: Acute Plan: - Pt with esophageal adenoca. - Pt receiving chemotherapy, first treatment today (05/04/17). Carboplatin and taxol - pt presented with leaking/dysfunctional j tube afib/rvr controlled jose eduardo/ckd resolved local infection around j tube site - Pt receiving amoxicillin and cipro per ID recommendations x 7d dm with hyperglycemia, stable left knee pain..severe OA on xray - clinically improved after receiving celebrex anemia. no active bleeding - iron deficiency - pt receiving 1 unit PRBCs today, 05/05/17 - J tube feedings with Jevity 1.5 extended back to 16 hours overnight - will increase pt's levemir to 15 units AM and 25 units PM, observe pain control dvt prophylaxis supportive care. - NA continues to improve 146 (05/05/17), repeat BMP 05/06 - Pt to evaluate - anticipate d/c in next 1-2 days (2) Dehydration with hypernatremia Status: Resolved Plan: see above (3) Atrial fibrillation with RVR Status: Acute Plan: see above (4) Acute kidney injury Status: Resolved Plan: see above (5) Feeding tube dysfunction Status: Acute Plan: see above (6) Anemia Status: Acute Plan: see above (7) DM (diabetes mellitus) Status: Chronic Plan: see above (8) HTN (hypertension) Status: Chronic (9) CKD (chronic kidney disease) stage 3, GFR 30-59 ml/min Status: Chronic Problem Qualifiers (1) Anemia: Qualified Code: D64.9 - Anemia, unspecified type See Jacobson DO May 05, 2017 16:06
[2017-05-05] MEDS ORDERED: INSULIN DETEMIR 100 UNITS/ML VIAL SQ SCH (21:00)
[2017-05-06] VITALS (8 sets, daily range): BP systolic 130–175; BP diastolic 66–86; PULSE 61–74; RESP 16–20; TEMP 96.2–98.2; O2SAT 95–97
[2017-05-06] MEDS: oxyCODONE HCL ORAL CONC 20 MG/ML SYRINGE J-TUBE SCH ×6 (00:41→21:23)
[2017-05-06] MEDS: INSULIN ASPART SUPPLEMENTAL SCALE SQ SCH ×6 (00:54→21:46)
[2017-05-06] MEDS: CIPROFLOXACIN 250 MG TAB PO SCH ×2 (05:07→16:11)
[2017-05-06] MEDS: AMOXICILLIN 250 MG/5ML LIQ 100 ML BTL PO SCH ×3 (05:07→21:22)
[2017-05-06 06:45] LABS: BICARBONATE 29.5 MEQ/L (21.0-32.0); POTASSIUM 3.9 MEQ/L (3.5-5.1)
[2017-05-06 07:09] LABS: AUTOMATED NEUTROPHIL # 4.2 TH/MM3 (1.8-7.7); BASOPHIL % 0.3 % (0.0-2.0); EOSINOPHIL # 0.1 TH/MM3 (0-0.4); EOSINOPHIL % 1.1 % (0.0-4.0); HEMATOCRIT 26.5 % (39.0-51.0); HEMO FLAGS DIFF FINAL; LYMPH % 6.3 % (9.0-44.0); LYMPHOCYTE # 0.3 TH/MM3 (1.0-4.8); MEAN CELL VOLUME 90.7 FL (80.0-100.0); MEAN CORPUSCULAR HEMOGLOBIN 29.6 PG (27.0-34.0); MEAN CORPUSCULAR HGB CONC 32.6 % (32.0-36.0); MONO % 3.6 % (0.0-8.0); NEUT % 88.7 % (16.0-70.0); PLATELET COUNT 130 TH/MM3 (150-450); RED BLOOD COUNT 2.92 MIL/MM3 (4.50-5.90); RED CELL DISTRIBUTION WIDTH 15.5 % (11.6-17.2); WHITE BLOOD COUNT 4.7 TH/MM3 (4.0-11.0)
[2017-05-06] MEDS: ALLOPURINOL 100 MG TAB J-TUBE SCH (09:00)
[2017-05-06] MEDS ORDERED: INSULIN DETEMIR 100 UNITS/ML VIAL SQ SCH ×2 (09:00→21:00)
[2017-05-06] MEDS: VITAMINS A & D OINT 60 GM TUBE TOPICAL SCH ×2 (09:00→21:22)
[2017-05-06] MEDS: PANTOPRAZOLE SODIUM 40 MG VIAL IV PUSH SCH ×2 (09:43→21:22)
[2017-05-06] MEDS: ENOXAPARIN SODIUM 30 MG/0.3 ML SYRINGE SQ SCH (09:43)
[2017-05-06] MEDS: FLUCONAZOLE SUSP 10 MG/ML 35 ML BTL PO SCH (09:44)
--- NOTE | 2017-05-06 10:21 | HHI.PR ---
Subjective Remarks No new complaints. Objective Vitals Vital Signs Date Time Temp Pulse Resp B/P Pulse Ox O2 Delivery O2 Flow Rate FiO2 05/06/17 08:00 96.2 64 20 142/74 97 05/06/17 04:00 61 05/06/17 04:00 98.0 66 16 159/75 96 05/06/17 00:00 72 05/06/17 00:00 97.8 69 16 140/74 96 05/05/17 20:17 54 05/05/17 20:00 96.9 61 16 154/70 95 05/05/17 18:00 97.4 65 18 138/71 94 05/05/17 16:00 96.6 68 16 121/62 95 05/05/17 12:00 96.6 58 16 134/68 96 05/05/17 05/05/17 05/06/17 15:00 23:00 07:00 Intake Total 420 ml 0 ml 150 ml Output Total 700 ml 500 ml 450 ml Balance -280 ml -500 ml -300 ml Intake Oral 420 ml 0 ml 150 ml Output Urine Total 700 ml 500 ml 450 ml # Bowel Movements 0 1 Result Diagram: 05/06/17 0520 05/06/17 0520 Imaging Last Impressions Knee X-Ray 05/01/17 0000 Signed Impressions: Service Date/Time: Monday, May 01, 2017 13:46 - CONCLUSION: 1. Advanced osteoarthritic changes as above. No acute fracture. Andrade Escalante MD Catheter Change 04/29/17 0000 Signed Impressions: Service Date/Time: Saturday, April 29, 2017 11:40 - CONCLUSION: The original 14 Sami jejunostomy tube was up sized to a 16 Sami. Jim Lucero Jr., MD Abdomen X-Ray 04/28/17 0000 Signed Impressions: Service Date/Time: Friday, April 28, 2017 10:02 - CONCLUSION: J-tube is within loops of small bowel. Steve Gill MD Abdomen/Pelvis CT 04/27/17 0000 Signed Impressions: Service Date/Time: Thursday, April 27, 2017 10:28 - CONCLUSION: 1. Right middle lobe nodule, repeat noncontrast chest CT is suggested in 6 months as a conservative follow up. 2. Chronic spondylolysis bilateral L5. 3. Nonobstructing left renal stone. 4. Probable postprocedural changes involving the mesentery anterior to the stomach, however inflammatory process or even carcinomatosis is difficult to exclude. Follow up is suggested with noncontrast CT abdomen and pelvis in 2-3 months. Steve Gill MD Chest X-Ray 04/26/[id number] Signed Impressions: Service Date/Time: Wednesday, April 26, 2017 22:44 - CONCLUSION: Normal examination. Right IJ [id number] catheter in good position. Scottie Barron MD Objective Remarks GENERAL: This is a well-nourished, well-developed patient, in no apparent distress. CARDIOVASCULAR: Regular rate and rhythm without murmurs, gallops, or rubs. RESPIRATORY: Clear to auscultation. Breath sounds equal bilaterally. No wheezes , rales, or rhonchi. GASTROINTESTINAL: Abdomen soft, non-tender, nondistended. Normal active bowel sounds MUSCULOSKELETAL: Extremities without clubbing, cyanosis, or edema. NEURO: Alert & Oriented x4 to person, place, time, situation. Moves all ext x4 A/P Problem List: (1) Esophageal adenocarcinoma Status: Acute Plan: - Pt with esophageal adenoca. - Pt receiving chemotherapy, first treatment today (05/04/17). Carboplatin and taxol - pt presented with leaking/dysfunctional j tube afib/rvr controlled jose eduardo/ckd resolved local infection around j tube site - Pt receiving amoxicillin and cipro per ID recommendations x 7d left knee pain..severe OA on xray - clinically improved after receiving celebrex anemia. no active bleeding - iron deficiency - pt receiving 1 unit PRBCs today, 05/05/17 - J tube feedings with Jevity 1.5 extended back to 16 hours overnight - will increase pt's levemir to 20 units AM and 30 units PM, observe - Need to ensure adequate glycemic control prior to discharge - NA continues to improve 146 (05/05/17), 145 (05/06) - repeat BMP in AM - PT - anticipate d/c in next 1-2 days - Pt may need SNF upon discharge pain control dvt prophylaxis supportive care. - case d/w [employer] - recommendation for Jevity placed in note in error - I have changed the pt's TF to Glucerna 1.5 at the same rate - I have decreased the pt's levemir to 10 units in the AM and 15 units qPM - observe pt's blood sugar readings - It may take another few days to regulate pt's blood sugar prior to discharge. (2) Dehydration with hypernatremia Status: Resolved Plan: see above (3) Atrial fibrillation with RVR Status: Acute Plan: see above (4) Acute kidney injury Status: Resolved Plan: see above (5) Feeding tube dysfunction Status: Acute Plan: see above (6) Anemia Status: Acute Plan: see above (7) DM (diabetes mellitus) Status: Chronic Plan: see above (8) HTN (hypertension) Status: Chronic (9) CKD (chronic kidney disease) stage 3, GFR 30-59 ml/min Status: Chronic Problem Qualifiers (1) Anemia: Qualified Code: D64.9 - Anemia, unspecified type See Jacobson DO May 06, 2017 10:21
--- NOTE | 2017-05-06 11:10 | PD.ONC.PN ---
Subjective Subjective Remarks Feels stronger, able to walk with PT. No N/V. No abdominal pain. Objective Data Date Time Temp Pulse Resp B/P Pulse Ox O2 Delivery O2 Flow Rate FiO2 05/06/17 08:00 96.2 64 20 142/74 97 05/06/17 04:00 61 05/06/17 04:00 98.0 66 16 159/75 96 05/06/17 00:00 72 05/06/17 00:00 97.8 69 16 140/74 96 05/05/17 20:17 54 05/05/17 20:00 96.9 61 16 154/70 95 05/05/17 18:00 97.4 65 18 138/71 94 05/05/17 16:00 96.6 68 16 121/62 95 05/05/17 12:00 96.6 58 16 134/68 96 Result Diagram: 05/06/17 0520 05/06/17 0520 Laboratory Results Laboratory Tests Test 05/05/17 05/06/17 13:15 05:20 Blood Type O NEGATIVE Antibody Screen NEGATIVE Crossmatch Leukocyte-Reduced Red Blood Cells Blood Bank Comment White Blood Count 4.7 TH/MM3 Red Blood Count 2.92 MIL/MM3 Hemoglobin 8.6 GM/DL Hematocrit 26.5 % Mean Corpuscular Volume 90.7 FL Mean Corpuscular Hemoglobin 29.6 PG Mean Corpuscular Hemoglobin 32.6 % Concent Red Cell Distribution Width 15.5 % Platelet Count 130 TH/MM3 Mean Platelet Volume 10.0 FL Neutrophils (%) (Auto) 88.7 % Lymphocytes (%) (Auto) 6.3 % Monocytes (%) (Auto) 3.6 % Eosinophils (%) (Auto) 1.1 % Basophils (%) (Auto) 0.3 % Neutrophils # (Auto) 4.2 TH/MM3 Lymphocytes # (Auto) 0.3 TH/MM3 Monocytes # (Auto) 0.2 TH/MM3 Eosinophils # (Auto) 0.1 TH/MM3 Basophils # (Auto) 0.0 TH/MM3 CBC Comment DIFF FINAL Differential Comment Sodium Level 145 MEQ/L Potassium Level 3.9 MEQ/L Chloride Level 112 MEQ/L Carbon Dioxide Level 29.5 MEQ/L Anion Gap 4 MEQ/L Blood Urea Nitrogen 22 MG/DL Creatinine 1.04 MG/DL Estimat Glomerular Filtration 71 ML/MIN Rate Random Glucose 246 MG/DL Calcium Level 7.8 MG/DL Administered Medications Medications (Trade) Dose Ordered Sig/Ab Route PRN Reason Start Time Stop Time Status Last Admin Dose Admin Allopurinol (Zyloprim) 100 mg DAILY J-TUBE 04/30/17 09:00 05/06/17 09:00 Dextrose (D50w (Vial) Inj) 50 ml UNSCH PRN IV HYPOGLYCEMIA-SEE COMMENTS 04/30/17 05:45 05/05/17 20:56 Hydromorphone HCl (Dilaudid Pf Inj) 0.5 mg Q2H PRN IV PUSH breakthrough pain 04/30/17 12:00 05/01/17 15:23 Insulin Aspart (NovoLOG SUPPLEMENTAL SCALE) 1 Q4HR SQ 04/30/17 12:00 05/06/17 10:01 Oxycodone HCl (Roxicodone Intensol Liq) 5 mg Q4HR J-TUBE 04/30/17 12:00 05/06/17 09:44 Enoxaparin Sodium (Lovenox Inj) 30 mg Q24H SQ 04/30/17 11:00 05/06/17 09:43 Amoxicillin (Trimox 250 Mg/ 5ml Liq) 500 mg Q8HR PO 04/30/17 14:00 05/07/17 13:59 05/06/17 05:07 Fluconazole (Diflucan 10 Mg/ ml Liq) 100 mg DAILY PO 04/30/17 15:00 05/07/17 14:59 05/06/17 09:44 Ciprofloxacin (Cipro) 750 mg Q12H PO 04/30/17 17:00 05/07/17 16:59 05/06/17 05:07 Pantoprazole Sodium (Protonix Inj) 40 mg Q12HR IV PUSH 05/02/17 09:00 05/06/17 09:43 Granisetron HCl 1 mg 1 mg Q7D IV PUSH 05/04/17 14:00 05/11/17 14:01 05/04/17 15:29 Dexamethasone Sodium Phosphate/ Sodium Chloride (Decadron Inj/NS Inj) 55 ml @ 220 mls/hr Q7D IV 05/04/17 14:00 05/11/17 14:14 05/04/17 15:29 Diphenhydramine HCl (Benadryl) 25 mg Q7D PO 05/04/17 14:00 05/11/17 14:01 05/04/17 15:29 Famotidine (Pepcid Inj) 20 mg Q7D IV PUSH 05/04/17 14:00 05/11/17 14:01 05/04/17 15:28 Objective Remarks GENERAL: Well-nourished, well-developed patient. SKIN: Warm and dry. HEAD: Normocephalic. EYES: No scleral icterus. No injection or drainage. NECK: Supple, trachea midline. No JVD or lymphadenopathy. LYMPHATIC: No adenopathy. CARDIOVASCULAR: Regular rate and rhythm without murmurs. RESPIRATORY: Breath sounds equal bilaterally. No accessory muscle use. GASTROINTESTINAL: Abdomen soft, non-tender, nondistended. J-tube site non tender. EXTREMITIES: No cyanosis, or edema. MUSCULOSKELETAL: Adequate muscle tone. NEUROLOGICAL: No obvious focal deficit. Awake, alert, and oriented x3. PSYCHIATRIC: Appropriate mood and affect; insight and judgment normal. Assessment/Plan Problem List: (1) Esophageal adenocarcinoma Status: Acute Plan: --radiation resumed on 04/30. --carbo/taxol Thursday, 05/04, tolerated well -- first presented with significant weight loss and dysphagia. --CT showed thickening of his esophagus with no clear metastatic adenopathy. --EGD showed a circumferential mass in the distal esophagus causing complete obstruction, biopsy showed poorly differentiated adenocarcinoma. --was supposed to get a PET scan outpatient but it could not be done because his blood glucose was not well controlled. --started radiation prior to admission--had two xrt prior to admission --was supposed to start chemotherapy 04/27 but was admitted to the hospital 04/26. --CT of the abdomen and pelvis showed inflammatory changes in the mesentery possibly due to recent procedure but no clear evidence of metastatic disease. (2) GI bleed Status: Acute Plan: --GI bleed likely from the esophageal mass. No active bleeding noted at this time. Hgb trended up with transfusion 1 U 05/05. --reports melena week prior to admission and also had black dark fluid oozing around the J-tube week prior to admission --s/p pRBC --possible upper endoscopy when he is stable. (3) Dehydration with hypernatremia Status: Acute Plan: --sodium improving --on D5 (4) Acute kidney injury Status: Acute Plan: --improved --primary following Assessment 66y/o male with esophageal cancer admitted with possible GI bleed and hypotension. h/o Esophageal adenocarcinoma. Hypertension. Diabetes mellitus. Gastroesophageal reflux disease. Gout. Hyperlipidemia. Diagnostic and exploratory laparotomy and jejunostomy tube placement. Port placement. EGD. -- Atrial fibrillation, now rate-controlled. --Acute renal failure due to dehydration. Plan 1. Continue PT. 2. Continue supportive care 3. continue XRT 4. can be d/c from oncology standpoint when stronger. 5. F/u Oncology clinic to continue weekly chemotherapy. Problem Qualifiers (1) GI bleed: Qualified Code: K92.2 - Gastrointestinal hemorrhage, unspecified gastrointestinal hemorrhage type Darwin Medina MD May 06, 2017 11:10
[2017-05-06] MEDS: HYDROmorphone HCL PF 1 MG/ML VIAL IV PUSH PRN (12:58)
[2017-05-06] MEDS: INSULIN DETEMIR 100 UNITS/ML VIAL SQ SCH (21:45)
[2017-05-07] VITALS (8 sets, daily range): BP systolic 135–169; BP diastolic 63–110; PULSE 60–99; RESP 16–22; TEMP 94.3–98.1; O2SAT 95–97
[2017-05-07] MEDS: oxyCODONE HCL ORAL CONC 20 MG/ML SYRINGE J-TUBE SCH ×7 (01:08→22:02)
[2017-05-07] MEDS: INSULIN ASPART SUPPLEMENTAL SCALE SQ SCH ×6 (01:10→22:15)
[2017-05-07] MEDS: ONDANSETRON HCL 4 MG/2 ML VIAL IV PUSH PRN (01:15)
[2017-05-07] MEDS: CIPROFLOXACIN 250 MG TAB PO SCH (05:02)
[2017-05-07] MEDS: AMOXICILLIN 250 MG/5ML LIQ 100 ML BTL PO SCH ×2 (05:19→05:21)
[2017-05-07 07:22] LABS: AUTOMATED NEUTROPHIL # 4.3 TH/MM3 (1.8-7.7); BASOPHIL % 0.4 % (0.0-2.0); EOSINOPHIL # 0.1 TH/MM3 (0-0.4); EOSINOPHIL % 1.8 % (0.0-4.0); HEMATOCRIT 26.1 % (39.0-51.0); HEMO FLAGS DIFF FINAL; LYMPH % 4.4 % (9.0-44.0); LYMPHOCYTE # 0.2 TH/MM3 (1.0-4.8); MEAN CELL VOLUME 90.3 FL (80.0-100.0); MEAN CORPUSCULAR HEMOGLOBIN 29.5 PG (27.0-34.0); MEAN CORPUSCULAR HGB CONC 32.6 % (32.0-36.0); MONO % 3.5 % (0.0-8.0); NEUT % 89.9 % (16.0-70.0); PLATELET COUNT 139 TH/MM3 (150-450); RED BLOOD COUNT 2.89 MIL/MM3 (4.50-5.90); RED CELL DISTRIBUTION WIDTH 15.3 % (11.6-17.2); WHITE BLOOD COUNT 4.8 TH/MM3 (4.0-11.0)
[2017-05-07 07:46] LABS: BICARBONATE 28.3 MEQ/L (21.0-32.0); MAGNESIUM 1.9 MG/DL (1.5-2.5); POTASSIUM 3.9 MEQ/L (3.5-5.1)
--- NOTE | 2017-05-07 08:05 | PD.ONC.PN ---
Subjective Subjective Remarks Feeling stronger. Ambulate more. No N/V/abdominal pain. Objective Data Date Time Temp Pulse Resp B/P Pulse Ox O2 Delivery O2 Flow Rate FiO2 05/07/17 05:06 98.1 72 16 154/84 96 05/07/17 00:00 97.9 69 16 135/95 95 05/06/17 20:09 65 05/06/17 20:00 97.6 74 16 130/66 96 05/06/17 16:20 97.6 61 20 142/67 96 05/06/17 12:32 98.2 69 20 175/86 95 05/06/17 11:00 68 05/07/17 05/07/17 05/07/17 06:59 14:59 22:59 Intake Total 150 ml Output Total 450 ml Balance -300 ml Result Diagram: 05/07/17 0640 05/07/17 0640 Laboratory Results Laboratory Tests Test 05/07/17 06:40 White Blood Count 4.8 TH/MM3 Red Blood Count 2.89 MIL/MM3 Hemoglobin 8.5 GM/DL Hematocrit 26.1 % Mean Corpuscular Volume 90.3 FL Mean Corpuscular Hemoglobin 29.5 PG Mean Corpuscular Hemoglobin 32.6 % Concent Red Cell Distribution Width 15.3 % Platelet Count 139 TH/MM3 Mean Platelet Volume 10.2 FL Neutrophils (%) (Auto) 89.9 % Lymphocytes (%) (Auto) 4.4 % Monocytes (%) (Auto) 3.5 % Eosinophils (%) (Auto) 1.8 % Basophils (%) (Auto) 0.4 % Neutrophils # (Auto) 4.3 TH/MM3 Lymphocytes # (Auto) 0.2 TH/MM3 Monocytes # (Auto) 0.2 TH/MM3 Eosinophils # (Auto) 0.1 TH/MM3 Basophils # (Auto) 0.0 TH/MM3 CBC Comment DIFF FINAL Differential Comment Sodium Level 145 MEQ/L Potassium Level 3.9 MEQ/L Chloride Level 110 MEQ/L Carbon Dioxide Level 28.3 MEQ/L Anion Gap 7 MEQ/L Blood Urea Nitrogen 18 MG/DL Creatinine 0.88 MG/DL Estimat Glomerular Filtration 86 ML/MIN Rate Random Glucose 173 MG/DL Calcium Level 7.6 MG/DL Magnesium Level 1.9 MG/DL Administered Medications Medications (Trade) Dose Ordered Sig/Ab Route PRN Reason Start Time Stop Time Status Last Admin Dose Admin Allopurinol (Zyloprim) 100 mg DAILY J-TUBE 04/30/17 09:00 05/06/17 09:00 Dextrose (D50w (Vial) Inj) 50 ml UNSCH PRN IV HYPOGLYCEMIA-SEE COMMENTS 04/30/17 05:45 05/05/17 20:56 Hydromorphone HCl (Dilaudid Pf Inj) 0.5 mg Q2H PRN IV PUSH breakthrough pain 04/30/17 12:00 05/06/17 12:58 Insulin Aspart (NovoLOG SUPPLEMENTAL SCALE) 1 Q4HR SQ 04/30/17 12:00 05/07/17 05:14 Oxycodone HCl (Roxicodone Intensol Liq) 5 mg Q4HR J-TUBE 04/30/17 12:00 05/07/17 05:01 Enoxaparin Sodium (Lovenox Inj) 30 mg Q24H SQ 04/30/17 11:00 05/06/17 09:43 Amoxicillin (Trimox 250 Mg/ 5ml Liq) 500 mg Q8HR PO 04/30/17 14:00 05/07/17 13:59 05/07/17 05:21 Fluconazole (Diflucan 10 Mg/ ml Liq) 100 mg DAILY PO 04/30/17 15:00 05/07/17 14:59 05/06/17 09:44 Ciprofloxacin (Cipro) 750 mg Q12H PO 04/30/17 17:00 05/07/17 16:59 05/07/17 05:02 Pantoprazole Sodium (Protonix Inj) 40 mg Q12HR IV PUSH 05/02/17 09:00 05/06/17 21:22 Granisetron HCl 1 mg 1 mg Q7D IV PUSH 05/04/17 14:00 05/11/17 14:01 05/04/17 15:29 Dexamethasone Sodium Phosphate/ Sodium Chloride (Decadron Inj/NS Inj) 55 ml @ 220 mls/hr Q7D IV 05/04/17 14:00 05/11/17 14:14 05/04/17 15:29 Diphenhydramine HCl (Benadryl) 25 mg Q7D PO 05/04/17 14:00 05/11/17 14:01 05/04/17 15:29 Famotidine (Pepcid Inj) 20 mg Q7D IV PUSH 05/04/17 14:00 05/11/17 14:01 05/04/17 15:28 Ondansetron HCl (Zofran Inj) 4 mg Q6H PRN IV PUSH NAUSEA 05/05/17 22:00 05/07/17 01:15 Insulin Detemir (Levemir Inj) 15 units HS SQ 05/06/17 21:00 05/06/17 21:45 Objective Remarks GENERAL: Well-nourished, well-developed patient. SKIN: Warm and dry. HEAD: Normocephalic. EYES: No scleral icterus. No injection or drainage. NECK: Supple, trachea midline. No JVD or lymphadenopathy. LYMPHATIC: No adenopathy. CARDIOVASCULAR: Regular rate and rhythm without murmurs. RESPIRATORY: Breath sounds equal bilaterally. No accessory muscle use. GASTROINTESTINAL: Abdomen soft, non-tender, nondistended. J-tube site not tender. EXTREMITIES: No cyanosis, or edema. MUSCULOSKELETAL: Adequate muscle tone. NEUROLOGICAL: No obvious focal deficit. Awake, alert, and oriented x3. PSYCHIATRIC: Appropriate mood and affect; insight and judgment normal. Assessment/Plan Problem List: (1) Esophageal adenocarcinoma Status: Acute Plan: --radiation resumed on 04/30. --carbo/taxol Thursday, 05/04, tolerated well -- first presented with significant weight loss and dysphagia. --CT showed thickening of his esophagus with no clear metastatic adenopathy. --EGD showed a circumferential mass in the distal esophagus causing complete obstruction, biopsy showed poorly differentiated adenocarcinoma. --was supposed to get a PET scan outpatient but it could not be done because his blood glucose was not well controlled. --started radiation prior to admission--had two xrt prior to admission --was supposed to start chemotherapy 04/27 but was admitted to the hospital 04/26. --CT of the abdomen and pelvis showed inflammatory changes in the mesentery possibly due to recent procedure but no clear evidence of metastatic disease. (2) GI bleed Status: Resolved Plan: --GI bleed likely from the esophageal mass. No active bleeding noted at this time. Hgb trended up with transfusion 1 U 05/05. --reports melena week prior to admission and also had black dark fluid oozing around the J-tube week prior to admission --s/p pRBC --possible upper endoscopy when he is stable. (3) Dehydration with hypernatremia Status: Resolved Plan: --sodium improving --on D5 (4) Acute kidney injury Status: Resolved Plan: --improved --primary following Assessment 66y/o male with esophageal cancer admitted with possible GI bleed and hypotension. h/o Esophageal adenocarcinoma. Hypertension. Diabetes mellitus. Gastroesophageal reflux disease. Gout. Hyperlipidemia. Diagnostic and exploratory laparotomy and jejunostomy tube placement. Port placement. EGD. -- Atrial fibrillation, now rate-controlled. --Acute renal failure due to dehydration. Plan 1. Continue PT. 2. Continue supportive care 3. continue XRT 4. can be d/c from oncology standpoint. 5. F/u Oncology clinic next Thursday to continue weekly chemotherapy. Problem Qualifiers (1) GI bleed: Qualified Code: K92.2 - Gastrointestinal hemorrhage, unspecified gastrointestinal hemorrhage type Darwin Medina MD May 07, 2017 08:05
[2017-05-07] MEDS: VITAMINS A & D OINT 60 GM TUBE TOPICAL SCH ×2 (09:00→22:18)
[2017-05-07] MEDS ORDERED: INSULIN DETEMIR 100 UNITS/ML VIAL SQ SCH (09:00)
[2017-05-07] MEDS: PANTOPRAZOLE SODIUM 40 MG VIAL IV PUSH SCH ×2 (09:23→22:03)
[2017-05-07] MEDS: FLUCONAZOLE SUSP 10 MG/ML 35 ML BTL PO SCH (09:23)
[2017-05-07] MEDS: ALLOPURINOL 100 MG TAB J-TUBE SCH (09:23)
[2017-05-07] MEDS: INSULIN DETEMIR 100 UNITS/ML VIAL SQ SCH ×2 (09:42→22:17)
--- NOTE | 2017-05-07 09:42 | HHI.PR ---
Subjective Remarks Nursing reports leaking at the J-tube site. Objective Vitals Vital Signs Date Time Temp Pulse Resp B/P Pulse Ox O2 Delivery O2 Flow Rate FiO2 05/07/17 05:06 98.1 72 16 154/84 96 05/07/17 00:00 97.9 69 16 135/95 95 05/06/17 20:09 65 05/06/17 20:00 97.6 74 16 130/66 96 05/06/17 16:20 97.6 61 20 142/67 96 05/06/17 12:32 98.2 69 20 175/86 95 05/06/17 11:00 68 05/06/17 05/06/17 05/07/17 15:00 23:00 07:00 Intake Total 240 ml 300 ml 150 ml Output Total 350 ml 400 ml 450 ml Balance -110 ml -100 ml -300 ml Intake Oral 240 ml 300 ml 150 ml Output Urine Total 350 ml 400 ml 450 ml # Bowel Movements 1 0 0 Result Diagram: 05/07/1740 05/07/1740 Imaging Last Impressions Knee X-Ray 05/01/17 0000 Signed Impressions: Service Date/Time: Monday, May 01, 2017 13:46 - CONCLUSION: 1. Advanced osteoarthritic changes as above. No acute fracture. Andrade Escalante MD Catheter Change 04/29/17 0000 Signed Impressions: Service Date/Time: Saturday, April 29, 2017 11:40 - CONCLUSION: The original 14 Ni[place]an jejunostomy tube was up sized to a 16 Niuean. Jim Lucero Jr., MD Abdomen X-Ray 04/28/17 0000 Signed Impressions: Service Date/Time: Friday, April 28, 2017 10:02 - CONCLUSION: J-tube is within loops of small bowel. Steve Gill MD Abdomen/Pelvis CT 04/27/17 0000 Signed Impressions: Service Date/Time: Thursday, April 27, 2017 10:28 - CONCLUSION: 1. Right middle lobe nodule, repeat noncontrast chest CT is suggested in 6 months as a conservative follow up. 2. Chronic spondylolysis bilateral L5. 3. Nonobstructing left renal stone. 4. Probable postprocedural changes involving the mesentery anterior to the stomach, however inflammatory process or even carcinomatosis is difficult to exclude. Follow up is suggested with noncontrast CT abdomen and pelvis in 2-3 months. Steve Gill MD Chest X-Ray 04/26/17 0587 Signed Impressions: Service Date/Time: Wednesday, April 26, 2017 22:44 - CONCLUSION: Normal examination. Right IJ Ibmguq-m-[id number] catheter in good position. Scottie Barron MD Objective Remarks GENERAL: This is a well-nourished, well-developed patient, in no apparent distress. CARDIOVASCULAR: Regular rate and rhythm without murmurs, gallops, or rubs. RESPIRATORY: Clear to auscultation. Breath sounds equal bilaterally. No wheezes , rales, or rhonchi. GASTROINTESTINAL: Abdomen soft, non-tender, nondistended. Normal active bowel sounds MUSCULOSKELETAL: Extremities without clubbing, cyanosis, or edema. NEURO: Alert & Oriented x4 to person, place, time, situation. Moves all ext x4 A/P Problem List: (1) Esophageal adenocarcinoma Status: Acute Plan: - Pt with esophageal adenoca. - Pt receiving chemotherapy, first treatment today (05/04/17). Carboplatin and taxol - pt presented with leaking/dysfunctional j tube afib/rvr controlled jose eduardo/ckd resolved local infection around j tube site - Pt receiving amoxicillin and cipro per ID recommendations x 7d left knee pain..severe OA on xray - clinically improved after receiving celebrex anemia. no active bleeding - iron deficiency - pt receiving 1 unit PRBCs today, 05/05/17 - J tube feedings with Jevity 1.5 extended back to 16 hours overnight - will increase pt's levemir to 20 units AM and 30 units PM, observe - Need to ensure adequate glycemic control prior to discharge - NA continues to improve 146 (05/05/17), 145 (05/06), 145 (05/07) - repeat BMP in AM - PT - anticipate d/c in next 1-2 days - SNF upon discharge pain control dvt prophylaxis supportive care. - case d/w [place] [employer] - recommendation for Jevity placed in note in error - I have changed the pt's TF to Glucerna 1.5 at the same rate - I have decreased the pt's levemir to 10 units in the AM and 15 units qPM - Pt's blood sugar readings have improved with change in TF to Glucerna - nursing reports leaking at J-tube site - Case d/w IR, will evaluate J-tube - hopefully d/c to SNF 05/08 (2) Dehydration with hypernatremia Status: Resolved Plan: see above (3) Atrial fibrillation with RVR Status: Acute Plan: see above (4) Acute kidney injury Status: Resolved Plan: see above (5) Feeding tube dysfunction Status: Acute Plan: see above (6) Anemia Status: Acute Plan: see above (7) DM (diabetes mellitus) Status: Chronic Plan: see above (8) HTN (hypertension) Status: Chronic (9) CKD (chronic kidney disease) stage 3, GFR 30-59 ml/min Status: Chronic Problem Qualifiers (1) Anemia: Qualified Code: D64.9 - Anemia, unspecified type See Jacobson DO May 07, 2017 09:42
[2017-05-07] MEDS: ENOXAPARIN SODIUM 30 MG/0.3 ML SYRINGE SQ SCH (11:00)
--- NOTE | 2017-05-07 15:53 | PD.RAD ---
Post Procedure Progress Note Pre Procedure Diagnosis: (1) Esophageal cancer (2) Feeding tube dysfunction Post Procedure Diagnosis: (1) Feeding tube dysfunction Procedure Date: May 07, 2017 Supervising Radiologist: Rigo Arrieta Proceduralist/Assist: Yenny Keller, RT(R), Shilpa Colón, RT(R) Anesthesia: Other Plan of Activity Patient to Unit: Nursing Unit Patient Condition: Good Additional Comments: J tube is well positioned in efferent loop. Readjusted the retaining balloon. See PACS Report for procedural detail/treatment Rigo Arrieta MD May 07, 2017 15:53
[2017-05-07] MEDS ORDERED: IOHEXOL 350 MG/ML 50 ML BTL (for RAD DIAG) ONE (15:54)
--- NOTE | 2017-05-07 16:15 | RADRPT ---
EXAM DATE/TIME: 05/07/2017 15:21 [facility] COMPARISON: No previous studies available for comparison. INDICATIONS : Patient with a history of esophageal cancer. 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 Diagnostic exploratory laparotomy for staging and jejunostomy placement by Dr. Vega 03/31/17 ENCOUNTER: Subsequent ACUITY: 1 day PAIN SCORE: 3/10 LOCATION: abdomen FLUORO TIME: 0.5 minutes IMAGE SERIES: 0 CONTRAST: 20 cc Omnipaque (iohexol) 350 PROCEDURE : 1. Fluoroscopically guided tube injection. The risks, benefits and alternatives to the procedure were explained and verbal and written consent w as obtained. The site was prepped in sterile fashion. Full sterile technique was used, including ca p, mask, sterile gloves and gown and a large sterile sheet. Hand hygiene and 2% chlorhexidine and/or betadine/alcohol prep was utilized per protocol for cutaneous antisepsis. With fluoroscopic guidance the previously placed tube was injected demonstrating well positioned cath eter tip in the fat and loop of jejunum. The catheter balloon was essentially completely deflated and reinflated with approximately 1.5 cc of 80: 20 dilute contrast. The balloon was noted to be not obstructing. Catheter was then flushed. CONCLUSION: 1. Well-positioned jejunostomy catheter without evidence for dysfunction. Rigo Arrieta MD on May 07, 2017 at 16:11 Board Certified Radiologist. This report was verified electronically.
[2017-05-08] VITALS: BP 118/56; PULSE 65; RESP 16; TEMP 97.6; O2SAT 96
[2017-05-08] MEDS: INSULIN ASPART SUPPLEMENTAL SCALE SQ SCH ×5 (00:50→16:00)
[2017-05-08] MEDS: oxyCODONE HCL ORAL CONC 20 MG/ML SYRINGE J-TUBE SCH ×5 (00:51→17:35)
[2017-05-08 04:00] VITALS: BP 138/78; PULSE 68; RESP 16; TEMP 97.7; O2SAT 95
[2017-05-08] MEDS: ONDANSETRON HCL 4 MG/2 ML VIAL IV PUSH PRN (04:49)
[2017-05-08 07:12] LABS: BICARBONATE 28.9 MEQ/L (21.0-32.0); POTASSIUM 3.9 MEQ/L (3.5-5.1)
[2017-05-08 08:00] VITALS: BP 141/74; PULSE 62; PULSE 67; RESP 18; TEMP 97.9; O2SAT 67
[2017-05-08] MEDS: VITAMINS A & D OINT 60 GM TUBE TOPICAL SCH (09:00)
[2017-05-08] MEDS: ALLOPURINOL 100 MG TAB J-TUBE SCH (10:19)
[2017-05-08] MEDS: INSULIN DETEMIR 100 UNITS/ML VIAL SQ SCH (10:23)
[2017-05-08] MEDS: PANTOPRAZOLE SODIUM 40 MG VIAL IV PUSH SCH (10:25)
--- NOTE | 2017-05-08 11:35 | HHI.FF ---
Face to Face Verification Diagnosis: (1) Esophageal cancer (2) Acute kidney injury (3) Dehydration with hypernatremia (4) CKD (chronic kidney disease) stage 3, GFR 30-59 ml/min (5) DM (diabetes mellitus) (6) HTN (hypertension) Physical Therapy Order: Evaluate and Treat, Improve ambulation, Strength and gait training Home Health Nursing Order: Medical education Signs/symptoms of disease process Diabetic education Medication education-adverse effect Nursing assessment with vital signs I have seen patient Rk Thibodeaux on 05/08/17. My clinical findings support the need for the requested home health care services because: Ltd mobility - disease progression Deconditioned w/ increased weakness Med compliance is questionable Limited ability to care for self Need for psychosocial assistance I certify that my clinical findings support that this patient is homebound because: Impaired cognitive ability/safety Unsafe to leave home unassisted Need for psychosocial assistance Unable to use public transportation See Jacobson DO May 08, 2017 11:35
--- NOTE | 2017-05-08 11:38 | HHI.DCPOC ---
Discharge Care Plan Diagnosis: (1) Esophageal cancer (2) Acute kidney injury (3) Dehydration with hypernatremia (4) CKD (chronic kidney disease) stage 3, GFR 30-59 ml/min (5) DM (diabetes mellitus) (6) Anemia (7) HTN (hypertension) Goals to Promote Your Health * To prevent worsening of your condition and complications * To maintain your health at the optimal level Directions to Meet Your Goals Take your medications as prescribed Follow your dietary instruction Follow activity as directed Keep your appointments as scheduled Take your immunizations and boosters as scheduled If your symptoms worsen call your PCP, if no PCP go to Urgent Care Center or Emergency Room Smoking is Dangerous to Your Health. Avoid second hand smoke Call the 24-hour hour crisis hotline for domestic abuse at See Jacobson DO May 08, 2017 11:38
--- NOTE | 2017-05-08 11:41 | HHI.DS ---
Discharge Summary Admission Date Apr 27, 2017 at 00:20 Discharge Date: May 08, 2017 Admitting Diagnosis sepsis, hypernatremic dehydration, esophageal cancer (1) Esophageal adenocarcinoma Diagnosis: Principal (2) Dehydration with hypernatremia Diagnosis: Principal (3) Atrial fibrillation with RVR Diagnosis: Principal (4) Acute kidney injury Diagnosis: Principal (5) Feeding tube dysfunction Diagnosis: Principal (6) Anemia Diagnosis: Principal (7) DM (diabetes mellitus) Diagnosis: Secondary (8) HTN (hypertension) Diagnosis: Secondary (9) CKD (chronic kidney disease) stage 3, GFR 30-59 ml/min Diagnosis: Secondary Consultants Dr. Demetrice Champion, Infectious Disease Dr. Darwin Medina, Oncology Dr. Eric Vega, General Surgery Dr. Sandra, Gastroenterology Brief History Patient is lethargic and is a poor historian. Obtained much of history from discussion with his but she is very frustrated with me because she states she has told Dr. Vega the history and he told her to bring the patient in and she "does not want to have to go through it all again". 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 He had EGD by Dr. Muñoz. Distal esophageal mass is circumferential, obstructing and he is unable to take po and thus was admitted 03/26/17 with dehydration. He underwent exploratory lap and J tube placement by Dr. Sanchez. Port was placed. He was discharged 04/04/17. He presents to [facility] ED from home with generalized weakness. He is hypotensive with BP in 80s/ 50s, in Afib RVR with rate 160s. His states he has been having dark, black fluid coming from around the site of his J tube. When she instills Glucerna tube feeds, fluid with appearance of tube feeds leaks out around the tube. He has not vomited or had dry heaves. He has been very constipated, but did have a small melena BM yesterday. No BM today. He has been afebrile. He is dehydrated with sodium of 167, bicarbonate 32, BUN 84, creatinine 1.95 (prior creatinine 0.99). His hemoglobin is 7.6. Platelets 200. Two units of PRBC's have been ordered in the ED. He has received 5 L NS bolus. For A fib RVR with persistent BP in 80s to low 90s, Dr. Rodriguez performed electrical cardioversion 3 which resulted in very transient conversion to sinus rhythm and then return to A fib RVR. He reportedly has no history of A fib. He had followup appointment with Dr. Darwin Medina on 04/23/17. He is scheduled to have PET scan (previously rescheduled because of hyperglycemia). He states he has had 2 radiation treatments, last was 04/24/17. Plan to proceed with chemotherapy with Taxol and carboplatin, but this has not been started et. states glucose has been running "high" in the mornings ~600. His diabetes was previously controlled on oral meds but was recently started on insulin during his last admission. CBC/BMP: 05/07/17 0640 05/08/17 0505 Significant Findings Laboratory Tests Test 05/06/17 05/07/17 05/08/17 05:20 06:40 05:05 Red Blood Count 2.92 MIL/MM3 2.89 MIL/MM3 (4.50-5.90) (4.50-5.90) Hemoglobin 8.6 GM/DL 8.5 GM/DL (13.0-17.0) (13.0-17.0) Hematocrit 26.5 % 26.1 % (39.0-51.0) (39.0-51.0) Platelet Count 130 TH/MM3 139 TH/MM3 (150-450) (150-450) Neutrophils (%) (Auto) 88.7 % 89.9 % (16.0-70.0) (16.0-70.0) Lymphocytes (%) (Auto) 6.3 % 4.4 % (9.0-44.0) (9.0-44.0) Lymphocytes # (Auto) 0.3 TH/MM3 0.2 TH/MM3 (1.0-4.8) (1.0-4.8) Chloride Level 112 MEQ/L 110 MEQ/L 108 MEQ/L (98-107) (98-107) (98-107) Anion Gap 4 MEQ/L (5-15) Blood Urea Nitrogen 22 MG/DL (7-18) 20 MG/DL (7-18) Estimat Glomerular Filtration 71 ML/MIN (>89) 86 ML/MIN (>89) 82 ML/MIN (>89) Rate Random Glucose 246 MG/DL 173 MG/DL 165 MG/DL (74-106) (74-106) (74-106) Calcium Level 7.8 MG/DL 7.6 MG/DL 7.9 MG/DL (8.5-10.1) (8.5-10.1) (8.5-10.1) PE at Discharge GENERAL: This is a well-nourished, well-developed patient, in no apparent distress. CARDIOVASCULAR: Regular rate and rhythm without murmurs, gallops, or rubs. RESPIRATORY: Clear to auscultation. Breath sounds equal bilaterally. No wheezes , rales, or rhonchi. GASTROINTESTINAL: Abdomen soft, non-tender, nondistended. Normal active bowel sounds MUSCULOSKELETAL: Extremities without clubbing, cyanosis, or edema. NEURO: Alert & Oriented x4 to person, place, time, situation. Moves all ext x4 Hospital Course (1) Esophageal adenocarcinoma Status: Acute Plan: - Pt with esophageal adenoca. - Pt receiving chemotherapy, first treatment today (05/04/17). Carboplatin and taxol - pt presented with leaking/dysfunctional j tube - afib/rvr controlled - jose eduardo/ckd resolved - local infection around j tube site - Pt receiving amoxicillin and cipro per ID recommendations x 7d 04/30 - ), course of treatment completed prior to discharge - left knee pain..severe OA on xray - clinically improved after receiving celebrex - Pt able to ambulate in the hallways with walker, under PT supervision - anemia. no active bleeding - iron deficiency - pt receiving 1 unit PRBCs today, 05/05/17 - J tube feedings with Jevity 1.5 extended back to 16 hours overnight - TF changed to Glucerna with improved glycemic control - Glucerna 1.5 95ml/hour x 16 hours - Case d/w IR (05/07/17), J-tube was reevaluated and functioning well - NA improved 146 (05/05/17), 145 (05/06), 145 (05/07), 143 (05/08/17) - discharge to home today with HHC and home PT - see discharge orders - f/u with PCP in 1 week - f/u with Oncology, Dr. Darwin Medina, in 2 weeks (2) Dehydration with hypernatremia Status: Resolved Plan: see above (3) Atrial fibrillation with RVR Status: Acute Plan: see above (4) Acute kidney injury Status: Resolved Plan: see above (5) Feeding tube dysfunction Status: Acute Plan: see above (6) Anemia Status: Acute Plan: see above (7) DM (diabetes mellitus) Status: Chronic Plan: see above (8) HTN (hypertension) Status: Chronic (9) CKD (chronic kidney disease) stage 3, GFR 30-59 ml/min Status: Chronic Pt Condition on Discharge: Stable Discharge Disposition: Disch w/ Home Health Serv Discharge Instructions DIET: Follow Instructions for: On Tube Feeding Activities you can perform: Weight Bearing as Rolando Activities to Avoid: Contact Sports, Strenuous Activity Follow up Referrals: Oncology - 2-[address] Darwin Medina PCP Follow-up - [address] Jethro Traylor New Medications: Hospital Bed - Manual (Hospital Bed - Manual) 1 Ea Ea 1 EA .ROUTE DIRECTED #1 EA Pantoprazole (Protonix) 40 Mg Tab 40 MG PEG DAILY Ulcer Prevention #30 Ref 0 TAB Allopurinol (Zyloprim) 100 Mg Tab 100 MG J-TUBE DAILY gout #30 Ref 0 TAB Oxycodone Liq (Oxycodone Liq) 20 Mg/Ml Conc 5 MG J-TUBE Q4HR esophageal cancer #20 Ref 0 ML Changed Medications: Insulin Glargine Inj (Lantus Inj) 1,000 Unit/10 Ml Vial 15 UNITS SQ HS 15 units every evening 10 units every morning Blood Sugar Management Days 30 Ref 0 VIAL (Medication details modified) Continued Medications: Insulin Aspart Inj (Novolog Inj) 1,000 Unit/10 Ml Vial 0 SQ DIRECTED Sliding Scale as directed. Blood Sugar Management #10 Ref 0 ML Discontinued Medications: Allopurinol (Allopurinol) 300 Mg Tab 300 MG PO DAILY Gout #30 Ref 0 TAB Oxycodone (Oxycodone) 10 Mg Tab 10 MG PO Q3-4HRS PRN PAIN Ref 0 TAB See Jacobson DO May 08, 2017 11:41
[2017-05-08] MEDS ORDERED: PROT40TA PEG (11:55)
[2017-05-08] MEDS ORDERED: OXYC1CON3 J-TUBE (11:55)
[2017-05-08] MEDS ORDERED: ALLO100 J-TUBE (11:55)
[2017-05-08] MEDS ORDERED: LANTUS2P SQ (11:55)
[2017-05-08 12:00] VITALS: BP 141/81; PULSE 65; PULSE 67; RESP 20; TEMP 96.9; O2SAT 97
--- NOTE | 2017-05-08 12:05 | PD.ONC.PN ---
Subjective Subjective Remarks Afebrile overnight. Patient resting in bed in nad. Tolerating tube feeds. Eager to go home. Objective Data Date Time Temp Pulse Resp B/P Pulse Ox O2 Delivery O2 Flow Rate FiO2 05/08/17 08:00 97.9 67 18 141/74 67 05/08/17 06:00 20 05/08/17 04:00 97.7 68 16 138/78 95 05/08/17 00:00 97.6 65 16 118/56 96 05/07/17 21:00 74 05/07/17 20:00 98.1 69 16 140/73 95 05/07/17 16:00 97.5 99 18 144/110 97 05/07/17 16:00 97.8 81 20 140/63 96 05/08/17 05/08/17 05/08/17 07:00 15:00 23:00 Intake Total 350 ml Output Total 500 ml Balance -150 ml Result Diagram: 05/07/17 0640 05/08/17 0505 Laboratory Results Laboratory Tests Test 05/08/17 05:05 Sodium Level 143 MEQ/L Potassium Level 3.9 MEQ/L Chloride Level 108 MEQ/L Carbon Dioxide Level 28.9 MEQ/L Anion Gap 6 MEQ/L Blood Urea Nitrogen 20 MG/DL Creatinine 0.92 MG/DL Estimat Glomerular Filtration 82 ML/MIN Rate Random Glucose 165 MG/DL Calcium Level 7.9 MG/DL Administered Medications Medications (Trade) Dose Ordered Sig/Ab Route PRN Reason Start Time Stop Time Status Last Admin Dose Admin Allopurinol (Zyloprim) 100 mg DAILY J-TUBE 04/30/17 09:00 05/08/17 10:19 Dextrose (D50w (Vial) Inj) 50 ml UNSCH PRN IV HYPOGLYCEMIA-SEE COMMENTS 04/30/17 05:45 05/05/17 20:56 Hydromorphone HCl (Dilaudid Pf Inj) 0.5 mg Q2H PRN IV PUSH breakthrough pain 04/30/17 12:00 05/06/17 12:58 Insulin Aspart (NovoLOG SUPPLEMENTAL SCALE) 1 Q4HR SQ 04/30/17 12:00 05/08/17 10:23 Oxycodone HCl (Roxicodone Intensol Liq) 5 mg Q4HR J-TUBE 04/30/17 12:00 05/08/17 10:20 Enoxaparin Sodium (Lovenox Inj) 30 mg Q24H SQ 04/30/17 11:00 05/07/17 11:00 Pantoprazole Sodium (Protonix Inj) 40 mg Q12HR IV PUSH 05/02/17 09:00 05/08/17 10:25 Granisetron HCl 1 mg 1 mg Q7D IV PUSH 05/04/17 14:00 05/11/17 14:01 05/04/17 15:29 Dexamethasone Sodium Phosphate/ Sodium Chloride (Decadron Inj/NS Inj) 55 ml @ 220 mls/hr Q7D IV 05/04/17 14:00 05/11/17 14:14 05/04/17 15:29 Diphenhydramine HCl (Benadryl) 25 mg Q7D PO 05/04/17 14:00 05/11/17 14:01 05/04/17 15:29 Famotidine (Pepcid Inj) 20 mg Q7D IV PUSH 05/04/17 14:00 05/11/17 14:01 05/04/17 15:28 Ondansetron HCl (Zofran Inj) 4 mg Q6H PRN IV PUSH NAUSEA 05/05/17 22:00 05/08/17 04:49 Insulin Detemir (Levemir Inj) 15 units HS SQ 05/06/17 21:00 05/07/17 22:17 Insulin Detemir (Levemir Inj) 10 units DAILY SQ 05/07/17 09:00 05/08/17 10:23 Objective Remarks GENERAL: Pleasant male, sitting up in bed watching TV SKIN: Warm and dry. HEAD: Normocephalic. EYES: No injection or drainage. NECK: Supple, trachea midline. CARDIOVASCULAR: +S1/S2 RESPIRATORY: clear to auscultation bilaterally GASTROINTESTINAL: Abdomen soft, J-tube clamped EXTREMITIES: No cyanosis NEUROLOGICAL: awake and alert, normal speech. moving all extremities. Assessment/Plan Problem List: (1) Esophageal adenocarcinoma Status: Acute Plan: --radiation resumed on 04/30. --carbo/taxol Thursday, 05/04, tolerated well -- first presented with significant weight loss and dysphagia. --CT showed thickening of his esophagus with no clear metastatic adenopathy. --EGD showed a circumferential mass in the distal esophagus causing complete obstruction, biopsy showed poorly differentiated adenocarcinoma. --was supposed to get a PET scan outpatient but it could not be done because his blood glucose was not well controlled. --started radiation prior to admission--had two xrt prior to admission --was supposed to start chemotherapy 04/27 but was admitted to the hospital 04/26. --CT of the abdomen and pelvis showed inflammatory changes in the mesentery possibly due to recent procedure but no clear evidence of metastatic disease. (2) GI bleed Status: Resolved Plan: --GI bleed likely from the esophageal mass. No active bleeding noted at this time. Hgb trended up with transfusion 1 U 05/05. --reports melena week prior to admission and also had black dark fluid oozing around the J-tube week prior to admission --s/p pRBC --possible upper endoscopy when he is stable. Assessment 66y/o male with esophageal cancer admitted with possible GI bleed and hypotension. h/o Esophageal adenocarcinoma. Hypertension. Diabetes mellitus. Gastroesophageal reflux disease. Gout. Hyperlipidemia. Diagnostic and exploratory laparotomy and jejunostomy tube placement. Port placement. EGD. -- Atrial fibrillation, now rate-controlled. Plan 1. clear for discharge 2. patient to follow up in Oncology clinic on Thursday for weekly chemotherapy 3. continue XRT Attending Statement The exam, history, and the medical decision-making described in the above note were completed with the assistance of the mid-level provider. I reviewed and agree with the findings presented. I attest that I had a [id number] encounter with the patient on the same day, and personally performed and documented my assessment and findings in the medical record. Feeling stronger. No abdominal pain. I told pt to f/u at oncology clinic Thursday for weekly chemotherapy. He will continue XRT. Problem Qualifiers (1) GI bleed: Qualified Code: K92.2 - Gastrointestinal hemorrhage, unspecified gastrointestinal hemorrhage type Isabel Vang May 08, 2017 12:05 Darwin Medina MD May 08, 2017 14:33
[2017-05-08] MEDS: ENOXAPARIN SODIUM 30 MG/0.3 ML SYRINGE SQ SCH (12:39)
[2017-05-08 16:00] VITALS: BP 152/81; PULSE 63; RESP 18; TEMP 98.6; O2SAT 96
[2017-05-08] MEDS ORDERED: COMMODE 3-IN-11 MIS (16:52)
[2017-05-11] MEDS ORDERED: PACLITAXEL IV ONE (15:00)
[2017-05-11] MEDS ORDERED: SODIUM CHLOR 0.9% 250 ML INJ 250 ML IV ONE (15:00)
[2017-05-11] MEDS ORDERED: SODIUM CHLOR 0.9% IV ONE ×2 (15:00→16:00)
[2017-05-11] MEDS ORDERED: CARBOPLATIN IV ONE (16:00)
== END 2017-05-08 19:04 | disposition home health service (06) | DRG 683 ==
LOC: NEPC 22:18 → NEDA 04-27 00:20 → NEDH 04-27 04:25 → HIMW 04-27 06:30 → HOCA 04-30 14:56 → HOCB 04-30 15:14 → HOCA 04-30 15:16
PROVIDERS: ADMIT Emergency Medicine; ATTEND Emergency Medicine
PROC: 5A2204Z Restoration of Cardiac Rhythm, Single (ICD-10-PCS; principal; 2017-04-27)
PROC: 30233N1 Transfusion of Nonautologous Red Blood Cells into Peripheral Vein, Percutaneous Approach (ICD-10-PCS; 2017-04-27)
PROC: 0D2DXUZ Change Feeding Device in Lower Intestinal Tract, External Approach (ICD-10-PCS; 2017-04-29)
PROC: 3E03305 Introduction of Other Antineoplastic into Peripheral Vein, Percutaneous Approach (ICD-10-PCS; 2017-05-04)
DX: N17.9 Acute kidney failure, unspecified (principal); K94.12 Enterostomy infection; E44.0 Moderate protein-calorie malnutrition; B37.89 Other sites of candidiasis; E87.0 Hyperosmolality and hypernatremia; E11.22 Type 2 diabetes mellitus with diabetic chronic kidney disease; E11.649 Type 2 diabetes mellitus with hypoglycemia without coma; C15.5 Malignant neoplasm of lower third of esophagus; I48.91 Unspecified atrial fibrillation; D62 Acute posthemorrhagic anemia; I12.9 Hypertensive chronic kidney disease with stage 1 through stage 4 chronic kidney disease, or unspecified chronic kidney disease; K92.2 Gastrointestinal hemorrhage, unspecified; K94.13 Enterostomy malfunction; E11.65 Type 2 diabetes mellitus with hyperglycemia; E86.0 Dehydration; B96.5 Pseudomonas (aeruginosa) (mallei) (pseudomallei) as the cause of diseases classified elsewhere; B95.2 Enterococcus as the cause of diseases classified elsewhere; N18.3 Chronic kidney disease, stage 3 (moderate); E87.6 Hypokalemia; E78.5 Hyperlipidemia, unspecified; K59.00 Constipation, unspecified; M17.12 Unilateral primary osteoarthritis, left knee; M10.9 Gout, unspecified; R53.1 Weakness; R91.1 Solitary pulmonary nodule; N20.0 Calculus of kidney; M47.816 Spondylosis without myelopathy or radiculopathy, lumbar region; Z87.891 Personal history of nicotine dependence; Z79.4 Long term (current) use of insulin
CPT/HCPCS: 36430; 49451; 49465; 71010; 73560; 74000; 74176; 77386; 77387; 80048; 80053; 81001; 82024; 82088; 82533; 82550; 82552; 82570; 82728; 82948; 83540; 83550; 83605; 83615; 83735; 83930; 83935; 84100; 84300; 84443; 84484; 84550; 85007; 85014; 85018; 85025; 85027; 85044; 85610; 85730; 86850; 86900; 86901; 86920; 86922; 87040; 87070; 87077; 87186; 87205; 93005; 93306; 94150; 96365; 99152; C1769; C9113; J0282; J0610; J1100; J1170; J1450; J1626; J1650; J1815; J1817; J2270; J2405; J2543; J3010; J3370; J3480; J7030; J7050; J7060; J7070; J9045; J9267; P9016; Q9963; Q9967

== ENCOUNTER 2017-05-14 09:30 | Day surgery (SDC) | payer MEDICARE ==
[~2017-05-14] VITALS: Ht 177.8 cm; Wt 72.7 kg
[~2017-05-14 09:30] MED LIST changes: +ALLO100 J-TUBE; -ALLO300T2 PO; +COMMODE 3-IN-11 MIS; -GLIP10TA6 PO; -GLIP5 J-TUBE; +HOSP BED2; +LANTUS2P SQ; +NOVOLOGP2 SQ; +OXYC1CON3 J-TUBE; -OXYC1SOL3 J-TUBE; +PROT40TA PEG
[2017-05-14 09:45] VITALS: BP 136/83; PULSE 65; RESP 20; TEMP 98.5; O2SAT 95
[2017-05-14] MEDS ORDERED: SODIUM CHLORIDE 0.9% FLUSH 10 ML FLUSH IV FLUSH PRN (10:00)
--- NOTE | 2017-05-14 11:19 | PD.RAD ---
Post Procedure Progress Note Pre Procedure Diagnosis: (1) Esophageal cancer (2) Encounter for feeding tube placement Post Procedure Diagnosis: (1) Esophageal cancer (2) Encounter for feeding tube placement Procedure Date: May 14, 2017 Supervising Radiologist: Jim Lucero JR Proceduralist/Assist: Albert Carreon, RT(R), Blanca Carlton RT(R)() Anesthesia: Local Plan of Activity Patient to Unit: ROPU Patient Condition: Good Additional Comments: Replaced the direct J tube with the only appropriately sized tube available (18F ). In good position. OK to use. See PACS Report for procedural detail/treatment Jr. Nic,Jim Moya MD May 14, 2017 11:19
[2017-05-14 11:20] VITALS: BP 154/84; PULSE 67; RESP 18; TEMP 98.6; O2SAT 95
[2017-05-14 11:35] VITALS: BP 146/79; PULSE 68; RESP 16; O2SAT 94
--- NOTE | 2017-05-14 15:17 | RADRPT ---
EXAM DATE/TIME: 05/14/2017 10:48 [place] COMPARISON: No previous studies available for comparison. INDICATIONS : Patient is in need of placement of a J-tube due to prior one falling out. MEDICAL HISTORY : History of esophageal cancer, HTN, DM. SURGICAL HISTORY : History of port placement, laparotomy, j-tube placement. ENCOUNTER: Subsequent ACUITY: 1 day PAIN SCORE: 0/10 FLUORO TIME: 2.4 minutes IMAGE SERIES: 3 CONTRAST: 8 cc Omnipaque (iohexol) 350 DEVICE(S): 1.) 18 Fr jejunostomy tube PROCEDURE : 1. fluoroscopically guided jejunostomy tube replacement The risks, benefits and alternatives to the procedure were explained and verbal and written consent w as obtained. The site was prepped in sterile fashion. Full sterile technique was used, including ca p, mask, sterile gloves and gown and a large sterile sheet. Hand hygiene and 2% chlorhexidine and/or betadine/alcohol prep was utilized per protocol for cutaneous antisepsis. The skin and subcutaneous tissues were infiltrated with local anesthetic solution. The patient requested no sedation. He agreed to intravenous fentanyl. Under fluoroscopic control the Berenstein catheter in conjunction with an angled Glidewire was utilized to cannulate the dermatotomy and gain access to the jejunum. The catheter was passed in an antegrade fashion within the jejunum. A new 18 Hebrew jejunostomy tube was appropriate lead position. This was the most appropriately sized tube we had available. The balloon was inflated with 5 mL of sterile saline. Injection of contrast w as performed to confirm the appropriate position of the tube. CONCLUSION: Successful replacement of the patient's jejunostomy tube as detailed above. Jim Lucero Jr., MD on May 14, 2017 at 15:09 Board Certified Radiologist. This report was verified electronically.
== END 2017-05-14 11:40 | disposition home or self-care (01) ==
LOC: HROP 09:30 → HRIP 09:31 → HROP 11:40
PROVIDERS: ATTEND Surgery
DX: Z46.59 Encounter for fitting and adjustment of other gastrointestinal appliance and device (principal); C15.9 Malignant neoplasm of esophagus, unspecified; I10 Essential (primary) hypertension; E11.9 Type 2 diabetes mellitus without complications; E78.00 Pure hypercholesterolemia, unspecified; K21.9 Gastro-esophageal reflux disease without esophagitis; K22.70 Barrett's esophagus without dysplasia
CPT/HCPCS: 49441; C1769; C1887; J1642; J3010

== ENCOUNTER 2017-06-01 14:48 | Inpatient (IN) | payer MEDICARE ==
[~2017-06-01] VITALS: Ht 177.8 cm; Wt 68.9 kg
[2017-06-01] MEDS: INSULIN ASPART SUPPLEMENTAL SCALE SQ SCH (01:07)
[2017-06-01] MEDS: INSULIN DETEMIR 100 UNITS/ML VIAL SQ SCH (01:07)
[2017-06-01] MEDS: SODIUM CHLORIDE 0.9% FLUSH 10 ML FLUSH IV FLUSH SCH (01:07)
--- NOTE | 2017-06-01 14:54 | PD ---
HPI Chief Complaint: orthostatic hypotension, dizziness Time Seen by Provider: 14:53 Travel History International Travel<30 days: No Contact w/Intl Traveler<30days: No Traveled to known affect area: No History of Present Illness HPI 66-year-old male with history of esophageal cancer was at his oncologist's office to get his last dose of chemotherapy when he got very lightheaded and almost passed out. EMS was called and patient was brought in by ambulance. He says currently he feels woozy. His is here was giving additional history. Patient has a G-tube that has started to leak feed around it. Over the past few days she has not been able to get anything in since all the liquid keeps leaking out. In addition he has been vomiting. He has been very lightheaded these past few days every time he gets up. In fact few days ago he had fallen and hit his head causing a large scalp laceration and bleeding. He was seen by his primary care but patient did not want to come to the emergency room. His says that this is getting dangerous at home. He was not given chemotherapy given his condition today. Upon arrival his blood pressure was 93 systolic. He had received 1 L of IV fluid bolus en route. Blood pressure in the clinic was in the 80s. Blood glucose level in the ER was 93. PFSH Past Medical History Narrative Medical List of his past medical, surgical, social and family history is reviewed from the nursing note. Asthma: No Heart Rhythm Problems: No Cancer: Yes (esophageal cancer currently diag past march 2017) Cardiovascular Problems: Yes High Cholesterol: Yes Chest Pain: No Congestive Heart Failure: No COPD: No Diabetes: Yes GERD: Yes Hypertension: Yes Psychiatric: No Respiratory: No Immunizations Current: No Sleep Apnea: No Thyroid Disease: No Past Surgical History Abdominal Surgery: Yes (feeding tube past march 2017) AICD: No Joint Replacement: No Pacemaker: No Thoracic Surgery: Yes (PORT PLACEMENT) Social History Alcohol Use: No Tobacco Use: No Substance Use: No Allergies-Medications (Allergen,Severity, Reaction): Coded Allergies: No Known Allergies (Unverified , 03/25/17) Comments No known drug allergies. Reported Meds & Prescriptions Reported Meds & Active Scripts Active Commode 3-in-1 (Device) 1 Mis Mis 1 Ea .ROUTE DIRECTED Protonix (Pantoprazole Sodium) 40 Mg Tab 40 Mg PEG DAILY Zyloprim (Allopurinol) 100 Mg Tab 100 Mg J-TUBE DAILY Lantus Inj (Insulin Glargine) 1,000 Unit/10 Ml Vial 15 Units SQ HS 30 Days 15 units every evening 10 units every morning Hospital Bed - Manual 1 Ea Ea 1 Ea .ROUTE DIRECTED Kangaroo Ez Cap Pump Set/ (Feeding Tubes - Pump) 1 Mis Mis Unit glucerna 1.5 70ml/hr 7pm-7am daily Reported Oxycodone (Oxycodone HCl) 20 Mg Tab 20 Mg J-TUBE Q4-6H PRN Novolog Inj (Insulin Aspart) 1,000 Unit/10 Ml Vial 0 SQ DIRECTED Sliding Scale as directed. Narrative Medication List of his home medications reviewed from the nursing note. Review of Systems Except as stated in HPI: all other systems reviewed are Neg Physical Exam Narrative GENERAL: Awake, alert, emaciated, moderate distress SKIN: Focused skin assessment warm/dry. Pale HEAD: Atraumatic. Normocephalic. EYES: Pupils equal and round. No scleral icterus. No injection or drainage. ENT: No nasal bleeding or discharge. Dry mucous membrane NECK: Trachea midline. No JVD. CARDIOVASCULAR: Regular rate and rhythm. No murmur appreciated. RESPIRATORY: No accessory muscle use. Clear to auscultation. Breath sounds equal bilaterally. GASTROINTESTINAL: Abdomen soft, non-tender, nondistended. Hepatic and splenic margins not palpable. G-tube with significant purulent drainage around the stoma MUSCULOSKELETAL: No obvious deformities. No clubbing. No cyanosis. No edema. NEUROLOGICAL: Awake and alert. No obvious cranial nerve deficits. Motor grossly within normal limits. Normal speech. PSYCHIATRIC: Appropriate mood and affect; insight and judgment normal. Data Data Last Documented VS Vital Signs Date Time Temp Pulse Resp B/P Pulse Ox O2 Delivery O2 Flow Rate FiO2 06/01/17 17:10 79 20 86/50 99 Room Air 06/01/17 15:14 98.2 Orders Complete Blood Count With Diff (06/01/17 15:01) Comprehensive Metabolic Panel (06/01/17 15:) Iv Access Insert/Monitor (06/01/17 15:01) Ecg Monitoring (06/01/17 15:) Oximetry (06/01/17 15:) Sodium Chlor 0.9% 1000 Ml Inj (Ns 1000 M (06/01/17 15:01) Sodium Chloride 0.9% Flush (Ns Flush) (06/01/17 15:15) Electrocardiogram (06/01/17 15:01) Blood Glucose (06/01/17 15:02) Type And Screen (06/01/17 15:09) Chest, Single Ap (06/01/17 ) Blood Culture (06/01/17 16:22) Lactic Acid (06/01/17 16:22) Piperacil-Tazo 4.5 Gm Premix (Zosyn 4.5 (06/01/17 16:30) Vancomycin Inj (Vancomycin Inj) (06/01/17 16:30) Sodium Chlor 0.9% 1000 Ml Inj (Ns 1000 M (06/01/17 16:30) Admit To Inpatient (06/01/17 ) Code Status (06/01/17 16:51) Vital Signs (Adult) Q4H (06/01/17 16:51) Activity Oob With Assistance (06/01/17 16:51) Sap Abap Developer / Telemetry .CONTINUOUS (06/01/17 16:51) Diet Npo (06/01/17 Dinner) Sodium Chloride 0.9% Flush (Ns Flush) (06/01/17 17:00) Sodium Chloride 0.9% Flush (Ns Flush) (06/01/17 21:00) Acetaminophen (Tylenol) (06/01/17 17:00) Ondansetron Inj (Zofran Inj) (06/01/17 17:00) Basic Metabolic Panel (Bmp) (06/02/17 06:00) Complete Blood Count With Diff (06/02/17 06:00) Pt Request For Service (06/01/17 16:51) Scd Bilateral/Knee High KANDICE.BID (06/01/17 16:51) Naloxone Inj (Narcan Inj) (06/01/17 17:00) Magnesium Hydroxide Liq (Milk Of Magnesi (06/01/17 17:00) Inpatient Certification (06/01/17 ) 1/2 Ns + Kcl 20 Meq Inj (1/2 Ns + Kcl 20 (06/01/17 17:00) Allopurinol (Zyloprim) (06/02/17 09:00) Pantoprazole Inj (Protonix Inj) (06/01/17 18:00) Hydromorphone Pf Inj (Dilaudid Pf Inj) (06/01/17 17:00) Insulin Aspart Supplemtl Scale (Novolog (06/01/17 21:00) Vancomycin Inj (Vancomycin Inj) (06/02/17 06:00) Piperacil-Tazo 4.5 Gm Premix (Zosyn 4.5 (06/01/17 23:00) Admit Order (Ed Use Only) (06/01/17 17:17) Insulin Detemir Inj (Levemir Inj) (06/01/17 21:00) Jejunostomy Tube Injection (06/02/17 17:01) Labs Laboratory Tests Test 06/01/17 06/01/17 15:20 16:40 White Blood Count 3.4 TH/MM3 Red Blood Count 3.32 MIL/MM3 Hemoglobin 9.9 GM/DL Hematocrit 29.1 % Mean Corpuscular Volume 87.5 FL Mean Corpuscular Hemoglobin 29.9 PG Mean Corpuscular Hemoglobin 34.1 % Concent Red Cell Distribution Width 17.9 % Platelet Count 135 TH/MM3 Mean Platelet Volume 9.5 FL Neutrophils (%) (Auto) 71.4 % Lymphocytes (%) (Auto) 6.9 % Monocytes (%) (Auto) 21.5 % Eosinophils (%) (Auto) 0.0 % Basophils (%) (Auto) 0.2 % Neutrophils # (Auto) 2.4 TH/MM3 Lymphocytes # (Auto) 0.2 TH/MM3 Monocytes # (Auto) 0.7 TH/MM3 Eosinophils # (Auto) 0.0 TH/MM3 Basophils # (Auto) 0.0 TH/MM3 CBC Comment AUTO DIFF Differential Total Cells 100 Counted Neutrophils % (Manual) 60 % Band Neutrophils % 21 % Lymphocytes % 7 % Monocytes % 11 % Neutrophils # (Manual) 2.8 TH/MM3 Metamyelocytes 1 % Differential Comment FINAL DIFF MANUAL Platelet Estimate LOW Platelet Morphology Comment NORMAL Sodium Level 139 MEQ/L Potassium Level 3.5 MEQ/L Chloride Level 98 MEQ/L Carbon Dioxide Level 32.4 MEQ/L Anion Gap 9 MEQ/L Blood Urea Nitrogen 70 MG/DL Creatinine 1.71 MG/DL Estimat Glomerular Filtration 40 ML/MIN Rate Random Glucose 84 MG/DL Calcium Level 9.3 MG/DL Total Bilirubin 1.5 MG/DL Aspartate Amino Transf 30 U/L (AST/SGOT) Alanine Aminotransferase 24 U/L (ALT/SGPT) Alkaline Phosphatase 89 U/L Total Protein 7.6 GM/DL Albumin 2.8 GM/DL Blood Type O NEGATIVE Antibody Screen NEGATIVE Lactic Acid Level 1.2 mmol/L [facility] Medical Decision Making Medical Screen Exam Complete: Yes Emergency Medical Condition: Yes Medical Record Reviewed: Yes Interpretation(s) Twelve-lead EKG was reviewed by me. Normal sinus rhythm, left axis deviation, nonspecific ST-T wave changes. Heart rate of 81 bpm. Differential Diagnosis Dehydration, electrolyte abnormality, volume depletion Narrative Course 4:01 PM patient is getting another liter of IV fluid bolus. Awaiting for the blood test results. In my opinion he would require admission and the agrees. 5:18 PM blood test results of back and patient is leukopenic but with significant bandemia. I've ordered another liter of IV fluid bolus and antibiotic as per sepsis protocol. Patient will be admitted. The hospitalist has accepted the case. I've asked him to consult Dr. Vega from surgery regarding his G-tube issues. Critical Care Narrative Aggregate critical care time was 30 minutes. Time to perform other separately billable procedures was not included in the critical care time. My time did not include minutes spent treating any other patients simultaneously or on activities that did not directly contribute to the patient's treatment. The services I provided to this patient were to treat and/or prevent clinically significant deterioration that could result in: Sepsis, sepsis protocol I provided critical care services requiring my management, as noted below: Chart data review, documentation time, medication orders and management, vital sign assessments/reviewing monitor data, ordering and reviewing lab tests, ordering and interpreting/reviewing x-rays and diagnostic studies, care of the patient and discussion of the patient with the admitting physicians. Procedures EKG Prior to Arrival: No Sepsis Criteria SIRS Criteria (2 or more): WBC > 86748, < 4000 or > 10% bands Severe Sepsis (+one): Hypotension Diagnosis Primary Impression: Sepsis Qualified Code: A41.9 - Sepsis, due to unspecified organism Additional Impressions: Hypotension Qualified Code: I95.9 - Hypotension, unspecified hypotension type Esophageal cancer Qualified Code: C15.9 - Malignant neoplasm of esophagus, unspecified location Admitting Information Admitting Physician Requests: it Marissa Rodriguez MD Jun 01, 2017 14:54 Marissa Rodriguez MD Jun 01, 2017 14:54
[2017-06-01] MEDS ORDERED: SODIUM CHLOR 0.9% 1000 ML INJ 1,000 ML IV SCH (15:01)
[2017-06-01 15:14] VITALS: BP 98/67; PULSE 81; RESP 20; TEMP 98.2; O2SAT 93
[2017-06-01] MEDS ORDERED: SODIUM CHLORIDE 0.9% FLUSH 10 ML FLUSH IV FLUSH PRN (15:15)
[2017-06-01 15:42] LABS: AUTOMATED NEUTROPHIL # 2.4 TH/MM3 (1.8-7.7); BASOPHIL % 0.2 % (0.0-2.0); HEMATOCRIT 29.1 % (39.0-51.0); LYMPH % 6.9 % (9.0-44.0); LYMPHOCYTE # 0.2 TH/MM3 (1.0-4.8); MEAN CELL VOLUME 87.5 FL (80.0-100.0); MEAN CORPUSCULAR HEMOGLOBIN 29.9 PG (27.0-34.0); MEAN CORPUSCULAR HGB CONC 34.1 % (32.0-36.0); MONO % 21.5 % (0.0-8.0); NEUT % 71.4 % (16.0-70.0); PLATELET COUNT 135 TH/MM3 (150-450); RED BLOOD COUNT 3.32 MIL/MM3 (4.50-5.90); RED CELL DISTRIBUTION WIDTH 17.9 % (11.6-17.2); WHITE BLOOD COUNT 3.4 TH/MM3 (4.0-11.0)
[2017-06-01 15:44] LABS: HEMO FLAGS AUTO DIFF
[2017-06-01] MEDS ORDERED: OXYC-396 J-TUBE (15:52)
[2017-06-01 15:53] LABS: ALT (GPT) 24 U/L (12-78); ANION GAP 9 MEQ/L (5-15); AST (GOT) 30 U/L (15-37); BICARBONATE 32.4 MEQ/L (21.0-32.0); BLOOD UREA NITROGEN 70 MG/DL (7-18); CHLORIDE 98 MEQ/L (98-107); GLOMERULAR FILTRATION RATE 40 ML/MIN (>89); POTASSIUM 3.5 MEQ/L (3.5-5.1); SODIUM (NA) 139 MEQ/L (136-145)
[2017-06-01 15:55] LABS: ALKALINE PHOSPHATASE 89 U/L (45-117); TOTAL BILIRUBIN ADULT 1.5 MG/DL (0.2-1.0)
[2017-06-01 16:14] LABS: BANDS 21 % (0-6); METAMYELOCYTES 1 % (0-1); NEUTROPHIL # MANUAL DIFF 2.8 TH/MM3 (1.8-7.7); POLYS (SEG NEUTROPHILS) 60 % (16-70); WBC DIFF SAMPLE 100
[2017-06-01 16:15] LABS: PLATELET ESTIMATE SMEAR LOW (NORMAL); PLATELET MORPHOLOGY NORMAL (NORMAL); SCAN/DIFF FINAL DIFF MANUAL
[2017-06-01] MEDS ORDERED: PIPERACIL-TAZO 4.5 GM PREMIX 100 ML IV ONE (16:30)
[2017-06-01] MEDS ORDERED: SODIUM CHLOR 0.9% 1000 ML INJ 1,000 ML IV ONE (16:30)
[2017-06-01] MEDS ORDERED: VANCOMYCIN INJ 1,000 MG in SODIUM CHLOR 0.9% 250 ML INJ 250 ML IV ONE (16:30)
--- NOTE | 2017-06-01 16:48 | RADRPT ---
EXAM DATE/TIME: 06/01/2017 16:19 [facility] COMPARISON: CHEST SINGLE AP, April 26, 2017, 22:44. INDICATIONS : Syncopal episode. Possible low blood sugar. MEDICAL HISTORY : Hypertension. Diabetes mellitus type II. Esophageal cancer. SURGICAL HISTORY : Infusaport. ENCOUNTER: Initial ACUITY: 1 day PAIN SCORE: 0/10 LOCATION: Bilateral chest FINDINGS: Portable AP view the chest demonstrates a normal-sized cardiac silhouette with calcification of the a josé. Right chest wall [id number] is present with distal tip in the superior vena cava. There is m ild lucency upper lung zones. No effusion, consolidation, or pneumothorax is identified. Bones demons trate no acute finding. CONCLUSION: No acute cardiopulmonary abnormality is identified. Background lung findings are suggestive of emphys dale. Nicholas Unger MD on June 01, 2017 at 16:45 Board Certified Radiologist. This report was verified electronically.
[2017-06-01] MEDS ORDERED: 1/2 NS + KCL 20 MEQ INJ 1,000 ML IV SCH (17:00)
[2017-06-01] MEDS ORDERED: ACETAMINOPHEN 325 MG TAB PO PRN (17:00)
[2017-06-01] MEDS ORDERED: MAGNESIUM HYDROXIDE SUSP 30 ML CUP PO PRN (17:00)
[2017-06-01] MEDS ORDERED: NALOXONE HCL 0.4 MG/ML AMP IV PRN (17:00)
[2017-06-01 17:10] VITALS: BP 86/50; PULSE 79; RESP 20; O2SAT 99
[2017-06-01 18:08] VITALS: BP 100/59; PULSE 79; RESP 20; O2SAT 99
--- NOTE | 2017-06-01 18:13 | EKG ---
Date Performed: 06/01/2017 Time Performed: 16:12:24 PTAGE: 66 years EKG: Sinus rhythm WITH OCCASIONAL SUPRAVENTRICULAR PREMATURE COMPLEXES MARKED LEFT AXIS DEVIATION LOW QRS VOLTAGE IN P RECORDIAL LEADS NONSPECIFIC T-WAVE ABNORMALITY ABNORMAL ECG Compared to prior electrocardiogram rate has increased and QT interval has shortened. PREVIOUS TRACING : 04/29/2017 10.26 DOCTOR: Cj Hanna Interpretating Date/Time 06/01/2017 18:12:37
--- NOTE | 2017-06-01 18:21 | HHI.HP ---
HPI [facility] Hospitalists Primary Care Physician Jethro Traylor MD Admission Diagnosis sepsis, hypotension, esophageal cancer Chief Complaint: inability to eat or drink J tube leak decrease blood pressure Travel History International Travel<30 Days: No Contact w/Intl Traveler <30 Da: No Traveled to Known Affected Are: No History of Present Illness 66-year-old male with history of esophageal cancer,dx march 2017 poorly diff adenocarcinoma was at his oncologist's office to get his last dose of chemotherapy Tazol and carboplatin when he got very lightheaded and almost passed out. EMS was called and patient was brought in by ambulance. He says currently he feels woozy. His is here was giving additional history. Patient has a G-tube that has started to leak feed around it. Over the past few days she has not been able to get anything in since all the liquid keeps leaking out. In addition he has been vomiting. He has been very lightheaded these past few days every time he gets up. In fact few days ago he had fallen and hit his head causing a large scalp laceration and bleeding. He was seen by his primary care but patient seems to come to the emergency room. His says that this is getting dangerous at home. He was not given chemotherapy given his condition today. Upon arrival his blood pressure was 93 systolic. He had received 1 L of IV fluid bolus on route. Blood pressure in the clinic was in the 80s. Blood glucose level in the ER was 93. Patient will be admitted for IV fluid antibiotics and evaluation of j tube leak. Review of Systems Constitutional: COMPLAINS OF: Change in appetite Gastrointestinal: COMPLAINS OF: Nausea, Vomiting Past Family Social History Past Medical History esophageal cancer,hyperlipidemia,j tube,port placement GERD hypertension diabetes Past Surgical History port j tube Reported Medications Commode 3-in-1 (Device) 1 Mis Mis 1 Ea .ROUTE DIRECTED Protonix (Pantoprazole Sodium) 40 Mg Tab 40 Mg PEG DAILY Zyloprim (Allopurinol) 100 Mg Tab 100 Mg J-TUBE DAILY Lantus Inj (Insulin Glargine) 1,000 Unit/10 Ml Vial 15 Units SQ HS 30 Days 15 units every evening 10 units every morning Hospital Bed - Manual 1 Ea Ea 1 Ea .ROUTE DIRECTED Kangaroo Ez Cap Pump Set/ (Feeding Tubes - Pump) 1 Mis Mis Unit glucerna 1.5 70ml/hr 7pm-7am daily Reported Oxycodone (Oxycodone HCl) 20 Mg Tab 20 Mg J-TUBE Q4-6H PRN Novolog Inj (Insulin Aspart) 1,000 Unit/10 Ml Vial 0 SQ DIRECTED Sliding Scale as di Allergies: Coded Allergies: No Known Allergies (Unverified , 03/25/17) Social History NS,ND Physical Exam Vital Signs Vital Signs Date Time Temp Pulse Resp B/P Pulse Ox O2 Delivery O2 Flow Rate FiO2 06/01/17 18:08 79 20 100/59 99 Room Air 06/01/17 17:10 79 20 86/50 99 Room Air 06/01/17 15:14 98.2 81 20 98/67 93 Room Air Physical Exam GENERAL: Patient in no acute distress SKIN: No rashes, ecchymoses or lesions. Cool and dry. HEAD: Atraumatic. Normocephalic. No temporal or scalp tenderness. EYES: Pupils equal round and reactive. Extraocular motions intact. No scleral icterus. No injection or drainage. ENT: Nose without bleeding, purulent drainage or septal hematoma. Throat without erythema, tonsillar hypertrophy or exudate. Uvula midline. Airway patent. NECK: Trachea midline. No JVD or lymphadenopathy. Supple, nontender, no meningeal signs. CARDIOVASCULAR: Regular rate and rhythm without murmurs, gallops, or rubs. RESPIRATORY: Clear to auscultation. Breath sounds equal bilaterally. No wheezes , rales, or rhonchi. GASTROINTESTINAL: Abdomen soft, non-tender, nondistended. No hepato-splenomegaly , or palpable masses. No guarding.fluid leaking around J tube MUSCULOSKELETAL: Extremities without clubbing, cyanosis, or edema. No joint tenderness, effusion, or edema noted. No calf tenderness. Negative Homans sign bilaterally. NEUROLOGICAL: Awake and alert. Cranial nerves II through XII intact. Motor and sensory grossly within normal limits. Five out of 5 muscle strength in all muscle groups. Normal speech. Laboratory Laboratory Tests Test 06/01/17 06/01/17 15:20 16:40 White Blood Count 3.4 Red Blood Count 3.32 Hemoglobin 9.9 Hematocrit 29.1 Mean Corpuscular Volume 87.5 Mean Corpuscular Hemoglobin 29.9 Mean Corpuscular Hemoglobin 34.1 Concent Red Cell Distribution Width 17.9 Platelet Count 135 Mean Platelet Volume 9.5 Neutrophils (%) (Auto) 71.4 Lymphocytes (%) (Auto) 6.9 Monocytes (%) (Auto) 21.5 Eosinophils (%) (Auto) 0.0 Basophils (%) (Auto) 0.2 Neutrophils # (Auto) 2.4 Lymphocytes # (Auto) 0.2 Monocytes # (Auto) 0.7 Eosinophils # (Auto) 0.0 Basophils # (Auto) 0.0 CBC Comment AUTO DIFF Differential Total Cells 100 Counted Neutrophils % (Manual) 60 Band Neutrophils % 21 Lymphocytes % 7 Monocytes % 11 Neutrophils # (Manual) 2.8 Metamyelocytes 1 Differential Comment FINAL DIFF MANUAL Platelet Estimate LOW Platelet Morphology Comment NORMAL Sodium Level 139 Potassium Level 3.5 Chloride Level 98 Carbon Dioxide Level 32.4 Anion Gap 9 Blood Urea Nitrogen 70 Creatinine 1.71 Estimat Glomerular Filtration 40 Rate Random Glucose 84 Calcium Level 9.3 Total Bilirubin 1.5 Aspartate Amino Transf 30 (AST/SGOT) Alanine Aminotransferase 24 (ALT/SGPT) Alkaline Phosphatase 89 Total Protein 7.6 Albumin 2.8 Blood Type O NEGATIVE Antibody Screen NEGATIVE Lactic Acid Level 1.2 Date/Time Procedure Status Source Growth 06/01/17 16:40 Aerobic Blood Culture Received Blood Peripheral Pending 06/01/17 16:40 Anaerobic Blood Culture Received Blood Peripheral Pending Result Diagram: 06/01/17 1520 06/01/17 1520 Imaging Last 24 hours Impressions Chest X-Ray 06/01/17 0000 Signed Impressions: Service Date/Time: Thursday, June 01, 2017 16:19 - CONCLUSION: No acute cardiopulmonary abnormality is identified. Background lung findings are suggestive of emphysema. Nicholas Unger MD Course in er started on several bags IV fluid as Blood Pressure was low Assessment and Plan Problem List: (1) Hypotension Status: Acute Plan: in review has run low blood pressure continue IV fluid and antibiotics (2) Esophageal adenocarcinoma Status: Chronic Plan: followed by oncology has been on RT and Chemotherapy (3) Feeding tube dysfunction Status: Acute Plan: will have interventional radiology evaluate (4) Sepsis Status: Acute Plan: based on lab work and blood pressure on IV fluids and antibiotics (5) Dehydration Status: Acute Plan: hydrate as above Assessment and Plan further plan as case develops Code Status full Discussed Condition With patient Physician Certification 2 Midnight Certification Type: Admission for Inpatient Services Order for Inpatient Services The services are ordered in accordance with Medicare regulations or non- Medicare payer requirements, as applicable. In the case of services not specified as inpatient-only, they are appropriately provided as inpatient services in accordance with the 2-midnight benchmark. Estimated LOS (days): 3 3 days is the estimated time the patient will need to remain in the hospital, assuming treatment plan goals are met and no additional complications. Post-Hospital Plan: Not yet determined Problem Qualifiers (1) Hypotension: Qualified Code: I95.9 - Hypotension, unspecified hypotension type (2) Sepsis: Qualified Code: A41.9 - Sepsis, due to unspecified organism Rusty Lundberg MD Jun 01, 2017 18:21
[2017-06-01] MEDS: PANTOPRAZOLE SODIUM 40 MG VIAL IV PUSH SCH (18:32)
[2017-06-01 18:45] VITALS: BP 110/61; PULSE 76; RESP 16; O2SAT 96
[2017-06-01] MEDS ORDERED: HYDROmorphone HCL PF 1 MG/ML VIAL IV PUSH PRN (18:45)
[2017-06-01] MEDS ORDERED: Vancomycin Consult Pharmacy 1 EA OTHER SCH (21:30)
[2017-06-01 21:32] VITALS: BP 107/59; PULSE 79; RESP 16; TEMP 97.7; O2SAT 97
[2017-06-02] VITALS (9 sets, daily range): BP systolic 56–119; BP diastolic 56–67; PULSE 72–86; RESP 16–20; TEMP 97.4–98.6; O2SAT 94–100
[2017-06-02] MEDS ORDERED: DEXTROSE 50% IN WATER 50 ML VIAL(D50) IV ONE (01:00)
[2017-06-02] MEDS: D5-1/2 NS + KCL 20 MEQ INJ 1,000 ML IV SCH ×2 (01:06→12:53)
[2017-06-02] MEDS: HYDROmorphone HCL PF 1 MG/ML VIAL IV PUSH PRN ×4 (04:09→21:14)
[2017-06-02] MEDS: PIPERACIL-TAZO 4.5 GM PREMIX 100 ML IV SCH ×4 (04:12→23:25)
[2017-06-02] MEDS ORDERED: VANCOMYCIN INJ 1,000 MG in SODIUM CHLOR 0.9% 250 ML INJ 250 ML IV SCH (06:00)
[2017-06-02] MEDS: INSULIN ASPART SUPPLEMENTAL SCALE SQ SCH ×4 (06:55→21:00)
[2017-06-02] MEDS: SODIUM CHLORIDE 0.9% FLUSH 10 ML FLUSH IV FLUSH SCH ×2 (08:50→21:00)
[2017-06-02] MEDS: ALLOPURINOL 100 MG TAB J-TUBE SCH (08:50)
[2017-06-02] MEDS: ONDANSETRON HCL 4 MG/2 ML VIAL IVP PRN ×2 (09:23→21:16)
[2017-06-02 09:49] LABS: AUTOMATED NEUTROPHIL # 1.7 TH/MM3 (1.8-7.7); BASOPHIL % 0.4 % (0.0-2.0); EOSINOPHIL % 0.2 % (0.0-4.0); HEMATOCRIT 23.5 % (39.0-51.0); LYMPH % 6.4 % (9.0-44.0); LYMPHOCYTE # 0.1 TH/MM3 (1.0-4.8); MEAN CELL VOLUME 88.4 FL (80.0-100.0); MEAN CORPUSCULAR HEMOGLOBIN 30.3 PG (27.0-34.0); MEAN CORPUSCULAR HGB CONC 34.2 % (32.0-36.0); MONO % 20.7 % (0.0-8.0); NEUT % 72.3 % (16.0-70.0); PLATELET COUNT 96 TH/MM3 (150-450); RED BLOOD COUNT 2.66 MIL/MM3 (4.50-5.90); RED CELL DISTRIBUTION WIDTH 18.1 % (11.6-17.2); WHITE BLOOD COUNT 2.3 TH/MM3 (4.0-11.0)
[2017-06-02 09:52] LABS: HEMO FLAGS AUTO DIFF
[2017-06-02] MEDS ORDERED: IOHEXOL 350 MG/ML 50 ML BTL (for RAD DIAG) J-TUBE ONE (10:06)
[2017-06-02 10:17] LABS: BICARBONATE 29.7 MEQ/L (21.0-32.0); POTASSIUM 3.1 MEQ/L (3.5-5.1)
[2017-06-02 10:34] LABS: BANDS 28 % (0-6); CORRECTED NUCLEATED RBC 1 /100 WBC (0-0); NEUTROPHIL # MANUAL DIFF 2.1 TH/MM3 (1.8-7.7); OVALOCYTES 1+ (NORMAL); PLATELET ESTIMATE SMEAR LOW (NORMAL); PLATELET MORPHOLOGY NORMAL (NORMAL); POLYS (SEG NEUTROPHILS) 62 % (16-70); WBC DIFF SAMPLE 100
[2017-06-02 10:35] LABS: SCAN/DIFF FINAL DIFF MANUAL
[2017-06-02] MEDS ORDERED: VANCOMYCIN INJ 1,300 MG in SODIUM CHLORID 0.9% 500 ML INJ 500 ML IV SCH (12:00)
--- NOTE | 2017-06-02 12:29 | PD.RAD ---
Post Procedure Progress Note Pre Procedure Diagnosis: (1) Feeding tube dysfunction Post Procedure Diagnosis: (1) Enterocutaneous fistula Procedure Date: Jun 02, 2017 Supervising Radiologist: Jim Lucero JR Proceduralist/Assist: Albert Carreon, RT(R), Lalita Jones RT(R) Anesthesia: Other Plan of Activity Patient to Unit: Nursing Unit Patient Condition: Good Additional Comments: Asked to evaluate J tube with regards to leaking around the tube. Although there is some leakage around the tube the majority of drainage is coming from an enterocutaneous fistula that is draining to the skin surface directly adjacent to the jejunostomy site. I spoke with Dr Vega See PACS Report for procedural detail/treatment Jr. Nic,Jim Moya MD Jun 02, 2017 12:29
--- NOTE | 2017-06-02 15:42 | RADRPT ---
EXAM DATE/TIME: 06/02/2017 09:33 [facility] COMPARISON: No previous studies available for comparison. INDICATIONS : Patient with history of esophageal cancer in need of J-tube evaluation due to leakage. MEDICAL HISTORY : HLD, Esophageal cancer, Chemotherapy, GERD, HTN, Diabetes, SURGICAL HISTORY : J-tube placement, Port placement ENCOUNTER: Subsequent ACUITY: 1 day PAIN SCORE: 0/10 FLUORO TIME: 0.3 minutes IMAGE SERIES: 1 CONTRAST: 5 cc Omnipaque (iohexol) 350 PROCEDURE : 1. Fluoroscopically guided tube injection. 2. Conscious sedation with continuous EKG and oximetry monitoring. The risks, benefits and alternatives to the procedure were explained and verbal and written consent w as obtained. The site was prepped in sterile fashion. Full sterile technique was used, including ca p, mask, sterile gloves and gown and a large sterile sheet. Hand hygiene and 2% chlorhexidine and/or betadine/alcohol prep was utilized per protocol for cutaneous antisepsis. With fluoroscopic guidance the previously placed tube was injected demonstrating the tube in good pos ition. Evaluation of the site shows mild drainage around the tube but the vast majority of drainage i s occurring from an enterocutaneous fistula with the cutaneous opening directly adjacent to the jejun ostomy site. This is the main culprit for the drainage.>> Conscious sedation was performed with the prescribed dosages and duration as above in the presence of an independent trained radiology nurse to assist in the monitoring of the patient. EKG and oximetry remained stable throughout the procedure. The patient tolerated the procedure well and there were n o complications. The patient was sent to post anesthesia recovery in stable condition. CONCLUSION: The main issue for drainage is relating to an enterocutaneous fistula with the cutaneous opening dire ctly adjacent to the jejunostomy site. Only mild drainage is seen around the tube. I spoke with Dr. Patricio radford. Jim Lucero Jr., MD on June 02, 2017 at 15:38 Board Certified Radiologist. This report was verified electronically.
--- NOTE | 2017-06-02 16:55 | HHI.PR ---
Subjective Remarks Pt has been afebrile today BP more stable with the IVF Pt still having a lot of drainage from around the J-tube site Objective Vitals Vital Signs Date Time Temp Pulse Resp B/P Pulse Ox O2 Delivery O2 Flow Rate FiO2 06/02/17 16:00 98.0 81 20 119/67 95 06/02/17 12:00 97.4 86 20 113/64 96 06/02/17 08:50 Room Air 06/02/17 08:50 72 06/02/17 08:00 97.4 80 20 110/61 94 06/02/17 04:00 98.6 84 16 108/61 100 06/02/17 00:08 98.3 79 16 106/66 96 06/02/17 00:00 Room Air 06/01/17 21:32 97.7 79 16 107/59 97 06/01/17 18:45 76 16 110/61 96 Room Air 06/01/17 18:08 79 20 100/59 99 Room Air 06/01/17 17:10 79 20 86/50 99 Room Air 06/01/17 06/01/17 06/02/17 15:00 23:00 07:00 Intake Total 0 ml Output Total 225 ml Balance -225 ml Intake Oral 0 ml Output Urine Total 225 ml # Bowel Movements 0 Result Diagram: 06/02/17 0930 06/02/1730 Other Results Laboratory Tests Test 06/01/17 06/01/17 06/02/17 15:20 16:40 09:30 White Blood Count 3.4 TH/MM3 2.3 TH/MM3 Red Blood Count 3.32 MIL/MM3 2.66 MIL/MM3 Hemoglobin 9.9 GM/DL 8.0 GM/DL Hematocrit 29.1 % 23.5 % Mean Corpuscular Volume 87.5 FL 88.4 FL Mean Corpuscular Hemoglobin 29.9 PG 30.3 PG Mean Corpuscular Hemoglobin 34.1 % 34.2 % Concent Red Cell Distribution Width 17.9 % 18.1 % Platelet Count 135 TH/MM3 96 TH/MM3 Mean Platelet Volume 9.5 FL 9.1 FL Neutrophils (%) (Auto) 71.4 % 72.3 % Lymphocytes (%) (Auto) 6.9 % 6.4 % Monocytes (%) (Auto) 21.5 % 20.7 % Eosinophils (%) (Auto) 0.0 % 0.2 % Basophils (%) (Auto) 0.2 % 0.4 % Neutrophils # (Auto) 2.4 TH/MM3 1.7 TH/MM3 Lymphocytes # (Auto) 0.2 TH/MM3 0.1 TH/MM3 Monocytes # (Auto) 0.7 TH/MM3 0.5 TH/MM3 Eosinophils # (Auto) 0.0 TH/MM3 0.0 TH/MM3 Basophils # (Auto) 0.0 TH/MM3 0.0 TH/MM3 CBC Comment AUTO DIFF AUTO DIFF Differential Total Cells 100 100 Counted Neutrophils % (Manual) 60 % 62 % Band Neutrophils % 21 % 28 % Lymphocytes % 7 % Monocytes % 11 % 10 % Neutrophils # (Manual) 2.8 TH/MM3 2.1 TH/MM3 Metamyelocytes 1 % Differential Comment FINAL DIFF FINAL DIFF MANUAL MANUAL Platelet Estimate LOW LOW Platelet Morphology Comment NORMAL NORMAL Sodium Level 139 MEQ/L 142 MEQ/L Potassium Level 3.5 MEQ/L 3.1 MEQ/L Chloride Level 98 MEQ/L 106 MEQ/L Carbon Dioxide Level 32.4 MEQ/L 29.7 MEQ/L Anion Gap 9 MEQ/L 6 MEQ/L Blood Urea Nitrogen 70 MG/DL 44 MG/DL Creatinine 1.71 MG/DL 1.26 MG/DL Estimat Glomerular Filtration 40 ML/MIN 57 ML/MIN Rate Random Glucose 84 MG/DL 88 MG/DL Calcium Level 9.3 MG/DL 8.2 MG/DL Total Bilirubin 1.5 MG/DL Aspartate Amino Transf 30 U/L (AST/SGOT) Alanine Aminotransferase 24 U/L (ALT/SGPT) Alkaline Phosphatase 89 U/L Total Protein 7.6 GM/DL Albumin 2.8 GM/DL Blood Type O NEGATIVE Antibody Screen NEGATIVE Lactic Acid Level 1.2 mmol/L Nucleated Red Blood Cells 1 /100 WBC Ovalocytes 1+ Imaging Last Impressions Jejunostomy Tube Placement 06/02/17 1701 Signed Impressions: Service Date/Time: Friday, June 02, 2017 09:33 - CONCLUSION: The main issue for 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 Only mild drainage is seen around the tube. I spoke with Dr. Vega. Jim Lucero Jr., MD Chest X-Ray 06/01/17 0000 Signed Impressions: Service Date/Time: Thursday, June 01, 2017 16:19 - CONCLUSION: No acute cardiopulmonary abnormality is identified. Background lung findings are suggestive of emphysema. Nicholas Unger MD Objective Remarks General: NAD, AAOx3 Chest: CTA Cardiac: Regular Abd: +BS, soft nondistended, J tube in upper abdomen Ext: No edema A/P Problem List: (1) Hypotension Status: Acute Plan: - Pt is a 66 y/o male with adenocarcinoma of the esophagus diagnosed in 03/2017, who has been undergoing chemo and XRT since 04/2017. - He was at his oncologist's office on 06/01 to get his last dose of chemotherapy when he got very lightheaded and almost passed out. - Pt was hypotensive with systolic BP in the 80's in the office and pt was given 1 L of IV fluid bolus en route to the hospital. Upon arrival to the ED his systolic BP was in the 90's. - Pt had reportedly been having issues with his J tube for a few days prior to admission and liquids were reportedly leaking out and the pt had been vomiting. He had fallen a few days prior to admission and hit his head causing a large scalp laceration and bleeding. - Pt was continued on IVF following admission and his BP is improving with systolic BP in the 110's today - Blood cultures were drawn in the ER with NGTD. 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 Only mild drainage is seen around the tube. This was discussed between the radiologist and Dr. Vega. - We will discuss the case with Dr. 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 - He underwent exploratory lap and J tube placement by Dr. Sanchez on . - Pt has been undergoing weekly Carboplatin and Taxol with radiation - Pt follows with Dr. Medina (3) Feeding tube dysfunction Status: Acute Plan: - See above. (4) Sepsis Status: Acute Plan: - See above (5) Dehydration Status: Acute Plan: - See above. Assessment and Plan Patient examined. Assessment and plan formulated with Michelle Urbina PA-C. I agree with the above. Problem Qualifiers (1) Hypotension: Qualified Code: I95.9 - Hypotension, unspecified hypotension type (2) Sepsis: Qualified Code: A41.9 - Sepsis, due to unspecified organism Michelle Urbina Jun 02, 2017 16:55 See Jacobson DO Jun 06, 2017 08:56
[2017-06-02] MEDS: PANTOPRAZOLE SODIUM 40 MG VIAL IV PUSH SCH (16:56)
[2017-06-02] MEDS ORDERED: POTASSIUM CHLORIDE 25 MEQ EFFERVESCENT TAB J-TUBE ONE (18:00)
[2017-06-02] MEDS: INSULIN DETEMIR 100 UNITS/ML VIAL SQ SCH (21:00)
[2017-06-03] VITALS (7 sets, daily range): BP systolic 103–143; BP diastolic 58–69; PULSE 71–92; RESP 16–18; TEMP 97.5–98.6; O2SAT 95–99
[2017-06-03] MEDS: D5-1/2 NS + KCL 20 MEQ INJ 1,000 ML IV SCH ×3 (00:10→23:24)
[2017-06-03] MEDS: VANCOMYCIN INJ 1,250 MG in SODIUM CHLOR 0.9% 250 ML INJ 250 ML IV SCH (05:06)
[2017-06-03] MEDS: PIPERACIL-TAZO 4.5 GM PREMIX 100 ML IV SCH ×4 (05:06→22:09)
[2017-06-03] MEDS: HYDROmorphone HCL PF 1 MG/ML VIAL IV PUSH PRN ×5 (05:08→22:09)
[2017-06-03 05:47] LABS: HEMATOCRIT 24.1 % (39.0-51.0); MEAN CORPUSCULAR HEMOGLOBIN 29.8 PG (27.0-34.0); MEAN CORPUSCULAR HGB CONC 33.1 % (32.0-36.0); PLATELET COUNT 92 TH/MM3 (150-450); RED BLOOD COUNT 2.67 MIL/MM3 (4.50-5.90); RED CELL DISTRIBUTION WIDTH 18.6 % (11.6-17.2); WHITE BLOOD COUNT 1.9 TH/MM3 (4.0-11.0)
[2017-06-03 05:53] LABS: HEMO FLAGS AUTO DIFF
[2017-06-03 06:10] LABS: BICARBONATE 28.2 MEQ/L (21.0-32.0); MAGNESIUM 2.3 MG/DL (1.5-2.5); POTASSIUM 3.4 MEQ/L (3.5-5.1)
[2017-06-03] MEDS: INSULIN ASPART SUPPLEMENTAL SCALE SQ SCH ×4 (06:13→22:04)
[2017-06-03] MEDS: ONDANSETRON HCL 4 MG/2 ML VIAL IVP PRN ×2 (06:45→22:09)
[2017-06-03] MEDS: ALLOPURINOL 100 MG TAB J-TUBE SCH ×2 (08:27→09:00)
[2017-06-03] MEDS: SODIUM CHLORIDE 0.9% FLUSH 10 ML FLUSH IV FLUSH SCH ×2 (08:28→21:00)
[2017-06-03 09:31] LABS: BANDS 31 % (0-6); NEUTROPHIL # MANUAL DIFF 1.5 TH/MM3 (1.8-7.7); POLYS (SEG NEUTROPHILS) 46 % (16-70); WBC DIFF SAMPLE 100
[2017-06-03 09:34] LABS: OVALOCYTES 1+ (NORMAL)
[2017-06-03 09:35] LABS: SCAN/DIFF FINAL DIFF MANUAL
--- NOTE | 2017-06-03 14:08 | HHI.PR ---
Subjective Remarks No new complaints. Objective Vitals Vital Signs Date Time Temp Pulse Resp B/P Pulse Ox O2 Delivery O2 Flow Rate FiO2 06/03/17 12:00 97.9 75 16 115/63 96 06/03/17 08:00 97.5 78 16 114/58 98 06/03/17 08:00 Room Air 06/03/17 08:00 71 06/03/17 05:44 16 06/03/17 05:07 98.5 71 16 107/61 95 06/03/17 04:00 Room Air 06/03/17 00:00 Room Air 06/02/17 23:08 98.1 77 16 115/59 99 06/02/17 21:15 Room Air 06/02/17 20:50 98.4 75 16 108/56 96 06/02/17 20:00 84 06/02/17 16:00 98.0 81 20 119/67 95 06/02/17 06/02/17 06/03/17 14:59 22:59 06:59 Intake Total 1732 ml 0 ml 1087 ml Output Total 1000 ml 400 ml 250 ml Balance 732 ml -400 ml 837 ml Intake Oral 0 ml 0 ml IV Total 1732 ml 1087 ml Output Urine Total 1000 ml 400 ml 250 ml # Bowel Movements 0 0 Result Diagram: 06/03/17 0500 06/03/17 0500 Imaging Last Impressions Jejunostomy Tube Placement 06/02/17 1701 Signed Impressions: Service Date/Time: Friday, June 02, 2017 09:33 - CONCLUSION: The main issue for 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 Only mild drainage is seen around the tube. I spoke with Dr. Vega. Jim Lucero Jr., MD Chest X-Ray 06/01/17 0000 Signed Impressions: Service Date/Time: Thursday, June 01, 2017 16:19 - CONCLUSION: No acute cardiopulmonary abnormality is identified. Background lung findings are suggestive of emphysema. Nicholas Unger MD Objective Remarks General: NAD, AAOx3 Chest: CTA Cardiac: Regular Abd: +BS, soft nondistended, J tube in upper abdomen Ext: No edema A/P Problem List: (1) Hypotension Status: Acute Plan: - Pt is a 66 y/o male with adenocarcinoma of the esophagus diagnosed in 03/2017, who has been undergoing chemo and XRT since 04/2017. - He was at his oncologist's office on 06/01 to get his last dose of chemotherapy when he got very lightheaded and almost passed out. - Pt was hypotensive with systolic BP in the 80's in the office and pt was given 1 L of IV fluid bolus en route to the hospital. Upon arrival to the ED his systolic BP was in the 90's. - Pt had reportedly been having issues with his J tube for a few days prior to admission and liquids were reportedly leaking out and the pt had been vomiting. He had fallen a few days prior to admission and hit his head causing a large scalp laceration and bleeding. 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 Only mild drainage is seen around the tube - Case was d/w Dr. Vega (06/03/17) - Case d/w Dr. 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 - He underwent exploratory lap and J tube placement by Dr. Sanchez on . - Pt has been undergoing weekly Carboplatin and Taxol with radiation - Pt follows with Dr. Medina (3) Feeding tube dysfunction Status: Acute Plan: - See above. (4) Sepsis Status: Acute Plan: - See above (5) Dehydration Status: Acute Plan: - See above. Problem Qualifiers (1) Hypotension: Qualified Code: I95.9 - Hypotension, unspecified hypotension type (2) Sepsis: Qualified Code: A41.9 - Sepsis, due to unspecified organism See Jacobson DO Jun 03, 2017 14:08
[2017-06-03] MEDS: PANTOPRAZOLE SODIUM 40 MG VIAL IV PUSH SCH (16:36)
--- NOTE | 2017-06-03 16:57 | HHI.PR ---
Subjective Remarks Pt c/o dilaudid NOT effective enough. Objective Vitals Vital Signs Date Time Temp Pulse Resp B/P Pulse Ox O2 Delivery O2 Flow Rate FiO2 06/03/17 12:00 97.9 75 16 115/63 96 06/03/17 08:00 97.5 78 16 114/58 98 06/03/17 08:00 Room Air 06/03/17 08:00 71 06/03/17 05:44 16 06/03/17 05:07 98.5 71 16 107/61 95 06/03/17 04:00 Room Air 06/03/17 00:00 Room Air 06/02/17 23:08 98.1 77 16 115/59 99 06/02/17 21:15 Room Air 06/02/17 20:50 98.4 75 16 108/56 96 06/02/17 20:00 84 06/02/17 06/02/17 06/03/17 15:00 23:00 07:00 Intake Total 1732 ml 0 ml 1087 ml Output Total 1000 ml 400 ml 250 ml Balance 732 ml -400 ml 837 ml Intake Oral 0 ml 0 ml IV Total 1732 ml 1087 ml Output Urine Total 1000 ml 400 ml 250 ml # Bowel Movements 0 0 Result Diagram: 06/03/17 0500 06/03/17 0500 Imaging Last Impressions Jejunostomy Tube Placement 06/02/17 1701 Signed Impressions: Service Date/Time: Friday, June 02, 2017 09:33 - CONCLUSION: The main issue for 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 Only mild drainage is seen around the tube. I spoke with Dr. Vega. Jim Lucero Jr., MD Chest X-Ray 06/01/17 0000 Signed Impressions: Service Date/Time: Thursday, June 01, 2017 16:19 - CONCLUSION: No acute cardiopulmonary abnormality is identified. Background lung findings are suggestive of emphysema. Nicholas Unger MD Objective Remarks General: NAD, AAOx3 Chest: CTA Cardiac: Regular Abd: +BS, soft nondistended, J tube in upper abdomen Ext: No edema A/P Problem List: (1) Hypotension Status: Acute Plan: - Pt is a 66 y/o male with adenocarcinoma of the esophagus diagnosed in 03/2017, who has been undergoing chemo and XRT since 04/2017. - He was at his oncologist's office on 06/01 to get his last dose of chemotherapy when he got very lightheaded and almost passed out. - Pt was hypotensive with systolic BP in the 80's in the office and pt was given 1 L of IV fluid bolus en route to the hospital. Upon arrival to the ED his systolic BP was in the 90's. - Pt had reportedly been having issues with his J tube for a few days prior to admission and liquids were reportedly leaking out and the pt had been vomiting. He had fallen a few days prior to admission and hit his head causing a large scalp laceration and bleeding. 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 Only mild drainage is seen around the tube - Case was d/w Dr. Vega (06/03/17) - Case d/w Dr. 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 - He underwent exploratory lap and J tube placement by Dr. Sanchez on . - Pt has been undergoing weekly Carboplatin and Taxol with radiation - Pt follows with Dr. Medina (3) Feeding tube dysfunction Status: Acute Plan: - See above. (4) Sepsis Status: Acute Plan: - See above (5) Dehydration Status: Acute Plan: - See above. Problem Qualifiers (1) Hypotension: Qualified Code: I95.9 - Hypotension, unspecified hypotension type (2) Sepsis: Qualified Code: A41.9 - Sepsis, due to unspecified organism See Jacobson DO Jun 03, 2017 16:57
[2017-06-03] MEDS: INSULIN DETEMIR 100 UNITS/ML VIAL SQ SCH (22:03)
[2017-06-03] MEDS ORDERED: PHARMACY ORDERED LAB ONE (23:45)
[2017-06-04] VITALS (7 sets, daily range): BP systolic 113–138; BP diastolic 67–80; PULSE 67–84; RESP 16–18; TEMP 97–97.9; O2SAT 92–98
[2017-06-04] MEDS: VANCOMYCIN INJ 1,250 MG in SODIUM CHLOR 0.9% 250 ML INJ 250 ML IV SCH ×2 (00:52→18:48)
[2017-06-04] MEDS: HYDROmorphone HCL PF 1 MG/ML VIAL IV PUSH PRN ×5 (03:27→22:16)
[2017-06-04] MEDS: PIPERACIL-TAZO 4.5 GM PREMIX 100 ML IV SCH ×4 (05:15→22:18)
[2017-06-04] MEDS: INSULIN ASPART SUPPLEMENTAL SCALE SQ SCH ×4 (06:19→21:00)
[2017-06-04] MEDS: SODIUM CHLORIDE 0.9% FLUSH 10 ML FLUSH IV FLUSH SCH ×2 (07:49→21:00)
[2017-06-04] MEDS: ALLOPURINOL 100 MG TAB J-TUBE SCH (07:50)
[2017-06-04] MEDS ORDERED: PHARMACY ORDERED LAB-VANCO TROUGH ONE (11:45)
[2017-06-04] MEDS: D5-1/2 NS + KCL 20 MEQ INJ 1,000 ML IV SCH (12:19)
[2017-06-04 13:17] LABS: APTT (PATIENT) 26.1 SEC (24.3-30.1)
[2017-06-04] MEDS ORDERED: fentaNYL CITRATE 250 MCG/5 ML AMP ONE (15:45)
[2017-06-04] MEDS ORDERED: MIDAZOLAM HCL 2 MG/2 ML VIAL ONE ×2 (15:45)
[2017-06-04] MEDS ORDERED: GLUCAGON 1 MG/ML VIAL ONE (16:19)
--- NOTE | 2017-06-04 16:33 | PD.RAD ---
Post Procedure Progress Note Pre Procedure Diagnosis: (1) Enterocutaneous fistula Post Procedure Diagnosis: (1) Enterocutaneous fistula Procedure Date: Jun 04, 2017 Supervising Radiologist: Jim Lucero JR Proceduralist/Assist: Lalita Jones RT(R), Aubrey Berrios RT(R)() Anesthesia: Conscious Sedation Plan of Activity Patient to Unit: ROPU Patient Condition: Good Additional Comments: Asked to place G tube and remove J tube. NG tube placed into stomach. Unable to distend the stomach to push the transverse colon out of the way. Stomach is rigid. Cannot sufficiently distend the stomach to place the G tube. Will need to be placed surgically. J tube left in place until G tube can be achieved. Will speak to Dr Vega. See PACS Report for procedural detail/treatment Jr. Nic,Jim Moya MD Jun 04, 2017 16:33
--- NOTE | 2017-06-04 17:48 | HHI.PR ---
Subjective Remarks No new complaints. Objective Vitals Vital Signs Date Time Temp Pulse Resp B/P Pulse Ox O2 Delivery O2 Flow Rate FiO2 06/04/17 17:30 70 18 124/80 96 06/04/17 17:00 71 18 138/67 94 06/04/17 16:45 97.9 74 18 92 06/04/17 12:00 97.7 67 18 130/75 98 06/04/17 08:00 Room Air 06/04/17 08:00 75 06/04/17 08:00 97.6 68 18 129/71 98 06/04/17 04:05 97.7 76 16 113/71 96 06/04/17 04:04 18 06/04/17 04:00 Room Air 06/04/17 00:00 Room Air 06/03/17 23:33 98.6 92 18 103/58 98 06/03/17 22:05 Room Air 06/03/17 20:20 97.9 72 16 116/67 99 06/03/17 20:05 73 06/03/17 06/03/17 06/04/17 15:00 23:00 07:00 Intake Total 552 ml 0 ml 0 ml Output Total 350 ml 150 ml 200 ml Balance 202 ml -150 ml -200 ml Intake Oral 0 ml 0 ml IV Total 552 ml Output Urine Total 350 ml 150 ml 200 ml # Bowel Movements 1 0 Result Diagram: 06/03/17 0500 06/03/17 0500 Imaging Last Impressions Jejunostomy Tube Placement 06/02/17 1701 Signed Impressions: Service Date/Time: Friday, June 02, 2017 09:33 - CONCLUSION: The main issue for 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 Only mild drainage is seen around the tube. I spoke with Dr. Vega. Jim Lucero Jr., MD Chest X-Ray 06/01/17 0000 Signed Impressions: Service Date/Time: Thursday, June 01, 2017 16:19 - CONCLUSION: No acute cardiopulmonary abnormality is identified. Background lung findings are suggestive of emphysema. Nicholas Unger MD Objective Remarks General: NAD, AAOx3 Chest: CTA Cardiac: Regular Abd: +BS, soft nondistended, J tube in upper abdomen Ext: No edema A/P Problem List: (1) Hypotension Status: Acute Plan: - Pt is a 66 y/o male with adenocarcinoma of the esophagus diagnosed in 03/2017, who has been undergoing chemo and XRT since 04/2017. - He was at his oncologist's office on 06/01 to get his last dose of chemotherapy when he got very lightheaded and almost passed out. - Pt was hypotensive with systolic BP in the 80's in the office and pt was given 1 L of IV fluid bolus en route to the hospital. Upon arrival to the ED his systolic BP was in the 90's. - Pt had reportedly been having issues with his J tube for a few days prior to admission and liquids were reportedly leaking out and the pt had been vomiting. He had fallen a few days prior to admission and hit his head causing a large scalp laceration and bleeding. 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 Only mild drainage is seen around the tube - Case was d/w Dr. Vega (06/03/17) - Case d/w Dr. 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 - He underwent exploratory lap and J tube placement by Dr. Sanchez on . - Pt has been undergoing weekly Carboplatin and Taxol with radiation - Pt follows with Dr. Medina (3) Feeding tube dysfunction Status: Acute Plan: - See above. (4) Sepsis Status: Acute Plan: - See above (5) Dehydration Status: Acute Plan: - See above. Problem Qualifiers (1) Hypotension: Qualified Code: I95.9 - Hypotension, unspecified hypotension type (2) Sepsis: Qualified Code: A41.9 - Sepsis, due to unspecified organism See Jacobson DO Jun 04, 2017 17:48
[2017-06-04] MEDS: PANTOPRAZOLE SODIUM 40 MG VIAL IV PUSH SCH (18:20)
[2017-06-04] MEDS: INSULIN DETEMIR 100 UNITS/ML VIAL SQ SCH (21:00)
[2017-06-05] VITALS: BP 148/71; PULSE 73; RESP 16; TEMP 97.5; O2SAT 97
[2017-06-05] MEDS: D5-1/2 NS + KCL 20 MEQ INJ 1,000 ML IV SCH ×2 (00:30→05:31)
[2017-06-05] MEDS: HYDROmorphone HCL PF 1 MG/ML VIAL IV PUSH PRN ×6 (02:40→22:34)
[2017-06-05] MEDS: ONDANSETRON HCL 4 MG/2 ML VIAL IVP PRN ×3 (02:40→16:14)
[2017-06-05 04:00] VITALS: BP 146/69; PULSE 75; RESP 18; TEMP 97.7; O2SAT 97
[2017-06-05 05:08] LABS: HEMATOCRIT 24.1 % (39.0-51.0); MEAN CELL VOLUME 91.5 FL (80.0-100.0); MEAN CORPUSCULAR HGB CONC 32.8 % (32.0-36.0); PLATELET COUNT 63 TH/MM3 (150-450); RED BLOOD COUNT 2.63 MIL/MM3 (4.50-5.90); RED CELL DISTRIBUTION WIDTH 19.6 % (11.6-17.2); WHITE BLOOD COUNT 1.7 TH/MM3 (4.0-11.0)
[2017-06-05 05:10] LABS: HEMO FLAGS AUTO DIFF
[2017-06-05] MEDS: PIPERACIL-TAZO 4.5 GM PREMIX 100 ML IV SCH ×4 (05:30→22:50)
[2017-06-05] MEDS: INSULIN ASPART SUPPLEMENTAL SCALE SQ SCH ×4 (05:31→20:39)
[2017-06-05 05:39] LABS: BANDS 13 % (0-6); BASOPHILS 2 % (0-2); CORRECTED NUCLEATED RBC 1 /100 WBC (0-0); METAMYELOCYTES 1 % (0-1); MYELOCYTES 2 % (0-0); NEUTROPHIL # MANUAL DIFF 1.4 TH/MM3 (1.8-7.7); POLYS (SEG NEUTROPHILS) 64 % (16-70); WBC DIFF SAMPLE 100
[2017-06-05 05:40] LABS: BICARBONATE 26.8 MEQ/L (21.0-32.0); MAGNESIUM 1.8 MG/DL (1.5-2.5); POTASSIUM 3.5 MEQ/L (3.5-5.1)
[2017-06-05 05:52] LABS: PLATELET ESTIMATE SMEAR LOW (NORMAL); PLATELET MORPHOLOGY NORMAL (NORMAL); SCAN/DIFF FINAL DIFF MANUAL
[2017-06-05] MEDS: SODIUM CHLORIDE 0.9% FLUSH 10 ML FLUSH IV FLUSH SCH ×2 (07:49→20:31)
[2017-06-05 08:00] VITALS: BP 179/86; PULSE 89; RESP 18; TEMP 98.1; O2SAT 99
[2017-06-05] MEDS: ALLOPURINOL 100 MG TAB J-TUBE SCH (08:14)
--- NOTE | 2017-06-05 09:17 | RADRPT ---
EXAM DATE/TIME: 06/04/2017 15:55 [facility] COMPARISON: No previous studies available for comparison. INDICATIONS : Patient with history of esophageal cancer in need of evaluation for g-tube placement. MEDICAL HISTORY : HLD, HTN, Diabetes, GERD, Esophageal cancer, Chemotherapy SURGICAL HISTORY : J-tube placement, [place] ENCOUNTER: Subsequent ACUITY: 3 days PAIN SCORE: 0/10 FLUORO TIME: 2.8 minutes IMAGE SERIES: 1 SEDATION TIME: 10 minutes CONTRAST: 10 cc Omnipaque (iohexol) 350 MEDICATION(S): 1.) 2 mg midazolam (Versed) IV 2.) 100 mcg Fentanyl (Sublimaze) IV DEVICE(S): 1.) [id number] Berenstein catheter PROCEDURE : 1. Fluoroscopically guided enteric feeding tube placement. The risks, benefits and alternatives to the procedure were explained and verbal and written consent w as obtained. With fluoroscopic guidance a 4 Upper [place] nasogastric tube was passed through the nasal cav ity into the stomach. This was performed in preparation for gastrostomy tube placement. Attempts at distending the stomach with air under fluoroscopic control were unsuccessful. The stomach fails to di stend with the air. There is diffuse thickening of the rugal folds of the stomach particularly in the region of the cardia and fundus. The air simply decompresses up the esophagus or out the duodenum. I njection of contrast the tube was performed to confirm the appropriate position within the lumen and tested the patency of the tube. CONCLUSION: Nasogastric tube placed in preparation for G-tube placement. 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 I was unable to distend the stomach sufficiently to displace the colon out of the way to place a gastrostomy tube. I have spoken to Dr Vega. Jim Lucero Jr., MD on June 05, 2017 at 9:13 Board Certified Radiologist. This report was verified electronically.
[2017-06-05] MEDS: VANCOMYCIN INJ 1,250 MG in SODIUM CHLOR 0.9% 250 ML INJ 250 ML IV SCH (11:39)
[2017-06-05 12:00] VITALS: BP 125/70; PULSE 72; RESP 18; TEMP 98.2; O2SAT 95
[2017-06-05 16:00] VITALS: BP 124/71; PULSE 74; RESP 18; TEMP 97.9; O2SAT 96
--- NOTE | 2017-06-05 16:14 | HHI.PR ---
Subjective Remarks Pt concerned about continued drainage onto his abdominal wall d/t enterocutaneous fistula Objective Vitals Vital Signs Date Time Temp Pulse Resp B/P Pulse Ox O2 Delivery O2 Flow Rate FiO2 06/05/17 12:00 98.2 72 18 125/70 95 06/05/17 11:59 Room Air 06/05/17 08:00 98.1 89 18 179/86 99 06/05/17 04:00 Room Air 06/05/17 04:00 97.7 75 18 146/69 97 06/05/17 00:00 97.5 73 16 148/71 97 06/05/17 00:00 Room Air 06/04/17 20:00 Room Air 06/04/17 20:00 75 06/04/17 20:00 97.0 84 18 135/72 98 06/04/17 17:30 70 18 124/80 96 06/04/17 17:00 71 18 138/67 94 06/04/17 16:45 97.9 74 18 92 06/04/17 06/04/17 06/05/17 15:00 23:00 07:00 Intake Total 1192 ml 0 ml 1233 ml Output Total 800 ml 300 ml 400 ml Balance 392 ml -300 ml 833 ml Intake Oral 0 ml 0 ml IV Total 1192 ml 1233 ml Output Urine Total 800 ml 300 ml 400 ml # Bowel Movements 1 0 0 Result Diagram: 06/05/17 0500 06/05/17 0500 Imaging Last Impressions Abdomen Fluoroscopy 06/04/17 0000 Signed Impressions: Service Date/Time: May 15:55 - CONCLUSION: Nasogastric tube placed in preparation for G-tube placement. 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 I was unable to distend the stomach sufficiently to displace the colon out of the way to place a gastrostomy tube. I have spoken to Dr Vega. 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 Only mild drainage is seen around the tube. I spoke with Dr. Vega. Jim Lucero Jr., MD Chest X-Ray 06/01/17 0000 Signed Impressions: Service Date/Time: Thursday, June 01, 2017 16:19 - CONCLUSION: No acute cardiopulmonary abnormality is identified. Background lung findings are suggestive of emphysema. Nicholas Unger MD Objective Remarks General: NAD, AAOx3 Chest: CTA Cardiac: Regular Abd: +BS, soft nondistended, J tube in upper abdomen continued drainage from fistula, mild erythema surrounding j-tube site Ext: No edema A/P Problem List: (1) Hypotension Status: Acute Plan: - Pt is a 66 y/o male with adenocarcinoma of the esophagus diagnosed in 03/2017, who has been undergoing chemo and XRT since 04/2017. - He was at his oncologist's office on 06/01 to get his last dose of chemotherapy when he got very lightheaded and almost passed out. - Pt was hypotensive with systolic BP in the 80's in the office and pt was given 1 L of IV fluid bolus en route to the hospital. Upon arrival to the ED his systolic BP was in the 90's. - Pt had reportedly been having issues with his J tube for a few days prior to admission and liquids were reportedly leaking out and the pt had been vomiting. He had fallen a few days prior to admission and hit his head causing a large scalp laceration and bleeding. 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 Only mild drainage is seen around the tube - Case was d/w Dr. Vega (06/03/17) - Case d/w Dr. Lucero (06/03/17) - G- tube could NOT be placed by IR - Pt will need surgical placement of G-tube - resume tube feedings by J-tube - pt developing worsening hypernatremia - start D5W with KCL - may require fistula repair - consult placed for Dr. Vega - case informally d/[facility] suggests continuing antibiotics overnight - request PICC in AM, and start TPN 06/06 - pt is afebrile, bandemia improving - blood cultures negative x 4d at this time. 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 - He underwent exploratory lap and J tube placement by Dr. Sanchez on . - Pt has been undergoing weekly Carboplatin and Taxol with radiation - Pt follows with Dr. Medina (3) Feeding tube dysfunction Status: Acute Plan: - See above. (4) Sepsis Status: Acute Plan: - See above (5) Dehydration Status: Acute Plan: - See above. Problem Qualifiers (1) Hypotension: Qualified Code: I95.9 - Hypotension, unspecified hypotension type (2) Sepsis: Qualified Code: A41.9 - Sepsis, due to unspecified organism See Jacobson DO Jun 05, 2017 16:14
[2017-06-05] MEDS ORDERED: D5W + KCL 20 MEQ INJ 1,000 ML IV SCH (17:00)
[2017-06-05] MEDS: PANTOPRAZOLE SODIUM 40 MG VIAL IV PUSH SCH (17:21)
[2017-06-05] MEDS ORDERED: BENZOCAINE 20% TOPICAL SPRAY 60 ML CAN TOPICAL PRN (17:30)
[2017-06-05 20:00] VITALS: BP 139/73; PULSE 61; PULSE 79; RESP 16; TEMP 98.3; O2SAT 95
[2017-06-05] MEDS: CLINIMIX E 5/25 1000 mL- </= 42 mls/hr IV-CENTRAL SCH ×3 (20:23)
[2017-06-05] MEDS: FAT EMULSION 20% INJ 250 ML (@10 mls/hr) IV-CENTRAL SCH (20:23)
[2017-06-05] MEDS: SILVER SULFADIAZINE 1% CR 50 GM JAR TOPICAL SCH (20:40)
[2017-06-06] VITALS (8 sets, daily range): BP systolic 119–156; BP diastolic 70–82; PULSE 67–85; RESP 16–20; TEMP 97.5–99.2; O2SAT 95–98
[2017-06-06] MEDS: HYDROmorphone HCL PF 1 MG/ML VIAL IV PUSH PRN ×8 (02:04→23:14)
[2017-06-06] MEDS: PIPERACIL-TAZO 4.5 GM PREMIX 100 ML IV SCH ×4 (05:01→23:13)
[2017-06-06 05:39] LABS: AUTOMATED NEUTROPHIL # 1.3 TH/MM3 (1.8-7.7); BASOPHIL % 0.8 % (0.0-2.0); EOSINOPHIL % 0.5 % (0.0-4.0); HEMATOCRIT 25.3 % (39.0-51.0); LYMPH % 5.5 % (9.0-44.0); LYMPHOCYTE # 0.1 TH/MM3 (1.0-4.8); MEAN CELL VOLUME 92.6 FL (80.0-100.0); MEAN CORPUSCULAR HEMOGLOBIN 29.7 PG (27.0-34.0); MONO % 18.7 % (0.0-8.0); NEUT % 74.5 % (16.0-70.0); PLATELET COUNT 67 TH/MM3 (150-450); RED BLOOD COUNT 2.73 MIL/MM3 (4.50-5.90); RED CELL DISTRIBUTION WIDTH 20.1 % (11.6-17.2); WHITE BLOOD COUNT 1.7 TH/MM3 (4.0-11.0)
[2017-06-06 05:41] LABS: HEMO FLAGS AUTO DIFF
[2017-06-06 05:43] LABS: BICARBONATE 28.9 MEQ/L (21.0-32.0); MAGNESIUM 1.8 MG/DL (1.5-2.5); POTASSIUM 3.3 MEQ/L (3.5-5.1)
[2017-06-06] MEDS: VANCOMYCIN INJ 1,250 MG in SODIUM CHLOR 0.9% 250 ML INJ 250 ML IV SCH ×2 (05:55→23:14)
[2017-06-06] MEDS: INSULIN ASPART SUPPLEMENTAL SCALE SQ SCH ×4 (06:26→20:45)
[2017-06-06 07:23] LABS: BANDS 11 % (0-6); BASOPHILS 1 % (0-2); METAMYELOCYTES 2 % (0-1); MYELOCYTES 2 % (0-0); NEUTROPHIL # MANUAL DIFF 1.4 TH/MM3 (1.8-7.7); PLATELET ESTIMATE SMEAR LOW (NORMAL); PLATELET MORPHOLOGY NORMAL (NORMAL); POLYS (SEG NEUTROPHILS) 67 % (16-70); SCAN/DIFF FINAL DIFF MANUAL; WBC DIFF SAMPLE 100
[2017-06-06] MEDS: SILVER SULFADIAZINE 1% CR 50 GM JAR TOPICAL SCH ×2 (08:21→20:40)
[2017-06-06] MEDS: ALLOPURINOL 100 MG TAB J-TUBE SCH ×3 (08:23→09:00)
[2017-06-06] MEDS: SODIUM CHLORIDE 0.9% FLUSH 10 ML FLUSH IV FLUSH SCH ×2 (08:24→20:37)
[2017-06-06] MEDS: ONDANSETRON HCL 4 MG/2 ML VIAL IVP PRN ×2 (10:59→20:36)
--- NOTE | 2017-06-06 13:13 | PD.CONS ---
HPI History of Present Illness This is a 66 year old who was diagnosed with esophageal cancer in March 2017. He was having dysphagia and underwent an EGD (03/23/17)-----> Circumferential mass was found in the distal esophagus, circumferential, completely obstructing. 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 He was evaluated by oncology and underwent an exploratory laparoscopy with J tube placement and had a port placed. He then started neoadjuvant chemotherapy with radiation. He last had chemotherapy on May 18 with paclitaxel and carboplatin. He reports that he only has one more chemo and one more radiation. 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 IR was consulted and evaluated the patient for removal of J tube with G tube placement on 06/04/17, but IR was unable to sufficiently distend the stomach to place the tube surgically and felt that it would need to be placed surgically. GS has been consulted and came in yesterday and removed the J tube and placed a collection bag over the enterocutaneous fistula to collect the drainage. GI has been consulted for esophageal stent placement on Thursday. The patient tells me that he is only able to tolerate ice chips. He is not able to drink liquids or take solids at this time. He has intermittent epigastric pain that radiates from his epigastric area up into his chest and upper esophagus. He has associated nausea. He denies any issues moving his bowels and denies any GI bleeding. ( Kimi Carlos) PFSH Past Medical History Chronic kidney disease Esophageal adenocarcinoma DM Dysphagia Gout GERD Hyperlipidemia Possible Beltran's esophagus Malfunctioning J tube, enterocutaneous fistula Past Surgical History Exp. Lap with J tube placement Port placement EGD (Kimi Carlos) Coded Allergies: No Known Allergies (Unverified , 03/25/17) Medications Allergies Coded Allergies Type Severity Reaction Last Updated Verified No Known Allergies 03/25/17 No Active Scripts Medications Dose Route/Sig Days Date Category Dose Instructions Oxycodone (Oxycodone HCl) 20 Mg Tab 20 Mg J-TUBE Q4-6H PRN 06/01/17 Reported Commode 3-in-1 (Device) 1 Mis Mis 1 Ea .ROUTE DIRECTED 05/08/17 Rx Protonix (Pantoprazole Sodium) 40 Mg Tab 40 Mg PEG DAILY 05/08/17 Rx Zyloprim (Allopurinol) 100 Mg Tab 100 Mg J-TUBE DAILY 05/08/17 Rx Lantus Inj (Insulin Glargine) 1,000 Unit/10 Ml Vial 15 Units SQ HS 30 05/08/17 Rx 15 units every evening 10 units every morning Hospital Bed - Manual 1 Ea Ea 1 Ea .ROUTE DIRECTED 05/01/17 Rx Novolog Inj (Insulin Aspart) 1,000 Unit/10 Ml Vial 0 SQ DIRECTED 04/27/17 Reported Sliding Scale as directed. Kangaroo Ez Cap Pump Set/ (Feeding Tubes - Pump) 1 Mis Mis Unit 04/03/17 Rx glucerna 1.5 70ml/hr 7pm-7am daily Family History Sister had breast cancer Father had prostate cancer Brother had lung cancer Social History Quit smoking 15 years ago, 20 pack year smoking history before that Hx drinking daily vodka 2 drinks a day- not currently. (Kimi Carlos) Review of Systems Constitutional: COMPLAINS OF: Weight loss, DENIES: Fever, Chills Respiratory: COMPLAINS OF: Cough Cardiovascular: COMPLAINS OF: Chest pain Gastrointestinal: COMPLAINS OF: Abdominal pain, Nausea, Vomiting, Difficulty Swallowing, Anorexia, Odynophagia, Heartburn, DENIES: Black stools, Bloody stools, Constipation, Diarrhea, Hematemesis Musculoskeletal: COMPLAINS OF: Joint pain Hematologic/lymphatic: DENIES: Bruising Neurologic: DENIES: Headache Psychiatric: DENIES: Confusion (Kimi Carlos) GI Exam Vitals I&O Vital Signs Date Time Temp Pulse Resp B/P Pulse Ox O2 Delivery O2 Flow Rate FiO2 06/06/17 08:00 97.8 82 20 140/81 96 06/06/17 04:00 99.2 85 16 156/82 95 06/06/17 00:00 97.5 67 16 149/70 98 06/05/17 20:00 98.3 61 16 139/73 95 06/05/17 20:00 Room Air 06/05/17 20:00 79 06/05/17 16:00 97.9 74 18 124/71 96 I/O 06/05/17 06/05/17 06/05/17 06/06/17 06/06/17 06/06/17 06:59 14:59 22:59 06:59 14:59 22:59 Intake Total 1233 ml Output Total 400 ml 800 ml 700 ml Balance 833 ml -800 ml -700 ml Intake Oral 0 ml IV Total 1233 ml Output Urine Total 400 ml 800 ml 700 ml # Bowel Movements 0 Imaging Last Impressions Abdomen Fluoroscopy 06/04/17 0000 Signed Impressions: Service Date/Time: May 15:55 - CONCLUSION: Nasogastric tube placed in preparation for G-tube placement. 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 I was unable to distend the stomach sufficiently to displace the colon out of the way to place a gastrostomy tube. I have spoken to Dr Vega. 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 Only mild drainage is seen around the tube. I spoke with Dr. Vega. Jim Lucero Jr., MD Chest X-Ray 06/01/17 0000 Signed Impressions: Service Date/Time: Thursday, June 01, 2017 16:19 - CONCLUSION: No acute cardiopulmonary abnormality is identified. Background lung findings are suggestive of emphysema. Nicholas Unger MD Laboratory Test 06/06/17 04:59 White Blood Count 1.7 TH/MM3 Red Blood Count 2.73 MIL/MM3 Hemoglobin 8.1 GM/DL Hematocrit 25.3 % Mean Corpuscular Volume 92.6 FL Mean Corpuscular Hemoglobin 29.7 PG Mean Corpuscular Hemoglobin 32.0 % Concent Red Cell Distribution Width 20.1 % Platelet Count 67 TH/MM3 Mean Platelet Volume 8.2 FL Neutrophils (%) (Auto) 74.5 % Lymphocytes (%) (Auto) 5.5 % Monocytes (%) (Auto) 18.7 % Eosinophils (%) (Auto) 0.5 % Basophils (%) (Auto) 0.8 % Neutrophils # (Auto) 1.3 TH/MM3 Lymphocytes # (Auto) 0.1 TH/MM3 Monocytes # (Auto) 0.3 TH/MM3 Eosinophils # (Auto) 0.0 TH/MM3 Basophils # (Auto) 0.0 TH/MM3 CBC Comment AUTO DIFF Differential Total Cells 100 Counted Neutrophils % (Manual) 67 % Band Neutrophils % 11 % Lymphocytes % 3 % Monocytes % 14 % Basophils % 1 % Neutrophils # (Manual) 1.4 TH/MM3 Metamyelocytes 2 % Myelocytes 2 % Differential Comment FINAL DIFF MANUAL Platelet Estimate LOW Platelet Morphology Comment NORMAL Sodium Level 145 MEQ/L Potassium Level 3.3 MEQ/L Chloride Level 112 MEQ/L Carbon Dioxide Level 28.9 MEQ/L Anion Gap 4 MEQ/L Blood Urea Nitrogen 13 MG/DL Creatinine 1.14 MG/DL Estimat Glomerular Filtration 64 ML/MIN Rate Random Glucose 373 MG/DL Calcium Level 7.8 MG/DL Magnesium Level 1.8 MG/DL Date/Time Procedure Status Source Growth 06/01/17 19:20 Gram Stain - Final Complete Wound Abdomen 06/01/17 19:20 Wound Culture - Final Complete Wound Abdomen 06/01/17 16:40 Aerobic Blood Culture - Final Complete Blood Peripheral NO GROWTH IN 5 DAYS 06/01/17 16:40 Anaerobic Blood Culture - Final Complete Blood Peripheral NO GROWTH IN 5 DAYS Physical Examination HEENT: Normocephalic; atraumatic; no jaundice. CHEST: CTA, diminished CARDIAC: RRR ABDOMEN: Soft, nondistended,mild epigastric tenderness; no hepatosplenomegaly; collection bag left upper abdomen draining clear yellow drainage EXTREMITIES: No clubbing, cyanosis, or edema. SKIN: Normal; no rash; no jaundice. QUALITY ASSURANCE ADVISOR: No focal deficits; alert and oriented times three. (Kimi Carlos) Assessment and Plan Plan ASSESSMENT: - Dysphagia/Malnutrition. Pt with hx of esophageal cancer, getting chemotherapy /radiation, s/p j tube placement. He is only able to tolerate ice chips. 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 IR was consulted and evaluated the patient for removal of J tube with G tube placement on 06/04/17, but IR was unable to sufficiently distend the stomach to place the tube surgically and felt that it would need to be placed surgically. GS has been consulted and came in yesterday and removed the J tube and placed a collection bag over the enterocutaneous fistula to collect the drainage. They would like to try an esophageal stent to see if patient would be able to take in adequate po to avoid G tube. Of note, he reports that he only has one more radiation and chemo treatment. He is on TPN. Ice Chips. Will plan for EGD with possible esophageal stent placement on Thursday. 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 Currently with collection bag with small to moderate amount clear yellowish drainage. GS following. - Esophageal cancer. 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 S/P exploratory laparoscopy with J tube placement and had a port placed. Tx with neoadjuvant chemotherapy with radiation-last had chemotherapy on May 18 with paclitaxel and carboplatin. States that he only has one more chemo and one more radiation. - Sepsis. Abdominal wound with PSAE, Enterococcus faecalis, vin albicans. Rpt cx with >= 3 mixed enteric GNR with no predominant organism. Vanco, Zosyn PLAN: - Plan for EGD with possible esophageal stent placement Thursday - Obtain consents - NPO except ice chips- strict npo after MN Thursday night - TPN - Abx per attending - Monitor labs - GS following - Further recommendations to follow based on results of above - Pt seen and examined by Dr. Arriaga and myself and this note is written on his behalf (Kimi Carlos) Physician Comments Seen and examined with Kimi. Plan for EGD and possible stenting Thursday. Risk, benefits and complications explained to the patient. Further recommendations to follow. (Matt Arriaga MD) Kimi Carlos Jun 06, 2017 13:13 Matt Arriaga MD Jun 06, 2017 14:09
[2017-06-06] MEDS: PANTOPRAZOLE SODIUM 40 MG VIAL IV PUSH SCH (16:42)
--- NOTE | 2017-06-06 17:50 | HHI.PR ---
Subjective Remarks decreased pain at skin surrounding J-tube site. c/o cough productive of green sputum Objective Vitals Vital Signs Date Time Temp Pulse Resp B/P Pulse Ox O2 Delivery O2 Flow Rate FiO2 06/06/17 16:00 98.0 78 20 140/75 95 06/06/17 12:00 97.8 20 119/70 97 06/06/17 09:00 96 Room Air 06/06/17 08:00 97.8 82 20 140/81 96 06/06/17 04:00 99.2 85 16 156/82 95 06/06/17 00:00 97.5 67 16 149/70 98 06/05/17 20:00 98.3 61 16 139/73 95 06/05/17 20:00 Room Air 06/05/17 20:00 79 06/05/17 06/05/17 06/06/17 15:00 23:00 07:00 Output Total 800 ml 700 ml Balance -800 ml -700 ml Output Urine Total 800 ml 700 ml Result Diagram: 06/06/17 0459 06/06/17 0459 Imaging Last Impressions Abdomen Fluoroscopy 06/04/17 0000 Signed Impressions: Service Date/Time: May 15:55 - CONCLUSION: Nasogastric tube placed in preparation for G-tube placement. 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 I was unable to distend the stomach sufficiently to displace the colon out of the way to place a gastrostomy tube. I have spoken to Dr Vega. 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 Only mild drainage is seen around the tube. I spoke with Dr. Vega. Jim Lucero Jr., MD Chest X-Ray 06/01/17 0000 Signed Impressions: Service Date/Time: Thursday, June 01, 2017 16:19 - CONCLUSION: No acute cardiopulmonary abnormality is identified. Background lung findings are suggestive of emphysema. Nicholas Unger MD Objective Remarks General: NAD, AAOx3 Chest: CTA Cardiac: Regular Abd: +BS, soft nondistended, mild erythema surrounding j-tube site Ext: No edema A/P Problem List: (1) Hypotension Status: Acute Plan: - Pt is a 66 y/o male with adenocarcinoma of the esophagus diagnosed in 03/2017, who has been undergoing chemo and XRT since 04/2017. - He was at his oncologist's office on 06/01 to get his last dose of chemotherapy when he got very lightheaded and almost passed out. - Pt was hypotensive with systolic BP in the 80's in the office and pt was given 1 L of IV fluid bolus en route to the hospital. Upon arrival to the ED his systolic BP was in the 90's. - Pt had reportedly been having issues with his J tube for a few days prior to admission and liquids were reportedly leaking out and the pt had been vomiting. He had fallen a few days prior to admission and hit his head causing a large scalp laceration and bleeding. - hypotension resolved with IVFs - blood cultures (06/01/17) --> NGTD - comgmt with General Surgery & GI - Zosyn and Vancomycin - bandemia improving - J tube evaluation (06/02/17) The main issue for 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 Only mild drainage is seen around the tube - Case was d/w Dr. Vega (06/03/17) - Case d/w Dr. Lucero (06/03/17) - G- tube could NOT be placed by IR - Pt will need surgical placement of G-tube - resume tube feedings by J-tube - pt developing worsening hypernatremia - start D5W with KCL - may require fistula repair - J-tube removed - GI will try to place duodenal stent 06/08/17 by EGD - now with cough, antibiotics as above - obtain CXR - obtain sputum studies - Case d/w General Surgery, Dr. Adam (06/06/17) - blood cultures negative x 5d (2) Esophageal adenocarcinoma Status: Chronic Plan: - Pt was diagnosed in March 2017 with invasive poorly differentiated adenocarcinoma of the esophagus. - He underwent exploratory lap and J tube placement by Dr. Sanchez on . - Pt has been undergoing weekly Carboplatin and Taxol with radiation - Pt follows with Dr. Medina (3) Feeding tube dysfunction Status: Acute Plan: - See above. (4) Sepsis Status: Acute Plan: - See above (5) Dehydration Status: Acute Plan: - See above. Problem Qualifiers (1) Hypotension: (2) Sepsis: See Jacobson DO Jun 06, 2017 17:50
[2017-06-06] MEDS: CLINIMIX E 5/25 1000 mL- </= 42 mls/hr IV-CENTRAL SCH ×3 (19:50)
[2017-06-06] MEDS: FAT EMULSION 20% INJ 250 ML (@10 mls/hr) IV-CENTRAL SCH (19:50)
--- NOTE | 2017-06-06 21:57 | RADRPT ---
EXAM DATE/TIME: 06/06/2017 21:41 [facility] COMPARISON: CHEST SINGLE AP, June 01, 2017, 16:19. INDICATIONS : Cough MEDICAL HISTORY : Hypertension. Diabetes mellitus type II. Esophageal cancer SURGICAL HISTORY : Infusaport. ENCOUNTER: Subsequent ACUITY: 4 - 6 days PAIN SCORE: 0/10 LOCATION: Bilateral chest FINDINGS: The lungs are clear without infiltrate, nodule, or mass. There is no appreciable pleural effusion fo r technique. Heart and mediastinum are unremarkable. Right IJ [id number] is present with tip over lapping the expected region of the SVC. CONCLUSION: No acute cardiopulmonary disease. Steve Gill MD on June 06, 2017 at 21:54 Board Certified Radiologist. This report was verified electronically.
[2017-06-07] VITALS (7 sets, daily range): BP systolic 123–138; BP diastolic 69–79; PULSE 65–77; RESP 18–20; TEMP 97.1–99.1; O2SAT 96–99
[2017-06-07] MEDS: ONDANSETRON HCL 4 MG/2 ML VIAL IVP PRN ×2 (02:54→16:38)
[2017-06-07] MEDS: HYDROmorphone HCL PF 1 MG/ML VIAL IV PUSH PRN ×6 (02:54→23:00)
[2017-06-07] MEDS: PIPERACIL-TAZO 4.5 GM PREMIX 100 ML IV SCH ×4 (04:24→22:59)
[2017-06-07 05:28] LABS: AUTOMATED NEUTROPHIL # 1.6 TH/MM3 (1.8-7.7); BASOPHIL % 0.4 % (0.0-2.0); EOSINOPHIL % 0.3 % (0.0-4.0); HEMATOCRIT 23.7 % (39.0-51.0); LYMPH % 4.7 % (9.0-44.0); LYMPHOCYTE # 0.1 TH/MM3 (1.0-4.8); MEAN CELL VOLUME 90.5 FL (80.0-100.0); MEAN CORPUSCULAR HGB CONC 33.1 % (32.0-36.0); MONO % 17.7 % (0.0-8.0); NEUT % 76.9 % (16.0-70.0); PLATELET COUNT 50 TH/MM3 (150-450); RED BLOOD COUNT 2.62 MIL/MM3 (4.50-5.90); RED CELL DISTRIBUTION WIDTH 19.5 % (11.6-17.2); WHITE BLOOD COUNT 2.1 TH/MM3 (4.0-11.0)
[2017-06-07 05:35] LABS: HEMO FLAGS AUTO DIFF
[2017-06-07] MEDS ORDERED: PHARMACY ORDERED LAB ONE (05:45)
[2017-06-07] MEDS: INSULIN ASPART SUPPLEMENTAL SCALE SQ SCH ×4 (06:01→23:05)
[2017-06-07 06:18] LABS: BANDS 7 % (0-6); BASOPHILS 1 % (0-2); METAMYELOCYTES 5 % (0-1); MYELOCYTES 2 % (0-0); NEUTROPHIL # MANUAL DIFF 1.8 TH/MM3 (1.8-7.7); PLATELET ESTIMATE SMEAR LOW (NORMAL); PLATELET MORPHOLOGY NORMAL (NORMAL); POLYS (SEG NEUTROPHILS) 69 % (16-70); PROMYELOCYTES 1 % (0-0); SCAN/DIFF FINAL DIFF MANUAL; WBC DIFF SAMPLE 100
[2017-06-07 06:20] LABS: MAGNESIUM 1.5 MG/DL (1.5-2.5); POTASSIUM 3.1 MEQ/L (3.5-5.1)
[2017-06-07] MEDS: SILVER SULFADIAZINE 1% CR 50 GM JAR TOPICAL SCH ×2 (09:00→23:01)
[2017-06-07] MEDS: ALLOPURINOL 100 MG TAB J-TUBE SCH (09:00)
[2017-06-07] MEDS: SODIUM CHLORIDE 0.9% FLUSH 10 ML FLUSH IV FLUSH SCH ×2 (09:00→21:00)
[2017-06-07] MEDS ORDERED: POTASSIUM CHLOR 40 MEQ PREMIX 100 ML IV ONE (15:00)
--- NOTE | 2017-06-07 15:06 | HHI.PR ---
Subjective Remarks abdominal pain improved with dilaudid nausea improved with zofran. continued drainage from former J-tube/fistula site. Objective Vitals Vital Signs Date Time Temp Pulse Resp B/P (MAP) Pulse Ox O2 Delivery O2 Flow Rate FiO2 06/07/17 06:43 18 06/07/17 04:00 97.8 65 18 138/79 (98) 99 06/07/17 00:00 97.1 73 18 123/69 (87) 98 06/06/17 20:45 Room Air 06/06/17 20:09 80 06/06/17 20:00 98.0 74 18 150/76 (100) 97 06/06/17 16:00 98.0 78 20 140/75 (96) 95 Result Diagram: 06/07/17 0500 06/07/17 0500 Imaging Last Impressions Abdomen Fluoroscopy 06/04/17 0000 Signed Impressions: Service Date/Time: May 15:55 - CONCLUSION: Nasogastric tube placed in preparation for G-tube placement. 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 I was unable to distend the stomach sufficiently to displace the colon out of the way to place a gastrostomy tube. I have spoken to Dr Vega. 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 Only mild drainage is seen around the tube. I spoke with Dr. Vega. Jim Lucero Jr., MD Chest X-Ray 06/01/17 0000 Signed Impressions: Service Date/Time: Thursday, June 01, 2017 16:19 - CONCLUSION: No acute cardiopulmonary abnormality is identified. Background lung findings are suggestive of emphysema. Nicholas Unger MD Objective Remarks General: NAD, AAOx3 Chest: CTA Cardiac: Regular Abd: +BS, soft nondistended, mild erythema surrounding j-tube site. J-tube removed. urostomy bad applied over J-tube/fistula site. Ext: No edema A/P Problem List: (1) Hypotension ICD Codes: I95.9 - Hypotension, unspecified Status: Acute Plan: - comgmt with GI and Surgery - Pt is a 66 y/o male with adenocarcinoma of the esophagus diagnosed in 03/2017, who has been undergoing chemo and XRT since 04/2017. - He was at his oncologist's office on 06/01 to get his last dose of chemotherapy when he got very lightheaded and almost passed out. - Pt was hypotensive with systolic BP in the 80's in the office and pt was given 1 L of IV fluid bolus en route to the hospital. Upon arrival to the ED his systolic BP was in the 90's. - Pt had reportedly been having issues with his J tube for a few days prior to admission and liquids were reportedly leaking out and the pt had been vomiting. He had fallen a few days prior to admission and hit his head causing a large scalp laceration and bleeding. - hypotension resolved with IVFs - blood cultures (06/01/17) --> NGTD - bandemia improving 31 (06/03), 7 (06/07) - - Zosyn and Vancomycin, reevaluate antibiotics 06/07 - J tube evaluation (06/02/17) The main issue for 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 Only mild drainage is seen around the tube - Case was d/w Dr. Vega (06/03/17) - Case d/w Dr. Lucero (06/03/17) - G- tube could NOT be placed by IR - J-tube removed & urostomy bag placed over j-tube/fistula site, continued drainage - GI will try to place esophageal stent 06/08/17 by EGD, if this fails then pt will need surgical intervention - pt c/o cough - CXR (06/06) --> no infiltrate - sputum studies (06/06) --> pending - blood cultures negative x 5d - pt trending hypernatremic and hypokalemic - will replete with IV KCL - case d/w pharmacy. 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 - He underwent exploratory lap and J tube placement by Dr. Sanchez on . - Pt has been undergoing weekly Carboplatin and Taxol with radiation - Pt follows with Dr. Medina (3) Feeding tube dysfunction ICD Codes: T85.598A - Other mechanical complication of other gastrointestinal prosthetic devices, implants and grafts, initial encounter Status: Acute Plan: - See above. (4) Sepsis ICD Codes: A41.9 - Sepsis, unspecified organism Status: Acute Plan: - See above (5) Dehydration ICD Codes: E86.0 - Dehydration Status: Resolved Plan: - See above. Problem Qualifiers (1) Hypotension: (2) Sepsis: See Jacobson DO Jun 07, 2017 15:06
[2017-06-07] MEDS: PANTOPRAZOLE SODIUM 40 MG VIAL IV PUSH SCH (17:18)
[2017-06-07] MEDS: FAT EMULSION 20% INJ 250 ML (@10 mls/hr) IV-CENTRAL SCH (20:18)
[2017-06-07] MEDS: SODIUM ACETATE IV-CENTRAL SCH ×9 (20:19)
[2017-06-07] MEDS: SODIUM CHLORIDE IV-CENTRAL SCH ×9 (20:19)
[2017-06-07] MEDS: [UNRECOGNIZED DRUG - OTHER] IV-CENTRAL SCH ×9 (20:19)
[2017-06-08] VITALS (7 sets, daily range): BP systolic 118–158; BP diastolic 73–85; PULSE 72–82; RESP 18–20; TEMP 98.1–98.7; O2SAT 97–99
[2017-06-08] MEDS: ONDANSETRON HCL 4 MG/2 ML VIAL IVP PRN ×2 (02:42→08:48)
[2017-06-08] MEDS: HYDROmorphone HCL PF 1 MG/ML VIAL IV PUSH PRN ×7 (02:43→23:27)
[2017-06-08] MEDS: PIPERACIL-TAZO 4.5 GM PREMIX 100 ML IV SCH ×4 (05:44→23:27)
[2017-06-08] MEDS: INSULIN ASPART SUPPLEMENTAL SCALE SQ SCH ×4 (05:55→21:17)
[2017-06-08 06:17] LABS: HEMATOCRIT 26.5 % (39.0-51.0); MEAN CELL VOLUME 91.5 FL (80.0-100.0); MEAN CORPUSCULAR HEMOGLOBIN 29.8 PG (27.0-34.0); MEAN CORPUSCULAR HGB CONC 32.6 % (32.0-36.0); PLATELET COUNT 50 TH/MM3 (150-450); RED CELL DISTRIBUTION WIDTH 20.1 % (11.6-17.2); WHITE BLOOD COUNT 2.6 TH/MM3 (4.0-11.0)
[2017-06-08 06:19] LABS: HEMO FLAGS AUTO DIFF
[2017-06-08 07:21] LABS: BANDS 22 % (0-6); CORRECTED NUCLEATED RBC 1 /100 WBC (0-0); EOSINOPHILS 1 % (0-4); MYELOCYTES 1 % (0-0); NEUTROPHIL # MANUAL DIFF 2.4 TH/MM3 (1.8-7.7); PLATELET ESTIMATE SMEAR LOW (NORMAL); PLATELET MORPHOLOGY NORMAL (NORMAL); POLYS (SEG NEUTROPHILS) 71 % (16-70); SCAN/DIFF FINAL DIFF MANUAL; WBC DIFF SAMPLE 100
[2017-06-08 07:28] LABS: BICARBONATE 28.5 MEQ/L (21.0-32.0); MAGNESIUM 1.6 MG/DL (1.5-2.5); POTASSIUM 3.2 MEQ/L (3.5-5.1)
--- NOTE | 2017-06-08 08:48 | HHI.PR ---
Subjective Remarks spitting up into a cup. Objective Vitals heart reg lung cta abd old j tube site. ostomy bag with liquid/yellow ext no edema central port. Vital Signs Date Time Temp Pulse Resp B/P (MAP) Pulse Ox O2 Delivery O2 Flow Rate FiO2 06/08/17 06:17 18 06/08/17 04:00 98.7 76 19 134/81 (98) 97 06/08/17 00:00 98.4 82 20 150/85 (106) 97 06/07/17 20:30 Room Air 06/07/17 20:27 72 06/07/17 20:00 99.1 75 20 132/69 (90) 98 06/07/17 16:07 98.9 73 18 128/75 (92) 96 06/07/17 12:07 98.4 76 19 138/76 (96) 96 06/07/17 09:00 96 Room Air Result Diagram: 06/08/17 0600 06/08/17 0600 Imaging Last Impressions Abdomen Fluoroscopy 06/04/17 0000 Signed Impressions: Service Date/Time: May 15:55 - CONCLUSION: Nasogastric tube placed in preparation for G-tube placement. 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 I was unable to distend the stomach sufficiently to displace the colon out of the way to place a gastrostomy tube. I have spoken to Dr Vega. 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 Only mild drainage is seen around the tube. I spoke with Dr. Vega. Jim Lucero Jr., MD Chest X-Ray 06/01/17 0000 Signed Impressions: Service Date/Time: Thursday, June 01, 2017 16:19 - CONCLUSION: No acute cardiopulmonary abnormality is identified. Background lung findings are suggestive of emphysema. Nicholas Unger MD A/P Problem List: (1) Feeding tube dysfunction ICD Codes: T85.598A - Other mechanical complication of other gastrointestinal prosthetic devices, implants and grafts, initial encounter Status: Acute Plan: - Pt is a 66 y/o male with adenocarcinoma of the esophagus diagnosed in , who has been undergoing chemo and XRT since 04/2017. - He was at his oncologist's office on 06/01 to get his last dose of chemotherapy when he got very lightheaded and almost passed out. - Pt was hypotensive with systolic BP in the 80's in the office and pt was given 1 L of IV fluid bolus en route to the hospital. Upon arrival to the ED his systolic BP was in the 90's. - Pt had reportedly been having issues with his J tube for a few days prior to admission and liquids were reportedly leaking out and the pt had been vomiting. He had fallen a few days prior to admission and hit his head causing a large scalp laceration and bleeding. - hypotension resolved with IVFs - blood cultures (06/01/17) --> NGTD - bandemia improving 31 (06/03), 7 (06/07) - - Zosyn and Vancomycin were given emperically. 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 Only mild drainage is seen around the tube - Case was d/w Dr. Vega (06/03/17) - Case d/w Dr. Lucero (06/03/17) - G- tube could NOT be placed by IR - J-tube removed & urostomy bag placed over j-tube/fistula site, continued drainage - GI will try to place esophageal stent 06/08/17 by EGD, if this fails then pt will need surgical intervention - pt c/o cough - CXR (06/06) --> no infiltrate - sputum studies (06/06) --> ngtd - blood cultures negative x 5d -increase basal insulin -replace kcl -cont tpn -monitor bmp - pain contro; -dvt prophylaxis -egd today with possible stent. 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 - He underwent exploratory lap and J tube placement by Dr. Sanchez on . - Pt has been undergoing weekly Carboplatin and Taxol with radiation - Pt follows with Dr. Medina (4) Sepsis ICD Codes: A41.9 - Sepsis, unspecified organism Status: Acute Plan: - See above (5) Dehydration ICD Codes: E86.0 - Dehydration Status: Resolved Plan: - See above. Problem Qualifiers (1) Hypotension: (2) Sepsis: Koko Saldaña MD Jun 08, 2017 08:48
[2017-06-08] MEDS: SODIUM CHLORIDE 0.9% FLUSH 10 ML FLUSH IV FLUSH PRN ×2 (08:49→23:28)
[2017-06-08] MEDS: SODIUM CHLORIDE 0.9% FLUSH 10 ML FLUSH IV FLUSH SCH ×2 (08:54→20:31)
[2017-06-08] MEDS: ALLOPURINOL 100 MG TAB J-TUBE SCH (08:54)
[2017-06-08] MEDS: SILVER SULFADIAZINE 1% CR 50 GM JAR TOPICAL SCH ×2 (08:55→20:38)
[2017-06-08] MEDS: INSULIN DETEMIR 100 UNITS/ML VIAL SQ SCH ×2 (09:25→21:16)
[2017-06-08] MEDS ORDERED: POTASSIUM CHLOR 40 MEQ PREMIX 100 ML IV ONE (10:00)
[2017-06-08] MEDS ORDERED: VANCOMYCIN INJ 1,250 MG in SODIUM CHLOR 0.9% 250 ML INJ 250 ML IV ONE (16:00)
--- NOTE | 2017-06-08 16:09 | HHI.PR ---
Subjective Subjective Notes Resting in bed Informed me that esophageal stent procedure was cancelled for today Objective Vitals/I&O Vital Signs Date Time Temp Pulse Resp B/P (MAP) Pulse Ox O2 Delivery O2 Flow Rate FiO2 06/08/17 12:00 98.5 82 19 158/76 (103) 98 06/08/17 07:15 Room Air Labs Laboratory Tests Test 06/08/17 06:00 White Blood Count 2.6 Red Blood Count 2.90 Hemoglobin 8.7 Hematocrit 26.5 Mean Corpuscular Volume 91.5 Mean Corpuscular Hemoglobin 29.8 Mean Corpuscular Hemoglobin Concent 32.6 Red Cell Distribution Width 20.1 Platelet Count 50 Mean Platelet Volume 8.8 CBC Comment AUTO DIFF Differential Total Cells Counted 100 Neutrophils % (Manual) 71 Band Neutrophils % 22 Monocytes % 5 Eosinophils % 1 Neutrophils # (Manual) 2.4 Myelocytes 1 Nucleated Red Blood Cells 1 Differential Comment FINAL DIFF MANUAL Platelet Estimate LOW Platelet Morphology Comment NORMAL Blood Urea Nitrogen 12 Creatinine 0.91 Random Glucose 354 Calcium Level 8.1 Magnesium Level 1.6 Sodium Level 145 Potassium Level 3.2 Chloride Level 111 Carbon Dioxide Level 28.5 Anion Gap 6 Estimat Glomerular Filtration Rate 83 Random Vancomycin Level 12.4 Date/Time Source Procedure Growth Status 06/01/17 16:40 Blood Peripheral Aerobic Blood Culture - Final NO GROWTH IN 5 DAYS Complete 06/01/17 16:40 Blood Peripheral Anaerobic Blood Culture - Final NO GROWTH IN 5 DAYS Complete 06/06/17 20:00 Sputum Expectorated Sputum Gram Stain - Final Complete 06/06/17 20:00 Sputum Expectorated Sputum Sputum Culture - Final MODERATE GROWTH NORMAL RESPIRATORY THEODORA Complete 06/01/17 19:20 Wound Abdomen Gram Stain - Final Complete 06/01/17 19:20 Wound Abdomen Wound Culture - Final Complete Cardiovascular: Regular Lungs: Clear Abdomen: Other (abdomen soft; Prior J tube site to ostomy wound bag with thin drainage; abdomen soft ) Extremities: No edema A/P Assessment and Plan 66 year old male with esophageal cancer and malfunction J tube -Continue Wound Blueprint Maker to prior J tube site -GI following for placement of esophageal stents -We will continue to follow Karolina Arguello Jun 08, 2017 16:09
[2017-06-08] MEDS: PANTOPRAZOLE SODIUM 40 MG VIAL IV PUSH SCH (18:12)
[2017-06-08] MEDS: SODIUM CHLORIDE IV-CENTRAL SCH ×9 (20:29)
[2017-06-08] MEDS: [UNRECOGNIZED DRUG - OTHER] IV-CENTRAL SCH ×9 (20:29)
[2017-06-08] MEDS: FAT EMULSION 20% INJ 250 ML (@10 mls/hr) IV-CENTRAL SCH (20:29)
[2017-06-08] MEDS: SODIUM ACETATE IV-CENTRAL SCH ×9 (20:29)
[2017-06-09] VITALS (7 sets, daily range): BP systolic 139–157; BP diastolic 74–90; PULSE 69–90; RESP 16–18; TEMP 97.8–98.7; O2SAT 97–100
[2017-06-09] MEDS: HYDROmorphone HCL PF 1 MG/ML VIAL IV PUSH PRN ×8 (02:23→22:24)
[2017-06-09] MEDS: SODIUM CHLORIDE 0.9% FLUSH 10 ML FLUSH IV FLUSH PRN ×3 (02:24→22:24)
[2017-06-09] MEDS: PIPERACIL-TAZO 4.5 GM PREMIX 100 ML IV SCH ×4 (05:42→22:23)
[2017-06-09] MEDS: INSULIN ASPART SUPPLEMENTAL SCALE SQ SCH ×4 (06:05→20:36)
[2017-06-09 07:37] LABS: BICARBONATE 28.4 MEQ/L (21.0-32.0); POTASSIUM 3.3 MEQ/L (3.5-5.1)
[2017-06-09] MEDS: SILVER SULFADIAZINE 1% CR 50 GM JAR TOPICAL SCH ×2 (07:40→20:36)
[2017-06-09] MEDS: INSULIN DETEMIR 100 UNITS/ML VIAL SQ SCH ×2 (08:18→20:35)
[2017-06-09] MEDS: ALLOPURINOL 100 MG TAB J-TUBE SCH (08:24)
[2017-06-09] MEDS: SODIUM CHLORIDE 0.9% FLUSH 10 ML FLUSH IV FLUSH SCH ×2 (08:24→19:57)
[2017-06-09] MEDS: ONDANSETRON HCL 4 MG/2 ML VIAL IVP PRN ×2 (08:30→14:02)
--- NOTE | 2017-06-09 09:57 | HHI.PR ---
Subjective Remarks doing ok. pain meds helping. Objective Vitals heart reg lung cta abd ostomy bag over old j tube site ext no edema Vital Signs Date Time Temp Pulse Resp B/P (MAP) Pulse Ox O2 Delivery O2 Flow Rate FiO2 06/09/17 08:00 98.5 78 18 141/87 (105) 99 06/09/17 04:00 98.2 81 16 156/89 (111) 97 06/09/17 00:00 Room Air 06/09/17 00:00 98.2 76 16 139/74 (95) 98 06/08/17 20:10 72 06/08/17 20:00 98.3 76 18 118/73 (88) 98 06/08/17 20:00 Room Air 06/08/17 16:00 98.3 79 19 147/79 (101) 99 06/08/17 12:00 98.5 82 19 158/76 (103) 98 Result Diagram: 06/08/17 0600 06/09/17 0548 Imaging Last Impressions Abdomen Fluoroscopy 06/04/17 0000 Signed Impressions: Service Date/Time: May 15:55 - CONCLUSION: Nasogastric tube placed in preparation for G-tube placement. 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 I was unable to distend the stomach sufficiently to displace the colon out of the way to place a gastrostomy tube. I have spoken to Dr Vega. 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 Only mild drainage is seen around the tube. I spoke with Dr. Vega. Jim Lucero Jr., MD Chest X-Ray 06/01/17 0000 Signed Impressions: Service Date/Time: Thursday, June 01, 2017 16:19 - CONCLUSION: No acute cardiopulmonary abnormality is identified. Background lung findings are suggestive of emphysema. Nicholas Unger MD A/P Problem List: (1) Feeding tube dysfunction ICD Codes: T85.598A - Other mechanical complication of other gastrointestinal prosthetic devices, implants and grafts, initial encounter Status: Acute Plan: - Pt is a 66 y/o male with adenocarcinoma of the esophagus diagnosed in , who has been undergoing chemo and XRT since 04/2017. - He was at his oncologist's office on 06/01 to get his last dose of chemotherapy when he got very lightheaded and almost passed out. - Pt was hypotensive with systolic BP in the 80's in the office and pt was given 1 L of IV fluid bolus en route to the hospital. Upon arrival to the ED his systolic BP was in the 90's. - Pt had reportedly been having issues with his J tube for a few days prior to admission and liquids were reportedly leaking out and the pt had been vomiting. He had fallen a few days prior to admission and hit his head causing a large scalp laceration and bleeding. - hypotension resolved with IVFs - blood cultures (06/01/17) --> NGTD - bandemia improving 31 (06/03), 7 (06/07) - - Zosyn and Vancomycin were given emperically. 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 Only mild drainage is seen around the tube - Case was d/w Dr. Vega (06/03/17) - Case d/w Dr. Lucero (06/03/17) - G- tube could NOT be placed by IR - J-tube removed & urostomy bag placed over j-tube/fistula site, continued drainage - GI will try to place esophageal stent today by EGD, if this fails then pt will need surgical intervention - pt c/o cough - CXR (06/06) --> no infiltrate - sputum studies (06/06) --> ngtd - blood cultures negative x 5d -increased basal insulin ..titrate as needed. -rx hypokalemia/hypernatremia with 1/2 ns with kcl today. -cont tpn...adjust kcl -monitor bmp - pain contro; -dvt prophylaxis -egd today with possible stent. 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 - He underwent exploratory lap and J tube placement by Dr. Sanchez on . - Pt has been undergoing weekly Carboplatin and Taxol with radiation - Pt follows with Dr. Medina (4) Sepsis ICD Codes: A41.9 - Sepsis, unspecified organism Status: Acute Plan: - See above (5) Dehydration ICD Codes: E86.0 - Dehydration Status: Resolved Plan: - See above. Problem Qualifiers (1) Hypotension: (2) Sepsis: Koko Saldaña MD Jun 09, 2017 09:57
--- NOTE | 2017-06-09 11:32 | HHI.PR ---
Subjective Subjective Notes Resting in bed No issues overnight Planning for esophageal stents today Objective Vitals/I&O Vital Signs Date Time Temp Pulse Resp B/P (MAP) Pulse Ox O2 Delivery O2 Flow Rate FiO2 06/09/17 08:00 98.5 78 18 141/87 (105) 99 06/09/17 07:15 Room Air Labs Laboratory Tests Test 06/09/17 05:48 Blood Urea Nitrogen 13 Creatinine 1.02 Random Glucose 222 Calcium Level 8.6 Sodium Level 151 Potassium Level 3.3 Chloride Level 116 Carbon Dioxide Level 28.4 Anion Gap 7 Estimat Glomerular Filtration Rate 73 Random Vancomycin Level 16.1 Date/Time Source Procedure Growth Status 06/01/17 16:40 Blood Peripheral Aerobic Blood Culture - Final NO GROWTH IN 5 DAYS Complete 06/01/17 16:40 Blood Peripheral Anaerobic Blood Culture - Final NO GROWTH IN 5 DAYS Complete 06/06/17 20:00 Sputum Expectorated Sputum Gram Stain - Final Complete 06/06/17 20:00 Sputum Expectorated Sputum Sputum Culture - Final MODERATE GROWTH NORMAL RESPIRATORY THEODORA Complete 06/01/17 19:20 Wound Abdomen Gram Stain - Final Complete 06/01/17 19:20 Wound Abdomen Wound Culture - Final Complete Cardiovascular: Regular Lungs: Clear Abdomen: Non-distended, Non-tender, Other (prior J tube site with wound manager privacy bag) Extremities: No edema A/P Assessment and Plan 66 year old male with esophageal cancer and malfunction J tube -Continue Wound Steel Heater to prior J tube site -GI following for placement of esophageal stents -We will continue to follow Attending Statement The exam, history, and the medical decision-making described in the above note were completed with the assistance of the mid-level provider. I reviewed and agree with the findings presented. I attest that I had a [id number] encounter with the patient on the same day, and personally performed and documented my assessment and findings in the medical record. Abdominal exam: soft, non-distended, no rebound tenderness, j-tube site with fistulae d/w family and patient, oral nutrition is best for him at this point, will do feeding tube only if cannot eat Karolina Arguello Jun 09, 2017 11:32 Eric Vega MD Jun 17, 2017 14:29
[2017-06-09] MEDS ORDERED: PROPOFOL 200 MG/20 ML AMP IV ONE (11:55)
--- NOTE | 2017-06-09 12:29 | GIPROC ---
[facility] [address] [facility]. [facility], [address] EGD PROCEDURE REPORT EXAM DATE: 06/09/2017 PATIENT NAME: Rk Thibodeaux MR #: [id number] BIRTHDATE: 1950 ATTENDING: Matt Arriaga MD ORDER #: [id number] ENGINE TURNER: Andrea Thorne and Viyk Mills STATUS: inpatient INDICATIONS: The patient is a 66 yr old male here for an EGD due to dysphagia PROCEDURE PERFORMED: EGD w/ biopsy MEDICATIONS: None and Per Anesthesia. TOPICAL ANESTHETIC: none CONSENT: The patient understands the risks and benefits of the procedure and understands that these risks include, but are not limited to: sedation, allergic reaction, infection, perforation and/or bleeding. Alternative means of evaluation and treatment include, among others: physical exam, x-rays, and/or surgical intervention. The patient elects to proceed with this endoscopic procedure. medical equipment was checked for proper function. Hand hygiene and appropriate measures for infection prevention was taken. After the risks, benefits and alternatives of the procedure were thoroughly explained, Informed consent was verified, confirmed and timeout was successfully executed by the treatment team. The patient was anesthetized with topical anesthesia and the Pentax EG-[id number] endoscope was introduced through the mouth and advanced to the second portion of the duodenum. Retroflexion was performed and was normal The gastroscope was then slowly withdrawn and removed. ESOPHAGUS: A circumferential diffuse patch of abnormal mucosa was found in the mid esophagus and distal esophagus. The mucosa was congested and had scarring. Multiple biopsies were performed using cold forceps. Sample sent for histology. STOMACH: There was erythematous severe and erosive gastritis in the entire examined stomach. Multiple biopsies were performed using cold forceps. Sample sent for histology. DUODENUM: The duodenal mucosa appeared normal in the bulb and second portion of the duodenum. ADVERSE EVENTS: There were no complications. IMPRESSIONS: 1. Circumferential diffuse abnormal mucosa was found in the mid esophagus and distal esophagus; The mucosa was congested and had scarring; but no narrowing seen, no stent placed, multiple biopsies were performed 2. There was erythematous gastritis in the entire examined stomach; multiple biopsies were performed 3. Normal duodenal mucosa in the bulb and second portion of the duodenum 4. Retroflexion was performed and was normal RECOMMENDATIONS: Await biopsy results. Biopsy results will not be ready for 7-10 days. If you don't hear from us in two weeks, call our office for biopsy results. PATIENT CONDITION: stable DISPOSITION: Observation REPEAT EXAM: NONE Matt Arriaga MD eSigned: Matt Arriaga MD 06/09/2017 12:29 PM cc: PATIENT NAME: Rk Thibodeaux MR#: [id number]
[2017-06-09] MEDS ORDERED: DO NOT ADM ANY ANTICOAGULANT DRUGS PRN (13:00)
[2017-06-09] MEDS: POTASSIUM CHLORIDE INJ 40 MEQ in SODIUM CHLOR 0.45% 1000 ML INJ 1,000 ML IV SCH (14:08)
[2017-06-09] MEDS ORDERED: VANCOMYCIN INJ 1,250 MG in SODIUM CHLOR 0.9% 250 ML INJ 250 ML IV SCH (16:00)
[2017-06-09] MEDS: PANTOPRAZOLE SODIUM 40 MG VIAL IV PUSH SCH (16:54)
[2017-06-09] MEDS: FAT EMULSION 20% INJ 250 ML (@10 mls/hr) IV-CENTRAL SCH (20:01)
[2017-06-09] MEDS: SODIUM ACETATE IV-CENTRAL SCH ×9 (20:01)
[2017-06-09] MEDS: [UNRECOGNIZED DRUG - OTHER] IV-CENTRAL SCH ×9 (20:01)
[2017-06-09] MEDS: SODIUM CHLORIDE IV-CENTRAL SCH ×9 (20:01)
[2017-06-10] VITALS (8 sets, daily range): BP systolic 137–162; BP diastolic 71–81; PULSE 66–75; RESP 16–20; TEMP 97.8–98.3; O2SAT 93–99
[2017-06-10] MEDS: HYDROmorphone HCL PF 1 MG/ML VIAL IV PUSH PRN ×10 (00:43→23:01)
[2017-06-10] MEDS: SODIUM CHLORIDE 0.9% FLUSH 10 ML FLUSH IV FLUSH PRN ×4 (00:44→06:56)
[2017-06-10] MEDS: PIPERACIL-TAZO 4.5 GM PREMIX 100 ML IV SCH ×4 (05:05→23:01)
[2017-06-10] MEDS: INSULIN ASPART SUPPLEMENTAL SCALE SQ SCH ×4 (05:14→21:06)
[2017-06-10] MEDS: INSULIN DETEMIR 100 UNITS/ML VIAL SQ SCH ×2 (09:00→21:05)
[2017-06-10 09:01] LABS: BICARBONATE 28.8 MEQ/L (21.0-32.0); POTASSIUM 3.5 MEQ/L (3.5-5.1)
[2017-06-10] MEDS: ALLOPURINOL 100 MG TAB J-TUBE SCH (09:32)
[2017-06-10] MEDS: SODIUM CHLORIDE 0.9% FLUSH 10 ML FLUSH IV FLUSH SCH ×2 (09:40→21:00)
--- NOTE | 2017-06-10 09:58 | HHI.PR ---
Subjective Remarks tolerating liquids if eats very slowly. says the problem with po food has been regurgitation back up. pain controlled. Objective Vitals heart reg lung cta abd j tube old site/ostomy ext no edema port. Vital Signs Date Time Temp Pulse Resp B/P (MAP) Pulse Ox O2 Delivery O2 Flow Rate FiO2 06/10/17 04:00 98.2 69 16 144/79 (100) 96 06/10/17 00:14 21 06/10/17 00:00 98.2 72 16 142/71 (94) 99 06/09/17 20:25 69 06/09/17 20:00 98.7 78 18 157/78 (104) 100 06/09/17 20:00 Room Air 06/09/17 16:00 98.1 83 18 148/90 (109) 100 06/09/17 13:15 98.6 76 12 150/85 (106) 99 Room Air 06/09/17 13:00 79 10 135/74 (94) 97 06/09/17 12:45 83 12 106/65 (79) 95 06/09/17 12:42 98.7 86 10 111/64 (80) 97 Room Air 06/09/17 11:00 97.8 90 18 140/79 (99) 98 Result Diagram: 06/08/17 0600 06/10/17 0645 Imaging Last Impressions Abdomen Fluoroscopy 06/04/17 0000 Signed Impressions: Service Date/Time: May 15:55 - CONCLUSION: Nasogastric tube placed in preparation for G-tube placement. 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 I was unable to distend the stomach sufficiently to displace the colon out of the way to place a gastrostomy tube. I have spoken to Dr Vega. 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 Only mild drainage is seen around the tube. I spoke with Dr. Vega. Jim Lucero Jr., MD Chest X-Ray 06/01/17 0000 Signed Impressions: Service Date/Time: Thursday, June 01, 2017 16:19 - CONCLUSION: No acute cardiopulmonary abnormality is identified. Background lung findings are suggestive of emphysema. Nicholas Unger MD A/P Problem List: (1) Feeding tube dysfunction ICD Codes: T85.598A - Other mechanical complication of other gastrointestinal prosthetic devices, implants and grafts, initial encounter Status: Acute Plan: - Pt is a 66 y/o male with adenocarcinoma of the esophagus diagnosed in , who has been undergoing chemo and XRT since 04/2017. - He was at his oncologist's office on 06/01 to get his last dose of chemotherapy when he got very lightheaded and almost passed out. - Pt was hypotensive with systolic BP in the 80's in the office and pt was given 1 L of IV fluid bolus en route to the hospital. Upon arrival to the ED his systolic BP was in the 90's. - Pt had reportedly been having issues with his J tube for a few days prior to admission and liquids were reportedly leaking out and the pt had been vomiting. He had fallen a few days prior to admission and hit his head causing a large scalp laceration and bleeding. - hypotension resolved with IVFs - blood cultures (06/01/17) --> NGTD - bandemia improving 31 (06/03), 7 (06/07) - - Zosyn and Vancomycin were given emperically. 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 Only mild drainage is seen around the tube - Case was d/w Dr. Vega (06/03/17) - Case d/w Dr. Lucero (06/03/17) - G- tube could NOT be placed by IR - J-tube removed & urostomy bag placed over j-tube/fistula site, continued drainage - GI performed EGD with bx on 06/09...no stent placed. severe gastritis. circumferential area in esophagus. no obstruction. - sputum studies (06/06) --> ngtd - blood cultures negative x 5d -increase basal insulin ..titrate as needed. -rx hypokalemia/hypernatremia with 1/2 ns with kcl -cont tpn...adjust kcl -monitor bmp - pain control -dvt prophylaxis -add reglan iv and increase iv ppi. pt on liquid diet. 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 - He underwent exploratory lap and J tube placement by Dr. Sanchez on . - Pt has been undergoing weekly Carboplatin and Taxol with radiation - Pt follows with Dr. Medina (4) Sepsis ICD Codes: A41.9 - Sepsis, unspecified organism Status: Acute Plan: - See above (5) Dehydration ICD Codes: E86.0 - Dehydration Status: Resolved Plan: - See above. Problem Qualifiers (1) Hypotension: (2) Sepsis: Koko Saldaña MD Jun 10, 2017 09:57
[2017-06-10] MEDS: POTASSIUM CHLORIDE INJ 40 MEQ in SODIUM CHLOR 0.45% 1000 ML INJ 1,000 ML IV SCH ×2 (10:00→21:07)
--- NOTE | 2017-06-10 11:32 | HHI.PR ---
Subjective Subjective Notes Resting in bed No issues No stents placed yesterday Objective Vitals/I&O Vital Signs Date Time Temp Pulse Resp B/P (MAP) Pulse Ox O2 Delivery O2 Flow Rate FiO2 06/10/17 10:56 93 06/10/17 04:00 98.2 69 16 144/79 (100) 06/10/17 00:14 21 06/09/17 20:00 Room Air Labs Laboratory Tests Test 06/10/17 06:45 Blood Urea Nitrogen 13 Creatinine 1.01 Random Glucose 224 Calcium Level 8.3 Sodium Level 150 Potassium Level 3.5 Chloride Level 117 Carbon Dioxide Level 28.8 Anion Gap 4 Estimat Glomerular Filtration Rate 74 Date/Time Source Procedure Growth Status 06/01/17 16:40 Blood Peripheral Aerobic Blood Culture - Final NO GROWTH IN 5 DAYS Complete 06/01/17 16:40 Blood Peripheral Anaerobic Blood Culture - Final NO GROWTH IN 5 DAYS Complete 06/06/17 20:00 Sputum Expectorated Sputum Gram Stain - Final Complete 06/06/17 20:00 Sputum Expectorated Sputum Sputum Culture - Final MODERATE GROWTH NORMAL RESPIRATORY THEODORA Complete 06/01/17 19:20 Wound Abdomen Gram Stain - Final Complete 06/01/17 19:20 Wound Abdomen Wound Culture - Final Complete Cardiovascular: Regular Lungs: Clear Abdomen: Other (prior J tube site with wound drainage bag in place ) Extremities: No edema A/P Assessment and Plan 66 year old male with esophageal cancer and malfunction J tube -Continue Wound Mold Carrier to prior J tube site -Esophageal stents not placed due to no narrowing visualized -Full liquids -We will continue to follow Karolina Arguello Jun 10, 2017 11:32
[2017-06-10] MEDS: METOCLOPRAMIDE HCL 10 MG/2 ML VIAL IV PUSH SCH ×2 (14:18→20:53)
--- NOTE | 2017-06-10 17:16 | HHI.GIFU ---
Subjective Remarks Resting in bed. Tolerating full liquids, but states that it seems to go down slow in lower esophagus/stomach. Taking ensure. (Kimi Carlos) Objective Vitals I&O Vital Signs Date Time Temp Pulse Resp B/P (MAP) Pulse Ox O2 Delivery O2 Flow Rate FiO2 06/10/17 12:04 98.3 75 20 162/77 (105) 98 06/10/17 10:56 93 06/10/17 08:00 97.8 75 20 144/81 (102) 97 06/10/17 04:00 98.2 69 16 144/79 (100) 96 06/10/17 00:14 21 06/10/17 00:00 98.2 72 16 142/71 (94) 99 06/09/17 20:25 69 06/09/17 20:00 98.7 78 18 157/78 (104) 100 06/09/17 20:00 Room Air I/O 06/09/17 06/09/17 06/09/17 06/10/17 06/10/17 06/10/17 07:00 15:00 23:00 07:00 15:00 23:00 Intake Total 1006 ml 200 ml 773 ml 1156 ml 100 ml Output Total 1100 ml 600 ml 550 ml Balance -94 ml 200 ml 173 ml 606 ml 100 ml Intake Oral 0 ml 240 ml IV Total 382 ml 100 ml 470 ml 916 ml 100 ml TPN/PPN 504 ml 179 ml Lipid 120 ml 124 ml Other 100 ml Output Urine Total 1100 ml 600 ml 400 ml Drainage Total 150 ml # Bowel Movements 0 0 Laboratory Laboratory Tests Test 06/10/17 06:45 Blood Urea Nitrogen 13 Creatinine 1.01 Random Glucose 224 Calcium Level 8.3 Sodium Level 150 Potassium Level 3.5 Chloride Level 117 Carbon Dioxide Level 28.8 Anion Gap 4 Estimat Glomerular Filtration Rate 74 Date/Time Source Procedure Growth Status 06/01/17 16:40 Blood Peripheral Aerobic Blood Culture - Final NO GROWTH IN 5 DAYS Complete 06/01/17 16:40 Blood Peripheral Anaerobic Blood Culture - Final NO GROWTH IN 5 DAYS Complete 06/06/17 20:00 Sputum Expectorated Sputum Gram Stain - Final Complete 06/06/17 20:00 Sputum Expectorated Sputum Sputum Culture - Final MODERATE GROWTH NORMAL RESPIRATORY THEODORA Complete 06/01/17 19:20 Wound Abdomen Gram Stain - Final Complete 06/01/17 19:20 Wound Abdomen Wound Culture - Final Complete Imaging Last Impressions Chest X-Ray 06/06/17 0000 Signed Impressions: Service Date/Time: Tuesday, June 06, 2017 21:41 - CONCLUSION: No acute cardiopulmonary disease. Steve Gill MD Abdomen Fluoroscopy 06/04/17 0000 Signed Impressions: Service Date/Time: May 15:55 - CONCLUSION: Nasogastric tube placed in preparation for G-tube placement. 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 I was unable to distend the stomach sufficiently to displace the colon out of the way to place a gastrostomy tube. I have spoken to Dr Vega. 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 Only mild drainage is seen around the tube. I spoke with Dr. Vega. Jim Lucero Jr., MD Physical Exam HEENT: Normocephalic; atraumatic; no jaundice. CHEST: CTA CARDIAC: RRR ABDOMEN: Soft, nondistended, nontender; no hepatosplenomegaly; bowel sounds are present in all four quadrants. drainage bag to fistula site- clear brown drainage EXTREMITIES: BLE edema. SKIN: Normal; no rash; no jaundice. MOTOR INSTALLER: No focal deficits; lethargic and oriented times three. (Kimi Carlos [facility]) Assessment and Plan Plan ASSESSMENT: - Dysphagia/Malnutrition. Pt with hx of esophageal cancer, getting chemotherapy /radiation, s/p j tube placement. He is only able to tolerate ice chips. 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 IR was consulted and evaluated the patient for removal of J tube with G tube placement on 06/04/17, but IR was unable to sufficiently distend the stomach to place the tube surgically and felt that it would need to be placed surgically. GS has been consulted and came in yesterday and removed the J tube and placed a collection bag over the enterocutaneous fistula to collect the drainage. They would like to try an esophageal stent to see if patient would be able to take in adequate po to avoid G tube. Of note, he reports that he only has one more radiation and chemo treatment. S/P EGD (06/09/17)----> 1. Circumferential diffuse abnormal mucosa was found in the mid esophagus and distal esophagus; The mucosa was congested and had scarring; but no narrowing seen, no stent placed, multiple biopsies were performed 2. There was erythematous gastritis in the entire examined stomach; multiple biopsies were performed 3. Normal duodenal mucosa in the bulb and second portion of the duodenum 4. Retroflexion was performed and was normal. TPN. Full liquids- seems to be tolerating this, although slow to pass down. Taking ensure. Wean tpn once oral intake improves. 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 Currently with collection bag with small to moderate amount clear yellowish drainage. GS following. - Esophageal cancer. 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 S/P exploratory laparoscopy with J tube placement and had a port placed. Tx with neoadjuvant chemotherapy with radiation-last had chemotherapy on May 18 with paclitaxel and carboplatin. States that he only has one more chemo and one more radiation. - Sepsis. Abdominal wound with PSAE, Enterococcus faecalis, vin albicans. Rpt cx with >= 3 mixed enteric GNR with no predominant organism. Zosyn PLAN: - Full liquids, ensure - TPN, will wean once taking more oral intake - Abx per attending - Monitor labs - GS following - Further recommendations to follow based on results of above - Pt seen and examined by Dr. Arriaga and myself and this note is written on his behalf (Kimi Carlos) Physician Comments Seen and examined, plan as above, diet tolerated better. Will follow up with you. (Matt Arriaga MD) Kimi Carlos Jun 10, 2017 17:16 Matt Arriaga MD Jun 10, 2017 22:26
[2017-06-10] MEDS: SILVER SULFADIAZINE 1% CR 50 GM JAR TOPICAL SCH (20:28)
[2017-06-10] MEDS: PANTOPRAZOLE SODIUM 40 MG VIAL IV PUSH SCH (20:54)
[2017-06-10] MEDS: FAT EMULSION 20% INJ 250 ML (@10 mls/hr) IV-CENTRAL SCH (21:07)
[2017-06-10] MEDS: SODIUM ACETATE IV-CENTRAL SCH ×9 (21:08)
[2017-06-10] MEDS: SODIUM CHLORIDE IV-CENTRAL SCH ×9 (21:08)
[2017-06-10] MEDS: [UNRECOGNIZED DRUG - OTHER] IV-CENTRAL SCH ×9 (21:08)
[2017-06-11] VITALS (9 sets, daily range): BP systolic 85–163; BP diastolic 55–85; PULSE 66–85; RESP 16–19; TEMP 98–99.1; O2SAT 96–100
[2017-06-11] MEDS: HYDROmorphone HCL PF 1 MG/ML VIAL IV PUSH PRN ×11 (01:12→22:05)
[2017-06-11] MEDS: METOCLOPRAMIDE HCL 10 MG/2 ML VIAL IV PUSH SCH ×3 (05:05→20:44)
[2017-06-11] MEDS: PIPERACIL-TAZO 4.5 GM PREMIX 100 ML IV SCH ×4 (05:06→22:04)
[2017-06-11 06:16] LABS: BICARBONATE 27.2 MEQ/L (21.0-32.0); POTASSIUM 3.5 MEQ/L (3.5-5.1)
[2017-06-11] MEDS: INSULIN ASPART SUPPLEMENTAL SCALE SQ SCH ×4 (07:00→20:42)
--- NOTE | 2017-06-11 08:31 | HHI.PR ---
Subjective Remarks says he gets LH/dizzy upon standing eager to know if there is a surgical solution for his feeding tube/fistula issues. Objective Vitals heart reg lung course bs abd old j tube site/ostomy ext no edema Vital Signs Date Time Temp Pulse Resp B/P (MAP) Pulse Ox O2 Delivery O2 Flow Rate FiO2 06/11/17 04:08 98.6 73 16 157/77 (103) 96 06/11/17 00:18 98.0 76 16 158/85 (109) 98 06/10/17 21:18 98.3 66 16 137/78 (97) 98 06/10/17 20:02 Room Air 06/10/17 20:00 69 06/10/17 16:00 97.8 73 20 160/77 (104) 97 06/10/17 12:04 98.3 75 20 162/77 (105) 98 06/10/17 10:56 93 06/11/17 06/11/17 06/12/17 15:00 23:00 07:00 Output Total 300 ml Balance -300 ml Drainage Total 300 ml Result Diagram: 06/08/17 0600 06/11/17 0153 Imaging Last Impressions Abdomen Fluoroscopy 06/04/17 0000 Signed Impressions: Service Date/Time: May 15:55 - CONCLUSION: Nasogastric tube placed in preparation for G-tube placement. 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 I was unable to distend the stomach sufficiently to displace the colon out of the way to place a gastrostomy tube. I have spoken to Dr Vega. 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 Only mild drainage is seen around the tube. I spoke with Dr. Vega. Jim Lucero Jr., MD Chest X-Ray 06/01/17 0000 Signed Impressions: Service Date/Time: Thursday, June 01, 2017 16:19 - CONCLUSION: No acute cardiopulmonary abnormality is identified. Background lung findings are suggestive of emphysema. Nicholas Unger MD A/P Problem List: (1) Feeding tube dysfunction ICD Codes: T85.598A - Other mechanical complication of other gastrointestinal prosthetic devices, implants and grafts, initial encounter Status: Acute Plan: - Pt is a 66 y/o male with adenocarcinoma of the esophagus diagnosed in , who has been undergoing chemo and XRT since 04/2017. - He was at his oncologist's office on 06/01 to get his last dose of chemotherapy when he got very lightheaded and almost passed out. - Pt was hypotensive with systolic BP in the 80's in the office and pt was given 1 L of IV fluid bolus en route to the hospital. Upon arrival to the ED his systolic BP was in the 90's. - Pt had reportedly been having issues with his J tube for a few days prior to admission and liquids were reportedly leaking out and the pt had been vomiting. He had fallen a few days prior to admission and hit his head causing a large scalp laceration and bleeding. - hypotension resolved with IVFs - blood cultures (06/01/17) --> NGTD - bandemia improving 31 (06/03), 7 (06/07) - - Zosyn and Vancomycin were given emperically. 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 Only mild drainage is seen around the tube - Case was d/w Dr. Vega (06/03/17) - Case d/w Dr. Lucero (06/03/17) - G- tube could NOT be placed by IR - J-tube removed & urostomy bag placed over j-tube/fistula site, continued drainage - GI performed EGD with bx on 06/09...no stent placed. severe gastritis. circumferential area in esophagus. no obstruction. - sputum studies (06/06) --> ngtd - blood cultures negative x 5d -increased basal insulin ..titrate as needed. -rx hypokalemia/hypernatremia with 1/2 ns with kcl -cont tpn...adjust kcl -monitor bmp - pain control -dvt prophylaxis -increase reglan iv and increase iv ppi. pt on liquid diet. -await surgical input -cont abx -check orthostatics. -PT daily. 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 - He underwent exploratory lap and J tube placement by Dr. Sanchez on . - Pt has been undergoing weekly Carboplatin and Taxol with radiation - Pt follows with Dr. Medina (4) Sepsis ICD Codes: A41.9 - Sepsis, unspecified organism Status: Acute Plan: - See above (5) Dehydration ICD Codes: E86.0 - Dehydration Status: Resolved Plan: - See above. Problem Qualifiers (1) Hypotension: (2) Sepsis: Koko Saldaña MD Jun 11, 2017 08:31
[2017-06-11] MEDS: ALLOPURINOL 100 MG TAB J-TUBE SCH (09:00)
[2017-06-11] MEDS: INSULIN DETEMIR 100 UNITS/ML VIAL SQ SCH ×2 (09:00→20:40)
[2017-06-11] MEDS: PANTOPRAZOLE SODIUM 40 MG VIAL IV PUSH SCH ×2 (09:10→20:03)
[2017-06-11] MEDS: SODIUM CHLORIDE 0.9% FLUSH 10 ML FLUSH IV FLUSH SCH ×2 (09:14→20:03)
[2017-06-11] MEDS ORDERED: PHARMACY ORDERED LAB ONE (15:45)
--- NOTE | 2017-06-11 16:45 | HHI.GIFU ---
Subjective Remarks Pt resting in bed. Says he is trying to eat. Going to try soup this evening. NO other complaints. (Dilia Wright) Objective Vitals I&O Vital Signs Date Time Temp Pulse Resp B/P (MAP) Pulse Ox O2 Delivery O2 Flow Rate FiO2 06/11/17 12:05 98.2 68 19 136/65 (88) 100 06/11/17 08:05 98.1 74 16 163/81 (108) 99 128/72 (90) 85/55 (65) 06/11/17 08:00 96 Room Air 21 06/11/17 08:00 85 06/11/17 04:08 98.6 73 16 157/77 (103) 96 06/11/17 00:18 98.0 76 16 158/85 (109) 98 06/10/17 21:18 98.3 66 16 137/78 (97) 98 06/10/17 20:02 Room Air 06/10/17 20:00 69 I/O 06/10/17 06/10/17 06/10/17 06/11/17 06/11/17 06/11/17 07:00 15:00 23:00 07:00 15:00 23:00 Intake Total 1156 ml 100 ml 2866 ml 440 ml 100 ml Output Total 550 ml 1000 ml 500 ml 300 ml Balance 606 ml 100 ml 1866 ml -60 ml -200 ml Intake Oral 240 ml 480 ml 240 ml IV Total 916 ml 100 ml 2386 ml 200 ml 100 ml Output Urine Total 400 ml 1000 ml 500 ml Drainage Total 150 ml 300 ml # Bowel Movements 0 1 0 Laboratory Laboratory Tests Test 06/11/17 01:53 Blood Urea Nitrogen 13 Creatinine 0.90 Random Glucose 201 Calcium Level 8.1 Sodium Level 148 Potassium Level 3.5 Chloride Level 114 Carbon Dioxide Level 27.2 Anion Gap 7 Estimat Glomerular Filtration Rate 84 Date/Time Source Procedure Growth Status 06/01/17 16:40 Blood Peripheral Aerobic Blood Culture - Final NO GROWTH IN 5 DAYS Complete 06/01/17 16:40 Blood Peripheral Anaerobic Blood Culture - Final NO GROWTH IN 5 DAYS Complete 06/06/17 20:00 Sputum Expectorated Sputum Gram Stain - Final Complete 06/06/17 20:00 Sputum Expectorated Sputum Sputum Culture - Final MODERATE GROWTH NORMAL RESPIRATORY THEODORA Complete 06/01/17 19:20 Wound Abdomen Gram Stain - Final Complete 06/01/17 19:20 Wound Abdomen Wound Culture - Final Complete Physical Exam HEENT: Normocephalic; atraumatic; no jaundice. CHEST: CTA CARDIAC: RRR ABDOMEN: Soft, nondistended, nontender; no hepatosplenomegaly; bowel sounds are present in all four quadrants. drainage bag to fistula site- clear brown drainage EXTREMITIES: no clubbing cyanosis or edema SKIN: Normal; no rash; no jaundice. PRODUCTION LINE MECHANIC: No focal deficits; lethargic and oriented times three. (Dilia Wright LEARNING OPERATIONS SPECIALIST) Assessment and Plan Plan ASSESSMENT: - Dysphagia/Malnutrition. Pt with hx of esophageal cancer, getting chemotherapy /radiation, s/p j tube placement. He is only able to tolerate ice chips. 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 IR was consulted and evaluated the patient for removal of J tube with G tube placement on 06/04/17, but IR was unable to sufficiently distend the stomach to place the tube surgically and felt that it would need to be placed surgically. GS has been consulted and came in yesterday and removed the J tube and placed a collection bag over the enterocutaneous fistula to collect the drainage. They would like to try an esophageal stent to see if patient would be able to take in adequate po to avoid G tube. Of note, he reports that he only has one more radiation and chemo treatment. S/P EGD (06/09/17)----> 1. Circumferential diffuse abnormal mucosa was found in the mid esophagus and distal esophagus; The mucosa was congested and had scarring; but no narrowing seen, no stent placed, multiple biopsies were performed 2. There was erythematous gastritis in the entire examined stomach; multiple biopsies were performed 3. Normal duodenal mucosa in the bulb and second portion of the duodenum 4. Retroflexion was performed and was normal. TPN. Full liquids- seems to be tolerating this, although slow to pass down. Taking ensure. Wean tpn once oral intake improves. 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 Currently with collection bag with small to moderate amount clear yellowish drainage. GS following. - Esophageal cancer. 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 S/P exploratory laparoscopy with J tube placement and had a port placed. Tx with neoadjuvant chemotherapy with radiation-last had chemotherapy on May 18 with paclitaxel and carboplatin. States that he only has one more chemo and one more radiation. - Sepsis. Abdominal wound with PSAE, Enterococcus faecalis, vin albicans. Rpt cx with >= 3 mixed enteric GNR with no predominant organism. Zosyn PLAN: - continue Full liquids, ensure - TPN, will wean once taking more oral intake - Abx per attending - Monitor labs - GS following - Further recommendations to follow based on results of above - Pt seen and examined by Dr. Arriaga and myself and this note is written on his behalf (Dilia Wright) Physician Comments As above, will follow up with you. (Matt Arriaga MD) Dilia Wright Jun 11, 2017 16:45 Matt Arriaga MD Jun 12, 2017 06:37
--- NOTE | 2017-06-11 18:00 | HHI.PR ---
Subjective Subjective Notes Resting in bed at bedside Asking about pathology Objective Vitals/I&O Vital Signs Date Time Temp Pulse Resp B/P (MAP) Pulse Ox O2 Delivery O2 Flow Rate FiO2 06/11/17 12:05 98.2 68 19 136/65 (88) 100 06/11/17 08:00 Room Air 21 Labs Laboratory Tests Test 06/11/17 01:53 Blood Urea Nitrogen 13 Creatinine 0.90 Random Glucose 201 Calcium Level 8.1 Sodium Level 148 Potassium Level 3.5 Chloride Level 114 Carbon Dioxide Level 27.2 Anion Gap 7 Estimat Glomerular Filtration Rate 84 Date/Time Source Procedure Growth Status 06/01/17 16:40 Blood Peripheral Aerobic Blood Culture - Final NO GROWTH IN 5 DAYS Complete 06/01/17 16:40 Blood Peripheral Anaerobic Blood Culture - Final NO GROWTH IN 5 DAYS Complete 06/06/17 20:00 Sputum Expectorated Sputum Gram Stain - Final Complete 06/06/17 20:00 Sputum Expectorated Sputum Sputum Culture - Final MODERATE GROWTH NORMAL RESPIRATORY THEODORA Complete 06/01/17 19:20 Wound Abdomen Gram Stain - Final Complete 06/01/17 19:20 Wound Abdomen Wound Culture - Final Complete Cardiovascular: Regular Lungs: Clear Abdomen: Other (prior J tube site with wound garage manager bag in place ) Extremities: No edema A/P Assessment and Plan 66 year old male with esophageal cancer and malfunction J tube -Continue Wound Thread Pulling Machine Attendant to prior J tube site -Esophageal stents not placed due to no narrowing visualized -Full liquids -Will start calorie count tomorrow -We will continue to follow Karolina Arguello Jun 11, 2017 18:00
[2017-06-11] MEDS: SODIUM ACETATE IV-CENTRAL SCH ×9 (20:04)
[2017-06-11] MEDS: SODIUM CHLORIDE IV-CENTRAL SCH ×9 (20:04)
[2017-06-11] MEDS: FAT EMULSION 20% INJ 250 ML (@10 mls/hr) IV-CENTRAL SCH (20:04)
[2017-06-11] MEDS: [UNRECOGNIZED DRUG - OTHER] IV-CENTRAL SCH ×9 (20:04)
[2017-06-11] MEDS: SILVER SULFADIAZINE 1% CR 50 GM JAR TOPICAL SCH (20:05)
[2017-06-11] MEDS: POTASSIUM CHLORIDE INJ 40 MEQ in SODIUM CHLOR 0.45% 1000 ML INJ 1,000 ML IV SCH (22:00)
[2017-06-12] VITALS (9 sets, daily range): BP systolic 125–165; BP diastolic 66–86; PULSE 62–82; RESP 16–18; TEMP 98–99; O2SAT 96–100
[2017-06-12] MEDS: HYDROmorphone HCL PF 1 MG/ML VIAL IV PUSH PRN ×11 (00:20→22:52)
[2017-06-12] MEDS: POTASSIUM CHLORIDE INJ 40 MEQ in SODIUM CHLOR 0.45% 1000 ML INJ 1,000 ML IV SCH (04:07)
[2017-06-12] MEDS: METOCLOPRAMIDE HCL 10 MG/2 ML VIAL IV PUSH SCH ×3 (04:41→22:51)
[2017-06-12] MEDS: PIPERACIL-TAZO 4.5 GM PREMIX 100 ML IV SCH ×4 (04:41→22:51)
[2017-06-12 05:17] LABS: BICARBONATE 26.9 MEQ/L (21.0-32.0); MAGNESIUM 1.7 MG/DL (1.5-2.5); POTASSIUM 3.8 MEQ/L (3.5-5.1)
[2017-06-12] MEDS: INSULIN ASPART SUPPLEMENTAL SCALE SQ SCH ×4 (06:29→20:39)
[2017-06-12] MEDS: ALLOPURINOL 100 MG TAB J-TUBE SCH (08:47)
[2017-06-12] MEDS: SODIUM CHLORIDE 0.9% FLUSH 10 ML FLUSH IV FLUSH SCH ×2 (08:47→19:51)
[2017-06-12] MEDS: PANTOPRAZOLE SODIUM 40 MG VIAL IV PUSH SCH ×2 (08:48→19:52)
[2017-06-12] MEDS: SILVER SULFADIAZINE 1% CR 50 GM JAR TOPICAL SCH ×2 (08:48→20:45)
[2017-06-12] MEDS: INSULIN DETEMIR 100 UNITS/ML VIAL SQ SCH ×2 (08:58→20:38)
--- NOTE | 2017-06-12 10:55 | HHI.PR ---
Subjective Remarks doing ok reglan might be helping Objective Vitals heart reg lung course bs abd j tube site ostomy ext no edema Vital Signs Date Time Temp Pulse Resp B/P (MAP) Pulse Ox O2 Delivery O2 Flow Rate FiO2 06/12/17 10:03 06/12/17 08:59 97 06/12/17 08:00 98.6 64 18 137/77 (97) 98 06/12/17 07:40 Room Air 06/12/17 04:50 98.5 82 16 161/86 (111) 100 06/11/17 23:30 98.9 76 16 142/78 (99) 97 06/11/17 20:57 99.1 80 18 143/73 (96) 97 06/11/17 20:00 71 06/11/17 20:00 Room Air 06/11/17 16:08 98.7 66 18 126/75 (92) 97 06/11/17 12:05 98.2 68 19 136/65 (88) 100 Result Diagram: 06/08/17 0600 06/12/17 0435 Imaging Last Impressions Abdomen Fluoroscopy 06/04/17 0000 Signed Impressions: Service Date/Time: May 15:55 - CONCLUSION: Nasogastric tube placed in preparation for G-tube placement. 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 I was unable to distend the stomach sufficiently to displace the colon out of the way to place a gastrostomy tube. I have spoken to Dr Vega. 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 Only mild drainage is seen around the tube. I spoke with Dr. Vega. Jim Lucero Jr., MD Chest X-Ray 06/01/17 0000 Signed Impressions: Service Date/Time: Thursday, June 01, 2017 16:19 - CONCLUSION: No acute cardiopulmonary abnormality is identified. Background lung findings are suggestive of emphysema. Nicholas Unger MD A/P Problem List: (1) Feeding tube dysfunction ICD Codes: T85.598A - Other mechanical complication of other gastrointestinal prosthetic devices, implants and grafts, initial encounter Status: Acute Plan: - Pt is a 66 y/o male with adenocarcinoma of the esophagus diagnosed in , who has been undergoing chemo and XRT since 04/2017. - He was at his oncologist's office on 06/01 to get his last dose of chemotherapy when he got very lightheaded and almost passed out. - Pt was hypotensive with systolic BP in the 80's in the office and pt was given 1 L of IV fluid bolus en route to the hospital. Upon arrival to the ED his systolic BP was in the 90's. - Pt had reportedly been having issues with his J tube for a few days prior to admission and liquids were reportedly leaking out and the pt had been vomiting. He had fallen a few days prior to admission and hit his head causing a large scalp laceration and bleeding. - hypotension resolved with IVFs - blood cultures (06/01/17) --> NGTD - bandemia improving 31 (06/03), 7 (06/07) - - Zosyn and Vancomycin were given emperically. 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 Only mild drainage is seen around the tube - Case was d/w Dr. Vega (06/03/17) - Case d/w Dr. Lucero (06/03/17) - G- tube could NOT be placed by IR - J-tube removed & urostomy bag placed over j-tube/fistula site, continued drainage - GI performed EGD with bx on 06/09...no stent placed. severe gastritis. circumferential area in esophagus. no obstruction. - sputum studies (06/06) --> ngtd - blood cultures negative x 5d -increased basal insulin ..titrate as needed. -rx hypokalemia/hypernatremia with 1/2 ns with kcl -cont tpn...adjust kcl -monitor bmp - pain control -dvt prophylaxis -increased reglan iv and increase iv ppi. pt on liquid diet. -surgery following and wants calorie count before making any further decisions. -cont abx -orthostatic hypotension with c/o dizziness upon standing. start low dose midodrine. -PT daily. 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 - He underwent exploratory lap and J tube placement by Dr. Sanchez on . - Pt has been undergoing weekly Carboplatin and Taxol with radiation - Pt follows with Dr. Medina (4) Sepsis ICD Codes: A41.9 - Sepsis, unspecified organism Status: Acute Plan: - See above (5) Dehydration ICD Codes: E86.0 - Dehydration Status: Resolved Plan: - See above. Problem Qualifiers (1) Hypotension: (2) Sepsis: Koko Saldaña MD Jun 12, 2017 10:54
[2017-06-12] MEDS: MIDODRINE 5 MG TAB PO SCH ×2 (12:00→16:32)
[2017-06-12] MEDS ORDERED: PILL SPLITTER OTHER PRN (12:45)
[2017-06-12] MEDS: FAT EMULSION 20% INJ 250 ML (@10 mls/hr) IV-CENTRAL SCH (19:50)
[2017-06-12] MEDS: SODIUM ACETATE IV-CENTRAL SCH ×9 (19:51)
[2017-06-12] MEDS: SODIUM CHLORIDE IV-CENTRAL SCH ×9 (19:51)
[2017-06-12] MEDS: [UNRECOGNIZED DRUG - OTHER] IV-CENTRAL SCH ×9 (19:51)
[2017-06-13] VITALS (8 sets, daily range): BP systolic 97–140; BP diastolic 62–82; PULSE 66–103; RESP 16–20; TEMP 97.2–98.8; O2SAT 98–100
[2017-06-13] MEDS: HYDROmorphone HCL PF 1 MG/ML VIAL IV PUSH PRN ×10 (01:27→22:41)
[2017-06-13] MEDS: PIPERACIL-TAZO 4.5 GM PREMIX 100 ML IV SCH ×4 (04:18→22:41)
[2017-06-13] MEDS: POTASSIUM CHLORIDE INJ 40 MEQ in SODIUM CHLOR 0.45% 1000 ML INJ 1,000 ML IV SCH (04:56)
[2017-06-13] MEDS: METOCLOPRAMIDE HCL 10 MG/2 ML VIAL IV PUSH SCH ×3 (04:57→21:02)
[2017-06-13] MEDS: INSULIN ASPART SUPPLEMENTAL SCALE SQ SCH ×4 (06:14→21:00)
[2017-06-13] MEDS: MIDODRINE 5 MG TAB PO SCH ×3 (06:14→17:26)
[2017-06-13] MEDS: SODIUM CHLORIDE 0.9% FLUSH 10 ML FLUSH IV FLUSH SCH ×2 (08:28→20:35)
[2017-06-13] MEDS: PANTOPRAZOLE SODIUM 40 MG VIAL IV PUSH SCH ×2 (08:29→20:35)
[2017-06-13] MEDS: ALLOPURINOL 100 MG TAB J-TUBE SCH (08:29)
[2017-06-13] MEDS: SILVER SULFADIAZINE 1% CR 50 GM JAR TOPICAL SCH ×2 (08:29→20:35)
--- NOTE | 2017-06-13 08:43 | HHI.PR ---
Subjective Remarks still dizzy with standing Objective Vitals heart reg lung cta abd j tube site ostomy ext no edema Vital Signs Date Time Temp Pulse Resp B/P (MAP) Pulse Ox O2 Delivery O2 Flow Rate FiO2 06/13/17 04:53 98.8 78 16 134/82 (99) 98 06/12/17 23:28 98.3 69 16 137/71 (93) 97 06/12/17 22:59 96 21 06/12/17 20:45 98.0 78 16 165/82 (109) 97 06/12/17 20:00 Room Air 06/12/17 20:00 66 06/12/17 17:34 06/12/17 16:00 99.0 62 18 125/66 (85) 96 06/12/17 13:11 06/12/17 12:00 98.5 73 18 146/75 (98) 98 06/12/17 10:03 06/12/17 08:59 97 Result Diagram: 06/12/17 0435 Imaging Last Impressions Abdomen Fluoroscopy 06/04/17 0000 Signed Impressions: Service Date/Time: May 15:55 - CONCLUSION: Nasogastric tube placed in preparation for G-tube placement. 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 I was unable to distend the stomach sufficiently to displace the colon out of the way to place a gastrostomy tube. I have spoken to Dr Vega. 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 Only mild drainage is seen around the tube. I spoke with Dr. Vega. Jim Lucero Jr., MD Chest X-Ray 06/01/17 0000 Signed Impressions: Service Date/Time: Thursday, June 01, 2017 16:19 - CONCLUSION: No acute cardiopulmonary abnormality is identified. Background lung findings are suggestive of emphysema. Nicholas Unger MD A/P Problem List: (1) Feeding tube dysfunction ICD Codes: T85.598A - Other mechanical complication of other gastrointestinal prosthetic devices, implants and grafts, initial encounter Status: Acute Plan: - Pt is a 66 y/o male with adenocarcinoma of the esophagus diagnosed in , who has been undergoing chemo and XRT since 04/2017. - He was at his oncologist's office on 06/01 to get his last dose of chemotherapy when he got very lightheaded and almost passed out. - Pt was hypotensive with systolic BP in the 80's in the office and pt was given 1 L of IV fluid bolus en route to the hospital. Upon arrival to the ED his systolic BP was in the 90's. - Pt had reportedly been having issues with his J tube for a few days prior to admission and liquids were reportedly leaking out and the pt had been vomiting. He had fallen a few days prior to admission and hit his head causing a large scalp laceration and bleeding. - blood cultures (06/01/17) --> NGTD - bandemia improving 31 (06/03), 7 (06/07) - - Zosyn and Vancomycin were given emperically. 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 Only mild drainage is seen around the tube - Case was d/w Dr. Vega (06/03/17) - Case d/w Dr. Lucero (06/03/17) - G- tube could NOT be placed by IR - J-tube removed & urostomy bag placed over j-tube/fistula site, continued drainage - GI performed EGD with bx on 06/09...no stent placed. severe gastritis. circumferential area in esophagus. no obstruction. - sputum studies (06/06) --> ngtd - blood cultures negative x 5d -increased basal insulin ..titrate as needed. -rx hypokalemia/hypernatremia with 1/2 ns with kcl -cont tpn...adjust kcl - pain control -dvt prophylaxis -increased reglan iv and increase iv ppi. pt on liquid diet. -surgery following and wants calorie count before making any further decisions. -cont abx -orthostatic hypotension with c/o dizziness upon standing. start low dose midodrine..ok to crush. marce jimeneze added -PT daily. 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 - He underwent exploratory lap and J tube placement by Dr. Sanchez on . - Pt has been undergoing weekly Carboplatin and Taxol with radiation - Pt follows with Dr. Medina (4) Sepsis ICD Codes: A41.9 - Sepsis, unspecified organism Status: Acute Plan: - See above (5) Dehydration ICD Codes: E86.0 - Dehydration Status: Resolved Plan: - See above. Problem Qualifiers (1) Hypotension: (2) Sepsis: Koko Saldaña MD Jun 13, 2017 08:43
[2017-06-13] MEDS: INSULIN DETEMIR 100 UNITS/ML VIAL SQ SCH ×2 (08:48→21:10)
--- NOTE | 2017-06-13 15:04 | HHI.GIFU ---
Subjective Remarks Resting in bed. No distress. No n/v. Only taking small amounts of full liquid diet. He does feel like he could handle soft solids. Coughing up frothy secretions per nurse. (Kimi Carlos) Objective Vitals I&O Vital Signs Date Time Temp Pulse Resp B/P (MAP) Pulse Ox O2 Delivery O2 Flow Rate FiO2 06/13/17 12:00 97.2 69 140/74 (96) 100 06/13/17 12:00 100 Room Air 06/13/17 09:00 98 Room Air 06/13/17 08:27 83 06/13/17 08:05 103 97/62 (74) 06/13/17 08:00 97.9 77 20 139/78 (98) 99 06/13/17 04:53 98.8 78 16 134/82 (99) 98 06/12/17 23:28 98.3 69 16 137/71 (93) 97 06/12/17 22:59 96 21 06/12/17 20:45 98.0 78 16 165/82 (109) 97 06/12/17 20:00 Room Air 06/12/17 20:00 66 06/12/17 17:34 06/12/17 16:00 99.0 62 18 125/66 (85) 96 I/O 06/12/17 06/12/17 06/12/17 06/13/17 06/13/17 06/13/17 06:59 14:59 22:59 06:59 14:59 22:59 Intake Total 1436 ml 952 ml 1362 ml 1353.7 ml Output Total 800 ml 350 ml 450 ml Balance 636 ml 952 ml 1362 ml 1003.7 ml -450 ml Intake Oral 480 ml 240 ml IV Total 956 ml 441 ml 1362 ml 1113.7 ml TPN/PPN 441 ml Lipid 70 ml Output Urine Total 600 ml 350 ml 450 ml Stool Total 200 ml # Bowel Movements 0 0 Laboratory Date/Time Source Procedure Growth Status 06/01/17 16:40 Blood Peripheral Aerobic Blood Culture - Final NO GROWTH IN 5 DAYS Complete 06/01/17 16:40 Blood Peripheral Anaerobic Blood Culture - Final NO GROWTH IN 5 DAYS Complete 06/06/17 20:00 Sputum Expectorated Sputum Gram Stain - Final Complete 06/06/17 20:00 Sputum Expectorated Sputum Sputum Culture - Final MODERATE GROWTH NORMAL RESPIRATORY THEODORA Complete 06/01/17 19:20 Wound Abdomen Gram Stain - Final Complete 06/01/17 19:20 Wound Abdomen Wound Culture - Final Complete Imaging Last Impressions Chest X-Ray 06/06/17 0000 Signed Impressions: Service Date/Time: Tuesday, June 06, 2017 21:41 - CONCLUSION: No acute cardiopulmonary disease. Steve Gill MD Abdomen Fluoroscopy 06/04/17 0000 Signed Impressions: Service Date/Time: May 15:55 - CONCLUSION: Nasogastric tube placed in preparation for G-tube placement. 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 I was unable to distend the stomach sufficiently to displace the colon out of the way to place a gastrostomy tube. I have spoken to Dr Vega. 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 Only mild drainage is seen around the tube. I spoke with Dr. Vega. Jim Lucero Jr., MD Physical Exam HEENT: Normocephalic; atraumatic; no jaundice. CHEST: CTA CARDIAC: RRR ABDOMEN: Soft, nondistended, nontender; no hepatosplenomegaly; bowel sounds are present in all four quadrants. drainage bag to fistula site- small amount of clear brown drainage EXTREMITIES: no clubbing cyanosis or edema SKIN: Normal; no rash; no jaundice. SENIOR GRANTS OFFICER: No focal deficits; lethargic and oriented times three. (Kimi Carlos [facility]) Assessment and Plan Plan ASSESSMENT: - Dysphagia/Malnutrition. Pt with hx of esophageal cancer, getting chemotherapy /radiation, s/p j tube placement. He is only able to tolerate ice chips. 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 IR was consulted and evaluated the patient for removal of J tube with G tube placement on 06/04/17, but IR was unable to sufficiently distend the stomach to place the tube surgically and felt that it would need to be placed surgically. GS has been consulted and came in yesterday and removed the J tube and placed a collection bag over the enterocutaneous fistula to collect the drainage. They would like to try an esophageal stent to see if patient would be able to take in adequate po to avoid G tube. Of note, he reports that he only has one more radiation and chemo treatment. S/P EGD (06/09/17)----> 1. Circumferential diffuse abnormal mucosa was found in the mid esophagus and distal esophagus; The mucosa was congested and had scarring; but no narrowing seen, no stent placed, multiple biopsies were performed 2. There was erythematous gastritis in the entire examined stomach; multiple biopsies were performed 3. Normal duodenal mucosa in the bulb and second portion of the duodenum 4. Retroflexion was performed and was normal. TPN. Full liquids- per nurse only taking very small amounts. Does feel that he could take soft solids. Nurse states he is only taking small amounts of full liquids and is bringing up frothy material with this. 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 Currently with collection bag with small to moderate amount clear brownish drainage. GS following. - Esophageal cancer. 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 S/P exploratory laparoscopy with J tube placement and had a port placed. Tx with neoadjuvant chemotherapy with radiation-last had chemotherapy on May 18 with paclitaxel and carboplatin. States that he only has one more chemo and one more radiation. - Sepsis. Abdominal wound with PSAE, Enterococcus faecalis, vin albicans. Rpt cx with >= 3 mixed enteric GNR with no predominant organism. Zosyn PLAN: - Full liquids, ensure - TPN - Abx per attending - Monitor labs - GS following - Further recommendations to follow based on results of above - Pt seen and examined by Dr. Arriaga and myself and this note is written on his behalf (Kimi Carlos) Physician Comments Agree with the assessment and plan as above. will need to start TPN. Will follow up with you periodically. (Matt Arriaga MD) Kimi Carlos Jun 13, 2017 15:04 Matt Arriaga MD Jun 13, 2017 16:29
[2017-06-13] MEDS: FAT EMULSION 20% INJ 250 ML (@10 mls/hr) IV-CENTRAL SCH (20:34)
[2017-06-13] MEDS: SODIUM ACETATE IV-CENTRAL SCH ×9 (20:35)
[2017-06-13] MEDS: [UNRECOGNIZED DRUG - OTHER] IV-CENTRAL SCH ×9 (20:35)
[2017-06-13] MEDS: SODIUM CHLORIDE IV-CENTRAL SCH ×9 (20:35)
[2017-06-14] VITALS (7 sets, daily range): BP systolic 103–149; BP diastolic 60–74; PULSE 70–80; RESP 18–20; TEMP 98.2–98.7; O2SAT 97–100
[2017-06-14] MEDS: HYDROmorphone HCL PF 1 MG/ML VIAL IV PUSH PRN ×10 (01:00→22:16)
[2017-06-14] MEDS: PIPERACIL-TAZO 4.5 GM PREMIX 100 ML IV SCH ×4 (05:45→22:16)
[2017-06-14] MEDS: POTASSIUM CHLORIDE INJ 40 MEQ in SODIUM CHLOR 0.45% 1000 ML INJ 1,000 ML IV SCH (05:46)
[2017-06-14] MEDS: METOCLOPRAMIDE HCL 10 MG/2 ML VIAL IV PUSH SCH ×3 (05:46→22:15)
[2017-06-14] MEDS: MIDODRINE 5 MG TAB PO SCH ×3 (07:12→17:30)
[2017-06-14] MEDS: INSULIN ASPART SUPPLEMENTAL SCALE SQ SCH ×4 (07:16→21:41)
[2017-06-14 07:35] LABS: BICARBONATE 23.9 MEQ/L (21.0-32.0); POTASSIUM 4.2 MEQ/L (3.5-5.1)
[2017-06-14 07:36] LABS: AUTOMATED NEUTROPHIL # 2.1 TH/MM3 (1.8-7.7); BASOPHIL % 0.7 % (0.0-2.0); EOSINOPHIL % 0.4 % (0.0-4.0); HEMATOCRIT 24.9 % (39.0-51.0); LYMPH % 24.5 % (9.0-44.0); LYMPHOCYTE # 0.8 TH/MM3 (1.0-4.8); MEAN CELL VOLUME 92.9 FL (80.0-100.0); MEAN CORPUSCULAR HEMOGLOBIN 30.5 PG (27.0-34.0); MEAN CORPUSCULAR HGB CONC 32.9 % (32.0-36.0); NEUT % 62.4 % (16.0-70.0); PLATELET COUNT 26 TH/MM3 (150-450); RED BLOOD COUNT 2.69 MIL/MM3 (4.50-5.90); RED CELL DISTRIBUTION WIDTH 22.6 % (11.6-17.2); WHITE BLOOD COUNT 3.4 TH/MM3 (4.0-11.0)
[2017-06-14 07:42] LABS: HEMO FLAGS AUTO DIFF
[2017-06-14] MEDS: PANTOPRAZOLE SODIUM 40 MG VIAL IV PUSH SCH ×2 (08:17→20:11)
[2017-06-14] MEDS: SODIUM CHLORIDE 0.9% FLUSH 10 ML FLUSH IV FLUSH SCH ×2 (08:17→20:11)
[2017-06-14] MEDS: ALLOPURINOL 100 MG TAB J-TUBE SCH (08:17)
[2017-06-14] MEDS: SILVER SULFADIAZINE 1% CR 50 GM JAR TOPICAL SCH ×2 (08:18→20:12)
[2017-06-14] MEDS: INSULIN DETEMIR 100 UNITS/ML VIAL SQ SCH ×2 (08:29→21:42)
[2017-06-14 09:04] LABS: BANDS 14 % (0-6); BASOPHILS 1 % (0-2); NEUTROPHIL # MANUAL DIFF 2.5 TH/MM3 (1.8-7.7); POLYS (SEG NEUTROPHILS) 60 % (16-70); WBC DIFF SAMPLE 100
[2017-06-14 09:05] LABS: OVALOCYTES 1+ (NORMAL)
[2017-06-14 09:06] LABS: PLATELET ESTIMATE SMEAR LOW (NORMAL); PLATELET MORPHOLOGY NORMAL (NORMAL); SCAN/DIFF FINAL DIFF MANUAL
--- NOTE | 2017-06-14 09:49 | HHI.PR ---
Subjective Remarks doing about the same. no new complaints Objective Vitals heart reg lung cta abd j tube ostomy site ext no edema Vital Signs Date Time Temp Pulse Resp B/P (MAP) Pulse Ox O2 Delivery O2 Flow Rate FiO2 06/14/17 08:00 98.2 77 18 136/66 (89) 97 06/14/17 04:00 98.6 70 20 114/63 (80) 99 06/14/17 04:00 Room Air 06/14/17 00:00 Room Air 06/14/17 00:00 98.7 74 20 149/70 (96) 98 06/13/17 20:00 Room Air 06/13/17 20:00 98.3 75 20 127/66 (86) 98 06/13/17 19:34 66 06/13/17 16:00 98 Room Air 06/13/17 16:00 98.4 70 20 119/69 (86) 98 06/13/17 12:00 97.2 69 140/74 (96) 100 06/13/17 12:00 100 Room Air Result Diagram: 06/14/17 0650 06/14/17 0650 Imaging Last Impressions Abdomen Fluoroscopy 06/04/17 0000 Signed Impressions: Service Date/Time: May 15:55 - CONCLUSION: Nasogastric tube placed in preparation for G-tube placement. 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 I was unable to distend the stomach sufficiently to displace the colon out of the way to place a gastrostomy tube. I have spoken to Dr Vega. 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 Only mild drainage is seen around the tube. I spoke with Dr. Vega. Jim Lucero Jr., MD Chest X-Ray 06/01/17 0000 Signed Impressions: Service Date/Time: Thursday, June 01, 2017 16:19 - CONCLUSION: No acute cardiopulmonary abnormality is identified. Background lung findings are suggestive of emphysema. Nicholas Unger MD A/P Problem List: (1) Feeding tube dysfunction ICD Codes: T85.598A - Other mechanical complication of other gastrointestinal prosthetic devices, implants and grafts, initial encounter Status: Acute Plan: - Pt is a 66 y/o male with adenocarcinoma of the esophagus diagnosed in , who has been undergoing chemo and XRT since 04/2017. - He was at his oncologist's office on 06/01 to get his last dose of chemotherapy when he got very lightheaded and almost passed out. - Pt was hypotensive with systolic BP in the 80's in the office and pt was given 1 L of IV fluid bolus en route to the hospital. Upon arrival to the ED his systolic BP was in the 90's. - Pt had reportedly been having issues with his J tube for a few days prior to admission and liquids were reportedly leaking out and the pt had been vomiting. He had fallen a few days prior to admission and hit his head causing a large scalp laceration and bleeding. - blood cultures (06/01/17) --> NGTD - bandemia improving 31 (06/03), 7 (06/07) - - Zosyn and Vancomycin were given emperically. 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 Only mild drainage is seen around the tube - Case was d/w Dr. Vega (06/03/17) - Case d/w Dr. Lucero (06/03/17) - G- tube could NOT be placed by IR - J-tube removed & urostomy bag placed over j-tube/fistula site, continued drainage - GI performed EGD with bx on 06/09...no stent placed. severe gastritis. circumferential area in esophagus. no obstruction. - sputum studies (06/06) --> ngtd - blood cultures negative x 5d -increased basal insulin ..titrate as needed. -rx'ed hypokalemia/hypernatremia with 1/2 ns with kcl . stop -cont tpn...adjust kcl - pain control -dvt prophylaxis -increased reglan iv and increase iv ppi. pt on liquid diet. -surgery following and wants calorie count before making any further decisions. -cont abx -orthostatic hypotension with c/o dizziness upon standing. started low dose midodrine..ok to crush. marce campbell added -PT daily. -f/u pending tests. -will need to discuss again with gen surgery and hematology on Thursday. 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 - He underwent exploratory lap and J tube placement by Dr. Sanchez on . - Pt has been undergoing weekly Carboplatin and Taxol with radiation - Pt follows with Dr. Medina (4) Sepsis ICD Codes: A41.9 - Sepsis, unspecified organism Status: Acute Plan: - See above (5) Dehydration ICD Codes: E86.0 - Dehydration Status: Resolved Plan: - See above. Problem Qualifiers (1) Hypotension: (2) Sepsis: Koko Saldaña MD Jun 14, 2017 09:48
[2017-06-14] MEDS: ONDANSETRON HCL 4 MG/2 ML VIAL IVP PRN (20:11)
[2017-06-14] MEDS: FAT EMULSION 20% INJ 250 ML (@10 mls/hr) IV-CENTRAL SCH (20:11)
[2017-06-14] MEDS: SODIUM CHLORIDE IV-CENTRAL SCH ×9 (20:12)
[2017-06-14] MEDS: SODIUM ACETATE IV-CENTRAL SCH ×9 (20:12)
[2017-06-14] MEDS: [UNRECOGNIZED DRUG - OTHER] IV-CENTRAL SCH ×9 (20:12)
[2017-06-15] VITALS: BP 116/72; PULSE 78; RESP 20; TEMP 97.5; O2SAT 97
[2017-06-15] MEDS: HYDROmorphone HCL PF 1 MG/ML VIAL IV PUSH PRN ×10 (00:27→22:47)
[2017-06-15 04:00] VITALS: BP 107/62; PULSE 78; RESP 20; TEMP 98.2; O2SAT 97
[2017-06-15] MEDS: METOCLOPRAMIDE HCL 10 MG/2 ML VIAL IV PUSH SCH ×3 (04:54→22:23)
[2017-06-15] MEDS: PIPERACIL-TAZO 4.5 GM PREMIX 100 ML IV SCH ×2 (04:54→13:07)
[2017-06-15] MEDS: INSULIN ASPART SUPPLEMENTAL SCALE SQ SCH ×4 (05:56→20:41)
[2017-06-15] MEDS: MIDODRINE 5 MG TAB PO SCH ×3 (05:56→18:22)
[2017-06-15 08:06] VITALS: BP 113/62; PULSE 82; RESP 17; TEMP 98.4; O2SAT 99
[2017-06-15] MEDS: PANTOPRAZOLE SODIUM 40 MG VIAL IV PUSH SCH ×2 (09:00→20:27)
[2017-06-15] MEDS: SODIUM CHLORIDE 0.9% FLUSH 10 ML FLUSH IV FLUSH SCH ×2 (09:00→20:28)
[2017-06-15] MEDS: SILVER SULFADIAZINE 1% CR 50 GM JAR TOPICAL SCH ×2 (09:13→20:29)
[2017-06-15] MEDS: INSULIN DETEMIR 100 UNITS/ML VIAL SQ SCH ×2 (09:15→21:03)
[2017-06-15 12:06] VITALS: BP 114/62; PULSE 81; RESP 18; TEMP 97.9; O2SAT 98
--- NOTE | 2017-06-15 15:59 | HHI.PR ---
Subjective Remarks No new complaints. Objective Vitals Vital Signs Date Time Temp Pulse Resp B/P (MAP) Pulse Ox O2 Delivery O2 Flow Rate FiO2 06/15/17 12:06 97.9 81 18 114/62 (79) 98 06/15/17 08:06 98.4 82 17 113/62 (79) 99 06/15/17 04:00 98.2 78 20 107/62 (77) 97 06/15/17 00:00 97.5 78 20 116/72 (87) 97 06/14/17 20:00 98.2 73 20 103/63 (76) 98 06/14/17 19:00 Room Air 06/14/17 16:00 98.5 78 18 129/74 (92) 100 Result Diagram: 06/14/17 0650 06/14/17 0650 Imaging Last Impressions Chest X-Ray 06/06/17 0000 Signed Impressions: Service Date/Time: Tuesday, June 06, 2017 21:41 - CONCLUSION: No acute cardiopulmonary disease. Steve Gill MD Abdomen Fluoroscopy 06/04/17 0000 Signed Impressions: Service Date/Time: May 15:55 - CONCLUSION: Nasogastric tube placed in preparation for G-tube placement. 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 I was unable to distend the stomach sufficiently to displace the colon out of the way to place a gastrostomy tube. I have spoken to Dr Vega. 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 Only mild drainage is seen around the tube. I spoke with Dr. Vega. Jim Lucero Jr., MD Objective Remarks GENERAL: This is a well-nourished, well-developed patient, in no apparent distress. CARDIOVASCULAR: Regular rate and rhythm without murmurs, gallops, or rubs. RESPIRATORY: Clear to auscultation. Breath sounds equal bilaterally. No wheezes , rales, or rhonchi. GASTROINTESTINAL: Abdomen soft, non-tender, nondistended. Normal active bowel sounds MUSCULOSKELETAL: Extremities without clubbing, cyanosis, or edema. NEURO: Alert & Oriented x4 to person, place, time, situation. Moves all ext x4 A/P Problem List: (1) Feeding tube dysfunction ICD Codes: T85.598A - Other mechanical complication of other gastrointestinal prosthetic devices, implants and grafts, initial encounter Status: Acute Plan: - Pt is a 66 y/o male with adenocarcinoma of the esophagus diagnosed in , who has been undergoing chemo and XRT since 04/2017. - He was at his oncologist's office on 06/01 to get his last dose of chemotherapy when he got very lightheaded and almost passed out. - Pt was hypotensive with systolic BP in the 80's in the office and pt was given 1 L of IV fluid bolus en route to the hospital. Upon arrival to the ED his systolic BP was in the 90's. - Pt had reportedly been having issues with his J tube for a few days prior to admission and liquids were reportedly leaking out and the pt had been vomiting. He had fallen a few days prior to admission and hit his head causing a large scalp laceration and bleeding. - blood cultures (06/01/17) --> NGTD - bandemia improving 31 (06/03), 7 (06/07) - - Zosyn and Vancomycin were given emperically. 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 Only mild drainage is seen around the tube - Case was d/w Dr. Vega (06/03/17) - Case d/w Dr. Lucero (06/03/17) - G- tube could NOT be placed by IR - J-tube removed & urostomy bag placed over j-tube/fistula site, continued drainage - GI performed EGD with bx on 06/09...no stent placed. severe gastritis. circumferential area in esophagus. no obstruction. - sputum studies (06/06) --> no growth - blood cultures negative x 5d - increased basal insulin ..titrate as needed. - TPN - dvt prophylaxis - IV PPI - IV reglan - surgery following and wants calorie count before making any further decisions. - HOWEVER, dietary will NOT perform calorie count for pt on liquid diet. - pt request that I advance his diet - advance diet to 1800 ADA, pureed, observe - if poor results from calorie count, then surgery will consider possibility of additional surgical feeding tube - stop zosyn & observe - low dose midodrine d/t orthostatic hypotension - PT - consult Oncology, Dr. Medina. - consult Palliative Medicine -f/u pending tests. -will need to discuss again with gen surgery and hematology on Thursday. 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 - He underwent exploratory lap and J tube placement by Dr. Sanchez on . - Pt has been undergoing weekly Carboplatin and Taxol with radiation - Pt follows with Dr. Medina (4) Sepsis ICD Codes: A41.9 - Sepsis, unspecified organism Status: Acute Plan: - See above (5) Dehydration ICD Codes: E86.0 - Dehydration Status: Resolved Plan: - See above. Problem Qualifiers (1) Hypotension: (2) Sepsis: See Jacobson DO Jun 15, 2017 15:59
[2017-06-15 16:06] VITALS: BP 108/59; PULSE 88; RESP 18; TEMP 98.2; O2SAT 100
--- NOTE | 2017-06-15 17:30 | HHI.GIFU ---
Subjective Remarks Pt resting in bed. is going to be having soft diet for dinner. Had some rice crispies, an oreo. (Dilia Wright) Objective Vitals I&O Vital Signs Date Time Temp Pulse Resp B/P (MAP) Pulse Ox O2 Delivery O2 Flow Rate FiO2 06/15/17 16:06 98.2 88 18 108/59 (75) 100 06/15/17 12:06 97.9 81 18 114/62 (79) 98 06/15/17 08:06 98.4 82 17 113/62 (79) 99 06/15/17 04:00 98.2 78 20 107/62 (77) 97 06/15/17 00:00 97.5 78 20 116/72 (87) 97 06/14/17 20:00 98.2 73 20 103/63 (76) 98 06/14/17 19:00 Room Air I/O 06/14/17 06/14/17 06/14/17 06/15/17 06/15/17 06/15/17 07:00 15:00 23:00 07:00 15:00 23:00 Intake Total 200 ml 100 ml 1963.3 ml Output Total 925 ml 800 ml Balance -725 ml 100 ml 1163.3 ml Intake Oral 720 ml IV Total 200 ml 100 ml 1243.3 ml Output Urine Total 775 ml 300 ml Drainage Total 150 ml 500 ml # Bowel Movements 0 0 Laboratory Date/Time Source Procedure Growth Status 06/01/17 16:40 Blood Peripheral Aerobic Blood Culture - Final NO GROWTH IN 5 DAYS Complete 06/01/17 16:40 Blood Peripheral Anaerobic Blood Culture - Final NO GROWTH IN 5 DAYS Complete 06/06/17 20:00 Sputum Expectorated Sputum Gram Stain - Final Complete 06/06/17 20:00 Sputum Expectorated Sputum Sputum Culture - Final MODERATE GROWTH NORMAL RESPIRATORY THEODORA Complete 06/01/17 19:20 Wound Abdomen Gram Stain - Final Complete 06/01/17 19:20 Wound Abdomen Wound Culture - Final Complete Physical Exam HEENT: Normocephalic; atraumatic; no jaundice. CHEST: CTA CARDIAC: RRR ABDOMEN: Soft, nondistended, nontender; no hepatosplenomegaly; bowel sounds are present in all four quadrants. drainage bag to fistula site- small amount of clear brown drainage EXTREMITIES: no clubbing cyanosis or edema SKIN: Normal; no rash; no jaundice. INSTITUTIONAL AIDE: No focal deficits; lethargic and oriented times three. (Dilia Wright [facility]) Assessment and Plan Plan ASSESSMENT: - Dysphagia/Malnutrition. Pt with hx of esophageal cancer, getting chemotherapy /radiation, s/p j tube placement. He is only able to tolerate ice chips. 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 IR was consulted and evaluated the patient for removal of J tube with G tube placement on 06/04/17, but IR was unable to sufficiently distend the stomach to place the tube surgically and felt that it would need to be placed surgically. GS has been consulted and came in yesterday and removed the J tube and placed a collection bag over the enterocutaneous fistula to collect the drainage. They would like to try an esophageal stent to see if patient would be able to take in adequate po to avoid G tube. Of note, he reports that he only has one more radiation and chemo treatment. S/P EGD (06/09/17)----> 1. Circumferential diffuse abnormal mucosa was found in the mid esophagus and distal esophagus; The mucosa was congested and had scarring; but no narrowing seen, no stent placed, multiple biopsies were performed 2. There was erythematous gastritis in the entire examined stomach; multiple biopsies were performed 3. Normal duodenal mucosa in the bulb and second portion of the duodenum 4. Retroflexion was performed and was normal. TPN. 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 Currently with collection bag with small to moderate amount clear brownish drainage. GS following. - Esophageal cancer. 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 S/P exploratory laparoscopy with J tube placement and had a port placed. Tx with neoadjuvant chemotherapy with radiation-last had chemotherapy on May 18 with paclitaxel and carboplatin. States that he only has one more chemo and one more radiation. - Sepsis. Abdominal wound with PSAE, Enterococcus faecalis, vin albicans. Rpt cx with >= 3 mixed enteric GNR with no predominant organism. Zosyn PLAN: - soft diet - TPN - Abx per attending - Monitor labs - GS following - Pt seen and examined by Dr. Arriaga and myself and this note is written on his behalf (Dilia Wright) Physician Comments Plan as above, will sign off for now, please notify us if needed. (Matt Arriaga MD) Dilia Wright Jun 15, 2017 17:30 Matt Arriaga MD Jun 15, 2017 22:06
[2017-06-15 20:00] VITALS: BP 112/59; PULSE 83; PULSE 84; RESP 18; TEMP 98.3; O2SAT 99
[2017-06-15] MEDS: SODIUM CHLORIDE IV-CENTRAL SCH ×9 (20:28)
[2017-06-15] MEDS: [UNRECOGNIZED DRUG - OTHER] IV-CENTRAL SCH ×9 (20:28)
[2017-06-15] MEDS: FAT EMULSION 20% INJ 250 ML (@10 mls/hr) IV-CENTRAL SCH (20:28)
[2017-06-15] MEDS: SODIUM ACETATE IV-CENTRAL SCH ×9 (20:28)
[2017-06-16] VITALS: BP 108/64; PULSE 99; RESP 20; TEMP 98.8; O2SAT 100
[2017-06-16] MEDS: HYDROmorphone HCL PF 1 MG/ML VIAL IV PUSH PRN ×7 (01:12→22:18)
[2017-06-16 04:00] VITALS: BP 116/56; PULSE 87; RESP 16; TEMP 98.2; O2SAT 98
[2017-06-16] MEDS: METOCLOPRAMIDE HCL 10 MG/2 ML VIAL IV PUSH SCH ×3 (05:11→22:31)
[2017-06-16] MEDS: INSULIN ASPART SUPPLEMENTAL SCALE SQ SCH ×4 (05:25→21:00)
[2017-06-16] MEDS: MIDODRINE 5 MG TAB PO SCH ×3 (06:05→17:20)
[2017-06-16 08:00] VITALS: BP 101/60; PULSE 82; RESP 18; TEMP 99.1; O2SAT 95
[2017-06-16] MEDS: PANTOPRAZOLE SODIUM 40 MG VIAL IV PUSH SCH ×2 (08:09→22:24)
[2017-06-16] MEDS: ONDANSETRON HCL 4 MG/2 ML VIAL IVP PRN (08:10)
[2017-06-16] MEDS: SODIUM CHLORIDE 0.9% FLUSH 10 ML FLUSH IV FLUSH SCH ×2 (08:11→22:24)
[2017-06-16] MEDS: INSULIN DETEMIR 100 UNITS/ML VIAL SQ SCH ×2 (08:19→22:29)
[2017-06-16] MEDS: SILVER SULFADIAZINE 1% CR 50 GM JAR TOPICAL SCH ×2 (08:19→21:00)
--- NOTE | 2017-06-16 10:22 | PD.CONS ---
Consult Service Palliative Care Consult Requested By Dr. Jacobson. . Primary Care Physician Jethro Traylor MD. . Reason for Consultation a. To assist with evaluation and management of symptoms including: depression, malnutrition, debility b. To assist medical decision maker(s) with: better understanding of current medical conditions; weighing benefits/burdens of medical treatment options; making medical treatment decisions. . (Alex,Shwetha TOVAR) HPI History of Present Illness The patient is a 66 year old male with a history significant for esophageal cancer who presented to the ED on 06/01/17 following a visit to his oncologist office where he was receiving his last dose of chemotherapy and he had an episode of light headedness with near syncope. Patient reported having leakage issues with his J-tube over the past few days, being unable to administer any tube feeding as well as nausea and vomiting. The patient also reported several episodes of light headedness associated with position changes from a seated to standing position. In addition the patient sustained a fall with a subsequent large scalp laceration that was treated by his primary care physician several days before presentation to the ED. Of note the patient had another recent hospitalization since this initial diagnosis of esophageal cancer in March 2017 for sepsis, hypernatremia, and complications with the j-tube site. Hospital course: * Significant findings in the ED on 06/01/17 included: Hypotension: BP:86/50, 2L of NS administered. CBC: WBC:3.4, RBC:3.32, Hgb:9.9, Hct:29.1, Plt:135, Neut: 71.4, Lymph:6.9, [place]:21.5, Band Neut%:21, [place]%:11. BMP remarkable for: CO2: 32.4, BUN:70, Creat:1.71, GFR:40, Total Bili:1.5, Albumin:2.8. CXR: No acute cardiopulmonary abnormality is identified. Background lung findings are suggestive of emphysema. The patient was admitted for leukopenia with bandemia, hypotension, sepsis, and leaking J-tube. 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 Vega who originally placed the J-tube in March 2017. * 06/04/17 IR was unable to [address] G-tube due to the rigidity of the stomach, suggests surgical placement of G-tube before removal of J-tube. Bandemia improving, blood cultures with no growth, hypotension resolved. * 06/05/17 J-tube was removed by general surgery and collection bag for fluid drainage was placed, abdominal wound was found to have PSAE, enterococcus faecalis, and vin albicans on his last admission in April, no growth from abdominal wound culture this admission. * 06/06/17 GI consulted for EGD, G-tube placement, and possible esophageal stent placement. * 06/09/17 EGD was performed, no narrowing seen, no esophageal stent was placed, erythematous gastritis throughout the entire stomach, multiple biopsies were performed. TPN was initiated for the interim, G-tube on hold to evaluate if patient can tolerate oral intake. Patient resting comfortably in bed, reports no pain at this time, endorses that when he awakes from sleeping he experiences intense nausea and vomiting with accompanying abdominal pain. Dual visit with LA Timmons. Palliative was consulted to clarify goals of treatment and provide support throughout this hospitalization. . Function/Cognitive Trajectory Patient was completely independent with ADLs prior to his recent esophageal cancer diagnosis in March 2017. He has recently had a decline in independence and ADLs due to his progressive debility, increased weakness, and dizziness. . (Shwetha Johnson) Review of Systems Constitutional: COMPLAINS OF: Fatigue, Weight loss, Dizziness, Change in appetite, Pain, Generalized weakness Eyes: DENIES: Blurred vision, Double Vision Ears, nose, mouth, throat: COMPLAINS OF: Throat pain, Odynophagia Cardiovascular: DENIES: Chest pain, Lower Extremity Edema Gastrointestinal: COMPLAINS OF: Abdominal pain, Nausea, Vomiting, Difficulty Swallowing, Dyspepsia or heartburn Neurologic: COMPLAINS OF: Abnormal gait, Poor Balance (Shwetha Johnson) Past Family Social History Coded Allergies: No Known Allergies (Unverified , 03/25/17) Past Medical History Chronic kidney disease Esophageal adenocarcinoma DM Dysphagia Gout GERD Hyperlipidemia Possible Beltran's esophagus Malfunctioning J tube, enterocutaneous fistula . Past Surgical History Exp. Lap with J tube placement Port placement EGD . Reported Medications Active Commode 3-in-1 (Device) 1 Mis Mis 1 Ea .ROUTE DIRECTED Protonix (Pantoprazole Sodium) 40 Mg Tab 40 Mg PEG DAILY Zyloprim (Allopurinol) 100 Mg Tab 100 Mg J-TUBE DAILY Lantus Inj (Insulin Glargine) 1,000 Unit/10 Ml Vial 15 Units SQ HS 30 Days 15 units every evening 10 units every morning Hospital Bed - Manual 1 Ea Ea 1 Ea .ROUTE DIRECTED Kangaroo Ez Cap Pump Set/ (Feeding Tubes - Pump) 1 Mis Mis Unit glucerna 1.5 70ml/hr 7pm-7am daily Reported Oxycodone (Oxycodone HCl) 20 Mg Tab 20 Mg J-TUBE Q4-6H PRN Novolog Inj (Insulin Aspart) 1,000 Unit/10 Ml Vial 0 SQ DIRECTED Sliding Scale as directed. . Current Medications Medications (Trade) Dose Ordered Sig/Ab Route Start Time Stop Time Status Last Admin (NS Flush) 2 ml UNSCH PRN IV FLUSH 06/01/17 17:00 06/10/17 06:56 (NS Flush) 2 ml BID IV FLUSH 06/01/17 21:00 06/16/17 08:11 (Tylenol) 650 mg Q4H PRN PO 06/01/17 17:00 (Zofran Inj) 4 mg Q6H PRN IVP 06/01/17 17:00 06/16/17 08:10 (Narcan Inj) 0.4 mg UNSCH PRN IV 06/01/17 17:00 (Milk Of Magnesia Liq) 30 ml Q12H PRN PO 06/01/17 17:00 (NovoLOG SUPPLEMENTAL SCALE) 1 ACHS SLIDING SCALE SQ 06/01/17 21:00 06/16/17 05:25 (Dilaudid Pf Inj) 1 mg Q2H PRN IV PUSH 06/05/17 17:30 06/16/17 08:10 (Americaine 20% Top Spr) 1 spray Q2H PRN TOPICAL 06/05/17 17:30 (Silvadene 1% Cream (50 Gm)) 1 applic Q12HR TOPICAL 06/05/17 21:00 06/15/17 20:29 Fat Emulsion Intravenous 250 ml @ 10 mls/hr Q24H IV-CENTRAL 06/05/17 20:00 06/15/17 20:28 Sodium Chloride 4 meq/Sodium Acetate 13.5 meq/ Potassium Chloride 80 meq/ Sodium Phosphate 20 meq/Magnesium Chloride 5 meq/ Calcium Chloride 4.5 meq/ Multivitamins 10 ml/Folic Acid 1 mg/Amino Acids/ Dextrose 1,068.7969 ml @ 42 mls/hr Q24H IV-CENTRAL 06/09/17 20:00 06/15/17 20:28 (Levemir Inj) 20 units BID SQ 06/10/17 21:00 06/16/17 08:19 (Protonix Inj) 40 mg Q12H IV PUSH 06/10/17 21:00 06/16/17 08:09 (Reglan Inj) 10 mg Q8HR IV PUSH 06/11/17 14:00 06/16/17 05:11 (Proamatine) 2.5 mg TID@07,12,17 PO 06/12/17 12:00 06/16/17 06:05 (Pill Splitter) 1 ea UNSCH PRN OTHER 06/12/17 12:45 . Family History Sister had breast cancer Father had prostate cancer Brother had lung cancer . Substance Use Tobacco: Quit smoking 15 years ago, 20 pack year smoking history before that Alcohol: History drinking 2 drinks vodka daily. No alcohol use currently. Prescription med abuse: None reported. Illicits: None reported. . Psychosocial History Patient is originally from [place], he has been for approximately 45 years, he has two adult children, a son and a daughter. 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 . Spiritual/Cultural Factors No methodist affiliation. Does not desire cloth calender. . (Shwetha Johnson) Living Will: Never completed Health Care Surrogate: Never completed Durable Power of Culinary Intern: Never completed Health Care Surrogate(s): Patient states he would like his to serve as his HCS with his daughter as an alternate HCS, however he declines filling out any written advance directives at this time. . Today's verbally stated goals: Patient verbalized today he would like to maximum current medical treatments and care. He stated his goals are aggressive but he does desire to change his code status to DNR and would not desire any artificial life support measures be carried out. Ethical and Legal Issues None known. . (Shwetha Johnson) Physical Exam Vital Signs Date Time Temp Pulse Resp B/P (MAP) Pulse Ox O2 Delivery O2 Flow Rate FiO2 06/16/17 08:00 99.1 82 18 101/60 (74) 95 06/16/17 04:00 98.2 87 16 116/56 (76) 98 06/16/17 00:00 98.8 99 20 108/64 (79) 100 06/15/17 20:00 98.3 84 18 112/59 (76) 99 06/15/17 20:00 83 06/15/17 20:00 Room Air 06/15/17 16:06 98.2 88 18 108/59 (75) 100 06/15/17 12:06 97.9 81 18 114/62 (79) 98 . Exam CONSTITUTIONAL/GENERAL: This is a frail, thin male patient, in no apparent distress, resting comfortably in bed. TUBES/LINES/DRAINS: Subclavian port SKIN: No jaundice, rashes, or lesions. Ecchymoses on upper extremities. No wounds seen anteriorly. Skin temperature appropriate. Not diaphoretic. HEAD: Atraumatic. Normocephalic. EYES: Pupils equal and round and reactive. Extraocular motions intact. No scleral icterus. No injection or drainage. Fundi not examined. ENT: Hearing grossly normal. Nose without bleeding or purulent drainage. NECK: Trachea midline. Supple, nontender. CARDIOVASCULAR: Regular rate and rhythm without murmurs, gallops, or rubs. No JVD. Peripheral pulses symmetric. RESPIRATORY/CHEST: Symmetric, unlabored respirations. Clear to auscultation. Breath sounds equal bilaterally. No wheezes, rales, or rhonchi. GASTROINTESTINAL: Abdomen soft, non-tender, nondistended. Bowel sounds present. Large amount of viscous bile like drainage from fistula site. MUSCULOSKELETAL: Extremities without clubbing, cyanosis, or edema. No mottling or clubbing. NEUROLOGICAL: Awake and alert. Motor and sensory grossly within normal limits. Follows commands. Cognitively sharp. Moves all extremities. PSYCHIATRIC: No obvious anxiety/depression. no apparent hallucinations or other psychotic thought process. . (Alex,Shwetha TOVAR) Diagnostic Tests Laboratory Laboratory Tests Test 06/14/17 06:50 White Blood Count 3.4 TH/MM3 (4.0-11.0) Red Blood Count 2.69 MIL/MM3 (4.50-5.90) Hemoglobin 8.2 GM/DL (13.0-17.0) Hematocrit 24.9 % (39.0-51.0) Mean Corpuscular Volume 92.9 FL (80.0-100.0) Mean Corpuscular Hemoglobin 30.5 PG (27.0-34.0) Mean Corpuscular Hemoglobin Concent 32.9 % (32.0-36.0) Red Cell Distribution Width 22.6 % (11.6-17.2) Platelet Count 26 TH/MM3 (150-450) Mean Platelet Volume 10.1 FL (7.0-11.0) Neutrophils (%) (Auto) 62.4 % (16.0-70.0) Lymphocytes (%) (Auto) 24.5 % (9.0-44.0) Monocytes (%) (Auto) 12.0 % (0.0-8.0) Eosinophils (%) (Auto) 0.4 % (0.0-4.0) Basophils (%) (Auto) 0.7 % (0.0-2.0) Neutrophils # (Auto) 2.1 TH/MM3 (1.8-7.7) Lymphocytes # (Auto) 0.8 TH/MM3 (1.0-4.8) Monocytes # (Auto) 0.4 TH/MM3 (0-0.9) Eosinophils # (Auto) 0.0 TH/MM3 (0-0.4) Basophils # (Auto) 0.0 TH/MM3 (0-0.2) CBC Comment AUTO DIFF Differential Total Cells Counted 100 Neutrophils % (Manual) 60 % (16-70) Band Neutrophils % 14 % (0-6) Lymphocytes % 20 % (9-44) Monocytes % 5 % (0-8) Basophils % 1 % (0-2) Neutrophils # (Manual) 2.5 TH/MM3 (1.8-7.7) Differential Comment FINAL DIFF MANUAL Platelet Estimate LOW (NORMAL) Platelet Morphology Comment NORMAL (NORMAL) Ovalocytes 1+ (NORMAL) Blood Urea Nitrogen 12 MG/DL (7-18) Creatinine 0.85 MG/DL (0.60-1.30) Random Glucose 182 MG/DL (74-106) Calcium Level 7.6 MG/DL (8.5-10.1) Sodium Level 141 MEQ/L (136-145) Potassium Level 4.2 MEQ/L (3.5-5.1) Chloride Level 110 MEQ/L (98-107) Carbon Dioxide Level 23.9 MEQ/L (21.0-32.0) Anion Gap 7 MEQ/L (5-15) Estimat Glomerular Filtration Rate 90 ML/MIN (>89) . (Shwetha Johnson) Result Diagram: 06/14/17 0650 06/14/17 0650 Imaging Last Impressions Chest X-Ray 06/06/17 0000 Signed Impressions: Service Date/Time: Tuesday, June 06, 2017 21:41 - CONCLUSION: No acute cardiopulmonary disease. Steve Gill MD Abdomen Fluoroscopy 06/04/17 0000 Signed Impressions: Service Date/Time: May 15:55 - CONCLUSION: Nasogastric tube placed in preparation for G-tube placement. 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 I was unable to distend the stomach sufficiently to displace the colon out of the way to place a gastrostomy tube. I have spoken to Dr Vega. 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 Only mild drainage is seen around the tube. I spoke with Dr. Vega. Jim Lucero Jr., MD . (Shwetha Johnson) Patient/Family Conference Issues Discussed: * Palliative care role, purpose, approach * Additional medical, psychosocial, and spiritual history * Patients general health, functional status, and cognitive changes in the months leading up to the current hospitalization * Patient/family understanding of the current medical problems * Patient/family understanding of prognosis * Current medical treatment options and benefits/burdens of those options * Likely scenarios comparing ongoing aggressive care with a transition to comfort measures only * Questions answered to the best of my ability * Palliative care contact information provided Met with patient at bedside, discussed in length his current clinical condition and trajectory of his illness. Discussed written advance directives and code status. . (Shwetha Johnson) Assessment and Plan Disease Oriented Problem List: (1) Esophageal adenocarcinoma (2) Sepsis (3) Abdominal pain Symptom Scale: (1) Malnutrition (2) Depression (3) Debility Pertinent Non-Medical Issues Psychosocial:Patient is originally from [place], he has been for approximately 45 years, he has two adult children, a son and a daughter. 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 Spiritual: No methodist affiliation. Does not desire visits from cloth calender. Legal: None known. Ethical issues impacting care: None known. Important Contacts -Ayaka Thibodeaux () [phone], . . Code Status: No Code Plan * Legal decision maker: Patient is capacitated and possesses the insight to make his own medical decisions. Patient states he would like his to serve as his HCS with his daughter as an alternate HCS, however he declines filling out any written advance directives at this time. Palliative care will follow up with the patient with the present per the patient's request to complete advanced directives at a later date. * Goals: Patient verbalized today he would like to maximum current medical treatments and care. He stated his goals are aggressive but he does desire to change his code status to DNR and would not desire any artificial life support measures be carried out. Patient states that he has discussed his goals and desires with his family in prior interactions and they are aware he would opt to elect a no code status given his current clinical condition. * CODE STATUS: DNR * SYMPTOMS: --depression: Due to the patient's diagnosis and ongoing pain issues he is at high risk for developing situational depression. The patient may benefit from a SSRI given his current clinical situation. --malnutrition: Patient is an ongoing risk for further malnutrition due to nausea, vomiting, and reliance TPN as main source of nutrition at this time. Albumin:2.8 on admission. --debility: Patient has recently had over a 30lb weight loss, increased weakness, suffered from dizziness and multiple falls. PT following and working with patient. No recommendations at this time. (Shwetha Johnson) Thank you for the opportunity to participate in the care of Mr. Thibodeaux. (Shwetha Johnson) Attestation To help prompt me to consider important information that might be impacting today's encounter and assessment, information from prior notes written by myself or my colleagues may have been "brought forward" into today's note. My signature on this note, however, is an attestation that I personally performed the exam, history, and/or decision-making noted today, and, unless otherwise indicated, the interactions with patient, family, and staff as well as the review of records all occurred today. I also attest that the listed assessment and stated plan reflect my best clinical judgment today based on the combination of historical information, prior notes, and today's exam/ interactions. When time spent is documented, it refers only to time spent today by the signer, or if indicated, combined time spent today by collaborating physician/nurse practitioner. (Shwetha Johnson) Collaborating MD Comments Dual visit matthieu TOVAR. Concur with above documentation. . (Ana Joaquin) Shwetha Johnson Jun 16, 2017 10:22 Ana Joaquin Jun 17, 2017 10:16
--- NOTE | 2017-06-16 10:28 | MB ---
cc: SERGEI MESSER M.D. DATE OF CONSULTATION 06/16/[address] Jacobson REASON FOR CONSULTATION Oncology consulted to render opinion regarding patient with esophageal cancer. HISTORY OF PRESENT ILLNESS The patient is a very pleasant 66-year-old male diagnosed with esophageal adenocarcinoma in March of 2017. He was started on concurrent radiation, weekly carboplatin and Taxol. His treatment was interrupted briefly in April when he was admitted to the hospital with GI bleeding, as well as leakage from the J-tube and sepsis. The J-tube was replaced and he was able to resume treatment. However, on June 01 when he presented for his last cycle of chemotherapy, he was noted to be hypotensive and had dizziness and almost passed out. His chemo was held and he was sent to the hospital. He was found to be hypotensive and have sepsis. During the hospital stay, he was having a problem with the J-tube again. He developed enterocutaneous fistula. The tube was removed and surgery for put a Vac over it to collect the drainage. Interventional radiology was consulted for G-tube placement, but it could not be done. He also underwent upper endoscopy for possible stent placement, however, there was no narrowing noted and stent was not needed. He was started on TPN. He completed his radiation last week. He is feeling a little better. He is now able to ambulate around the room with physical therapy. He still has dizziness when he gets up. He still has dysphagia and odynophagia, however is now able to eat a soft diet and drink fluid slowly. He has occasional nausea. He denies any chest pain or shortness of breath. Denies any significant abdominal pain. Denies any diarrhea. Denies any paresthesia. PAST MEDICAL HISTORY 1. Esophageal adenocarcinoma 2. Diabetes mellitus 3. Hypertension 4. Gastroesophageal reflux disease 5. Gout 6. Hyperlipidemia PAST SURGICAL HISTORY 1. Diagnostic and exploratory laparotomy with J-tube placement. 2. Port placement 3. Upper endoscopy FAMILY HISTORY Father of prostate cancer. Three brother of cancer also. SOCIAL HISTORY Smoked one and a half packs a day for about 20 years and quit 15 years ago. He used to drink alcohol, but not lately. ALLERGIES No known drug allergy. CURRENT MEDICATIONS 1. TPN 2. Midodrine 3. Reglan 4. Levemir 5. Protonix 6. He just completed Zosyn REVIEW OF SYSTEMS CONSTITUTIONAL: Generalized weakness and weight loss. EYES: Denies any blurry vision or double vision. ENT: No mouth sores or voice changes. CARDIOVASCULAR: Denies chest pressure or palpitations. RESPIRATORY: Denied any shortness of breath or cough. GI: As above. : Denies any dysuria or hematuria. MUSCULOSKELETAL: Denies pain. HEMATOLOGY: Denies any bleeding or bruising. ENDOCRINE: Negative. DERMATOLOGY: Negative. PSYCHIATRIC: Negative. NEUROLOGIC: Negative. PHYSICAL EXAMINATION VITALS: Temperature 98.8, blood pressure 108/64, O2 saturation 100% on room air. GENERAL: He is alert and oriented x3 in no acute distress. HEENT: Atraumatic, normocephalic. Pupils equal, round and reactive to light. Extraocular muscles intact. No sclerae icterus. Oropharynx dry mucosa. No lesion. No thrush or mucositis. NECK: No thyromegaly. No palpable masses. LYMPHATICS: No palpable cervical, clavicular, axillary or inguinal lymph nodes. CARDIOVASCULAR: Regular S1-S2. No murmur. LUNGS: Clear to auscultation bilaterally. No wheezing or rhonchi. ABDOMEN: Soft and nontender. The fistula noted has a brownish liquid discharge. EXTREMITIES: No cyanosis, clubbing or edema. BACK: No paravertebral tenderness. SKIN: No rash or petechiae. NEUROLOGIC: Exam nonfocal. LABORATORY DATA Reviewed ASSESSMENT 1. Esophageal adenocarcinoma. He presented with dysphagia, weight loss. Upper endoscopy showed a circumferential mass in the distal esophagus causing a complete obstruction. Biopsy showed poorly differentiated adenocarcinoma with signet-ring feature. Workup did not show any metastatic disease or significant adenopathy. He was started on neoadjuvant radiation with weekly carboplatin and Taxol. He, however did not tolerate the treatment very well. His treatment was briefly interrupted in April when he developed a J-tube leakage, possible sepsis and a GI bleed. He recovered from the episode and he was able to resume treatment. However, on June 01 when he came in for his chemotherapy, he was noted to be hypotensive and symptomatic. His chemotherapy was held and he was admitted to the hospital. He was able to continue with the radiation and he completed treatment last week. He had a PET scan done earlier this month which did not show any metastatic disease. There was some mild uptake in the distal esophagus with an SUV around 3. He just had another EGD last week. There was circumferential and abnormal mucosa noted in the mid and distal esophagus. There was no obstruction noted. There was no lora masses noted. Biopsy of the area did not show definite residual malignant cells. However, there were a few rare cells with signet-ring features, but pathologist is not able to tell if there is any viable cancer left. The patient has had a very good response to treatment. The next step of treatment is going to be surgical resection. However, he is rather weak at this time. He will likely need to be a little stronger before his surgery. Also, his albumin was 2.8 two weeks ago. He was started on TPN, hopefully he will get stronger and able to have the surgery. I will discuss with Dr. Vega when he is back in town. 2. Nutrition. The patient is currently on TPN. His dysphagia is slowly improving. He is now able to drink liquid and eat soft diet. I would recommend to continue TPN and advance his diet slowly. He just completed radiation last week. I anticipate his dysphagia to continue to improve slowly. 3. Pancytopenia likely due to recent radiation. He did not receive any transfusion during this hospital stay. I would monitor his CBC as it is anticipated to improve now that he has completed the radiation. 4. 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 Surgery is following. 5. Diabetes mellitus, stable. 6. Hypertension. His blood pressure has been running low lately on midodrine. 7. History of gout. 8. Hyperlipidemia 9. Gastroesophageal reflux disease RECOMMENDATIONS 1. We had an extensive discussion with the patient. He has had a very good response to neoadjuvant treatment. He is going to need esophagectomy to complete his treatment. I will discuss with Dr. Vega regarding timing of his surgery. 2. Continue TPN and advance diet as tolerated. 3. Monitor CBC. 4. Continue supportive care. Thank you Dr. Jacobson for asking us see this patient. MD MICHAELA Cardenas/CM /7:41 AM /10:07 AM EMILY
--- NOTE | 2017-06-16 11:49 | HHI.PR ---
Subjective Remarks Pt was able to eat some of the pureed food last night and this morning. He had some soup for dinner last night He had scrambled eggs and grits for breakfast. Objective Vitals Vital Signs Date Time Temp Pulse Resp B/P (MAP) Pulse Ox O2 Delivery O2 Flow Rate FiO2 06/16/17 08:00 99.1 82 18 101/60 (74) 95 06/16/17 04:00 98.2 87 16 116/56 (76) 98 06/16/17 00:00 98.8 99 20 108/64 (79) 100 06/15/17 20:00 98.3 84 18 112/59 (76) 99 06/15/17 20:00 83 06/15/17 20:00 Room Air 06/15/17 16:06 98.2 88 18 108/59 (75) 100 06/15/17 12:06 97.9 81 18 114/62 (79) 98 Result Diagram: 06/14/17 0650 06/14/17 0650 Imaging Last Impressions Chest X-Ray 06/06/17 0000 Signed Impressions: Service Date/Time: Tuesday, June 06, 2017 21:41 - CONCLUSION: No acute cardiopulmonary disease. Steve Gill MD Abdomen Fluoroscopy 06/04/17 0000 Signed Impressions: Service Date/Time: May 15:55 - CONCLUSION: Nasogastric tube placed in preparation for G-tube placement. 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 I was unable to distend the stomach sufficiently to displace the colon out of the way to place a gastrostomy tube. I have spoken to Dr Vega. 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 Only mild drainage is seen around the tube. I spoke with Dr. Vega. Jim Lucero Jr., MD Objective Remarks General: NAD, AAOx3 Chest: CTA Cardiac: Regular Abd: +BS, soft ND/NT Ext: No edema A/P Problem List: (1) Feeding tube dysfunction ICD Codes: T85.598A - Other mechanical complication of other gastrointestinal prosthetic devices, implants and grafts, initial encounter Status: Acute Plan: - Pt is a 66 y/o male with adenocarcinoma of the esophagus diagnosed in , who has been undergoing chemo and XRT since 04/2017. - He was at his oncologist's office on 06/01 to get his last dose of chemotherapy when he got very lightheaded and almost passed out. - Pt was hypotensive with systolic BP in the 80's in the office and pt was given 1 L of IV fluid bolus en route to the hospital. Upon arrival to the ED his systolic BP was in the 90's. - Pt had reportedly been having issues with his J tube for a few days prior to admission and liquids were reportedly leaking out and the pt had been vomiting. He had fallen a few days prior to admission and hit his head causing a large scalp laceration and bleeding. - blood cultures (06/01/17) --> NGTD - bandemia improving, down to 14 on 06/14 - Zosyn and Vancomycin were given emperically. - J tube evaluation (06/02/17). 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 Only mild drainage is seen around the tube - Case was d/w Dr. Vega (06/03/17) - Case d/w Dr. Lucero (06/03/17) - G- tube could NOT be placed by IR - J-tube removed & urostomy bag placed over j-tube/fistula site, continued drainage - GI performed EGD with bx on 06/09, no stent placed, severe gastritis, circumferential area in esophagus, no obstruction. - sputum studies (06/06) --> no growth - Cont. TPN - IV PPI - IV Reglan - Gen surgery following and wants calorie count before making any further decisions. - HOWEVER, dietary will NOT perform calorie count for pt on liquid diet. - Pt diet advanced to 1800 ADA, pureed, on 06/15. - Reconsult dietary for calorie count. If poor results from calorie count, then surgery will consider possibility of additional surgical feeding tube - Zosyn stopped on 06/15 & observe - low dose midodrine d/t orthostatic hypotension - Levemir 20 unit BID - PT - Appreciate Oncology consultation. Case discussed between Dr. Jacobson and Dr. Medina today. Dr. Medina wants to discuss the case with Dr. 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 - He underwent exploratory lap and J tube placement by Dr. Sanchez on . - Pt has been undergoing weekly Carboplatin and Taxol with radiation - Pt follows with Dr. Medina (4) Sepsis ICD Codes: A41.9 - Sepsis, unspecified organism Status: Acute Plan: - See above (5) Dehydration ICD Codes: E86.0 - Dehydration Status: Resolved Plan: - See above. Assessment and Plan Patient examined. Assessment and plan formulated with Michelle Urbina PA-C. I agree with the above. Problem Qualifiers (1) Hypotension: (2) Sepsis: Michelle Urbina Jun 16, 2017 11:49 See Jacobson DO Jun 18, 2017 00:15
[2017-06-16 12:00] VITALS: BP 114/71; PULSE 94; RESP 18; TEMP 98; O2SAT 98
[2017-06-16] MEDS ORDERED: ACETAMINOPHEN/HYDROcodone 325 MG/7.5 MG TAB PO PRN (12:15)
[2017-06-16 16:00] VITALS: BP 112/61; PULSE 85; RESP 18; TEMP 98.1; O2SAT 96
[2017-06-16 20:00] VITALS: BP 114/64; PULSE 81; PULSE 84; RESP 20; TEMP 98.2; O2SAT 99
[2017-06-16] MEDS: [UNRECOGNIZED DRUG - OTHER] IV-CENTRAL SCH ×9 (22:24)
[2017-06-16] MEDS: SODIUM ACETATE IV-CENTRAL SCH ×9 (22:24)
[2017-06-16] MEDS: SODIUM CHLORIDE IV-CENTRAL SCH ×9 (22:24)
[2017-06-16] MEDS: FAT EMULSION 20% INJ 250 ML (@10 mls/hr) IV-CENTRAL SCH (22:25)
[2017-06-16 23:20] LABS: AUTOMATED NEUTROPHIL # 3.2 TH/MM3 (1.8-7.7); BASOPHIL % 0.6 % (0.0-2.0); EOSINOPHIL % 0.2 % (0.0-4.0); HEMATOCRIT 25.5 % (39.0-51.0); LYMPH % 22.6 % (9.0-44.0); LYMPHOCYTE # 1.2 TH/MM3 (1.0-4.8); MEAN CELL VOLUME 92.6 FL (80.0-100.0); MEAN CORPUSCULAR HEMOGLOBIN 30.6 PG (27.0-34.0); MONO % 14.7 % (0.0-8.0); NEUT % 61.9 % (16.0-70.0); PLATELET COUNT 35 TH/MM3 (150-450); RED BLOOD COUNT 2.76 MIL/MM3 (4.50-5.90); RED CELL DISTRIBUTION WIDTH 22.7 % (11.6-17.2); WHITE BLOOD COUNT 5.1 TH/MM3 (4.0-11.0)
[2017-06-16 23:35] LABS: HEMO FLAGS AUTO DIFF
[2017-06-16 23:37] LABS: ALKALINE PHOSPHATASE 96 U/L (45-117); ALT (GPT) 19 U/L (12-78); ANION GAP 7 MEQ/L (5-15); AST (GOT) 23 U/L (15-37); BICARBONATE 24.1 MEQ/L (21.0-32.0); BLOOD UREA NITROGEN 18 MG/DL (7-18); CHLORIDE 111 MEQ/L (98-107); GLOMERULAR FILTRATION RATE 74 ML/MIN (>89); POTASSIUM 4.2 MEQ/L (3.5-5.1); SODIUM (NA) 142 MEQ/L (136-145); TOTAL BILIRUBIN ADULT 1.3 MG/DL (0.2-1.0)
[2017-06-17] VITALS (7 sets, daily range): BP systolic 71–130; BP diastolic 52–72; PULSE 78–89; RESP 18–20; TEMP 96.9–98.5; O2SAT 96–100
[2017-06-17 00:31] LABS: SCAN/DIFF AUTO DIFF CONFIRMED
[2017-06-17] MEDS: HYDROmorphone HCL PF 1 MG/ML VIAL IV PUSH PRN ×8 (00:53→21:42)
[2017-06-17] MEDS: METOCLOPRAMIDE HCL 10 MG/2 ML VIAL IV PUSH SCH ×3 (06:34→20:55)
[2017-06-17] MEDS: MIDODRINE 5 MG TAB PO SCH ×3 (06:34→17:09)
[2017-06-17] MEDS: INSULIN ASPART SUPPLEMENTAL SCALE SQ SCH ×4 (06:46→20:55)
[2017-06-17] MEDS: PANTOPRAZOLE SODIUM 40 MG VIAL IV PUSH SCH ×2 (09:42→20:55)
[2017-06-17] MEDS: SILVER SULFADIAZINE 1% CR 50 GM JAR TOPICAL SCH ×2 (09:45→20:55)
[2017-06-17] MEDS: SODIUM CHLORIDE 0.9% FLUSH 10 ML FLUSH IV FLUSH SCH ×2 (09:45→20:55)
[2017-06-17] MEDS: INSULIN DETEMIR 100 UNITS/ML VIAL SQ SCH ×2 (09:46→21:28)
--- NOTE | 2017-06-17 11:33 | PD.ONC.PN ---
Subjective Subjective Remarks Afebrile Had cream of wheat for breakfast Minimal abdominal pain to abdomen around fistula. Objective Data Date Time Temp Pulse Resp B/P (MAP) Pulse Ox O2 Delivery O2 Flow Rate FiO2 06/17/17 08:15 Room Air 06/17/17 08:00 97.8 88 18 119/66 (83) 97 06/17/17 07:58 78 06/17/17 04:00 97.9 82 18 124/72 (89) 96 06/17/17 00:00 98.5 83 18 101/66 (78) 100 06/16/17 20:00 98.2 84 20 114/64 (81) 99 06/16/17 20:00 81 06/16/17 19:00 Room Air 06/16/17 16:00 98.1 85 18 112/61 (78) 96 06/16/17 14:27 16 06/16/17 12:00 98.0 94 18 114/71 (85) 98 06/17/17 06/17/17 06/17/17 07:00 15:00 23:00 Intake Total 360 ml Output Total 400 ml 550 ml Balance -40 ml -550 ml Result Diagram: 06/16/175 06/16/175 Laboratory Results Laboratory Tests Test 06/16/17 22:55 White Blood Count 5.1 TH/MM3 Red Blood Count 2.76 MIL/MM3 Hemoglobin 8.4 GM/DL Hematocrit 25.5 % Mean Corpuscular Volume 92.6 FL Mean Corpuscular Hemoglobin 30.6 PG Mean Corpuscular Hemoglobin Concent 33.0 % Red Cell Distribution Width 22.7 % Platelet Count 35 TH/MM3 Mean Platelet Volume 11.0 FL Neutrophils (%) (Auto) 61.9 % Lymphocytes (%) (Auto) 22.6 % Monocytes (%) (Auto) 14.7 % Eosinophils (%) (Auto) 0.2 % Basophils (%) (Auto) 0.6 % Neutrophils # (Auto) 3.2 TH/MM3 Lymphocytes # (Auto) 1.2 TH/MM3 Monocytes # (Auto) 0.8 TH/MM3 Eosinophils # (Auto) 0.0 TH/MM3 Basophils # (Auto) 0.0 TH/MM3 CBC Comment AUTO DIFF Differential Comment AUTO DIFF CONFIRMED Blood Urea Nitrogen 18 MG/DL Creatinine 1.01 MG/DL Random Glucose 138 MG/DL Total Protein 6.4 GM/DL Albumin 2.0 GM/DL Calcium Level 8.5 MG/DL Alkaline Phosphatase 96 U/L Aspartate Amino Transf (AST/SGOT) 23 U/L Alanine Aminotransferase (ALT/SGPT) 19 U/L Total Bilirubin 1.3 MG/DL Sodium Level 142 MEQ/L Potassium Level 4.2 MEQ/L Chloride Level 111 MEQ/L Carbon Dioxide Level 24.1 MEQ/L Anion Gap 7 MEQ/L Estimat Glomerular Filtration Rate 74 ML/MIN Administered Medications Medications (Trade) Dose Ordered Sig/Ab Route PRN Reason Start Time Stop Time Status Last Admin Dose Admin Sodium Chloride (NS Flush) 2 ml UNSCH PRN IV FLUSH FLUSH AFTER USING IV ACCESS 06/01/17 17:00 06/10/17 06:56 Sodium Chloride (NS Flush) 2 ml BID IV FLUSH 06/01/17 21:00 06/17/17 09:45 Ondansetron HCl (Zofran Inj) 4 mg Q6H PRN IVP NAUSEA OR VOMITING 06/01/17 17:00 06/16/17 08:10 Insulin Aspart (NovoLOG SUPPLEMENTAL SCALE) 1 ACHS SLIDING SCALE SQ 06/01/17 21:00 06/17/17 06:46 Silver Sulfadiazine (Silvadene 1% Cream (50 Gm)) 1 applic Q12HR TOPICAL 06/05/17 21:00 06/17/17 09:45 Fat Emulsion Intravenous 250 ml @ 10 mls/hr Q24H IV-CENTRAL 06/05/17 20:00 06/16/17 22:25 Sodium Chloride 4 meq/Sodium Acetate 13.5 meq/ Potassium Chloride 80 meq/ Sodium Phosphate 20 meq/Magnesium Chloride 5 meq/ Calcium Chloride 4.5 meq/ Multivitamins 10 ml/Folic Acid 1 mg/Amino Acids/ Dextrose 1,068.7969 ml @ 42 mls/hr Q24H IV-CENTRAL 06/09/17 20:00 06/16/17 22:24 Insulin Detemir (Levemir Inj) 20 units BID SQ 06/10/17 21:00 06/17/17 09:46 Pantoprazole Sodium (Protonix Inj) 40 mg Q12H IV PUSH 06/10/17 21:00 06/17/17 09:42 Metoclopramide HCl (Reglan Inj) 10 mg Q8HR IV PUSH 06/11/17 14:00 06/17/17 06:34 Midodrine (Proamatine) 2.5 mg TID@07,12,17 PO 06/12/17 12:00 06/17/17 06:34 Acetaminophen/ Hydrocodone Bitart ([place] 7.5-325 Mg) 1 tab Q4H PRN PO pain 2-5 06/16/17 12:15 06/16/17 13:27 Hydromorphone HCl (Dilaudid Pf Inj) 1 mg Q3HR PRN IV PUSH pain 6-10 06/16/17 12:15 06/17/17 09:44 Objective Remarks GENERAL: Older male, resting in bed watching TV in no acute distress. SKIN: Warm and dry. HEAD: Normocephalic. EYES: No injection or drainage. NECK: Supple, trachea midline. CARDIOVASCULAR: Regular rate and rhythm without murmurs. RESPIRATORY: Clear anteriorly. Breathing unlabored. GASTROINTESTINAL: Abdomen soft, tender to L side. Drainage bag over fistula draining fartun fluid. EXTREMITIES: No cyanosis, or edema. NEUROLOGICAL: No obvious focal deficit. Awake, alert, and oriented x3. Assessment/Plan Problem List: (1) Esophageal adenocarcinoma ICD Codes: C15.9 - Malignant neoplasm of esophagus, unspecified Status: Chronic Plan: -- A PET scan done earlier this month showed no metastatic disease -- Radiation finished last week -- He missed the last dose of chemotherapy on June 01 d/t hypotension -- EGD shows circumferential and abnormal mucosa noted in the mid and distal esophagus. No obstruction noted. Hx/Workup: The patient was diagnosed in March 2017 and was started on concurrent radiation, weekly carboplatin and Taxol. He had a brief interruption of treatment in April and was admitted with GI bleeding. His J-tube was replaced at that time. He was supposed to have his final chemotherapy on June 01 that was found to be hypotensive, dizzy and was subsequently sent to the ER. During this hospitalization he has developed an enterocutaneous fistula. The tube was removed and is currently has a bag covering to collect drainage. He has been on TPN and completed radiation last week. 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 Continue to push nutrition and physical therapy as patient will need esophagectomy with Dr. Vega. His albumin is still low at 2.0. Hopefully this will continue to improve as his dysphagia is improving. 2. Monitor CBC. He has finished radiation last week therefore the pancytopenia will likely continue to improve. 3. Advance diet as tolerated. Attending Statement The exam, history, and the medical decision-making described in the above note were completed with the assistance of the mid-level provider. I reviewed and agree with the findings presented. I attest that I had a [id number] encounter with the patient on the same day, and personally performed and documented my assessment and findings in the medical record. Feeling a little better. Able to eat small amount of soft food. Still has drainage from the fistula. Discussed with . There is concern that patient may have carcinomatosis in the stomach. However, his PET scan 3 weeks ago did not show uptake in the stomach and no distant metastasis, there was only mild uptake in the distal esophagus. EGD showed no more obstructive mass but biopsy showed a few atypical cells with signet ring features. Dr. Berger is going to evaluate pt and may consider exploratory lap to see if he has any sign of abdominal carcinomatosis. Continue supportive care for now. Case discussed with Krystal Guzman Jun 17, 2017 11:33 Darwin Medina MD Jun 17, 2017 15:21
--- NOTE | 2017-06-17 13:45 | HHI.HCPN ---
Reason for visit a. To assist with evaluation and management of symptoms including: depression, malnutrition, debility b. To assist medical decision maker(s) with: better understanding of current medical conditions; weighing benefits/burdens of medical treatment options; making medical treatment decisions. . (Shwetha Johnson) Subjective/Interval History The patient is a 66 year old male with a history significant for esophageal cancer who presented to the ED on 06/01/17 following a visit to his oncologist office where he was receiving his last dose of chemotherapy and he had an episode of light headedness with near syncope. Patient reported having leakage issues with his J-tube over the past few days, being unable to administer any tube feeding as well as nausea and vomiting. The patient also reported several episodes of light headedness associated with position changes from a seated to standing position. In addition the patient sustained a fall with a subsequent large scalp laceration that was treated by his primary care physician several days before presentation to the ED. Of note the patient had another recent hospitalization since this initial diagnosis of esophageal cancer in March 2017 for sepsis, hypernatremia, and complications with the j-tube site. Patient seen resting comfortably in bed, reports improvement in appetite and N/ V. Reports pain is better controlled today and his abdomen is not as tender. Dual visit with LA Timmons. Palliative was consulted to clarify goals of treatment and provide support throughout this hospitalization. . Family/friend interactions Telephone conference with patient's Ayaka. Bedside meeting with patient and as well. (Shwetha Johnson) Advance Directives Living Will: Never completed Health Care Surrogate: Never completed Durable Power of Drainman: Never completed (Shwetha Johnson) Advance Directive Specifics Health Care Surrogate(s): Patient states he would like his to serve as his HCS with his daughter as an alternate HCS, however he declines filling out any written advance directives at this time. . (Shwetha Johnson) Objective Vital Signs Date Time Temp Pulse Resp B/P (MAP) Pulse Ox O2 Delivery O2 Flow Rate FiO2 06/17/17 08:15 Room Air 06/17/17 08:00 97.8 88 18 119/66 (83) 97 06/17/17 07:58 78 06/17/17 04:00 97.9 82 18 124/72 (89) 96 8/30/17 00:00 98.5 83 18 101/66 (78) 100 06/16/17 20:00 98.2 84 20 114/64 (81) 99 06/16/17 20:00 81 06/16/17 19:00 Room Air 06/16/17 16:00 98.1 85 18 112/61 (78) 96 06/16/17 14:27 16 Intake & Output 06/17/17 06/17/17 07:00 19:00 Intake Total 1911 ml Output Total 400 ml 550 ml Balance 1511 ml -550 ml Intake Oral 360 ml TPN/PPN 1031 ml Lipid 520 ml Output Urine Total 400 ml Drainage Total 550 ml # Bowel Movements 0 . Physical Exam CONSTITUTIONAL/GENERAL: This is a frail, thin male patient, in no apparent distress, resting comfortably in bed. TUBES/LINES/DRAINS: Subclavian port SKIN: No jaundice, rashes, or lesions. Ecchymoses on upper extremities. No wounds seen anteriorly. Skin temperature appropriate. Not diaphoretic. EYES: Pupils equal and round and reactive. Extraocular motions intact. No scleral icterus. No injection or drainage. Fundi not examined. ENT: Hearing grossly normal. Nose without bleeding or purulent drainage. CARDIOVASCULAR: Regular rate and rhythm without murmurs, gallops, or rubs. No JVD. Peripheral pulses symmetric. RESPIRATORY/CHEST: Symmetric, unlabored respirations. Clear to auscultation. Breath sounds equal bilaterally. No wheezes, rales, or rhonchi. GASTROINTESTINAL: Abdomen soft, non-tender, nondistended. Bowel sounds present. Large amount of viscous bile like drainage from fistula site. MUSCULOSKELETAL: Extremities without clubbing, cyanosis, or edema. No mottling or clubbing. NEUROLOGICAL: Awake and alert. Motor and sensory grossly within normal limits. Follows commands. Cognitively sharp. Moves all extremities. PSYCHIATRIC: No obvious anxiety/depression. no apparent hallucinations or other psychotic thought process. . (Shwetha Johnson) Diagnostic Tests Laboratory Laboratory Tests Test 06/16/17 22:55 White Blood Count 5.1 TH/MM3 (4.0-11.0) Red Blood Count 2.76 MIL/MM3 (4.50-5.90) Hemoglobin 8.4 GM/DL (13.0-17.0) Hematocrit 25.5 % (39.0-51.0) Mean Corpuscular Volume 92.6 FL (80.0-100.0) Mean Corpuscular Hemoglobin 30.6 PG (27.0-34.0) Mean Corpuscular Hemoglobin Concent 33.0 % (32.0-36.0) Red Cell Distribution Width 22.7 % (11.6-17.2) Platelet Count 35 TH/MM3 (150-450) Mean Platelet Volume 11.0 FL (7.0-11.0) Neutrophils (%) (Auto) 61.9 % (16.0-70.0) Lymphocytes (%) (Auto) 22.6 % (9.0-44.0) Monocytes (%) (Auto) 14.7 % (0.0-8.0) Eosinophils (%) (Auto) 0.2 % (0.0-4.0) Basophils (%) (Auto) 0.6 % (0.0-2.0) Neutrophils # (Auto) 3.2 TH/MM3 (1.8-7.7) Lymphocytes # (Auto) 1.2 TH/MM3 (1.0-4.8) Monocytes # (Auto) 0.8 TH/MM3 (0-0.9) Eosinophils # (Auto) 0.0 TH/MM3 (0-0.4) Basophils # (Auto) 0.0 TH/MM3 (0-0.2) CBC Comment AUTO DIFF Differential Comment AUTO DIFF CONFIRMED Blood Urea Nitrogen 18 MG/DL (7-18) Creatinine 1.01 MG/DL (0.60-1.30) Random Glucose 138 MG/DL (74-106) Total Protein 6.4 GM/DL (6.4-8.2) Albumin 2.0 GM/DL (3.4-5.0) Calcium Level 8.5 MG/DL (8.5-10.1) Alkaline Phosphatase 96 U/L (45-117) Aspartate Amino Transf (AST/SGOT) 23 U/L (15-37) Alanine Aminotransferase (ALT/SGPT) 19 U/L (12-78) Total Bilirubin 1.3 MG/DL (0.2-1.0) Sodium Level 142 MEQ/L (136-145) Potassium Level 4.2 MEQ/L (3.5-5.1) Chloride Level 111 MEQ/L (98-107) Carbon Dioxide Level 24.1 MEQ/L (21.0-32.0) Anion Gap 7 MEQ/L (5-15) Estimat Glomerular Filtration Rate 74 ML/MIN (>89) . (Lower,Shwetha TOVAR) Result Diagram: 06/16/17225406/16/172254 Assessment and Plan Disease Oriented Problem List: (1) Esophageal adenocarcinoma (2) Sepsis (3) Abdominal pain Symptom Scale: (1) Malnutrition (2) Depression (3) Debility Pertinent Non-Medical Issues Psychosocial:Patient is originally from [place], he has been for approximately 45 years, he has two adult children, a son and a daughter. 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 Spiritual: No pentecostal affiliation. Does not desire visits from licensed practical nurse. Legal: None known. Ethical issues impacting care: None known. Important Contacts -Ayaka Thibodeaux () [phone], . . Prognosis Patient was completely independent with ADLs prior to his recent esophageal cancer diagnosis in March 2017. He has recently had a decline in independence and ADLs due to his progressive debility, increased weakness, and dizziness. Patient has tolerated chemotherapy well according to oncology and may be a surgical candidate if his nutritional status improves and is able to regain some strength. Still awaiting additional treatment and/or surgical procedures. Prognosis dependent on clinical course. Code Status: No Code Plan * Legal decision maker: Patient is capacitated and possesses the insight to make his own medical decisions. Patient states he would like his to serve as his HCS with his daughter as an alternate HCS, however he declines filling out any written advance directives at this time. * Goals: Aggressive. Patient and family would like to continue to pursue aggressive care in hopes that he will regain his strength enough to be a surgical candidate. * Discussed the patient's current clinical status and hospital course at length with his today via telephone then at bedside in conjunction with the patient. Topics of concern were his diagnosis, surgery, code status, verbalized wishes end of life, and likely discharge scenarios. * CODE STATUS: DNR * SYMPTOMS: --depression: Due to the patient's diagnosis and ongoing pain issues he is at high risk for developing situational depression. The patient may benefit from a SSRI given his current clinical situation. --malnutrition: Patient is an ongoing risk for further malnutrition due to nausea, vomiting, and reliance TPN as main source of nutrition at this time. Albumin:2.8 on admission. --debility: Patient has recently had over a 30lb weight loss, increased weakness, suffered from dizziness and multiple falls. PT following and working with patient. No recommendations at this time. (Shwetha Johnson) Attestation To help prompt me to consider important information that might be impacting today's encounter and assessment, information from prior notes written by myself or my colleagues may have been "brought forward" into today's note. My signature on this note, however, is an attestation that I personally performed the exam, history, and/or decision-making noted today, and, unless otherwise indicated, the interactions with patient, family, and staff as well as the review of records all occurred today. I also attest that the listed assessment and stated plan reflect my best clinical judgment today based on the combination of historical information, prior notes, and today's exam/ interactions. When time spent is documented, it refers only to time spent today by the signer, or if indicated, combined time spent today by collaborating physician/nurse practitioner. (Shwetha Johnson) Collaborating MD Comments dual visit matthieu TOVAR, concur with above documentation . (Ana Joaquin) Shwetha Johnson Jun 17, 2017 13:45 Ana Joaquin Jun 17, 2017 16:15
[2017-06-17] MEDS: ONDANSETRON HCL 4 MG/2 ML VIAL IVP PRN (15:35)
--- NOTE | 2017-06-17 17:16 | HHI.PR ---
Subjective Remarks No new complaints. Objective Vitals Vital Signs Date Time Temp Pulse Resp B/P (MAP) Pulse Ox O2 Delivery O2 Flow Rate FiO2 06/17/17 12:00 98.3 89 18 130/72 (91) 98 06/17/17 08:15 Room Air 06/17/17 08:00 97.8 88 18 119/66 (83) 97 06/17/17 08:00 81/54 (63) 06/17/17 08:00 71/52 (58) 06/17/17 07:58 78 06/17/17 04:00 97.9 82 18 124/72 (89) 96 06/17/17 00:00 98.5 83 18 101/66 (78) 100 06/16/17 20:00 98.2 84 20 114/64 (81) 99 06/16/17 20:00 81 06/16/17 19:00 Room Air 06/17/17 06/17/17 06/18/17 15:00 23:00 07:00 Output Total 550 ml Balance -550 ml Drainage Total 550 ml Result Diagram: 06/16/17 2255 06/16/17 2255 Imaging Last Impressions Chest X-Ray 06/06/17 0000 Signed Impressions: Service Date/Time: Tuesday, June 06, 2017 21:41 - CONCLUSION: No acute cardiopulmonary disease. Steve Gill MD Abdomen Fluoroscopy 06/04/17 0000 Signed Impressions: Service Date/Time: May 15:55 - CONCLUSION: Nasogastric tube placed in preparation for G-tube placement. 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 I was unable to distend the stomach sufficiently to displace the colon out of the way to place a gastrostomy tube. I have spoken to Dr Vega. 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 Only mild drainage is seen around the tube. I spoke with Dr. Vega. Jim Lucero Jr., MD Objective Remarks General: NAD, AAOx3 Chest: CTA Cardiac: Regular Abd: +BS, soft ND/NT Ext: No edema A/P Problem List: (1) Feeding tube dysfunction ICD Codes: T85.598A - Other mechanical complication of other gastrointestinal prosthetic devices, implants and grafts, initial encounter Status: Acute Plan: - Pt is a 66 y/o male with adenocarcinoma of the esophagus diagnosed in , who has been undergoing chemo and XRT since 04/2017. - He was at his oncologist's office on 06/01 to get his last dose of chemotherapy when he got very lightheaded and almost passed out. - Pt was hypotensive with systolic BP in the 80's in the office and pt was given 1 L of IV fluid bolus en route to the hospital. Upon arrival to the ED his systolic BP was in the 90's. - Pt had reportedly been having issues with his J tube for a few days prior to admission and liquids were reportedly leaking out and the pt had been vomiting. He had fallen a few days prior to admission and hit his head causing a large scalp laceration and bleeding. - blood cultures (06/01/17) --> NGTD - bandemia improving, down to 14 on 06/14 - Zosyn and Vancomycin were given emperically. - J tube evaluation (06/02/17). 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 Only mild drainage is seen around the tube - Case was d/w Dr. Vega (06/03/17) - Case d/w Dr. Lucero (06/03/17) - G- tube could NOT be placed by IR - J-tube removed & urostomy bag placed over j-tube/fistula site, continued drainage - GI performed EGD with bx on 06/09, no stent placed, severe gastritis, circumferential area in esophagus, no obstruction. - sputum studies (06/06) --> no growth - Cont. TPN - IV PPI - IV Reglan - Pt diet advanced to 1800 ADA, pureed, on 06/15. But, pt c/o vomiting/spitting up PO intake after about 15 min - Zosyn stopped on 06/15 & observe - low dose midodrine d/t orthostatic hypotension - Levemir 20 unit BID - PT - pt/ met with Dr. Vega today. Surgery only for staging. - Case d/w Dr. 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 - He underwent exploratory lap and J tube placement by Dr. Sanchez on . - Pt has been undergoing weekly Carboplatin and Taxol with radiation - Pt follows with Dr. Medina (4) Sepsis ICD Codes: A41.9 - Sepsis, unspecified organism Status: Acute Plan: - See above (5) Dehydration ICD Codes: E86.0 - Dehydration Status: Resolved Plan: - See above. Problem Qualifiers (1) Hypotension: (2) Sepsis: See Jacobson DO Jun 17, 2017 17:16
--- NOTE | 2017-06-17 17:30 | HHI.PR ---
Subjective Subjective Notes feels better Objective Vitals/I&O Vital Signs Date Time Temp Pulse Resp B/P (MAP) Pulse Ox O2 Delivery O2 Flow Rate FiO2 06/17/17 16:00 Room Air 06/17/17 12:00 98.3 89 18 130/72 (91) 98 06/16/17 08:00 2.00 Labs Laboratory Tests Test 06/16/17 22:55 White Blood Count 5.1 Red Blood Count 2.76 Hemoglobin 8.4 Hematocrit 25.5 Mean Corpuscular Volume 92.6 Mean Corpuscular Hemoglobin 30.6 Mean Corpuscular Hemoglobin Concent 33.0 Red Cell Distribution Width 22.7 Platelet Count 35 Mean Platelet Volume 11.0 Neutrophils (%) (Auto) 61.9 Lymphocytes (%) (Auto) 22.6 Monocytes (%) (Auto) 14.7 Eosinophils (%) (Auto) 0.2 Basophils (%) (Auto) 0.6 Neutrophils # (Auto) 3.2 Lymphocytes # (Auto) 1.2 Monocytes # (Auto) 0.8 Eosinophils # (Auto) 0.0 Basophils # (Auto) 0.0 CBC Comment AUTO DIFF Differential Comment AUTO DIFF CONFIRMED Blood Urea Nitrogen 18 Creatinine 1.01 Random Glucose 138 Total Protein 6.4 Albumin 2.0 Calcium Level 8.5 Alkaline Phosphatase 96 Aspartate Amino Transf (AST/SGOT) 23 Alanine Aminotransferase (ALT/SGPT) 19 Total Bilirubin 1.3 Sodium Level 142 Potassium Level 4.2 Chloride Level 111 Carbon Dioxide Level 24.1 Anion Gap 7 Estimat Glomerular Filtration Rate 74 Date/Time Source Procedure Growth Status 06/01/17 16:40 Blood Peripheral Aerobic Blood Culture - Final NO GROWTH IN 5 DAYS Complete 06/01/17 16:40 Blood Peripheral Anaerobic Blood Culture - Final NO GROWTH IN 5 DAYS Complete 06/06/17 20:00 Sputum Expectorated Sputum Gram Stain - Final Complete 06/06/17 20:00 Sputum Expectorated Sputum Sputum Culture - Final MODERATE GROWTH NORMAL RESPIRATORY THEODORA Complete 06/01/17 19:20 Wound Abdomen Gram Stain - Final Complete 06/01/17 19:20 Wound Abdomen Wound Culture - Final Complete Abdomen: Non-distended, Non-tender A/P Assessment and Plan 66yo with esophageal cancer, small fistulae at j-tube site, stable. - likely has advanced disease, long d/w patient and at bedside - has option of fistulae care with ostomy bad, oral diet and DC home +/- hospice , or can undergo surgery for fistulae and diagnostic lap for possible advance cancer. Eric Vega MD Jun 17, 2017 17:30
[2017-06-17] MEDS ORDERED: fentaNYL 50 MCG/HR PATCH T-DERMAL SCH (18:00)
[2017-06-17] MEDS: SODIUM ACETATE IV-CENTRAL SCH ×9 (20:54)
[2017-06-17] MEDS: SODIUM CHLORIDE IV-CENTRAL SCH ×9 (20:54)
[2017-06-17] MEDS: [UNRECOGNIZED DRUG - OTHER] IV-CENTRAL SCH ×9 (20:54)
[2017-06-17] MEDS: FAT EMULSION 20% INJ 250 ML (@10 mls/hr) IV-CENTRAL SCH (20:54)
[2017-06-18] VITALS (7 sets, daily range): BP systolic 100–140; BP diastolic 55–68; PULSE 81–93; RESP 16–20; TEMP 98–98.6; O2SAT 95–98
[2017-06-18] MEDS: SODIUM CHLORIDE 0.9% FLUSH 10 ML FLUSH IV FLUSH PRN ×2 (01:30→04:48)
[2017-06-18] MEDS: HYDROmorphone HCL PF 1 MG/ML VIAL IV PUSH PRN ×5 (01:30→16:14)
[2017-06-18] MEDS: MIDODRINE 5 MG TAB PO SCH ×3 (06:47→16:21)
[2017-06-18] MEDS: METOCLOPRAMIDE HCL 10 MG/2 ML VIAL IV PUSH SCH ×3 (06:47→21:16)
[2017-06-18] MEDS: INSULIN ASPART SUPPLEMENTAL SCALE SQ SCH ×4 (06:55→21:21)
[2017-06-18] MEDS: PANTOPRAZOLE SODIUM 40 MG VIAL IV PUSH SCH ×2 (09:42→21:16)
[2017-06-18] MEDS: SILVER SULFADIAZINE 1% CR 50 GM JAR TOPICAL SCH ×2 (09:45→21:00)
[2017-06-18] MEDS: INSULIN DETEMIR 100 UNITS/ML VIAL SQ SCH ×2 (09:48→21:21)
[2017-06-18] MEDS: SODIUM CHLORIDE 0.9% FLUSH 10 ML FLUSH IV FLUSH SCH ×2 (09:55→21:16)
--- NOTE | 2017-06-18 11:49 | HHI.HCPN ---
Reason for visit a. To assist with evaluation and management of symptoms including: depression, malnutrition, debility b. To assist medical decision maker(s) with: better understanding of current medical conditions; weighing benefits/burdens of medical treatment options; making medical treatment decisions. . Subjective/Interval History The patient is a 66 year old male with a history significant for esophageal cancer who presented to the ED on 06/01/17 following a visit to his oncologist office where he was receiving his last dose of chemotherapy and he had an episode of light headedness with near syncope. Patient reported having leakage issues with his J-tube over the past few days, being unable to administer any tube feeding as well as nausea and vomiting. The patient also reported several episodes of light headedness associated with position changes from a seated to standing position. In addition the patient sustained a fall with a subsequent large scalp laceration that was treated by his primary care physician several days before presentation to the ED. Of note the patient had another recent hospitalization since this initial diagnosis of esophageal cancer in March 2017 for sepsis, hypernatremia, and complications with the j-tube site. Patient examined in room today, resting comfortably, awake and alert. Denies any pain, fentanyl 50 mcg q 72 hours patch started yesterday. No nausea or vomiting. Reports some improvement in appetite. Patient's sister in law at bedside during exam. Palliative was consulted to clarify goals of treatment and provide support throughout this hospitalization. . Family/friend interactions Telephone conference with patient's Ayaka. Additional telephone conference with patient's daughter Cassia. . Advance Directives Living Will: Never completed Health Care Surrogate: Never completed Durable Power of Chalk Molding Machine Operator: Never completed Advance Directive Specifics Health Care Surrogate(s): Patient states he would like his to serve as his HCS with his daughter as an alternate HCS, however he declines filling out any written advance directives at this time. . Objective Vital Signs Date Time Temp Pulse Resp B/P (MAP) Pulse Ox O2 Delivery O2 Flow Rate FiO2 06/18/17 10:09 89 06/18/17 10:09 Room Air 06/18/17 04:00 98.0 83 20 113/66 (82) 98 06/18/17 04:00 Room Air 06/18/17 00:00 98.6 82 20 123/68 (86) 97 06/18/17 00:00 Room Air 06/17/17 20:00 79 8/30/17 20:00 Room Air 06/17/17 20:00 98.1 79 20 114/64 (81) 98 06/17/17 16:00 96.9 83 18 117/68 (84) 99 06/17/17 16:00 Room Air 06/17/17 12:00 98.3 89 18 130/72 (91) 98 06/17/17 12:00 Room Air Intake & Output 06/18/17 06/18/17 06:59 18:59 Intake Total 1109 ml Output Total 650 ml Balance 459 ml Intake Oral 480 ml TPN/PPN 504 ml Lipid 125 ml Output Urine Total 650 ml . Physical Exam CONSTITUTIONAL/GENERAL: This is a frail, thin male patient, in no apparent distress, resting comfortably in bed. TUBES/LINES/DRAINS: Subclavian port SKIN: No jaundice, rashes, or lesions. Ecchymoses on upper extremities. No wounds seen anteriorly. Skin temperature appropriate. Not diaphoretic. EYES: Pupils equal and round and reactive. Extraocular motions intact. No scleral icterus. No injection or drainage. Fundi not examined. ENT: Hearing grossly normal. Nose without bleeding or purulent drainage. CARDIOVASCULAR: Regular rate and rhythm without murmurs, gallops, or rubs. No JVD. Peripheral pulses symmetric. RESPIRATORY/CHEST: Symmetric, unlabored respirations. Clear to auscultation. Breath sounds equal bilaterally. No wheezes, rales, or rhonchi. GASTROINTESTINAL: Abdomen soft, non-tender, nondistended. Bowel sounds present. Large amount of viscous bile like drainage from fistula site. MUSCULOSKELETAL: Extremities without clubbing, cyanosis, or edema. No mottling or clubbing. NEUROLOGICAL: Awake and alert. Motor and sensory grossly within normal limits. Follows commands. Cognitively sharp. Moves all extremities. PSYCHIATRIC: No obvious anxiety/depression. no apparent hallucinations or other psychotic thought process. . Diagnostic Tests Laboratory Laboratory Tests Test 06/16/17 22:55 White Blood Count 5.1 TH/MM3 (4.0-11.0) Red Blood Count 2.76 MIL/MM3 (4.50-5.90) Hemoglobin 8.4 GM/DL (13.0-17.0) Hematocrit 25.5 % (39.0-51.0) Mean Corpuscular Volume 92.6 FL (80.0-100.0) Mean Corpuscular Hemoglobin 30.6 PG (27.0-34.0) Mean Corpuscular Hemoglobin Concent 33.0 % (32.0-36.0) Red Cell Distribution Width 22.7 % (11.6-17.2) Platelet Count 35 TH/MM3 (150-450) Mean Platelet Volume 11.0 FL (7.0-11.0) Neutrophils (%) (Auto) 61.9 % (16.0-70.0) Lymphocytes (%) (Auto) 22.6 % (9.0-44.0) Monocytes (%) (Auto) 14.7 % (0.0-8.0) Eosinophils (%) (Auto) 0.2 % (0.0-4.0) Basophils (%) (Auto) 0.6 % (0.0-2.0) Neutrophils # (Auto) 3.2 TH/MM3 (1.8-7.7) Lymphocytes # (Auto) 1.2 TH/MM3 (1.0-4.8) Monocytes # (Auto) 0.8 TH/MM3 (0-0.9) Eosinophils # (Auto) 0.0 TH/MM3 (0-0.4) Basophils # (Auto) 0.0 TH/MM3 (0-0.2) CBC Comment AUTO DIFF Differential Comment AUTO DIFF CONFIRMED Blood Urea Nitrogen 18 MG/DL (7-18) Creatinine 1.01 MG/DL (0.60-1.30) Random Glucose 138 MG/DL (74-106) Total Protein 6.4 GM/DL (6.4-8.2) Albumin 2.0 GM/DL (3.4-5.0) Calcium Level 8.5 MG/DL (8.5-10.1) Alkaline Phosphatase 96 U/L (45-117) Aspartate Amino Transf (AST/SGOT) 23 U/L (15-37) Alanine Aminotransferase (ALT/SGPT) 19 U/L (12-78) Total Bilirubin 1.3 MG/DL (0.2-1.0) Sodium Level 142 MEQ/L (136-145) Potassium Level 4.2 MEQ/L (3.5-5.1) Chloride Level 111 MEQ/L (98-107) Carbon Dioxide Level 24.1 MEQ/L (21.0-32.0) Anion Gap 7 MEQ/L (5-15) Estimat Glomerular Filtration Rate 74 ML/MIN (>89) . Result Diagram: 06/16/17225406/16/172254 Assessment and Plan Disease Oriented Problem List: (1) Esophageal adenocarcinoma (2) Sepsis (3) Abdominal pain Symptom Scale: (1) Malnutrition (2) Depression (3) Debility Pertinent Non-Medical Issues Psychosocial:Patient is originally from [place], he has been for approximately 45 years, he has two adult children, a son and a daughter. 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 Spiritual: No nondenominational affiliation. Does not desire visits from spray gun repairer helper. Legal: None known. Ethical issues impacting care: None known. Important Contacts -Ayaka Thibodeaux () [phone], . . Prognosis Patient was completely independent with ADLs prior to his recent esophageal cancer diagnosis in March 2017. He has recently had a decline in independence and ADLs due to his progressive debility, increased weakness, and dizziness. Patient has tolerated chemotherapy well according to oncology and may be a surgical candidate if his nutritional status improves and is able to regain some strength. Still awaiting additional treatment and/or surgical procedures. Prognosis dependent on clinical course. Code Status: No Code Plan * Legal decision maker: Patient is capacitated and possesses the insight to make his own medical decisions. Patient states he would like his to serve as his HCS with his daughter as an alternate HCS, however he declines filling out any written advance directives at this time. * Goals: Patient stated today he does not want to proceed with aggressive goals , he however needs time to speak with his later on this afternoon to discuss his wishes with her. Hospice philosophy and benefits introduced. Hospice consult pending patient's discussion with his . * Discussed the patient's current treatment options today via telephone with patient's and then during a separate phone call with patient's daughter. All questions were answered to the best of my ability. Pending meeting between family to decide course of action, aggressive vs comfort focused goals. * CODE STATUS: DNR * SYMPTOMS: --depression: Due to the patient's diagnosis and ongoing pain issues he is at high risk for developing situational depression. The patient may benefit from a SSRI given his current clinical situation. --malnutrition: Patient is an ongoing risk for further malnutrition due to nausea, vomiting, and reliance TPN as main source of nutrition at this time. Albumin:2.8 on admission. --debility: Patient has recently had over a 30lb weight loss, increased weakness, suffered from dizziness and multiple falls. PT following and working with patient. No recommendations at this time. Shwetha Johnson Jun 18, 2017 11:49
--- NOTE | 2017-06-18 15:07 | HHI.PR ---
Subjective Subjective Notes Resting in bed watching TV No issues overnight Objective Vitals/I&O Vital Signs Date Time Temp Pulse Resp B/P (MAP) Pulse Ox O2 Delivery O2 Flow Rate FiO2 06/18/17 10:09 89 06/18/17 10:09 Room Air 06/18/17 04:00 98.0 20 113/66 (82) 98 06/16/17 08:00 2.00 Labs Date/Time Source Procedure Growth Status 06/01/17 16:40 Blood Peripheral Aerobic Blood Culture - Final NO GROWTH IN 5 DAYS Complete 06/01/17 16:40 Blood Peripheral Anaerobic Blood Culture - Final NO GROWTH IN 5 DAYS Complete 06/06/17 20:00 Sputum Expectorated Sputum Gram Stain - Final Complete 06/06/17 20:00 Sputum Expectorated Sputum Sputum Culture - Final MODERATE GROWTH NORMAL RESPIRATORY THEODORA Complete 06/01/17 19:20 Wound Abdomen Gram Stain - Final Complete 06/01/17 19:20 Wound Abdomen Wound Culture - Final Complete Cardiovascular: Regular Lungs: Clear Abdomen: Other (prior J tube site with wound bus and sys integration senior manager in place; no issues ) Extremities: No edema A/P Assessment and Plan 66 year old male with esophageal cancer and malfunction J tube -Continue Wound Gas Flow Regulator to prior J tube site -1800 ADA diet; calorie count -Palliative care following -Still deciding if he wants to go home with Hospice vs surgery for fistula and dx lap to evaluate for possible advanced cancer -We will continue to follow Attending Statement The exam, history, and the medical decision-making described in the above note were completed with the assistance of the mid-level provider. I reviewed and agree with the findings presented. I attest that I had a [id number] encounter with the patient on the same day, and personally performed and documented my assessment and findings in the medical record. Abdominal exam: stable, no peritonitis, j-tube site with small area of drainage Karolina Arguello Jun 18, 2017 15:07 Eric Vega MD Jul 21, 2017 22:55
--- NOTE | 2017-06-18 15:26 | HHI.PR ---
Subjective Remarks No new complaints. Objective Vitals Vital Signs Date Time Temp Pulse Resp B/P (MAP) Pulse Ox O2 Delivery O2 Flow Rate FiO2 06/18/17 12:00 98.6 93 18 140/56 (84) 95 06/18/17 10:09 89 06/18/17 10:09 Room Air 06/18/17 08:00 98.0 93 18 123/67 (85) 97 06/18/17 04:00 98.0 83 20 113/66 (82) 98 06/18/17 04:00 Room Air 06/18/17 00:00 98.6 82 20 123/68 (86) 97 06/18/17 00:00 Room Air 06/17/17 20:00 79 06/17/17 20:00 Room Air 06/17/17 20:00 98.1 79 20 114/64 (81) 98 06/17/17 16:00 96.9 83 18 117/68 (84) 99 06/17/17 16:00 Room Air Result Diagram: 06/16/17 2255 06/16/17 2255 Imaging Last Impressions Chest X-Ray 06/06/17 0000 Signed Impressions: Service Date/Time: Tuesday, June 06, 2017 21:41 - CONCLUSION: No acute cardiopulmonary disease. Steve Gill MD Abdomen Fluoroscopy 06/04/17 0000 Signed Impressions: Service Date/Time: May 15:55 - CONCLUSION: Nasogastric tube placed in preparation for G-tube placement. 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 I was unable to distend the stomach sufficiently to displace the colon out of the way to place a gastrostomy tube. I have spoken to Dr Vega. 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 Only mild drainage is seen around the tube. I spoke with Dr. Vega. Jim Lucero Jr., MD Objective Remarks General: NAD, AAOx3 Chest: CTA Cardiac: Regular Abd: +BS, soft ND/NT Ext: No edema A/P Problem List: (1) Feeding tube dysfunction ICD Codes: T85.598A - Other mechanical complication of other gastrointestinal prosthetic devices, implants and grafts, initial encounter Status: Acute Plan: - Pt is a 66 y/o male with adenocarcinoma of the esophagus diagnosed in , who has been undergoing chemo and XRT since 04/2017. - He was at his oncologist's office on 06/01 to get his last dose of chemotherapy when he got very lightheaded and almost passed out. - Pt was hypotensive with systolic BP in the 80's in the office and pt was given 1 L of IV fluid bolus en route to the hospital. Upon arrival to the ED his systolic BP was in the 90's. - Pt had reportedly been having issues with his J tube for a few days prior to admission and liquids were reportedly leaking out and the pt had been vomiting. He had fallen a few days prior to admission and hit his head causing a large scalp laceration and bleeding. - blood cultures (06/01/17) --> NGTD - bandemia improving, down to 14 on 06/14 - Zosyn and Vancomycin were given emperically. - J tube evaluation (06/02/17). 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 Only mild drainage is seen around the tube - Case was d/w Dr. Vega (06/03/17) - Case d/w Dr. Lucero (06/03/17) - G- tube could NOT be placed by IR - J-tube removed & urostomy bag placed over j-tube/fistula site, continued drainage - GI performed EGD with bx on 06/09, no stent placed, severe gastritis, circumferential area in esophagus, no obstruction. - sputum studies (06/06) --> no growth - Cont. TPN - IV PPI - IV Reglan - Pt diet advanced to 1800 ADA, pureed, on 06/15. But, pt c/o vomiting/spitting up PO intake after about 15 min - Zosyn stopped on 06/15 & observe - low dose midodrine d/t orthostatic hypotension - Levemir 20 unit BID - PT - pt/ met with Dr. Vega today. Surgery only for staging. - Case d/w Dr. Medina (06/17/17) - consider repeat EGD - Palliative Medicine following - start fentanyl transdermal 50 mcg daily - would like to decrease/eliminate prn IV dialaudid - DVT prophylaxis 06/18/17 - pt c/o left knee pain - pt interviewed and examined together with Oncology PROGRAM ENGINEERKrystal Thayer. 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 - He underwent exploratory lap and J tube placement by Dr. Sanchez on . - Pt has been undergoing weekly Carboplatin and Taxol with radiation - Pt follows with Dr. Medina (4) Sepsis ICD Codes: A41.9 - Sepsis, unspecified organism Status: Acute Plan: - See above (5) Dehydration ICD Codes: E86.0 - Dehydration Status: Resolved Plan: - See above. Assessment and Plan Patient examined. Assessment and plan formulated with Michelle Urbina PA-C. I agree with the above. Problem Qualifiers (1) Hypotension: (2) Sepsis: See Jacobson DO Jun 18, 2017 15:25
[2017-06-18] MEDS ORDERED: KETOROLAC TROMETHAMINE 30 MG/ML (IVP) VIAL IV PUSH PRN (15:30)
--- NOTE | 2017-06-18 16:19 | PD.ONC.PN ---
Subjective Subjective Remarks "I don't want another endoscopy. I want to go to hospice" Objective Data Date Time Temp Pulse Resp B/P (MAP) Pulse Ox O2 Delivery O2 Flow Rate FiO2 06/18/17 12:00 98.6 93 18 140/56 (84) 95 06/18/17 10:09 89 06/18/17 10:09 Room Air 06/18/17 08:00 98.0 93 18 123/67 (85) 97 06/18/17 04:00 98.0 83 20 113/66 (82) 98 06/18/17 04:00 Room Air 06/18/17 00:00 98.6 82 20 123/68 (86) 97 06/18/17 00:00 Room Air 06/17/17 20:00 79 06/17/17 20:00 Room Air 06/17/17 20:00 98.1 79 20 114/64 (81) 98 06/18/17 06/18/17 06/18/17 07:00 15:00 23:00 Intake Total 1109 ml Output Total 650 ml Balance 459 ml Result Diagram: 06/16/17225406/16/175 Administered Medications Medications (Trade) Dose Ordered Sig/Ab Route PRN Reason Start Time Stop Time Status Last Admin Dose Admin Sodium Chloride (NS Flush) 2 ml UNSCH PRN IV FLUSH FLUSH AFTER USING IV ACCESS 06/01/17 17:00 06/18/17 04:48 Sodium Chloride (NS Flush) 2 ml BID IV FLUSH 06/01/17 21:00 06/18/17 09:55 Ondansetron HCl (Zofran Inj) 4 mg Q6H PRN IVP NAUSEA OR VOMITING 06/01/17 17:00 06/17/17 15:35 Insulin Aspart (NovoLOG SUPPLEMENTAL SCALE) 1 ACHS SLIDING SCALE SQ 06/01/17 21:00 06/18/17 12:07 Silver Sulfadiazine (Silvadene 1% Cream (50 Gm)) 1 applic Q12HR TOPICAL 06/05/17 21:00 06/17/17 09:45 Fat Emulsion Intravenous 250 ml @ 10 mls/hr Q24H IV-CENTRAL 06/05/17 20:00 06/17/17 20:54 Sodium Chloride 4 meq/Sodium Acetate 13.5 meq/ Potassium Chloride 80 meq/ Sodium Phosphate 20 meq/Magnesium Chloride 5 meq/ Calcium Chloride 4.5 meq/ Multivitamins 10 ml/Folic Acid 1 mg/Amino Acids/ Dextrose 1,068.7969 ml @ 42 mls/hr Q24H IV-CENTRAL 06/09/17 20:00 06/17/17 20:54 Insulin Detemir (Levemir Inj) 20 units BID SQ 06/10/17 21:00 06/18/17 09:48 Pantoprazole Sodium (Protonix Inj) 40 mg Q12H IV PUSH 06/10/17 21:00 06/18/17 09:42 Metoclopramide HCl (Reglan Inj) 10 mg Q8HR IV PUSH 06/11/17 14:00 06/18/17 14:48 Midodrine (Proamatine) 2.5 mg TID@,,17 PO 06/12/17 12:00 06/18/17 11:56 Acetaminophen/ Hydrocodone Bitart ([place] 7.5-325 Mg) 1 tab Q4H PRN PO pain 2-5 06/16/17 12:15 06/16/17 13:27 Hydromorphone HCl (Dilaudid Pf Inj) 1 mg Q3HR PRN IV PUSH pain 6-10 06/16/17 12:15 06/18/17 12:53 Fentanyl (Duragesic 50 Mcg Patch.72 Hr) 1 patch Q3D T-DERMAL 06/17/17 18:00 06/17/17 18:49 Objective Remarks GENERAL: Older male, resting in bed watching TV in no acute distress. Sister-in- law at bedside. SKIN: Warm and dry. HEAD: Normocephalic. EYES: No injection or drainage. NECK: Supple, trachea midline. CARDIOVASCULAR: Regular rate and rhythm without murmurs. RESPIRATORY: Clear anteriorly. Breathing unlabored. GASTROINTESTINAL: Abdomen soft, tender to L side. Drainage bag over fistula draining fartun fluid. EXTREMITIES: No cyanosis, or edema. NEUROLOGICAL: No obvious focal deficit. Awake, alert, and oriented x3. Assessment/Plan Problem List: (1) Esophageal adenocarcinoma ICD Codes: C15.9 - Malignant neoplasm of esophagus, unspecified Status: Chronic Plan: -- A PET scan done earlier this month showed no metastatic disease -- Radiation finished last week -- He missed the last dose of chemotherapy on June 01 d/t hypotension -- last EGD showed circumferential and abnormal mucosa noted in the mid and distal esophagus. No obstruction noted. Hx/Workup: The patient was diagnosed in March 2017 and was started on concurrent radiation, weekly carboplatin and Taxol. He had a brief interruption of treatment in April and was admitted with GI bleeding. His J-tube was replaced at that time. He was supposed to have his final chemotherapy on June 01 that was found to be hypotensive, dizzy and was subsequently sent to the ER. During this hospitalization he has developed an enterocutaneous fistula. The tube was removed and is currently has a bag covering to collect drainage. He has been on TPN and completed radiation last week. 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 The patient reports he does not wish to have another endoscopy done. He would like to go home with hospice. I have spoken with the patient's sister-in- law and she tells me that he likely would never have any treatment if it weren' t for his . 2. Hospice consulted per attending. 3. We can place a PEG tube if the pt desires prior to discharge. Discussed with Dr Medina Discussed with Dr Jacobson. Attending Statement The exam, history, and the medical decision-making described in the above note were completed with the assistance of the mid-level provider. I reviewed and agree with the findings presented. I attest that I had a [id number] encounter with the patient on the same day, and personally performed and documented my assessment and findings in the medical record. Pt feeling slightly better. I had an extensive discussion with him this morning regarding his condition. I told him there is possibility that he has progression of cancer to the stomach. I recommend repeating another EGD and biopsy of the gastric mucosa. He told me he does not want aggressive procedure but he want to talk to his first. However, in the afternoon, he decided not to have any procedure and want hospice care. I have also discussed with his last night and his daughter today. His daughter wants to talk to him again tomorrow and she is hoping that he would have the EGD and consider palliative treatment even if he has progression of disease. I have discussed with , patient is not able to go to hospice with TPN, he will talk to patient about PEG placement which can perform. Krystal Sorensen Jun 18, 2017 16:19 Darwin Medina MD Jun 18, 2017 17:13
--- NOTE | 2017-06-18 16:56 | HHI.GIFU ---
Subjective Remarks Pt resting in bed, sister in law at bedside. He says he is eating a little. No new complaints. He is not agreeing to PEG tube at this time, wants to d/w . (Dilia Wright) Objective Vitals I&O Vital Signs Date Time Temp Pulse Resp B/P (MAP) Pulse Ox O2 Delivery O2 Flow Rate FiO2 06/18/17 12:00 98.6 93 18 140/56 (84) 95 06/18/17 10:09 89 06/18/17 10:09 Room Air 06/18/17 08:00 98.0 93 18 123/67 (85) 97 06/18/17 04:00 98.0 83 20 113/66 (82) 98 06/18/17 04:00 Room Air 06/18/17 00:00 98.6 82 20 123/68 (86) 97 06/18/17 00:00 Room Air 06/17/17 20:00 79 06/17/17 20:00 Room Air 06/17/17 20:00 98.1 79 20 114/64 (81) 98 I/O 06/17/17 06/17/17 06/17/17 06/18/17 06/18/17 06/18/17 07:00 15:00 23:00 07:00 15:00 23:00 Intake Total 360 ml 1602 ml 1109 ml Output Total 400 ml 550 ml 675 ml 650 ml Balance -40 ml -550 ml 927 ml 459 ml Intake Oral 360 ml 480 ml 480 ml IV Total 1122 ml TPN/PPN 504 ml Lipid 125 ml Output Urine Total 400 ml 575 ml 650 ml Drainage Total 550 ml 100 ml # Bowel Movements 0 0 Laboratory Date/Time Source Procedure Growth Status 06/01/17 16:40 Blood Peripheral Aerobic Blood Culture - Final NO GROWTH IN 5 DAYS Complete 06/01/17 16:40 Blood Peripheral Anaerobic Blood Culture - Final NO GROWTH IN 5 DAYS Complete 06/06/17 20:00 Sputum Expectorated Sputum Gram Stain - Final Complete 06/06/17 20:00 Sputum Expectorated Sputum Sputum Culture - Final MODERATE GROWTH NORMAL RESPIRATORY THEODORA Complete 06/01/17 19:20 Wound Abdomen Gram Stain - Final Complete 06/01/17 19:20 Wound Abdomen Wound Culture - Final Complete Physical Exam HEENT: Normocephalic; atraumatic; no jaundice. CHEST: CTA CARDIAC: RRR ABDOMEN: Soft, nondistended, nontender; no hepatosplenomegaly; bowel sounds are present in all four quadrants. drainage bag to fistula site- moderate amt mustard color watery drainage EXTREMITIES: no clubbing cyanosis or edema SKIN: Normal; no rash; no jaundice. PUBLIC HEALTH ADVISOR: No focal deficits; lethargic and oriented times three. (Dilia Wright) Assessment and Plan Plan ASSESSMENT: - Dysphagia/Malnutrition. Pt with hx of esophageal cancer, getting chemotherapy /radiation, s/p j tube placement. He is only able to tolerate ice chips. 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 IR was consulted and evaluated the patient for removal of J tube with G tube placement on 06/04/17, but IR was unable to sufficiently distend the stomach to place the tube surgically and felt that it would need to be placed surgically. GS has been consulted and came in yesterday and removed the J tube and placed a collection bag over the enterocutaneous fistula to collect the drainage. They would like to try an esophageal stent to see if patient would be able to take in adequate po to avoid G tube. Of note, he reports that he only has one more radiation and chemo treatment. S/P EGD (06/09/17)----> 1. Circumferential diffuse abnormal mucosa was found in the mid esophagus and distal esophagus; The mucosa was congested and had scarring; but no narrowing seen, no stent placed, multiple biopsies were performed 2. There was erythematous gastritis in the entire examined stomach; multiple biopsies were performed 3. Normal duodenal mucosa in the bulb and second portion of the duodenum 4. Retroflexion was performed and was normal. TPN. diet has been advanced to soft foods. calorie count in progress but pt still not eating much. plan for EGD with PEG placement, pt is not sure he wants this but d/w primary and will order consent in case he decides to proceed. will be made NPO after midnight. 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 Currently with collection bag with small to moderate amount clear brownish drainage. GS following. - Esophageal cancer. 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 S/P exploratory laparoscopy with J tube placement and had a port placed. Tx with neoadjuvant chemotherapy with radiation-last had chemotherapy on May 18 with paclitaxel and carboplatin. States that he only has one more chemo and one more radiation. - Sepsis. Abdominal wound with PSAE, Enterococcus faecalis, vin albicans. Rpt cx with >= 3 mixed enteric GNR with no predominant organism. Zosyn PLAN: - EGD with PEG placement tomorrow - obtain consents - NPO after midnight - 1G ancef international logistics coordinator - soft diet - TPN - Abx per attending - Monitor labs - GS following - Pt seen and examined by Dr. Arriaga and myself and this note is written on his behalf (Dilia Wright) Physician Comments After long discussion the patient decided not to have PEG placement. Will sign off for now, please notify us if needed. (Matt Arriaga MD) Dilia Wright Jun 18, 2017 16:56 Matt Arriaga MD Jun 18, 2017 19:01
[2017-06-18] MEDS: HYDROmorphone HCL PF 1 MG/ML VIAL IV PRN ×3 (18:51→23:45)
[2017-06-18] MEDS: SODIUM CHLORIDE IV-CENTRAL SCH ×9 (21:22)
[2017-06-18] MEDS: SODIUM ACETATE IV-CENTRAL SCH ×9 (21:22)
[2017-06-18] MEDS: FAT EMULSION 20% INJ 250 ML (@10 mls/hr) IV-CENTRAL SCH (21:22)
[2017-06-18] MEDS: [UNRECOGNIZED DRUG - OTHER] IV-CENTRAL SCH ×9 (21:22)
[2017-06-19] VITALS: BP 115/67; PULSE 86; RESP 20; TEMP 98.8; O2SAT 97
[2017-06-19] MEDS: HYDROmorphone HCL PF 1 MG/ML VIAL IV PRN ×6 (01:55→14:07)
[2017-06-19 04:00] VITALS: BP 131/67; PULSE 87; RESP 18; TEMP 98.3; O2SAT 97
[2017-06-19] MEDS: INSULIN ASPART SUPPLEMENTAL SCALE SQ SCH ×2 (06:34→11:36)
[2017-06-19] MEDS: MIDODRINE 5 MG TAB PO SCH ×2 (06:37→11:26)
[2017-06-19] MEDS: METOCLOPRAMIDE HCL 10 MG/2 ML VIAL IV PUSH SCH ×2 (06:38→14:07)
[2017-06-19 08:00] VITALS: BP 109/55; PULSE 90; RESP 16; TEMP 98.1; O2SAT 96
[2017-06-19] MEDS: PANTOPRAZOLE SODIUM 40 MG VIAL IV PUSH SCH (09:08)
[2017-06-19] MEDS: SODIUM CHLORIDE 0.9% FLUSH 10 ML FLUSH IV FLUSH SCH (09:09)
[2017-06-19] MEDS: SILVER SULFADIAZINE 1% CR 50 GM JAR TOPICAL SCH (09:09)
[2017-06-19] MEDS: INSULIN DETEMIR 100 UNITS/ML VIAL SQ SCH (09:14)
--- NOTE | 2017-06-19 10:02 | PD.ONC.PN ---
Subjective Subjective Remarks Afebrile overnight. Patient resting in bed in nad. No complaints. WAiting to talk with hospice. Objective Data Date Time Temp Pulse Resp B/P (MAP) Pulse Ox O2 Delivery O2 Flow Rate FiO2 06/19/17 08:00 98.1 90 16 109/55 (73) 96 06/19/17 05:30 Room Air 06/19/17 04:00 98.3 87 18 131/67 (88) 97 06/19/17 00:00 98.8 86 20 115/67 (83) 97 06/18/17 20:53 98.6 86 20 117/60 (79) 96 06/18/17 20:00 Room Air 06/18/17 16:00 98.3 81 16 100/55 (70) 96 06/18/17 12:00 98.6 93 18 140/56 (84) 95 06/18/17 10:09 89 06/18/17 10:09 Room Air 06/19/17 06/19/17 06/19/17 07:00 15:00 23:00 Intake Total 1286 ml Output Total 525 ml 125 ml Balance 761 ml -125 ml Result Diagram: 06/16/17225406/16/17 225 Administered Medications Medications (Trade) Dose Ordered Sig/Ab Route PRN Reason Start Time Stop Time Status Last Admin Dose Admin Sodium Chloride (NS Flush) 2 ml UNSCH PRN IV FLUSH FLUSH AFTER USING IV ACCESS 06/01/17 17:00 06/18/17 04:48 Sodium Chloride (NS Flush) 2 ml BID IV FLUSH 06/01/17 21:00 06/19/17 09:09 Ondansetron HCl (Zofran Inj) 4 mg Q6H PRN IVP NAUSEA OR VOMITING 06/01/17 17:00 06/17/17 15:35 Insulin Aspart (NovoLOG SUPPLEMENTAL SCALE) 1 ACHS SLIDING SCALE SQ 06/01/17 21:00 06/19/17 06:34 Silver Sulfadiazine (Silvadene 1% Cream (50 Gm)) 1 applic Q12HR TOPICAL 06/05/17 21:00 06/17/17 09:45 Fat Emulsion Intravenous 250 ml @ 10 mls/hr Q24H IV-CENTRAL 06/05/17 20:00 06/18/17 21:22 Sodium Chloride 4 meq/Sodium Acetate 13.5 meq/ Potassium Chloride 80 meq/ Sodium Phosphate 20 meq/Magnesium Chloride 5 meq/ Calcium Chloride 4.5 meq/ Multivitamins 10 ml/Folic Acid 1 mg/Amino Acids/ Dextrose 1,068.7969 ml @ 42 mls/hr Q24H IV-CENTRAL 06/09/17 20:00 06/18/17 21:22 Insulin Detemir (Levemir Inj) 20 units BID SQ 06/10/17 21:00 06/19/17 09:14 Pantoprazole Sodium (Protonix Inj) 40 mg Q12H IV PUSH 06/10/17 21:00 06/19/17 09:08 Metoclopramide HCl (Reglan Inj) 10 mg Q8HR IV PUSH 06/11/17 14:00 06/19/17 06:38 Midodrine (Proamatine) 2.5 mg TID@07,,17 PO 06/12/17 12:00 06/19/17 06:37 Acetaminophen/ Hydrocodone Bitart ([place] 7.5-325 Mg) 1 tab Q4H PRN PO pain 2-5 06/16/17 12:15 06/16/17 13:27 Fentanyl (Duragesic 50 Mcg Patch.72 Hr) 1 patch Q3D T-DERMAL 06/17/17 18:00 06/17/17 18:49 Ketorolac Tromethamine (Toradol Inj) 15 mg Q6HR PRN IV PUSH joint pain 06/18/17 15:30 06/23/17 15:29 06/18/17 18:51 Hydromorphone HCl (Dilaudid Pf Inj) 1 mg Q2H PRN IV PAIN SCALE 6 TO 10 06/18/17 18:45 06/19/17 09:09 Objective Remarks GENERAL: Middle aged male upright in bed in [facility]. SKIN: Warm and dry. HEAD: Normocephalic. EYES: No injection or drainage. NECK: Supple, trachea midline. CARDIOVASCULAR: Regular rate and rhythm RESPIRATORY: Breath sounds equal bilaterally. No accessory muscle use. GASTROINTESTINAL: Abdomen soft, +ostomy bag in place. EXTREMITIES: No cyanosis NEUROLOGICAL: No obvious focal deficit. Awake, alert, and oriented x3. Assessment/Plan Problem List: (1) Esophageal adenocarcinoma ICD Codes: C15.9 - Malignant neoplasm of esophagus, unspecified Status: Chronic Plan: -- PET scan done earlier this month showed no metastatic disease -- Radiation finished last week -- He missed the last dose of chemotherapy on June 01 d/t hypotension -- last EGD showed circumferential and abnormal mucosa noted in the mid and distal esophagus. No obstruction noted. Hx/Workup: The patient was diagnosed in March 2017 and was started on concurrent radiation, weekly carboplatin and Taxol. He had a brief interruption of treatment in April and was admitted with GI bleeding. His J-tube was replaced at that time. He was supposed to have his final chemotherapy on June 01 that was found to be hypotensive, dizzy and was subsequently sent to the ER. During this hospitalization he has developed an enterocutaneous fistula. The tube was removed and is currently has a bag covering to collect drainage. He has been on TPN and completed radiation last week. 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 await hospice 2. continue supportive care Attending Statement The exam, history, and the medical decision-making described in the above note were completed with the assistance of the mid-level provider. I reviewed and agree with the findings presented. I attest that I had a [id number] encounter with the patient on the same day, and personally performed and documented my assessment and findings in the medical record. Feeling better. Eat small amount of soft food and drink. Discussed EGD and PEG placement for nutrition support but patient refused. He and his will talk to hospice today. Told him to f/u with oncology if he is d/c and if he wants further intervention/treatment. Isabel Vang Jun 19, 2017 10:02 Darwin Medina MD Jun 19, 2017 15:04
[2017-06-19 10:34] VITALS: PULSE 84
[2017-06-19 12:00] VITALS: BP 114/68; PULSE 90; RESP 16; TEMP 97.7; O2SAT 96
--- NOTE | 2017-06-19 12:49 | HHI.DS ---
Discharge Summary Admission Date Jun 01, 2017 at 17:19 Discharge Date: Jun 19, 2017 Admitting Diagnosis sepsis, hypotension, esophageal cancer (1) Feeding tube dysfunction Diagnosis: Principal ICD Codes: T85.598A - Other mechanical complication of other gastrointestinal prosthetic devices, implants and grafts, initial encounter Status: Acute (2) Hypotension Diagnosis: Principal ICD Codes: I95.9 - Hypotension, unspecified Status: Acute (3) Esophageal adenocarcinoma Diagnosis: Secondary ICD Codes: C15.9 - Malignant neoplasm of esophagus, unspecified Status: Chronic (4) Sepsis Diagnosis: Secondary ICD Codes: A41.9 - Sepsis, unspecified organism Status: Acute (5) Dehydration Diagnosis: Secondary ICD Codes: E86.0 - Dehydration Status: Resolved Brief History 66-year-old male with history of esophageal cancer,dx march 2017 poorly diff adenocarcinoma was at his oncologist's office to get his last dose of chemotherapy Tazol and carboplatin when he got very lightheaded and almost passed out. EMS was called and patient was brought in by ambulance. He says currently he feels woozy. His is here was giving additional history. Patient has a G-tube that has started to leak feed around it. Over the past few days she has not been able to get anything in since all the liquid keeps leaking out. In addition he has been vomiting. He has been very lightheaded these past few days every time he gets up. In fact few days ago he had fallen and hit his head causing a large scalp laceration and bleeding. He was seen by his primary care but patient seems to come to the emergency room. His says that this is getting dangerous at home. He was not given chemotherapy given his condition today. Upon arrival his blood pressure was 93 systolic. He had received 1 L of IV fluid bolus on route. Blood pressure in the clinic was in the 80s. Blood glucose level in the ER was 93. Patient will be admitted for IV fluid antibiotics and evaluation of j tube leak. CBC/BMP: 06/16/17225406/16/172254 Significant Findings Laboratory Tests Test 06/16/17 22:55 Red Blood Count 2.76 MIL/MM3 (4.50-5.90) Hemoglobin 8.4 GM/DL (13.0-17.0) Hematocrit 25.5 % (39.0-51.0) Red Cell Distribution Width 22.7 % (11.6-17.2) Platelet Count 35 TH/MM3 (150-450) Monocytes (%) (Auto) 14.7 % (0.0-8.0) Random Glucose 138 MG/DL (74-106) Albumin 2.0 GM/DL (3.4-5.0) Total Bilirubin 1.3 MG/DL (0.2-1.0) Chloride Level 111 MEQ/L (98-107) Estimat Glomerular Filtration Rate 74 ML/MIN (>89) Imaging Last Impressions Chest X-Ray 06/06/17 0000 Signed Impressions: Service Date/Time: Tuesday, June 06, 2017 21:41 - CONCLUSION: No acute cardiopulmonary disease. Steve Gill MD Abdomen Fluoroscopy 06/04/17 0000 Signed Impressions: Service Date/Time: May 15:55 - CONCLUSION: Nasogastric tube placed in preparation for G-tube placement. 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 I was unable to distend the stomach sufficiently to displace the colon out of the way to place a gastrostomy tube. I have spoken to Dr Vega. 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 Only mild drainage is seen around the tube. I spoke with Dr. Vega. Jim Lucero Jr., MD PE at Discharge General: NAD, AAOx3 Chest: CTA Cardiac: Regular Abd: +BS, soft ND/NT Ext: No edema Hospital Course - Pt is a 66 y/o male who was diagnosed in March 2017 with invasive poorly differentiated adenocarcinoma of the esophagus. He underwent exploratory lap and J tube placement by Dr. Sanchez on 03/31/17. Pt has been undergoing weekly Carboplatin and Taxol with radiation since 04/2017. Pt follows with Dr. Medina. He was at his oncologist's office on 06/01 to get his last dose of chemotherapy when he got very lightheaded and almost passed out. Pt was hypotensive with systolic BP in the 80's in the office and pt was given 1 L of IV fluid bolus en route to the hospital. Upon arrival to the ED his systolic BP was in the 90's. Pt had reportedly been having issues with his J tube for a few days prior to admission and liquids were reportedly leaking out and the pt had been vomiting. He had fallen a few days prior to admission and hit his head causing a large scalp laceration and bleeding. Blood cultures (06/01/17) --> NGTD. Pt had noted bandemia at admission. He was started on Zosyn and Vancomycin empirically with improvement down to 14 on 06/14. J tube evaluation (). 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 Only mild drainage is seen around the tube. G- tube could NOT be placed by IR. J-tube was removed & urostomy bag placed over j-tube/fistula site, and he has had continued drainage. GI performed EGD with bx on 06/09, no stent placed, severe gastritis, circumferential area in esophagus, no obstruction. Sputum studies () --> no growth Pt had PICC line placed and was started on TPN 06/06. He was given IV PPI and IV Reglan. Pt diet advanced to 1800 ADA, pureed, on 06/15. But, pt c/o vomiting/ spitting up PO intake after about 15 min. Zosyn stopped on 06/15. Pt was given low dose midodrine d/t orthostatic hypotension. Pt/ met with Dr. Vega today and surgery was recommended only for staging. Palliative Medicine was consulted. Pt was started on Fentanyl transdermal 50 mcg daily for pain control. On 06/18/17 pt decided that he did NOT want further evaluation or treatment. Pt request Hospice for symptom mgmt. Its anticipated that if TPN stopped, he will start to decline more rapidly. Case d/w GI, Oncology, and Hospice and request was made for PEG tube placement for nutritional support but pt declined. Pt Condition on Discharge: Deteriorating Discharge Instructions DIET: Follow Instructions for: As Tolerated, No Restrictions Activities you can perform: Regular-No Restrictions New Medications: Fentanyl Patch 72 HR (Duragesic Patch 72 HR) 50 Mcg/Hr Patch 1 PATCH T-DERMAL Q3D for cancer for 14 Days, PATCH Remove old patch when new one placed. Hydrocodone-Acetaminophen (Hydrocodone-Acetaminophen) 7.5-325 mg Tab 1 TAB PO Q4H PRN for pain for 14 Days, TAB Midodrine (Midodrine) 5 Mg Tab 2.5 MG PO TID@07,12,17 for hypotension, #14 TAB Continued Medications: Insulin Aspart Inj (Novolog Inj) 1,000 Unit/10 Ml Vial 0 SQ DIRECTED for Blood Sugar Management, #10 ML 0 Refills Sliding Scale as directed. Pantoprazole (Protonix) 40 Mg Tab 40 MG PEG DAILY for Ulcer Prevention, #30 TAB 0 Refills Discontinued Medications: Allopurinol (Zyloprim) 100 Mg Tab 100 MG J-TUBE DAILY for gout, #30 TAB 0 Refills Insulin Glargine Inj (Lantus Inj) 1,000 Unit/10 Ml Vial 15 UNITS SQ HS for Blood Sugar Management for 30 Days, VIAL 0 Refills 15 units every evening 10 units every morning Oxycodone (Oxycodone) 20 Mg Tab 20 MG J-TUBE Q4-6H PRN for PAIN SCALE 3 TO 6, TAB 0 Refills Michelle Urbina Jun 19, 2017 12:49 See Jacobson DO Jun 20, 2017 01:20
[2017-06-19] MEDS ORDERED: HYDR-3580 PO (13:38)
[2017-06-19] MEDS ORDERED: FENT50T T-DERMAL (13:38)
[2017-06-19] MEDS ORDERED: MIDO5TAB PO (13:38)
--- NOTE | 2017-06-19 14:11 | HHI.HCPN ---
Reason for visit a. To assist with evaluation and management of symptoms including: depression, malnutrition, debility b. To assist medical decision maker(s) with: better understanding of current medical conditions; weighing benefits/burdens of medical treatment options; making medical treatment decisions. . (Shwetha Johnson) Subjective/Interval History The patient is a 66 year old male with a history significant for esophageal cancer who presented to the ED on 06/01/17 following a visit to his oncologist office where he was receiving his last dose of chemotherapy and he had an episode of light headedness with near syncope. Of note the patient had another recent hospitalization since this initial diagnosis of esophageal cancer in March 2017 for sepsis, hypernatremia, and complications with the j-tube site. Patient examined in room today, at bedside, resting comfortably, awake and alert. Complaining of pain in his left knee, awaiting PRN pain medication from RN. Awaiting discharge home with Hospice today. No nausea or vomiting. Reports some improvement in appetite. . Family/friend interactions Bedside conversation with patient's . Telephone message left for patient's daughter. (Shwetha Johnson) Advance Directives Living Will: Never completed Health Care Surrogate: Never completed Durable Power of Container Washer: Never completed (Shwetha Johnson) Objective Vital Signs Date Time Temp Pulse Resp B/P (MAP) Pulse Ox O2 Delivery O2 Flow Rate FiO2 06/19/17 12:00 97.7 90 16 114/68 (83) 96 06/19/17 10:34 84 06/19/17 09:17 Room Air 06/19/17 08:00 98.1 90 16 109/55 (73) 96 06/19/17 05:30 Room Air 06/19/17 04:00 98.3 87 18 131/67 (88) 97 06/19/17 00:00 98.8 86 20 115/67 (83) 97 06/18/17 20:53 98.6 86 20 117/60 (79) 96 06/18/17 20:00 Room Air 06/18/17 16:00 98.3 81 16 100/55 (70) 96 Intake & Output 06/19/17 06/19/17 06:59 18:59 Intake Total 1974 ml Output Total 985 ml 125 ml Balance 989 ml -125 ml Intake Oral 720 ml IV Total 1254 ml Output Urine Total 525 ml Drainage Total 460 ml 125 ml Physical Exam CONSTITUTIONAL/GENERAL: This is a frail, thin male patient, in no apparent distress, resting comfortably in bed. TUBES/LINES/DRAINS: Subclavian port SKIN: No jaundice, rashes, or lesions. Ecchymoses on upper extremities. No wounds seen anteriorly. Skin temperature appropriate. Not diaphoretic. CARDIOVASCULAR: Regular rate and rhythm without murmurs, gallops, or rubs. No JVD. Peripheral pulses symmetric. RESPIRATORY/CHEST: Symmetric, unlabored respirations. Clear to auscultation. Breath sounds equal bilaterally. No wheezes, rales, or rhonchi. GASTROINTESTINAL: Bowel sounds present. Large amount of viscous bile like drainage from fistula site. MUSCULOSKELETAL: Extremities without clubbing, cyanosis, or edema. No mottling or clubbing. NEUROLOGICAL: Awake and alert. Motor and sensory grossly within normal limits. Follows commands. Cognitively sharp. Moves all extremities. PSYCHIATRIC: No obvious anxiety/depression. No apparent hallucinations or other psychotic thought process. . ([facility],Shwetha JIMENEZP) Diagnostic Tests Laboratory Laboratory Tests Test 06/16/17 22:55 White Blood Count 5.1 TH/MM3 (4.0-11.0) Red Blood Count 2.76 MIL/MM3 (4.50-5.90) Hemoglobin 8.4 GM/DL (13.0-17.0) Hematocrit 25.5 % (39.0-51.0) Mean Corpuscular Volume 92.6 FL (80.0-100.0) Mean Corpuscular Hemoglobin 30.6 PG (27.0-34.0) Mean Corpuscular Hemoglobin Concent 33.0 % (32.0-36.0) Red Cell Distribution Width 22.7 % (11.6-17.2) Platelet Count 35 TH/MM3 (150-450) Mean Platelet Volume 11.0 FL (7.0-11.0) Neutrophils (%) (Auto) 61.9 % (16.0-70.0) Lymphocytes (%) (Auto) 22.6 % (9.0-44.0) Monocytes (%) (Auto) 14.7 % (0.0-8.0) Eosinophils (%) (Auto) 0.2 % (0.0-4.0) Basophils (%) (Auto) 0.6 % (0.0-2.0) Neutrophils # (Auto) 3.2 TH/MM3 (1.8-7.7) Lymphocytes # (Auto) 1.2 TH/MM3 (1.0-4.8) Monocytes # (Auto) 0.8 TH/MM3 (0-0.9) Eosinophils # (Auto) 0.0 TH/MM3 (0-0.4) Basophils # (Auto) 0.0 TH/MM3 (0-0.2) CBC Comment AUTO DIFF Differential Comment AUTO DIFF CONFIRMED Blood Urea Nitrogen 18 MG/DL (7-18) Creatinine 1.01 MG/DL (0.60-1.30) Random Glucose 138 MG/DL (74-106) Total Protein 6.4 GM/DL (6.4-8.2) Albumin 2.0 GM/DL (3.4-5.0) Calcium Level 8.5 MG/DL (8.5-10.1) Alkaline Phosphatase 96 U/L (45-117) Aspartate Amino Transf (AST/SGOT) 23 U/L (15-37) Alanine Aminotransferase (ALT/SGPT) 19 U/L (12-78) Total Bilirubin 1.3 MG/DL (0.2-1.0) Sodium Level 142 MEQ/L (136-145) Potassium Level 4.2 MEQ/L (3.5-5.1) Chloride Level 111 MEQ/L (98-107) Carbon Dioxide Level 24.1 MEQ/L (21.0-32.0) Anion Gap 7 MEQ/L (5-15) Estimat Glomerular Filtration Rate 74 ML/MIN (>89) . ([facility],Shwetha Antony [facility]) Result Diagram: 06/16/17 06/16/171 Assessment and Plan Disease Oriented Problem List: (1) Esophageal adenocarcinoma (2) Sepsis (3) Abdominal pain Symptom Scale: (1) Malnutrition (2) Depression (3) Debility Pertinent Non-Medical Issues Psychosocial:Patient is originally from [place], he has been for approximately 45 years, he has two adult children, a son and a daughter. 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 Spiritual: No mormonism affiliation. Does not desire visits from physical therapy director. Legal: None known. Ethical issues impacting care: None known. Important Contacts -Ayaka Thibodeaux () [phone], . . Prognosis Code Status: No Code Plan * Legal decision maker: Patient is capacitated and possesses the insight to make his own medical decisions. * Goals: Comfort focused goals. Patient is being discharge home with Hospice today. * Follow up provided today for anticipatory guidance regarding comfort focused goals. * CODE STATUS: DNR . (Shwetha Johnson) Collaborating Comments Concur with above documentation by Zuri TOVAR . (Ana Joaquin) Shwetha Johnson Jun 19, 2017 14:11 Ana Joaquin Jun 19, 2017 16:40
== END 2017-06-19 15:55 | disposition hospice, home (50) | DRG 393 ==
LOC: NEPC 14:48 → NEDA 17:19 → N04B 21:30
PROVIDERS: ADMIT Hospitalist; ATTEND Hospitalist
PROC: 3E0336Z Introduction of Nutritional Substance into Peripheral Vein, Percutaneous Approach (ICD-10-PCS; 2017-06-06)
PROC: 0DB68ZX Excision of Stomach, Via Natural or Artificial Opening Endoscopic, Diagnostic (ICD-10-PCS; 2017-06-09)
PROC: 0DB58ZX Excision of Esophagus, Via Natural or Artificial Opening Endoscopic, Diagnostic (ICD-10-PCS; principal; 2017-06-09 11:45)
DX: K94.19 Other complications of enterostomy (principal); A41.9 Sepsis, unspecified organism; E87.0 Hyperosmolality and hypernatremia; K63.2 Fistula of intestine; E46 Unspecified protein-calorie malnutrition; D61.818 Other pancytopenia; C15.9 Malignant neoplasm of esophagus, unspecified; R13.10 Dysphagia, unspecified; E86.0 Dehydration; I12.9 Hypertensive chronic kidney disease with stage 1 through stage 4 chronic kidney disease, or unspecified chronic kidney disease; K94.13 Enterostomy malfunction; K21.9 Gastro-esophageal reflux disease without esophagitis; S01.01XA Laceration without foreign body of scalp, initial encounter; E78.5 Hyperlipidemia, unspecified; K29.70 Gastritis, unspecified, without bleeding; E87.6 Hypokalemia; N18.9 Chronic kidney disease, unspecified; E11.22 Type 2 diabetes mellitus with diabetic chronic kidney disease; M10.9 Gout, unspecified; I95.1 Orthostatic hypotension; M25.562 Pain in left knee; F32.9 Major depressive disorder, single episode, unspecified; Y83.3 Surgical operation with formation of external stoma as the cause of abnormal reaction of the patient, or of later complication, without mention of misadventure at the time of the procedure; Y84.2 Radiological procedure and radiotherapy as the cause of abnormal reaction of the patient, or of later complication, without mention of misadventure at the time of the procedure; Z51.5 Encounter for palliative care; Z66 Do not resuscitate; Z68.21 Body mass index [BMI] 21.0-21.9, adult; Z80.1 Family history of malignant neoplasm of trachea, bronchus and lung; Z79.4 Long term (current) use of insulin; Z80.3 Family history of malignant neoplasm of breast; Z80.42 Family history of malignant neoplasm of prostate; Z87.891 Personal history of nicotine dependence; Z92.21 Personal history of antineoplastic chemotherapy
CPT/HCPCS: 20225; 27096; 43752; 49465; 71010; 71020; 80048; 80053; 80202; 82948; 83605; 83735; 85007; 85025; 85027; 85610; 85730; 86850; 86900; 86901; 87040; 87070; 87205; 88305; 88312; 93005; 96361; 96365; C1769; C1887; C9113; G0259; J1170; J1610; J1815; J1885; J2250; J2405; J2543; J2765; J3010; J3370; J3480; J7030; J7040; J7050; Q9967